=== PATIENT | male | born 1950 | race Caucasian/White ===

== ENCOUNTER 2019-01-01 14:54 | Inpatient (IN) ==
[2019-01-01] MEDS ORDERED: SODIUM CHLORIDE 0.9% 1000ML 2,000 ML IV ONE (15:16)
[2019-01-01] MEDS ORDERED: ACETAMINOPHEN 1,000 MG/100 ML VIAL IV STA (15:16)
[2019-01-01 16:02] LABS: Hematocrit (blood only) 32.4 % (42-52); Hemoglobin 10.8 g/dL (14.0-18.0); Mean Corpuscular Hgb Conc 33.3 g/dL (32-36); Mean Corpuscular Volume 85.5 fL (80-100); Mean Platelet Volume 9.4 fL (7.4-10.4); Platelet Count 210 K/uL (130-400); RDW Coefficient of Variation 13.6 % (11.5-14.5); RDW Standard Deviation 42.4 fL (36.4-46.3); Red Blood Count 3.79 M/uL (4.7-6.1); White Blood Count 8.02 K/uL (4.8-10.8)
[2019-01-01 16:12] LABS: INR 1.2 (0.9-1.1); Partial Thromboplastin Ratio 1.2; Partial Thromboplastin Time 33.4 Seconds (21.0-31.0); Prothrombin Time 12.3 Seconds (9.0-12.0)
--- NOTE | 2019-01-01 16:12 | XRay Report ---
SINGLE VIEW CHEST CLINICAL HISTORY: Sepsis. FINDINGS: An AP, portable, upright chest radiograph is compared to study dated 08/16/2018. The examina tion is degraded by portable technique, apical lordotic positioning, and patient rotation. The hear t is enlarged and there is mild atherosclerotic calcification of the thoracic aorta. The pulmonary va sculature is noncongested. There is mild bibasilar atelectasis. The lungs and pleural spaces are othe rwise clear. No pneumothorax is seen. The skeletal structures are osteopenic. The bony thorax is angelica sly intact. Arthritic change is seen in the shoulders and thoracic spine. Superior subluxation of the humeral heads suggests chronic rotator cuff injuries. IMPRESSION: Cardiomegaly with no acute cardiopulmonary abnormality. Electronically signed by: Jose Kam M.D. 01/01/2019 4:11 PM
[2019-01-01 16:15] LABS: Base Excess VBG 1.6 mEq/L; pH VBG 7.48 (7.36-7.41)
[2019-01-01 16:19] LABS: Albumin Level 2.2 gm/dl (3.4-5.0); Bilirubin Direct 0.2 mg/dl (0-0.2); Calcium 7.9 mg/dl (8.5-10.1); Creatinine Clr Calc Pharmacy 101.6 ml/min; Est GFR (African American) 103.5; Est GFR (Non-African American) 89.3; Magnesium 1.8 mg/dl (1.8-2.4); Potassium 3.7 mmol/L (3.5-5.1)
[2019-01-01 16:22] LABS: Albumin Globulin Ratio 0.6 (0.9-2); Bilirubin,Total 0.6 mg/dl (0.2-1); Globulin 3.8 gm/dl (2.5-4.0); Phosphorus 3.1 mg/dl (2.5-4.9)
[2019-01-01] MEDS ORDERED: IOVERSOL 100ml IV PRN (16:42)
--- NOTE | 2019-01-01 17:07 | CT Scan Report ---
ABDOMEN AND PELVIS CT WITH IV CONTRAST CT DOSE: 943.99 mGy.cm HISTORY: Acute generalized abdominal pain with bloody diarrhea bloody diarrhea, recent colitis on CT TECHNIQUE: Multiaxial CT images of the abdomen and pelvis were performed following the use of intrave nous contrast. A dose lowering technique was utilized adhering to the principles of ALARA. COMPARISON STUDY: Chest radiograph 01/01/2019 FINDINGS: The lung bases appear generally clear. There is no pneumatosis or pneumoperitoneum identified. Garza ry arterial calcifications are noted. The imaged inferior cardiac chambers are upper limits of normal in size. Interval increased attenuation about the dependent gallbladder fundus may reflect gallbladd er sludge or cholelithiasis. No CT evidence of acute cholecystitis or biliary ductal dilation. Mildly enlarged spleen, 15.6 cm in length. Indeterminate 13 mm hypodense lesion about the mid spleen. Mild marginal nodularity of the liver suggests cirrhosis. Liver is otherwise unremarkable. Patency of the hepatic and portal veins. Pancreas, and adrenal glands appear unremarkable. Mild cortical thinning ab out the bilateral kidneys. A millimeter hypodense lesion of the superior pole left kidney. 1.4 cm bertha culus of the inferior pole right kidney. No ureteral calculi or obstructive uropathy. Partial distent ion of the urinary bladder with mild wall thickening. Prostate is mildly enlarged. Moderate calcified plaque of the aorta without aneurysm. No bowel obstruction. Circumferential wall thickening of the colon is noted with pericolonic strandin g extending from the cecum through the rectum. Decompressed terminal ileum. Appendix appears noninfla med. Trace free fluid about the dependent pelvis. Stranding noted about the bilateral pericolic gutte rs. Mild generalized body wall edema. Diastases recti with small fat filled periumbilical hernia. Mul tilevel spondylitic spurring and facet arthrosis. Levoscoliosis of the lumbar spine. Suggestion of mu ltilevel central canal and foraminal narrowing. IMPRESSION: 1. Circumferential wall thickening of the colon with pericolonic stranding extending from the cecum t hrough the rectum is compatible with a nonspecific colitis. 2. No bowel obstruction, pneumatosis or pneumoperitoneum. 3. Trace amount of reactive pelvic ascites. 4. Mild marginal nodularity of the liver suggests cirrhosis. 5. Splenomegaly. 6. Additional findings as above. Electronically signed by: Fran Mathews M.D. 01/01/2019 5:05 PM
[2019-01-01 17:16] LABS: Basophils # (auto) 0.01 K/uL (0-0.2); Basophils % (auto) 0.1 %; Dohle Bodies 2+; Eosinophils # (auto) 0.04 K/uL (0-0.5); Eosinophils % (auto) 0.5 %; Immature Granulocytes # (auto) 0.04 K/uL (0.00-0.02); Immature Granulocytes % (auto) 0.5 %; Lymphocytes # (auto) 0.96 K/uL (1.2-3.4); Monocytes # (auto) 1.12 K/uL (0.11-0.59); Neutrophils # (auto) 5.85 K/uL (1.4-6.5); Neutrophils % (auto) 72.9 %; Toxic Granulation 1+
[2019-01-01] MEDS ORDERED: PIPERACILL/TAZOBAC CONSULT ACTIVE PRN (18:35)
--- NOTE | 2019-01-01 18:44 | History & Physical Report ---
Date of Service This is a 68 year old M who has been diarrhea for around 3 weeks. Patient is a poor historian and history also collaborated with family member/relative at [facility] - daughter Griselda [phone] and relative Britt [phone]. Patient has been in the past seen in [facility] emergency for which he was prescribed ciprofloxacin and flagyl. It appears based on the family's history patient took the combination perhaps up to a week and then was told by his primary care doctor to stop antibiotics and then take prednisone. Patient has been off prednisone for around a week. Patient reports diarrhea also associated with abdominal pain. And that it was the pain that made him come to the hospital. He is unclear whether of not there has been blood in the stool. He denies vomiting. He denies fevers. However in the ED he was recorded to have a febrile temperature of 38.7 C and patient give acetaminophen and IV fluids Patient with normal white blood cell count of 8,000 and normal lactic acid level. He had hemoglobin of 10.8 but unclear what patient's baseline Hgb is. Patient's abdominal CT imaging remarkable for Circumferential wall thickening of the colon with pericolonic stranding extending from the cecum through the rectum is compatible with a nonspecific colitis on review of systems there is some swelling of bilateral lower extremities which patient reported is relatively new. no shortness of breath. no chest pain. no headache. no dizziness. no loss of consciousness medical history: patient generally denies health problems but patient's family collaborates that he does not often see primary care doctor takes over the counter medications denies allergies family history: patient's mother had cancer January 01, 2019 Assessment & Plan (1) Colitis: -This is a 68 year old M who has been diarrhea for around 3 weeks. Patient is a poor historian and history also collaborated with family member/relative at bedside - daughter Griselda [phone] and relative Britt [phone]. Patient has been in the past seen in [facility] emergency for which he was prescribed ciprofloxacin and flagyl. It appears based on the family's history patient took the combination perhaps up to a week and then was told by his primary care doctor to stop antibiotics and then take prednisone. Patient has been off prednisone for around a week. Patient reports diarrhea also associated with abdominal pain. And that it was the pain that made him come to the hospital. He is unclear whether of not there has been blood in the stool. He denies vomiting. He denies fevers. However in the ED he was recorded to have a febrile temperature of 38.7 C and patient give acetaminophen and IV fluids Patient with normal white blood cell count of 8,000 and normal lactic acid level. He had hemoglobin of 10.8 but unclear what patient's baseline Hgb is. Patient's abdominal CT imaging remarkable for Circumferential wall thickening of the colon with pericolonic stranding extending from the cecum through the rectum is compatible with a nonspecific colitis -C.difficile negative -obtain stool culture and stool WBC -given fever and colitis, will assume infectious colitis and start Zosyn -IV fluids 50 cc/hr -will hold home dose aspirin and vitamins and fish oil and saw palmetto -clear liquid diet, NPO after midnight for GI consult Anemia -unclear whether acute on chronic -trend CBC, obtain type and screen Trace bilateral lower extremity edema -monitor Prolonged QTC on EKG -EKG is sinus and 1st degree block with mildly prolonger QTC -obtain repeat EKG when on medical morales. no acute cardiac symptoms and does not appear to need telemetry monitoring at this time DVT ppx: SCDs Full Code Status daughter Griselda [phone] and relative Britt [phone] History of Present Illness Primary Care Provider: NO PCP Allergies Allergy/AdvReac Type Severity Reaction Status Date / Time No Known Allergies Allergy Unverified 08/16/18 19:19 Home Medications Home Medications Medication Instructions Recorded Confirmed Type aspirin 81 mg PO UD 08/16/18 01/01/19 History glucosamine-chondroitin [Osteo 1 tab PO DAILY 08/16/18 01/01/19 History Bi-Flex] omega 1-ifz-cff-fish oil [Fish Oil] 1 cap PO DAILY 08/16/18 01/01/19 History ascorbic acid (vitamin C) [Vitamin 500 mg PO DAILY 01/01/19 01/01/19 History C] multivitamin 1 tab PO QAM 01/01/19 01/01/19 History saw palmetto 160 mg PO DAILY 01/01/19 01/01/19 History zinc 50 mg PO DAILY 01/01/19 01/01/19 History Past Med/Surg History Medical History No pertinent past medical history Social History Preferred Language: Turkmen Feels Safe at Home: Yes Smoking Status: Never smoker Review of Systems Review of Systems: All systems reviewed & are unremarkable except as noted in HPI & below Physical Exam Constitutional: WD/WN, vitals as above Eyes: PERRL, conjunctivae normal, anicteric sclerae EOM intact bilaterally ENMT: external ear and nose normal, oropharynx normal Neck: normal visual inspection Respiratory: normal respiratory effort, lungs clear to auscultation Cardiovascular: Rate/Rhythm: regular rate and regular rhythm Gastrointestinal (Abdomen): normal bowel sounds, soft, nontender, no hepatosplenomegaly Musculoskeletal: Head/Neck/Chest: normocephalic and head atraumatic Neurologic: PERRL, EOMI, accommodation nl, no face palsy, no dysarthria CN's II-XI intact bilaterally Psychiatric: A+Ox3, euthymic affect Results & Data Vital Signs (Past 12 Hours) Vital Signs Temp Pulse Pulse Resp BP BP Pulse Ox 01/01/19 18:00 37.3 C 99 H 20 106/48 L 99 01/01/19 16:52 78 18 120/54 L 98 01/01/19 16:22 96 01/01/19 14:59 38.7 C H 109 H 20 146/62 H 96
--- NOTE | 2019-01-01 18:44 | Emergency Department Note ---
Entered by Dayanna Mayorga acting as a scribe for Etienne Kirk MD History of Present Illness General Chief complaint: Diarrhea Stated complaint: DIARRHEA FOR 3 WEEKS, ABDOMINAL PAIN Time Seen by Provider: 01/01/19 15:08 Source: patient and friends History of Present Illness Onset (ago): week(s) 2 Location: abdomen Pain Consistency: + other (persistent ) Maximum Pain Intensity: 4 Quality: + other (diarrhea) Relieved By: not by medication (Cipro; Flagil) Associated symptoms: + fever/chills and + other (positive lower abdominal pain; positive leg swelling) The patient is a 68 year old male who presents to the Emergency Room with complaints of persistent diarrhea that began about 2 weeks prior to arrival. He reports fevers and lower abdominal pain during this time. The patient states that he was seen at [place] at this time and after a CAT scan he was told that it may be diverticulitis or a kidney infection. Per the patient's friend at bedside, the patient was given Cipro and Flagil but these were not relieving his symptoms. The patient's friend states that the patient called his PCP after these medications were not relieving his symptoms and was given a prescription for Prednisone. The patient denies a history of Crohn's disease or colitis. He reports some new swelling in his legs during this time. The patient denies any use of antibiotics before he began the Cipro and Flagil. Home Medications Home Medications Medication Instructions Recorded Confirmed Type aspirin 81 mg PO UD 08/16/18 01/01/19 History glucosamine-chondroitin [Osteo 1 tab PO DAILY 08/16/18 01/01/19 History Bi-Flex] omega 1-hwy-euu-fish oil [Fish Oil] 1 cap PO DAILY 08/16/18 01/01/19 History ascorbic acid (vitamin C) [Vitamin 500 mg PO DAILY 01/01/19 01/01/19 History C] multivitamin 1 tab PO QAM 01/01/19 01/01/19 History saw palmetto 160 mg PO DAILY 01/01/19 01/01/19 History zinc 50 mg PO DAILY 01/01/19 01/01/19 History Allergies Allergy/AdvReac Type Severity Reaction Status Date / Time No Known Allergies Allergy Unverified 08/16/18 19:19 Past Med/Surg History Medical History No pertinent past medical history Social History Preferred Language: Bermudian Communication Ability: Effective Special Diet Cook Required: No Beliefs That Will Affect Care: None Current Living Situation: Alone Current Living Situation Comment: [facility]- daughter checks on pt daily Other Information That Helps Us Care for You: No Feels Safe at Home: Yes Safety Concerns: Feels Safe At This Time Smoking Status: Never smoker Do You Dip or Chew Tobacco: No Second Hand Exposure: No Tobacco Cessation Education Requested by Patient: No Hx Alcohol Use: No Hx Substance Use: No Review of Systems See HPI for pertinent positives & negatives. and A total of 10 systems reviewed and were otherwise negative Physical Exam Vital Signs Vital Signs - 24 hr 01/01/19 14:59 01/01/19 16:22 01/01/19 16:52 Temperature 38.7 C H Temperature Source Oral Oral Sepsis Recent Fever Within 48 Hours No Sepsis New/Unexplained Change in Mental Status No Sepsis Action Taken by Nursing No Action Required Pulse Rate 109 H Pulse Rate [Apical] 78 Pulse Rhythm Regular Pulse Strength Normal Respiratory Rate 20 18 Respiratory Effort / Characteristics Non-Labored Spontaneous Non-Labored Spontaneous Respiratory Depth Normal Normal Respiratory Pattern Regular Blood Pressure 146/62 H Blood Pressure [Left Arm] 120/54 L Blood Pressure Mean 90 Blood Pressure Mean [Left Arm] 76 Blood Pressure Position Sitting Pulse Oximetry 96 96 98 Oxygen Delivery Method Room Air Room Air Room Air 01/01/19 18:00 Temperature 37.3 C Temperature Source Oral Sepsis Recent Fever Within 48 Hours Sepsis New/Unexplained Change in Mental Status Sepsis Action Taken by Nursing Pulse Rate Pulse Rate [Apical] 99 H Pulse Rhythm Pulse Strength Respiratory Rate 20 Respiratory Effort / Characteristics Respiratory Depth Respiratory Pattern Blood Pressure Blood Pressure [Left Arm] 106/48 L Blood Pressure Mean Blood Pressure Mean [Left Arm] 67 Blood Pressure Position Pulse Oximetry 99 Oxygen Delivery Method GENERAL: Awake, alert, ill-appearing, in no distress HENT: Normocephalic, atraumatic. Oropharynx with dry mucous membranes and otherwise unremarkable. EYES: Normal conjunctiva. Sclera non-icteric. NECK: Supple. No nuchal rigidity. FROM. No JVD. RESPIRATORY: CTAB. CARDIAC: Tachycardic rate, normal rhythm. Extremities warm and well perfused. Pulses equal. ABDOMEN: Soft, non-distended. Generalized discomfort without tenderness to palpation. No rebound or guarding. No masses. RECTAL: Deferred. MUSCULOSKELETAL: Chest examination reveals no tenderness. The back is symmetrical on inspection without obvious abnormality. There is no CVA tenderness to palpation. No joint edema. LOWER EXTREMITIES: Calves are equal size bilaterally and non-tender. No edema. No discoloration. NEURO: Normal sensorium. No sensory or motor deficits noted. SKIN: No rash or jaundice noted. Course 1519: Past medical records reviewed. The patient was evaluated in room C4. A complete history and physical exam was performed. 1746: I checked on and updated the patient on all results. He is in agreement with the treatment plan. 1758: [facility] for [facility]. Consultations Consultation #1: I discussed the case [facility] the patient for further evaluation under Dr. NeriSCJAVI Hospitalist service. Time: 17:58 Administered Medications Sodium Chloride (Nss 1000ml) 1,000 mls @ 50 mls/hr IV .Q20H SAHIL Stop: 01/31/19 18:44 Last Admin: 01/01/19 21:09 Dose: 50 mls/hr Documented by: [id number] Ioversol (Optiray 320 100ml) 93 ml IV ONCE PRN PRN Reason: Interaction Checking Stop: 01/05/19 16:41 Last Admin: 01/01/19 16:42 Dose: 93 ml Documented by: [id number] Discontinued Medications Acetaminophen (Ofirmev) 1,000 mg in 100 mls @ 400 mls/hr IV NOW STA Stop: 01/01/19 15:30 Last Infusion: 01/01/19 16:34 Dose: 0 mls/hr Documented by: [id number] Admin: 01/01/19 16:16 Dose: 400 mls/hr Documented by: [id number] Sodium Chloride (Nss 1000ml) 2,000 mls @ 999 mls/hr IV .Q2H1M ONE Stop: 01/01/19 17:16 Last Infusion: 01/01/19 18:15 Dose: 0 mls/hr Documented by: [id number] Admin: 01/01/19 16:16 Dose: 999 mls/hr Documented by: [id number] Piperacillin Sod/Tazobactam (Sod 3.375 gm/ Dextrose) 115 mls @ 230 mls/hr IV ONE ONE; Protocol Stop: 01/01/19 20:44 Last Infusion: 01/01/19 21:54 Dose: 0 mls/hr Documented by: [id number] Admin: 01/01/19 21:09 Dose: 230 mls/hr Documented by: [id number] Medical Decision Making Differential Diagnosis Differential diagnosis: Etiologies such as viral syndrome, otitis, pharyngitis, pneumonia, influenza, meningitis, urinary tract infection, sepsis, bacteremia, as well as others were entertained. Medical Records Attestation: I reviewed the patient's medical records. Home Medications Current Medication List: was personally reviewed by me Laboratory Data Attestation: I reviewed the patient's lab results. Result diagrams: 01/01/19 21:24 01/01/19 15:37 Lab Results 01/01/19 01/01/19 01/01/19 Range/Units 15:32 15:37 15:37 WBC 8.02 (4.8-10.8) K/uL RBC 3.79 L (4.7-6.1) M/uL Hgb 10.8 L (14.0-18.0) g/dL Hct 32.4 L (42-52) % MCV 85.5 (80-100) fL MCH 28.5 (25-34) pg MCHC 33.3 (32-36) g/dL RDW Std Deviation 42.4 (36.4-46.3) fL RDW Coeff of Bryan 13.6 (11.5-14.5) % Plt Count 210 (130-400) K/uL MPV 9.4 (7.4-10.4) fL Immature Gran % (Auto) 0.5 % Neut % (Auto) 72.9 % Lymph % (Auto) 12.0 % [place] % (Auto) 14.0 % Eos % (Auto) 0.5 % Baso % (Auto) 0.1 % Immature Gran # (Auto) 0.04 H (0.00-0.02) K/uL Neut # (Auto) 5.85 (1.4-6.5) K/uL Lymph # (Auto) 0.96 L (1.2-3.4) K/uL [place] # (Auto) 1.12 H (0.11-0.59) K/uL Eos # (Auto) 0.04 (0-0.5) K/uL Baso # (Auto) 0.01 (0-0.2) K/uL Toxic Granulation 1+ Dohle Bodies 2+ PT 12.3 H (9.0-12.0) Seconds INR 1.2 H (0.9-1.1) APTT 33.4 H (21.0-31.0) Seconds PTT Ratio 1.2 VBG pH (7.36-7.41) VBG pCO2 (38-50) mmHg VBG pO2 mmHg VBG HCO3 mmol/L VBG O2 Saturation % VBG Base Excess mEq/L Barometric Pressure mm/Hg Sodium (136-145) mmol/L Potassium (3.5-5.1) mmol/L Chloride (98-107) mmol/L Carbon Dioxide (21-32) mmol/L Anion Gap (3-11) BUN (7-18) mg/dl Creatinine (0.6-1.4) mg/dl Est Cr Clr Drug Dosing ml/min Est GFR ( Amer) Est GFR (Non-Af Amer) BUN/Creatinine Ratio (10-20) Glucose (70-99) mg/dl Lactate (0.4-2.0) mmol/L Calcium (8.5-10.1) mg/dl Phosphorus (2.5-4.9) mg/dl Magnesium (1.8-2.4) mg/dl Total Bilirubin (0.2-1) mg/dl Direct Bilirubin (0-0.2) mg/dl AST (15-37) U/L ALT (12-78) U/L Alkaline Phosphatase (45-117) U/L Total Protein (6.4-8.2) gm/dl Albumin (3.4-5.0) gm/dl Globulin (2.5-4.0) gm/dl Albumin/Globulin Ratio (0.9-2) Stl C. diff Tox B Gene Negative Cdiff Gene (Neg) Blood Type Antibody Screen 01/01/19 01/01/19 01/01/19 Range/Units 15:37 15:46 15:49 WBC (4.8-10.8) K/uL RBC (4.7-6.1) M/uL Hgb (14.0-18.0) g/dL Hct (42-52) % MCV (80-100) fL MCH (25-34) pg MCHC (32-36) g/dL RDW Std Deviation (36.4-46.3) fL RDW Coeff of Bryan (11.5-14.5) % Plt Count (130-400) K/uL MPV (7.4-10.4) fL Immature Gran % (Auto) % Neut % (Auto) % Lymph % (Auto) % [place] % (Auto) % Eos % (Auto) % Baso % (Auto) % Immature Gran # (Auto) (0.00-0.02) K/uL Neut # (Auto) (1.4-6.5) K/uL Lymph # (Auto) (1.2-3.4) K/uL [place] # (Auto) (0.11-0.59) K/uL Eos # (Auto) (0-0.5) K/uL Baso # (Auto) (0-0.2) K/uL Toxic Granulation Dohle Bodies PT (9.0-12.0) Seconds INR (0.9-1.1) APTT (21.0-31.0) Seconds PTT Ratio VBG pH (7.36-7.41) VBG pCO2 (38-50) mmHg VBG pO2 mmHg VBG HCO3 mmol/L VBG O2 Saturation % VBG Base Excess mEq/L Barometric Pressure mm/Hg Sodium 136 (136-145) mmol/L Potassium 3.7 (3.5-5.1) mmol/L Chloride 103 (98-107) mmol/L Carbon Dioxide 26 (21-32) mmol/L Anion Gap 7.0 (3-11) BUN 14 (7-18) mg/dl Creatinine 0.87 (0.6-1.4) mg/dl Est Cr Clr Drug Dosing 101.6 ml/min Est GFR ( Amer) 103.5 Est GFR (Non-Af Amer) 89.3 BUN/Creatinine Ratio 16.0 (10-20) Glucose 106 H (70-99) mg/dl Lactate 1.1 (0.4-2.0) mmol/L Calcium 7.9 L (8.5-10.1) mg/dl Phosphorus 3.1 (2.5-4.9) mg/dl Magnesium 1.8 (1.8-2.4) mg/dl Total Bilirubin 0.6 (0.2-1) mg/dl Direct Bilirubin 0.2 (0-0.2) mg/dl AST 12 L (15-37) U/L ALT 20 (12-78) U/L Alkaline Phosphatase 56 (45-117) U/L Total Protein 6.0 L (6.4-8.2) gm/dl Albumin 2.2 L (3.4-5.0) gm/dl Globulin 3.8 (2.5-4.0) gm/dl Albumin/Globulin Ratio 0.6 L (0.9-2) Stl C. diff Tox B Gene (Neg) Blood Type A Positive Antibody Screen NEGATIVE 01/01/19 Range/Units 16:02 WBC (4.8-10.8) K/uL RBC (4.7-6.1) M/uL Hgb (14.0-18.0) g/dL Hct (42-52) % MCV (80-100) fL MCH (25-34) pg MCHC (32-36) g/dL RDW Std Deviation (36.4-46.3) fL RDW Coeff of Bryan (11.5-14.5) % Plt Count (130-400) K/uL MPV (7.4-10.4) fL Immature Gran % (Auto) % Neut % (Auto) % Lymph % (Auto) % [place] % (Auto) % Eos % (Auto) % Baso % (Auto) % Immature Gran # (Auto) (0.00-0.02) K/uL Neut # (Auto) (1.4-6.5) K/uL Lymph # (Auto) (1.2-3.4) K/uL [place] # (Auto) (0.11-0.59) K/uL Eos # (Auto) (0-0.5) K/uL Baso # (Auto) (0-0.2) K/uL Toxic Granulation Dohle Bodies PT (9.0-12.0) Seconds INR (0.9-1.1) APTT (21.0-31.0) Seconds PTT Ratio VBG pH 7.48 H (7.36-7.41) VBG pCO2 34 L (38-50) mmHg VBG pO2 33 mmHg VBG HCO3 25 mmol/L VBG O2 Saturation 66.0 % VBG Base Excess 1.6 mEq/L Barometric Pressure 738.2 mm/Hg Sodium (136-145) mmol/L Potassium (3.5-5.1) mmol/L Chloride (98-107) mmol/L Carbon Dioxide (21-32) mmol/L Anion Gap (3-11) BUN (7-18) mg/dl Creatinine (0.6-1.4) mg/dl Est Cr Clr Drug Dosing ml/min Est GFR ( Amer) Est GFR (Non-Af Amer) BUN/Creatinine Ratio (10-20) Glucose (70-99) mg/dl Lactate (0.4-2.0) mmol/L Calcium (8.5-10.1) mg/dl Phosphorus (2.5-4.9) mg/dl Magnesium (1.8-2.4) mg/dl Total Bilirubin (0.2-1) mg/dl Direct Bilirubin (0-0.2) mg/dl AST (15-37) U/L ALT (12-78) U/L Alkaline Phosphatase (45-117) U/L Total Protein (6.4-8.2) gm/dl Albumin (3.4-5.0) gm/dl Globulin (2.5-4.0) gm/dl Albumin/Globulin Ratio (0.9-2) Stl C. diff Tox B Gene (Neg) Blood Type Antibody Screen Imaging Data Radiologist's Impression: Radiology results as stated below per my review and the radiologist's interpretation: SINGLE VIEW CHEST CLINICAL HISTORY: Sepsis. FINDINGS: An AP, portable, upright chest radiograph is compared to study dated 08/16/2018. The examination is degraded by portable technique, apical lordotic positioning, and patient rotation. The heart is enlarged and there is mild atherosclerotic calcification of the thoracic aorta. The pulmonary vasculature is noncongested. There is mild bibasilar atelectasis. The lungs and pleural spaces are otherwise clear. No pneumothorax is seen. The skeletal structures are osteopenic. The bony thorax is grossly intact. Arthritic change is seen in the shoulders and thoracic spine. Superior subluxation of the humeral heads suggests chronic rotator cuff injuries. IMPRESSION: Cardiomegaly with no acute cardiopulmonary abnormality. Electronically signed by: Jose Kam M.D. 01/01/2019 4:11 PM A[address]OMEN AND PELVIS CT WITH IV CONTRAST CT DOSE: 943.99 mGy.cm HISTORY: Acute generalized abdominal pain with bloody diarrhea bloody diarrhea, recent colitis on CT TECHNIQUE: Multiaxial CT images of the abdomen and pelvis were performed following the use of intravenous contrast. A dose lowering technique was utilized adhering to the principles of ALARA. COMPARISON STUDY: Chest radiograph 01/01/2019 FINDINGS: The lung bases appear generally clear. There is no pneumatosis or pneumoperitoneum identified. Coronary arterial calcifications are noted. The imaged inferior cardiac chambers are upper limits of normal in size. Interval increased attenuation about the dependent gallbladder fundus may reflect gallbladder sludge or cholelithiasis. No CT evidence of acute cholecystitis or biliary ductal dilation. Mildly enlarged spleen, 15.6 cm in length. Indeterminate 13 mm hypodense lesion about the mid spleen. Mild marginal nodularity of the liver suggests cirrhosis. Liver is otherwise unremarkable. Patency of the hepatic and portal veins. Pancreas, and adrenal glands appear unremarkable. Mild cortical thinning about the bilateral kidneys. A millimeter hypodense lesion of the superior pole left kidney. 1.4 cm calculus of the inferior pole right kidney. No ureteral calculi or obstructive uropathy. Partial distention of the urinary bladder with mild wall thickening. Prostate is mildly enlarged. Moderate calcified plaque of the aorta without aneurysm. No bowel obstruction. Circumferential wall thickening of the colon is noted with pericolonic stranding extending from the cecum through the rectum. Decompressed terminal ileum. Appendix appears noninflamed. Trace free fluid about the dependent pelvis. Stranding noted about the bilateral pericolic gutters. Mild generalized body wall edema. Diastases recti with small fat filled periumbilical hernia. Multilevel spondylitic spurring and facet arthrosis. Levoscoliosis of the lumbar spine. Suggestion of multilevel central canal and foraminal narrowing. IMPRESSION: 1. Circumferential wall thickening of the colon with pericolonic stranding extending from the cecum through the rectum is compatible with a nonspecific colitis. 2. No bowel obstruction, pneumatosis or pneumoperitoneum. 3. Trace amount of reactive pelvic ascites. 4. Mild marginal nodularity of the liver suggests cirrhosis. 5. Splenomegaly. 6. Additional findings as above. Electronically signed by: Fran Mathews M.D. 01/01/2019 5:05 PM ECG Data Attestation: I personally reviewed and interpreted this ECG as follows: Indication: abdominal pain Rate (beats per minute): 94 Rhythm: sinus with SA Findings: + other (normal axis; no acute ischemia) and + 1st degree AV block Blood Pressure Blood Pressure Findings: Normal blood pressure MDM Narrative the patient is a pleasant 68-year-old gentleman who presents emergency department with persistent diarrhea, fevers after being seen at [place] emergency department diagnosed with colitis treated with Cipro and Flagyl but transition to steroids by PCP per hpi. On arrival patient is febrile to 38.7, tachycardic in the 120s with stable blood pressures and mentating normally. The patient ill-appearing but no acute distress. The patient appears clinically dry, despite 2+ bilateral lower extremity edema. WBC within normal limits. Hemoglobin 10.7 without priors for comparison. Lactate within normal limits. Chemistry without acidosis. CT abdomen pelvis demonstrates extensive colitis. The patient did have a watery brown, bloody bowel movement in the emergency de partment which was guaiac positive. Cdiff negative. Thus, will order stool cultures to exclude E. coli [id number] and hold antibiotics at this time. Case was discussed with Zonia Bird PA-C, who will evaluate the patient for admission. Impression & Plan Hemorrhagic colitis, SIRS (systemic inflammatory response syndrome) Critical Care Time Critical Care Time: Yes Total Critical Care Time: 35 I have personally spent greater than 35 minutes of critical care time in the direct management of this patient. This includes bedside care, interpretation of diagnostic studies, and testing, discussion with consultants, patient, and family members, and other required patient management activities. This 35 minutes is in excess of all separately billable procedures. Discharge Plan Visit Data *Final* Discharge Date/Time: 01/01/19 19:56 Chief Complaint: Diarrhea Stated Complaint: DIARRHEA FOR 3 WEEKS, ABDOMINAL PAIN ED Provider: Etienne Kirk Discharge Problem: Hemorrhagic colitis, SIRS (systemic inflammatory response syndrome) Patient Disposition: Admitted As Inpatient Discharge Instructions Interventions: ED Discharge Assessment Last Done: 01/01/19 19:56 The scribe's documentation has been prepared under my direction and personally reviewed by me in its entirety. I confirm that the note above accurately reflects all work, treatment, procedures, and medical decision making performed by me.
[2019-01-01] MEDS ORDERED: SODIUM CHLORIDE 0.9% 1000ML 1,000 ML IV SCH (18:45)
[2019-01-01] MEDS ORDERED: PIPERACILLIN/TAZOBACTAM 3.375 GM in DEXTROSE 5% 100 ML IV SCH (18:45)
[2019-01-01] MEDS ORDERED: ACETAMINOPHEN 65 ML IV PRN (19:30)
[2019-01-01] MEDS ORDERED: PIPERACILLIN/TAZOBACTAM 3.375 GM in DEXTROSE 5% 100 ML IV ONE (20:15)
[2019-01-01 21:34] LABS: Hematocrit (blood only) 33.5 % (42-52); Mean Corpuscular Hgb Conc 32.8 g/dL (32-36); Mean Corpuscular Volume 85.9 fL (80-100); Mean Platelet Volume 9.3 fL (7.4-10.4); Platelet Count 217 K/uL (130-400); RDW Coefficient of Variation 13.8 % (11.5-14.5); White Blood Count 9.18 K/uL (4.8-10.8)
[2019-01-01 22:22] LABS: Basophils # (auto) 0.01 K/uL (0-0.2); Basophils % (auto) 0.1 %; Dohle Bodies 1+; Eosinophils # (auto) 0.08 K/uL (0-0.5); Eosinophils % (auto) 0.9 %; Immature Granulocytes # (auto) 0.05 K/uL (0.00-0.02); Immature Granulocytes % (auto) 0.5 %; Lymphocytes # (auto) 1.18 K/uL (1.2-3.4); Lymphocytes % (auto) 12.9 %; Monocytes # (auto) 1.33 K/uL (0.11-0.59); Monocytes % (auto) 14.5 %; Neutrophils # (auto) 6.53 K/uL (1.4-6.5); Neutrophils % (auto) 71.1 %; Toxic Granulation 3+
[2019-01-02] MEDS ORDERED: PIPERACILLIN/TAZOBACTAM 3.375 GM in DEXTROSE 5% 100 ML IV SCH (02:00)
[2019-01-02 08:42] LABS: Basophils # (auto) 0.01 K/uL (0-0.2); Basophils % (auto) 0.1 %; Eosinophils # (auto) 0.08 K/uL (0-0.5); Eosinophils % (auto) 1.2 %; Hematocrit (blood only) 30.3 % (42-52); Hemoglobin 10.1 g/dL (14.0-18.0); Immature Granulocytes # (auto) 0.04 K/uL (0.00-0.02); Immature Granulocytes % (auto) 0.6 %; Lymphocytes # (auto) 0.99 K/uL (1.2-3.4); Lymphocytes % (auto) 14.7 %; Mean Corpuscular Hgb Conc 33.3 g/dL (32-36); Mean Corpuscular Volume 87.3 fL (80-100); Mean Platelet Volume 9.6 fL (7.4-10.4); Monocytes # (auto) 1.02 K/uL (0.11-0.59); Monocytes % (auto) 15.2 %; Neutrophils # (auto) 4.58 K/uL (1.4-6.5); Neutrophils % (auto) 68.2 %; Platelet Count 189 K/uL (130-400); RDW Coefficient of Variation 13.9 % (11.5-14.5); RDW Standard Deviation 44.1 fL (36.4-46.3); Red Blood Count 3.47 M/uL (4.7-6.1); White Blood Count 6.72 K/uL (4.8-10.8)
[2019-01-02 09:10] LABS: BUN Creatinine Ratio 13.6 (10-20); Calcium 7.5 mg/dl (8.5-10.1); Creatinine Clr Calc Pharmacy 109.3 ml/min; Est GFR (African American) 106.1; Est GFR (Non-African American) 91.5; Potassium 3.6 mmol/L (3.5-5.1)
[2019-01-02 09:13] LABS: Albumin Globulin Ratio 0.6 (0.9-2); Bilirubin,Total 0.5 mg/dl (0.2-1); Globulin 3.4 gm/dl (2.5-4.0); Total Protein 5.4 gm/dl (6.4-8.2)
--- NOTE | 2019-01-02 11:14 | Consultation Report ---
DATE OF CONSULTATION: 01/02/2019 GASTROENTEROLOGY CONSULT ATTENDING PHYSICIAN: Dr. Moran. CONSULTING PHYSICIAN: Dr. Johnson. REASON FOR CONSULTATION: Colitis. HISTORY OF PRESENT ILLNESS: Mr. Tripp is a 68-year-old male who has had diarrhea over the past few months and was last seen at [facility] in the past month secondary to above noted symptoms. He was started on ciprofloxacin and Flagyl therapy for what the family states was a diagnosis of diverticulitis; however, he only tolerated approximately 4 days of antibiotic therapy and subsequently stopped this. His PCP did prescribe a short taper prednisone therapy which he states he felt better on initially, but his symptoms returned with removal of prednisone therapy. Upon arrival to the Department of Emergency Medicine, he was noted to have laboratory studies which showed an H and H of 10.8 and 32.4. His white blood cell count was 8.02. His liver panel was unremarkable. He was noted to be negative for C. diff gene. A CT scan of the abdomen and pelvis was performed which showed circumferential wall thickening of the colon with pericolonic stranding extending from the cecum through the rectum. He was subsequently started on Zosyn therapy and admitted. At the time that I saw the patient, his daughter was at his bedside. He continues to have diarrhea and has had blood in his stools per the family. He has never undergone a colonoscopy in the past nor an upper endoscopy. His daughter who is with him states that his symptoms have gone on for "months." He currently denies any abdominal pain, but previously stated, he had abdominal pain which was 4/10 in intensity throughout his abdominal cavity. He stated that the pain was chronic and aching. He denied any sharp, stabbing pain and denied any alleviation or exacerbating factors. He has no other complaints at the present time. PAST MEDICAL HISTORY: None. PAST SURGICAL HISTORY: None. ALLERGIES: None. MEDICATIONS AT PRESENT: Tylenol 650 mg IV q. 8 p.r.n. pain and fever, Zosyn 3.375 grams IV q. 8 hours. SOCIAL HISTORY: . No tobacco, alcohol or illicit drug use. FAMILY HISTORY: Negative for GI malignancy or inflammatory bowel diseases. REVIEW OF SYSTEMS: Negative x12 system review other than pertinent positives listed in the HPI. PHYSICAL EXAMINATION: VITAL SIGNS: Temp 36.8, pulse 96, respirations 16, blood pressure 112/65, pulse ox 98% on room air. GENERAL: He is awake, cooperative, no acute distress. HEAD: Normocephalic, atraumatic. EYES: Pupils equal, round. Extraocular muscles are intact. ENT: External evaluation of ears and nose are normal. Oropharynx is clear. NECK: Soft and supple. There is no JVD or lymphadenopathy. CHEST: Clear to auscultation bilaterally. CARDIOVASCULAR SYSTEM: Regular rate and rhythm. ABDOMEN: Soft, nontender, nondistended. Positive bowel sounds. There is no hepatosplenomegaly or stigmata of chronic liver disease. EXTREMITIES: No clubbing, cyanosis, or edema. SKIN: Soft and pink. LABORATORY STUDIES AND RADIOGRAPHIC STUDIES: Reviewed in the HPI. IMPRESSION: A 68-year-old male with bloody diarrhea and abdominal pain with pancolitis on CT imaging. PLAN: Differential diagnosis in this patient includes infectious colitis #1 versus inflammatory bowel disease, most likely ulcerative colitis versus other. In that regard, I would recommend that the patient be given Solu-Medrol 40 mg IV b.i.d. I would stop broad-spectrum antibiotics as there is no evidence of source of infection. His stool studies did return, which did show fecal leukocytes consistent with an inflammatory cause. The remainder of his stool cultures pending. C. diff testing was negative. I would also recommend that he have an advancement of his diet to as tolerated and he will need a colonoscopy during this admission for further evaluation of his symptoms, plan on performing a bowel prep tomorrow and proceeding with colonoscopy on Friday. Once again, thanks for allowing me to participate in the care of this patient. If you have any further questions, please do not hesitate in contacting me.
[2019-01-02] MEDS: methylPREDNISolone 40 MG in SYRINGE 0 ML IV SCH ×2 (11:59→21:28)
--- NOTE | 2019-01-02 17:17 | Hospitalist Progress Note ---
Date of Service January 02, 2019 Assessment & Plan (1) Colitis: -This is a 68 year old M who has been diarrhea for around 3 weeks. Patient is a poor historian and history also collaborated with family member/relative at bedside - daughter Griselda [phone] and relative Britt [phone]. Patient has been in the past seen in [facility] emergency for which he was prescribed ciprofloxacin and flagyl. It appears based on the family's history patient took the combination perhaps up to a week and then was told by his primary care doctor to stop antibiotics and then take prednisone. Patient has been off prednisone for around a week. Patient reports diarrhea also associated with abdominal pain. And that it was the pain that made him come to the hospital. He is unclear whether of not there has been blood in the stool. He denies vomiting. He denies fevers. However in the ED he was recorded to have a febrile temperature of 38.7 C and patient give acetaminophen and IV fluids Patient with normal white blood cell count of 8,000 and normal lactic acid level. He had hemoglobin of 10.8 but unclear what patient's baseline Hgb is. Patient's abdominal CT imaging remarkable for Circumferential wall thickening of the colon with pericolonic stranding extending from the cecum through the rectum is compatible with a nonspecific colitis -C.difficile negative -was started on Zosyn on admission on 01/01/19 given fever of 38.7 recorded in the ED for concern of infectious colitis - but as per gastroenterology service it is likely that patient may have autoimmune disorder such as ulcerative colitis and recommended that antibiotics be stopped on 01/02/19 -patient started on solumedrol 40 mg IV BID by gastroenterology on 01/02/19 -and plans is for patient to have bowel prep on 01/03/19 and then colonoscopy on 01/04/19 as per gastronenterology service -continue to hold dose aspirin and vitamins and fish oil and saw palmetto Anemia -unclear whether acute on chronic -fecal occult blood stool positive -Hgb stable between 10 to 11 Trace bilateral lower extremity edema -monitor Prolonged QTC on EKG -EKG is sinus and 1st degree block with mildly prolonger QTC -on telemetry monitoring DVT ppx: SCDs Full Code Status daughter Griselda [phone] and relative Britt [phone] Subjective Patient with less abdomen pain during hospital stay. has bowel movement which is FOBT positive. blood counts stable. no dizziness. no lightheadedness. no chest pain. no shortness of breath. breathing on room air Physical Exam Constitutional: WD/WN, vitals as above Eyes: PERRL, conjunctivae normal, anicteric sclerae EOM intact bilaterally ENMT: external ear and nose normal, oropharynx normal Neck: normal visual inspection Respiratory: normal respiratory effort, lungs clear to auscultation Cardiovascular: Rate/Rhythm: regular rate and regular rhythm Gastrointestinal (Abdomen): normal bowel sounds, soft, nontender, no hepatosplenomegaly Musculoskeletal: Head/Neck/Chest: normocephalic and head atraumatic Neurologic: PERRL, EOMI, accommodation nl, no face palsy, no dysarthria CN's II-XI intact bilaterally Psychiatric: A+Ox3, euthymic affect Results & Data Vital Signs (Past 12 Hours) Vital Signs Temp Pulse Pulse Resp BP Pulse Ox 01/02/19 15:35 37.1 C 81 16 144/67 H 96 01/02/19 15:00 60 01/02/19 11:52 36.9 C 89 16 125/57 L 97 01/02/19 07:57 36.8 C 96 H 16 112/65 98
[2019-01-03 07:44] LABS: Basophils # (auto) 0.01 K/uL (0-0.2); Basophils % (auto) 0.1 %; Hematocrit (blood only) 34.4 % (42-52); Hemoglobin 11.3 g/dL (14.0-18.0); Immature Granulocytes # (auto) 0.06 K/uL (0.00-0.02); Immature Granulocytes % (auto) 0.6 %; Lymphocytes # (auto) 1.27 K/uL (1.2-3.4); Lymphocytes % (auto) 12.8 %; Mean Corpuscular Hgb Conc 32.8 g/dL (32-36); Mean Platelet Volume 9.6 fL (7.4-10.4); Monocytes # (auto) 1.01 K/uL (0.11-0.59); Monocytes % (auto) 10.2 %; Neutrophils # (auto) 7.58 K/uL (1.4-6.5); Neutrophils % (auto) 76.3 %; Platelet Count 237 K/uL (130-400); RDW Coefficient of Variation 13.8 % (11.5-14.5); RDW Standard Deviation 43.8 fL (36.4-46.3); Red Blood Count 3.91 M/uL (4.7-6.1); White Blood Count 9.93 K/uL (4.8-10.8)
[2019-01-03 08:17] LABS: Calcium 8.1 mg/dl (8.5-10.1); Creatinine Clr Calc Pharmacy 104.2 ml/min; Est GFR (Non-African American) 89.7; Potassium 4.1 mmol/L (3.5-5.1)
[2019-01-03] MEDS: methylPREDNISolone 40 MG in SYRINGE 0 ML IV SCH ×2 (08:35→20:45)
--- NOTE | 2019-01-03 09:25 | Progress Note ---
DATE: 01/03/2019 GASTROENTEROLOGY PROGRESS NOTE RACE: . This is a cross coverage for [employer]. HISTORY OF PRESENT ILLNESS: Dk Tripp is a pleasant 68-year-old male who was tolerating p.o. intake this morning with a clear-liquid breakfast. He continues to have multiple episodes of diarrhea daily, though he states he feels better today than yesterday. He denies any hematemesis, melena or hematochezia. He does complain of 2-3/10 abdominal pain, generalized, nonradiating without alleviating or exacerbating factors at present. He denies any further complaints. REVIEW OF SYSTEMS: Negative x12 system review other than pertinent positives listed in the HPI. PHYSICAL EXAMINATION: VITAL SIGNS: Include a temperature of 36.7, pulse 70, respirations 20, blood pressure 129/53, pulse ox 97% on room air. GENERAL: He is awake, cooperative, chronic ill appearing, in no acute distress. CHEST: Clear to auscultation bilaterally. CARDIOVASCULAR SYSTEM: Regular rate and rhythm. ABDOMEN: Soft, tender throughout. Nondistended. Positive bowel sounds. There is no hepatosplenomegaly or stigmata of chronic liver disease. EXTREMITIES: No clubbing, cyanosis, or edema. LABORATORY DATA: Laboratory studies from this morning include an H and H of 11.3 and 34.4. His sodium is 139, potassium 4.1, chloride 105, bicarbonate 28, BUN 11, creatinine 0.86 and a blood glucose of 158. IMPRESSION: This is a 68-year-old male with bloody diarrhea and abdominal pain and pancolitis on CT imaging. PLAN: Continue the patient on clear-liquid diet. I will recommend that he receive a bowel prep tonight and be kept n.p.o. following a bowel prep to undergo a colonoscopy with Dr. Khanna tomorrow for further evaluation of his above noted symptoms. Once again, thanks for allowing me to participate in the care of this patient. If you have any further questions, please do not hesitate in contacting me.
[2019-01-03 11:08] LABS: Appearance Urine Clear (Clear); Bacteria Urine Automated Negative (Negative); Bilirubin Urine Negative (Negative); Blood Urine Negative (Negative); Color Urine Dark Yellow; Epithelial Cell Urine Auto >30 /lpf (0-5); Glucose Urine UA Negative (Negative); Ketones Urine Trace (Negative); Leukocyte Esterase Urine Negative (Negative); Nitrite Urine Negative (Negative); Protein Urine 1+ (Negative); RBC Urine Automated 0-4 /hpf (0-4); Specific Gravity Urine 1.023 (1.000-1.030); Urobilinogen Urine Negative (Negative)
[2019-01-03 11:20] LABS: Mucus Urine Present (None Prsent)
--- NOTE | 2019-01-03 14:01 | Hospitalist Progress Note ---
Date of Service January 03, 2019 Assessment & Plan (1) Colitis: -This is a 68 year old M who has been diarrhea for around 3 weeks. Patient is a poor historian and history also collaborated with family member/relative at bedside - daughter Griselda [phone] and relative Britt [phone]. Patient has been in the past seen in [facility] emergency for which he was prescribed ciprofloxacin and flagyl. It appears based on the family's history patient took the combination perhaps up to a week and then was told by his primary care doctor to stop antibiotics and then take prednisone. Patient has been off prednisone for around a week. Patient reports diarrhea also associated with abdominal pain. And that it was the pain that made him come to the hospital. He denies vomiting. He denies fevers. However in the ED he was recorded to have a febrile temperature of 38.7 C and patient give acetaminophen and IV fluids Patient with normal white blood cell count of 8,000 and normal lactic acid level. He had hemoglobin of 10.8 but unclear what patient's baseline Hgb is. Patient and family reports blood in the stool. Patient's abdominal CT imaging remarkable for Circumferential wall thickening of the colon with pericolonic stranding extending from the cecum through the rectum is compatible with a nonspecific colitis -C.difficile negative -was started on Zosyn on admission on 01/01/19 given fever of 38.7 recorded in the ED for concern of infectious colitis - but as per gastroenterology service it is likely that patient may have autoimmune disorder such as ulcerative colitis and recommended that antibiotics be stopped on 01/02/19 -patient started on solumedrol 40 mg IV BID by gastroenterology on 01/02/19, continue -plan is for patient to have bowel prep on 01/03/19 and then colonoscopy on 01/04/19 as per gastronenterology service -continue to hold dose aspirin and vitamins and fish oil and saw palmetto Anemia -unclear whether acute on chronic -fecal occult blood stool positive on 01/02/19 -Hgb stable between 10 to 11.8 Trace bilateral lower extremity edema -monitor, is improved Prolonged QTC on EKG -EKG is sinus and 1st degree block with mildly prolonger QTC on ED presentation -on telemetry monitoring -will repeat EKG DVT ppx: SCDs, ambulation Full Code Status daughter Griselda [phone] and relative Britt [phone] Subjective afebrile . Patient feels no abdomen pain today. he was able to make bowel movement. no dizziness no lightheadedness. no vomiting. no chest pain. no shortness of breath. no palpitations continues to be on IV steroids. patient aware of plans to take bowel prep today for colonoscopy tomorrow. Physical Exam Constitutional: WD/WN, vitals as above Eyes: PERRL, conjunctivae normal, anicteric sclerae EOM intact bilaterally ENMT: external ear and nose normal, oropharynx normal Neck: normal visual inspection Respiratory: normal respiratory effort, lungs clear to auscultation Cardiovascular: Rate/Rhythm: regular rate and regular rhythm Gastrointestinal (Abdomen): normal bowel sounds, soft, nontender, no hepatosplenomegaly Musculoskeletal: Head/Neck/Chest: normocephalic and head atraumatic Neurologic: PERRL, EOMI, accommodation nl, no face palsy, no dysarthria CN's II-XI intact bilaterally Psychiatric: A+Ox3, euthymic affect Results & Data Vital Signs (Past 12 Hours) Vital Signs Temp Pulse Pulse Resp BP Pulse Ox 01/03/19 11:15 36.5 C 76 18 113/60 98 01/03/19 08:00 70 01/03/19 07:38 36.7 C 70 20 129/53 L 97 01/03/19 03:30 36.7 C 80 20 141/64 H 97
[2019-01-03] MEDS ORDERED: LAVAGE SOLUTION 4000ML PO SCH ×2 (15:00→18:00)
[2019-01-03] MEDS: LAVAGE SOLUTION 4000ML PO SCH (19:39)
[2019-01-04] MEDS: LAVAGE SOLUTION 4000ML PO SCH (02:30)
[2019-01-04 07:29] LABS: Basophils # (auto) 0.01 K/uL (0-0.2); Basophils % (auto) 0.2 %; Hematocrit (blood only) 34.5 % (42-52); Hemoglobin 11.2 g/dL (14.0-18.0); Immature Granulocytes # (auto) 0.06 K/uL (0.00-0.02); Lymphocytes % (auto) 15.2 %; Mean Corpuscular Hgb Conc 32.5 g/dL (32-36); Mean Platelet Volume 9.3 fL (7.4-10.4); Monocytes # (auto) 0.67 K/uL (0.11-0.59); Monocytes % (auto) 11.3 %; Neutrophils # (auto) 4.28 K/uL (1.4-6.5); Neutrophils % (auto) 72.3 %; Platelet Count 204 K/uL (130-400); RDW Coefficient of Variation 13.6 % (11.5-14.5); RDW Standard Deviation 42.6 fL (36.4-46.3); Red Blood Count 4.01 M/uL (4.7-6.1); White Blood Count 5.92 K/uL (4.8-10.8)
[2019-01-04] MEDS: methylPREDNISolone 40 MG in SYRINGE 0 ML IV SCH ×2 (08:04→21:18)
--- NOTE | 2019-01-04 09:16 | Gastroenterology Progress Note ---
Date of Service January 04, 2019 Assessment & Plan (1) Hemorrhagic colitis: 68 year old male with bloody diarrhea and CT showing non-specific colitis. For colonoscopy today. Supervising Physician Co-Signing Physician Notes I have seen and examined the patient with Swathi Tejeda PA-C whose note reflects our findings and plan. On going diarrhea and CT showing non-specific colitis. Abd exam benign. Intermittent red blood in stool. Will proceed with colonoscopy today. Subjective 68 year old male with hx of abdominal pain/diarrhea - felt initially to have diverticulitis, but did not respond to antibiotics. Was placed on prednisone, which did seem to help. Continues with symptoms, however. Reports diarrhea, with BMs 6-8 times daily - liquid stool with intermittent BRB and lower abdominal pain. No hx of colonoscopy. Presented to ED 01/01/19. CT showed non-specific stap[place]- colitis. Seen for our service by Dr. Johnson and set up for a colonoscopy today. Patient denies any current abdominal pain, n/v. Took bowel prep yesterday and again early this morning. NPO for procedure. Review of Systems Constitutional: + fever; no chills, no fatigue and no weight loss low grade fever on admission per patient Eyes: no eye pain and no worsening vision Ear, Nose, Mouth, Throat: no ear pain, no hearing loss, no nasal congestion and no sore throat Respiratory: no cough, no chest congestion and no wheezing Cardiovascular: no chest pain and no dyspnea Gastrointestinal: as per Subjective / HPI Musculoskeletal: no joint pain Integumentary: no rash and no pruritus Neurologic: no tingling, no numbness and no dizziness Psychiatric: no suicidal ideation and no confusion Endocrine: no cold intolerance and no heat intolerance Hematologic / Lymphatic: no easy bleeding and no easy bruising Allergy / Immunological: no problem reported Physical Exam Constitutional: WD/WN, vitals as above healthy appearing; no acute distress Eyes: + anicteric sclerae ENMT: external ear and nose normal, oropharynx normal Neck: normal visual inspection Respiratory: normal respiratory effort, lungs clear to auscultation Cardiovascular: Rate/Rhythm: regular rate and regular rhythm Heart Sounds: no murmur Gastrointestinal (Abdomen): normal bowel sounds, soft, nontender, no hepatosplenomegaly Musculoskeletal: Head/Neck/Chest: normocephalic and head atraumatic Skin: no rashes, warm and dry Neurologic: moves all extremities; no focal motor deficits Psychiatric: Orientation: alert and oriented x 3 Results & Data Vital Signs (Past 12 Hours) Vital Signs Temp Pulse Pulse Resp BP BP Pulse Ox 01/04/19 07:40 36.6 C 102 H 20 111/62 99 01/04/19 05:40 36.6 C 73 18 139/48 L 98 01/04/19 05:16 69 01/03/19 22:41 36.7 C 80 18 128/49 L 98 Laboratory Results - last 24 hr 01/03/19 01/04/19 10:55 07:09 WBC 5.92 RBC 4.01 L Hgb 11.2 L Hct 34.5 L MCV 86.0 MCH 27.9 MCHC 32.5 RDW Std Deviation 42.6 RDW Coeff of Bryan 13.6 Plt Count 204 MPV 9.3 Immature Gran % (Auto) 1.0 Neut % (Auto) 72.3 Lymph % (Auto) 15.2 Bucks % (Auto) 11.3 Eos % (Auto) 0.0 Baso % (Auto) 0.2 Immature Gran # (Auto) 0.06 H Neut # (Auto) 4.28 Lymph # (Auto) 0.90 L Bucks # (Auto) 0.67 H Eos # (Auto) 0.00 Baso # (Auto) 0.01 Urine Color Dark Yellow Urine Appearance Clear Urine pH 5.0 Ur Specific Garfield 1.023 Urine Protein 1+ H Urine Glucose (UA) Negative Urine Ketones Trace H Urine Blood Negative Urine Nitrite Negative Urine Bilirubin Negative Urine Urobilinogen Negative Ur Leukocyte Esterase Negative Urine WBC (Auto) 1-5 Urine RBC (Auto) 0-4 U Hyaline Cast (Auto) 1-5 U Epithel Cells (Auto) >30 H Urine Bacteria (Auto) Negative Urine Mucus Present A CTAP: IMPRESSION: 1. Circumferential wall thickening of the colon with pericolonic stranding extending from the cecum through the rectum is compatible with a nonspecific colitis. 2. No bowel obstruction, pneumatosis or pneumoperitoneum. 3. Trace amount of reactive pelvic ascites. 4. Mild marginal nodularity of the liver suggests cirrhosis. 5. Splenomegaly. 6. Additional findings as above.
--- NOTE | 2019-01-04 09:38 | Anesthesiology Consultation ---
Date of Service January 04, 2019 Assessment & Plan Chart Review Chart Review: Acceptable Risk for Surgery and Patient NOT seen in Pre Admission Testing Consults Requested none History Surgery Operation Date: 01/04/19 08:30 Proposed Procedures p Colonoscopy Dr Khanna - Chery Khanna Height/Weight Height: 6 ft 1 in Weight: 99.4 kg Allergies Allergy/AdvReac Type Severity Reaction Status Date / Time No Known Allergies Allergy Unverified 08/16/18 19:19 Medications Home Medications Medication Instructions Recorded Confirmed Last Taken aspirin 81 mg PO UD 08/16/18 01/01/19 Unknown glucosamine-chondroitin [Osteo 1 tab PO DAILY 08/16/18 01/01/19 Unknown Bi-Flex] omega [id number] oil [Fish Oil] 1 cap PO DAILY 08/16/18 01/01/19 Unknown ascorbic acid (vitamin C) [Vitamin 500 mg PO DAILY 01/01/19 01/01/19 Unknown C] multivitamin 1 tab PO QAM 01/01/19 01/01/19 Unknown saw palmetto 160 mg PO DAILY 01/01/19 01/01/19 Unknown zinc 50 mg PO DAILY 01/01/19 01/01/19 Unknown Active Medications Generic Name Dose Route Start Last Admin Trade Name Freq PRN Reason Stop Dose Admin Acetaminophen 65 mls @ 200 mls/hr 01/01/19 19:30 01/02/19 05:06 Ofirmev IV 01/31/19 19:29 Infused Q8H PRN Infusion pain or fever Protocol Methylprednisolone 40 mg/ 0.64 mls @ 1.5 mls/min 01/02/19 10:00 01/04/19 08:04 Syringe IV 02/01/19 09:59 1.5 mls/min BID SAHIL Administration Ioversol 93 ml 01/01/19 16:42 01/01/19 16:42 Optiray 320 100ml IV 01/05/19 16:41 93 ml ONCE PRN Administration Interaction Checking NPO Date Last Intake of Fluids: 01/04/19 Time Last Intake of Fluids: 05:00 Last Intake of Fluids Comment: Finished bowel prep at 0345; strict NPO after Date Last Intake of Solids: 01/02/19 Time Last Intake of Solids: 18:00 Past Medical History Medical History No pertinent past medical history Social History Smoking Status: Never smoker Do You Dip or Chew Tobacco: No Hx Alcohol Use: No Hx Substance Use: No substance use type: does not use Physical Exam Vital Signs Last Vital Signs Temp 36.6 C 01/04/19 09:28 Pulse 104 H 01/04/19 09:28 Resp 18 01/04/19 09:28 BP 152/84 H 01/04/19 09:28 Pulse Ox 98 01/04/19 09:28 Testing Laboratory Results 01/04/19 07:09 01/03/19 07:28 PT 12.3 Seconds (9.0-12.0) H 01/01/19 15:37 INR 1.2 (0.9-1.1) H 01/01/19 15:37 APTT 33.4 Seconds (21.0-31.0) H 01/01/19 15:37 Urine Color Dark Yellow 01/03/19 10:55 Urine Appearance Clear (Clear) 01/03/19 10:55 Urine pH 5.0 (4.5-7.5) 01/03/19 10:55 Ur Specific Rogers 1.023 (1.000-1.030) 01/03/19 10:55 Urine Protein 1+ (Negative) H 01/03/19 10:55 Urine Glucose (UA) Negative (Negative) 01/03/19 10:55 Urine Ketones Trace (Negative) H 01/03/19 10:55 Urine Nitrite Negative (Negative) 01/03/19 10:55 Ur Leukocyte Esterase Negative (Negative) 01/03/19 10:55 Urine WBC (Auto) 1-5 /hpf (0-5) 01/03/19 10:55 Urine RBC (Auto) 0-4 /hpf (0-4) 01/03/19 10:55 U Hyaline Cast (Auto) 1-5 /lpf (0-5) 01/03/19 10:55 U Epithel Cells (Auto) >30 /lpf (0-5) H 01/03/19 10:55 Urine Bacteria (Auto) Negative (Negative) 01/03/19 10:55 Blood Type A Positive 01/01/19 15:49 Antibody Screen NEGATIVE 01/01/19 15:49 01/02/19 14:45 Escherichia coli Shiga Toxins Test - Preliminary Stool Stool Culture - Preliminary No Salmonella isolated to date, No Shigella isolated to date, No Campylobacter jejuni isolated to date. 01/01/19 21:20 Escherichia coli Shiga Toxins Test - Final Stool Stool Culture - Final No Salmonella isolated, No Shigella isolated, No Campylobacter jejuni isolated. 01/01/19 16:02 Aerobic Blood Culture - Preliminary Blood No growth in Aerobic bottle after 48 hours. Anaerobic Blood Culture - Preliminary No growth in Anaerobic bottle after 48 hours. 01/01/19 15:37 Aerobic Blood Culture - Preliminary Blood No growth in Aerobic bottle after 48 hours. Anaerobic Blood Culture - Preliminary No growth in Anaerobic bottle after 48 hours. 01/02/19 14:45 WBC Smear - Final Stool 01/01/19 21:20 WBC Smear - Final Stool
[2019-01-04] MEDS ORDERED: LIDOCAINE HCL 2% 2 ML VIAL/AMP(20MG/ML) INFIL ONE (09:42)
[2019-01-04] MEDS ORDERED: PROPOFOL IV EMULSION 10 MG/ML 20 ML VIAL IV ONE (09:42)
[2019-01-04] MEDS ORDERED: ePHEDrine sulfate 50 MG/ML AMP IV PRN (09:44)
[2019-01-04] MEDS ORDERED: ATROPINE SULFATE 0.1 MG/ML 10ML SYR IV PRN (09:44)
--- NOTE | 2019-01-04 10:25 | GI REPORT ---
Patient Name: Dk Tripp Procedure Date: 01/04/2019 9:56 AM Date of : 1950 Admit Type: Inpatient Age: 68 Gender: Male Attending MD: Chery Khanna DO Procedure: Colonoscopy Providers: Chery Khanna DO Referring MD: Khai Moarn M.d. Indications: Clinically significant diarrhea of unexplained origin, Hematochezia, Abnormal CT of the GI tract Medicines: Propofol per Anesthesia Complications: No immediate complications. Estimated blood loss: Minimal. Estimated Blood Loss: Estimated blood loss: none. Procedure: Pre-Anesthesia Assessment: - Prior to the procedure, a History and Physical was performed, and patient medications, allergies and sensitivities were reviewed. The patient's tolerance of previous anesthesia was reviewed. - The risks and benefits of the procedure and the sedation options and risks were discussed with the patient. All questions were answered and informed consent was obtained. - Patient identification and proposed procedure were verified prior to the procedure by the physician and the nurse. The procedure was verified in the pre-procedure area in the procedure room. - Mental Status Examination: alert and oriented. Airway Examination: normal oropharyngeal airway and neck mobility. Respiratory Examination: clear to auscultation. CV Examination: normal. Abdominal Examination: bowel sounds present, abdomen soft and non-tender, no masses or organomegaly noted. - ASA Grade Assessment: II - A patient with mild systemic disease. After I obtained informed consent, the scope was passed under direct vision. Throughout the procedure, the patient's blood pressure, pulse, and oxygen saturations were monitored continuously. The scope was introduced through the anus with the intention of advancing to the cecum. The scope was advanced to the descending colon before the procedure was aborted. Medications were given. The colonoscopy was performed without difficulty. The patient tolerated the procedure well. The quality of the bowel preparation was good. Findings: The perianal and digital rectal examinations were normal. Pertinent negatives include normal sphincter tone and no palpable rectal lesions. A diffuse area of severely congested, hemorrhagic and ulcerated mucosa was found in the entire colon. Biopsies were taken with a cold forceps for histology. Verification of patient identification for the specimen was done by the physician and nurse using the patient's name and date. Estimated blood loss was minimal. Impression: - Congested, hemorrhagic and ulcerated mucosa in the entire examined colon. Scope not advanced beyond the descending colon given the degree of inflammation. Biopsied. Recommendation: - Await pathology results. - Continue with IV steroids. - Advance diet. - Will need a slow (over 8 weeks) oral steroid taper at time of discharge. - Start Asacol. - Return patient to [facility]. Chery Khanna D.O. Chery Khanna, 01/04/2019 10:24:53 AM This report has been signed electronically. Note Initiated On: 01/04/2019 9:56 AM Number of Addenda: 0 I attest to the content of the Intraoperative Record and orders documented therein, exceptions below {[id number]}
[2019-01-04] MEDS ORDERED: MESALAMINE 250 MG CAPCR PO SCH (14:00)
--- NOTE | 2019-01-04 14:04 | Hospitalist Progress Note ---
Date of Service January 04, 2019 Assessment & Plan (1) Colitis: -This is a 68 year old M who has been diarrhea for around 3 weeks. Patient is a poor historian and history also collaborated with family member/relative at bedside - daughter Griselda [phone] and relative Britt [phone]. Patient has been in the past seen in [facility] emergency for which he was prescribed ciprofloxacin and flagyl. It appears based on the family's history patient took the combination perhaps up to a week and then was told by his primary care doctor to stop antibiotics and then take prednisone. Patient has been off prednisone for around a week. Patient reports diarrhea also associated with abdominal pain. And that it was the pain that made him come to the hospital. He denies vomiting. He denies fevers. However in the ED he was recorded to have a febrile temperature of 38.7 C and patient give acetaminophen and IV fluids Patient with normal white blood cell count of 8,000 and normal lactic acid level. He had hemoglobin of 10.8 but unclear what patient's baseline Hgb is. Patient and family reports blood in the stool. Patient's abdominal CT imaging remarkable for Circumferential wall thickening of the colon with pericolonic stranding extending from the cecum through the rectum is compatible with a nonspecific colitis -C.difficile negative -was started on Zosyn on admission on 01/01/19 given fever of 38.7 recorded in the ED for concern of infectious colitis - but as per gastroenterology service it is likely that patient may have autoimmune disorder such as ulcerative colitis and recommended that antibiotics be stopped on 01/02/19 -patient started on solumedrol 40 mg IV BID by gastroenterology on 01/02/19, continue -patient had colonoscopy on 01/04/19: Congested, hemorrhagic and ulcerated mucosa in the entire examined colon. Scope not advanced beyond the descending colon given the degree of inflammation. Biopsy were taken and sent to pathology -gastroneterology Continue with IV steroids for now and patient will need a slow (over 8 weeks) oral steroid taper, mesalamine started as per gastroenterology recommendations. hospital brand mesalamine is Pentasa and started as 1000 mg QID -continue to hold dose aspirin and vitamins and fish oil and saw palmetto Anemia -unclear whether acute on chronic -fecal occult blood stool positive on 01/02/19 -Hgb stable between 10 to 11.3 Trace bilateral lower extremity edema -monitor, is improved Prolonged QTC on EKG -EKG is sinus and 1st degree block with mildly prolonged QTC of 495 on ED presentation -repeat EKG on 01/03/19 with QTC improved to 477 -a Mobitz Type 1 was seen after colonoscopy but this is resolved and likely rhythm abnormalities from anesthesia during procedure, continues to be sinus rhythm DVT ppx: SCDs, ambulation Full Code Status daughter Griselda [phone] and relative Britt [phone] Subjective Patient returned from colonoscopy. discussed results with patient. patient denies acute abdomen pain. no vomiting no chest pain. no shortness of breath. no dizziness. no lightheadedness. Physical Exam Constitutional: WD/WN, vitals as above Eyes: PERRL, conjunctivae normal, anicteric sclerae EOM intact bilaterally ENMT: external ear and nose normal, oropharynx normal Neck: normal visual inspection Respiratory: normal respiratory effort, lungs clear to auscultation Cardiovascular: Rate/Rhythm: regular rate and regular rhythm Gastrointestinal (Abdomen): normal bowel sounds, soft, nontender, no hepatosplenomegaly Musculoskeletal: Head/Neck/Chest: normocephalic and head atraumatic Neurologic: PERRL, EOMI, accommodation nl, no face palsy, no dysarthria CN's II-XI intact bilaterally Psychiatric: A+Ox3, euthymic affect Results & Data Vital Signs (Past 12 Hours) Vital Signs Temp Pulse Pulse Resp BP BP Pulse Ox 01/04/19 10:46 100 H 18 143/74 H 94 01/04/19 10:31 100 H 18 142/79 H 96 01/04/19 10:16 98 H 16 121/72 96 01/04/19 09:28 36.6 C 104 H 18 152/84 H 98 01/04/19 09:17 92 H 01/04/19 07:40 36.6 C 102 H 20 111/62 99 01/04/19 05:40 36.6 C 73 18 139/48 L 98 01/04/19 05:16 69
--- NOTE | 2019-01-04 14:51 | Anesthesiology Progress Note ---
Date of Service January 04, 2019 Anesthesia Post Procedure Vital Signs Vital Signs: Temp Pulse Pulse Resp BP BP Pulse Ox 01/04/19 10:46 100 H 18 143/74 H 94 01/04/19 10:31 100 H 18 142/79 H 96 01/04/19 10:16 98 H 16 121/72 96 01/04/19 09:28 36.6 C 104 H 18 152/84 H 98 01/04/19 09:17 92 H 01/04/19 07:40 36.6 C 102 H 20 111/62 99 01/04/19 05:40 36.6 C 73 18 139/48 L 98 01/04/19 05:16 69 01/03/19 22:41 36.7 C 80 18 128/49 L 98 01/03/19 19:00 36.8 C 85 20 138/64 97 01/03/19 15:24 36.8 C 79 20 136/67 95 01/03/19 15:00 73 Pain Intensity Abdomen: Pain Intensity: 5 Transfer of Care Handoff Completed per policy Notes Mental Status: alert / awake / arousable Patient Amnestic to Procedure: Yes Nausea / Vomiting: adequately controlled Pain: adequately controlled Airway Patency, RR, SpO2: stable & adequate BP & HR: stable & adequate Hydration State: stable & adequate Anesthetic Complications: no major complications apparent and Pt Satisfied with anesthetic care
[2019-01-04] MEDS: MESALAMINE 250 MG CAPCR PO SCH ×2 (16:30→21:18)
[2019-01-05] MEDS: MESALAMINE 250 MG CAPCR PO SCH ×2 (08:46→13:21)
[2019-01-05] MEDS ORDERED: methylPREDNISolone 40 MG in SYRINGE 0 ML IV SCH (09:00)
[2019-01-05] MEDS ORDERED: predniSONE 20 MG TAB PO SCH (15:15)
--- NOTE | 2019-01-05 15:46 | Hospitalist Progress Note ---
Date of Service January 05, 2019 Assessment & Plan (1) Colitis: suspected ulcerative colitis -This is a 68 year old M who has been diarrhea for around 3 weeks. Patient is a poor historian and history also collaborated with family member/relative at bedside - daughter Griselda [phone] and relative Britt [phone]. Patient has been in the past seen in [facility] emergency for which he was prescribed ciprofloxacin and flagyl. It appears based on the family's history patient took the combination perhaps up to a week and then was told by his primary care doctor to stop antibiotics and then take prednisone. Patient has been off prednisone for around a week. Patient reports diarrhea also associated with abdominal pain. And that it was the pain that made him come to the hospital. He denies vomiting. He denies fevers. However in the ED he was recorded to have a febrile temperature of 38.7 C and patient give acetaminophen and IV fluids Patient with normal white blood cell count of 8,000 and normal lactic acid level. He had hemoglobin of 10.8 but unclear what patient's baseline Hgb is. Patient and family reports blood in the stool. Patient's abdominal CT imaging remarkable for Circumferential wall thickening of the colon with pericolonic stranding extending from the cecum through the rectum is compatible with a nonspecific colitis -C.difficile negative -was started on Zosyn on admission on 01/01/19 given fever of 38.7 recorded in the ED for concern of infectious colitis - but as per gastroenterology service it is likely that patient may have autoimmune disorder such as ulcerative colitis and recommended that antibiotics be stopped on 01/02/19 -patient started on solumedrol 40 mg IV BID by gastroenterology on 01/02/19 and continued to 01/05/19 with transition to prednisone -Patient had colonoscopy at [facility] on 01/04/19 as Congested, hemorrhagic and ulcerated mucosa in the entire examined colon. Scope not advanced beyond the descending colon given the degree of inflammation. Biopsied. Patient has been treated empirically for suspect ulcerative colitis -Patient has prescription electronically sent to pharmacy [facility] pharmacy [address], [place] [address] for: prednisone 40 mg once a day for 2 weeks then 30 mg daily for 2 weeks then 20 mg daily for 2 weeks then 10 mg daily for 2 weeks. -Patient was recommended by gastronenterology to take Asacol HD 1600 mg TID (which is a mesalamine) but because this was not available formulation in the hospital patient was on Pentasa mesalamine 1000 mg four times a day. Patient's preferred [facility] pharmacy was called and they do not carry Asacol HD and noted that patient may have out of pocket cost for any types of mesalamine medications a prescription for Asacol HD 1600 mg TID for 4 week supply faxed to the pharmacy by hospital correctional case manager as preferred medication with substitution allowed -Discharge to home Patient should follow up with a primary care doctor Patient has gastroenterology appointment: 01/19/2019 9:00 AM Provider YOHANA Hernandez Department Gastroenterology, [facility] to discuss further management and hospital biopsy results Anemia -unclear whether acute on chronic -fecal occult blood stool positive on 01/02/19 -Hgb stable between 10 to 11.3 Trace bilateral lower extremity edema -resolved improved Prolonged QTC interval on EKG -EKG is sinus and 1st degree block with mildly prolonged QTC of 495 on ED presentation -repeat EKG on 01/03/19 with QTC improved to 477 -a Mobitz Type 1 was seen after colonoscopy but this is resolved and likely rhythm abnormalities from anesthesia during procedure, continues to be sinus rhythm -sinus rhythm DVT ppx: SCDs, ambulation Full Code Status daughter Griselda [phone] and relative Britt [phone] Discharge diagnosis colitis (suspected ulcerative colitis), anemia, Prolonged QTC interval on EKG Subjective Patient eating well. no vomiting. blood counts stable. no acute abdomen pain. able to use the bathroom. no nausea. no vomiting. discussed discharge plans at length Physical Exam Constitutional: WD/WN, vitals as above Eyes: PERRL, conjunctivae normal, anicteric sclerae EOM intact bilaterally ENMT: external ear and nose normal, oropharynx normal Neck: normal visual inspection Respiratory: normal respiratory effort, lungs clear to auscultation Cardiovascular: Rate/Rhythm: regular rate and regular rhythm Gastrointestinal (Abdomen): normal bowel sounds, soft, nontender, no hepatosplenomegaly Musculoskeletal: Head/Neck/Chest: normocephalic and head atraumatic Neurologic: PERRL, EOMI, accommodation nl, no face palsy, no dysarthria CN's II-XI intact bilaterally Psychiatric: A+Ox3, euthymic affect Results & Data Vital Signs (Past 12 Hours) Vital Signs Temp Pulse Pulse Pulse Resp BP BP 01/05/19 15:09 37.1 C 81 20 129/66 01/05/19 11:39 36.8 C 73 16 118/51 L 01/05/19 08:07 77 01/05/19 07:37 36.5 C 76 18 111/69 01/05/19 04:00 37.1 C 63 20 123/52 L Pulse Ox 01/05/19 15:09 97 01/05/19 11:39 96 01/05/19 08:07 01/05/19 07:37 96 01/05/19 04:00 95
--- NOTE | 2019-01-05 16:01 | Discharge Summary ---
Date of Service January 05, 2019 Admission HPI Per Admitting Provider This is a 68 year old M who has been diarrhea for around 3 weeks. Patient is a poor historian and history also collaborated with family member/relative at bedside - daughter Griselda [phone] and relative Britt [phone]. Patient has been in the past seen in [facility] emergency for which he was prescribed ciprofloxacin and flagyl. It appears based on the family's history patient took the combination perhaps up to a week and then was told by his primary care doctor to stop antibiotics and then take prednisone. Patient has been off prednisone for around a week. Patient reports diarrhea also associated with abdominal pain. And that it was the pain that made him come to the hospital. He is unclear whether of not there has been blood in the stool. He denies vomiting. He denies fevers. However in the ED he was recorded to have a febrile temperature of 38.7 C and patient give acetaminophen and IV fluids Patient with normal white blood cell count of 8,000 and normal lactic acid level. He had hemoglobin of 10.8 but unclear what patient's baseline Hgb is. Patient's abdominal CT imaging remarkable for Circumferential wall thickening of the colon with pericolonic stranding extending from the cecum through the rectum is compatible with a nonspecific colitis on review of systems there is some swelling of bilateral lower extremities which patient reported is relatively new. no shortness of breath. no chest pain. no headache. no dizziness. no loss of consciousness medical history: patient generally denies health problems but patient's family collaborates that he does not often see primary care doctor takes over the counter medications denies allergies family history: patient's mother had cancer Admission Exam Per Admitting Provider Constitutional: WD/WN, vitals as above Eyes: PERRL, conjunctivae normal, anicteric sclerae EOM intact bilaterally ENMT: external ear and nose normal, oropharynx normal Neck: normal visual inspection Respiratory: normal respiratory effort, lungs clear to auscultation Cardiovascular: Rate/Rhythm: regular rate and regular rhythm Gastrointestinal (Abdomen): normal bowel sounds, soft, nontender, no hepatosplenomegaly Musculoskeletal: Head/Neck/Chest: normocephalic and head atraumatic Neurologic: PERRL, EOMI, accommodation nl, no face palsy, no dysarthria CN's II-XI intact bilaterally Psychiatric: A+Ox3, euthymic affect Principal Diagnosis colitis (suspected ulcerative colitis), anemia, Prolonged QTC interval on EKG Discharge Exam Constitutional WD/WN, vitals as above Eyes PERRL, conjunctivae normal, anicteric sclerae EOM intact bilaterally ENMT external ear and nose normal, oropharynx normal Neck normal visual inspection Respiratory normal respiratory effort, lungs clear to auscultation Cardiovascular Rate/Rhythm: regular rate and regular rhythm Gastrointestinal (Abdomen) normal bowel sounds, soft, nontender, no hepatosplenomegaly Musculoskeletal Head/Neck/Chest: normocephalic and head atraumatic Neurologic PERRL, EOMI, accommodation nl, no face palsy, no dysarthria CN's II-XI intact bilaterally Psychiatric A+Ox3, euthymic affect Discharge Data Allergies Allergy/AdvReac Type Severity Reaction Status Date / Time No Known Allergies Allergy Unverified 08/16/18 19:19 Consultations 01/01/19 17:58 ED Decision to Admit Stat 01/02/19 08:00 Consult Gastroenterology Routine Procedures Performed Operation Date: 01/04/19 08:30 Actual Procedures p Colonoscopy Biopsy Cytology - Chery Khanna Ordered Studies 01/01/19 15:47 CT abd pelvis IV con only Stat Hospital Course (1) Colitis: suspected ulcerative colitis -This is a 68 year old M who has been diarrhea for around 3 weeks. Patient is a poor historian and history also collaborated with family member/relative at bedside - daughter Griselda [phone] and relative Britt [phone]. Patient has been in the past seen in [facility] emergency for which he was prescribed ciprofloxacin and flagyl. It appears based on the family's history patient took the combination perhaps up to a week and then was told by his primary care doctor to stop antibiotics and then take prednisone. Patient has been off prednisone for around a week. Patient reports diarrhea also associated with abdominal pain. And that it was the pain that made him come to the hospital. He denies vomiting. He denies fevers. However in the ED he was recorded to have a febrile temperature of 38.7 C and patient give acetaminophen and IV fluids Patient with normal white blood cell count of 8,000 and normal lactic acid level. He had hemoglobin of 10.8 but unclear what patient's baseline Hgb is. Patient and family reports blood in the stool. Patient's abdominal CT imaging remarkable for Circumferential wall thickening of the colon with pericolonic stranding extending from the cecum through the rectum is compatible with a nonspecific colitis -C.difficile negative -was started on Zosyn on admission on 01/01/19 given fever of 38.7 recorded in the ED for concern of infectious colitis - but as per gastroenterology service it is likely that patient may have autoimmune disorder such as ulcerative colitis and recommended that antibiotics be stopped on 01/02/19 -patient started on solumedrol 40 mg IV BID by gastroenterology on 01/02/19 and continued to 01/05/19 with transition to prednisone -Patient had colonoscopy at [facility] on 01/04/19 as Con gested, hemorrhagic and ulcerated mucosa in the entire examined colon. Scope not advanced beyond the descending colon given the degree of inflammation. Biopsied. Patient has been treated empirically for suspect ulcerative colitis -Patient has prescription electronically sent to pharmacy [facility] pharmacy [address] [place] [address] for: prednisone 40 mg once a day for 2 weeks then 30 mg daily for 2 weeks then 20 mg daily for 2 weeks then 10 mg daily for 2 weeks. -Patient was recommended by gastronenterology to take Asacol HD 1600 mg TID (which is a mesalamine) but because this was not available formulation in the hospital patient was on Pentasa mesalamine 1000 mg four times a day. Patient's preferred [facility] pharmacy was called and they do not carry Asacol HD and noted that patient may have out of pocket cost for any types of mesalamine medications a prescription for Asacol HD 1600 mg TID for 4 week supply faxed to the pharmacy by hospital director case as preferred medication with substitution allowed -Discharge to home Patient should follow up with a primary care doctor Patient has gastroenterology appointment: 01/19/2019 9:00 AM Provider YOHANA Hernandez Department Gastroenterology, [facility] to discuss further management and hospital biopsy results Anemia -unclear whether acute on chronic -fecal occult blood stool positive on 01/02/19 -Hgb stable between 10 to 11.3 Trace bilateral lower extremity edema -resolved improved Prolonged QTC interval on EKG -EKG is sinus and 1st degree block with mildly prolonged QTC of 495 on ED presentation -repeat EKG on 01/03/19 with QTC improved to 477 -a Mobitz Type 1 was seen after colonoscopy but this is resolved and likely rhythm abnormalities from anesthesia during procedure, continues to be sinus rhythm -sinus rhythm DVT ppx: SCDs, ambulation Full Code Status daughter Griselda [phone] and relative Britt [phone] Discharge diagnosis colitis (suspected ulcerative colitis), anemia, Prolonged QTC interval on EKG Total Time Total Time Spent Total Time Spent (In Minutes): 40 minutes Total Time Includes: Examination of the Patient, Discharge Planning, Medication Reconciliation and Communication With Other Providers Discharge Plan Discharge Items Patient Disposition: Home - Self-Care Reason For Visit: COLITIS,DIARRHEA,ABDOMINAL PAIN Discharge Diagnosis: colitis (suspected ulcerative colitis), anemia, Prolonged QTC interval on EKG Condition: Good Discharge Goals: Decrease discomfort and Improve disease control Activity: Resume your previous activity Non-emergency contact: Primary Care Provider Call non-emergency contact if: you have any medication questions Follow-up/Referrals: PCP,NO [Primary Care Provider] - Diet: Regular Addtl Provider Instructions: Patient had colonoscopy at [facility] on 01/04/19 as Congested, hemorrhagic and ulcerated mucosa in the entire examined colon. Scope not advanced beyond the descending colon given the degree of inflammation. Biopsied. Patient has been treated empirically for suspect ulcerative colitis Patient has prescription electronically sent to pharmacy [facility] pharmacy [address] [place] [address] for: prednisone 40 mg once a day for 2 weeks then 30 mg daily for 2 weeks then 20 mg daily for 2 weeks then 10 mg daily for 2 weeks. Patient was recommended by gastronenterology to take Asacol HD 1600 mg TID (whic h is a mesalamine) but because this was not available formulation in the hospital patient was on Pentasa mesalamine 1000 mg four times a day. Patient's preferred [facility] pharmacy was called and they do not carry Asacol HD and noted that patient may have out of pocket cost for any types of mesalamine medications a prescription for Asacol HD 1600 mg TID for 4 week supply faxed to the pharmacy by hospital director case as preferred medication with substitution allowed Discharge to home Patient should follow up with a primary care doctor Patient has gastroenterology appointment: 01/19/2019 9:00 AM Provider YOHANA Hernandez Department Gastroenterology, [facility] to discuss further management and hospital biopsy results Prescriptions: New prednisone 20 mg Tablet 20 mg PO UD 56 Days Qty: 56 RF: 0 Continued glucosamine-chondroitin [Osteo Bi-Flex] 250-200 mg Tablet 1 tab PO DAILY RF: 0 omega 4-hjj-taa-fish oil [Fish Oil] 1,000 mg (120 mg-180 mg) Capsule 1 cap PO DAILY RF: 0 multivitamin Tablet 1 tab PO QAM RF: 0 ascorbic acid (vitamin C) [Vitamin C] 500 mg Tablet 500 mg PO DAILY RF: 0 zinc 50 mg Tablet 50 mg PO DAILY RF: 0 Discontinued aspirin 81 mg Tablet,Delayed Release (Dr/Ec) 81 mg PO UD RF: 0 saw palmetto 160 mg Capsule 160 mg PO DAILY RF: 0 Stand-Alone Forms: [facility] Discharge Orders: Discharge Order (Routine); Ordered 01/05/19 Ordered By: Khai Moran Admission Data Admit Date/Time: 01/01/19 19:29 Attending Provider: Khai Moran Admit Provider: Khai Moran Primary Care Provider: PCP,NO Other Providers: Khai Moran ; Jad Johnson Service: Telemetry Medical Other Interventions: Discharge Summary Assessment (RN) Last Done: 01/04/19 10:46
[2019-01-05] MEDS ORDERED: MESALAMINE 250 MG CAPCR PO SCH (17:00)
== END 2019-01-05 18:12 | disposition home or self-care (01) | DRG 387 ==
LOC: ED 14:54 → 2N 19:29

== ENCOUNTER 2019-03-14 12:49 | Inpatient (IN) ==
[2019-03-14] MEDS ORDERED: IBUPROFEN 600 MG TAB PO STA (14:06)
[2019-03-14] MEDS ORDERED: PIPERACILL/TAZOBAC CONSULT ACTIVE PRN (14:08)
[2019-03-14] MEDS ORDERED: DIPHTHERIA/TETANUS/PERTUSSIS 0.5 ML SYR/VIAL IM ONE (14:08)
[2019-03-14] MEDS ORDERED: PIPERACILLIN/TAZOBACTAM 4.5 GM/120 ML BAG IV ONE (14:08)
[2019-03-14 14:14] LABS: Basophils # (auto) 0.01 K/uL (0-0.2); Basophils % (auto) 0.1 %; Eosinophils # (auto) 0.06 K/uL (0-0.5); Eosinophils % (auto) 0.6 %; Hematocrit (blood only) 28.9 % (42-52); Immature Granulocytes # (auto) 0.03 K/uL (0.00-0.02); Immature Granulocytes % (auto) 0.3 %; Lymphocytes # (auto) 0.78 K/uL (1.2-3.4); Lymphocytes % (auto) 8.1 %; Mean Corpuscular Hemoglobin 26.9 pg (25-34); Mean Corpuscular Hgb Conc 31.1 g/dL (32-36); Mean Corpuscular Volume 86.3 fL (80-100); Mean Platelet Volume 9.3 fL (7.4-10.4); Monocytes # (auto) 0.96 K/uL (0.11-0.59); Neutrophils # (auto) 7.78 K/uL (1.4-6.5); Neutrophils % (auto) 80.9 %; Platelet Count 121 K/uL (130-400); RDW Coefficient of Variation 15.3 % (11.5-14.5); RDW Standard Deviation 48.8 fL (36.4-46.3); Red Blood Count 3.35 M/uL (4.7-6.1); White Blood Count 9.62 K/uL (4.8-10.8)
[2019-03-14 14:24] LABS: Alanine Aminotransferase 20 U/L (12-78); Albumin Level 2.8 gm/dl (3.4-5.0); Aspartate Aminotransferase 18 U/L (15-37); BUN Creatinine Ratio 29.9 (10-20); Blood Urea Nitrogen 26 mg/dl (7-18); Calcium 8.1 mg/dl (8.5-10.1); Carbon Dioxide 21 mmol/L (21-32); Chloride 105 mmol/L (98-107); Est GFR (African American) 103.3; Est GFR (Non-African American) 89.1; Glucose 205 mg/dl (70-99); Potassium 4.2 mmol/L (3.5-5.1); Sodium 136 mmol/L (136-145)
[2019-03-14 14:27] LABS: Albumin Globulin Ratio 0.8 (0.9-2); Alkaline Phosphatase 60 U/L (45-117); Bilirubin,Total 0.5 mg/dl (0.2-1); Globulin 3.6 gm/dl (2.5-4.0); Total Protein 6.4 gm/dl (6.4-8.2)
[2019-03-14] MEDS ORDERED: IBUPROFEN 200 MG TAB PO ONE (15:02)
--- NOTE | 2019-03-14 15:44 | XRay Report ---
XR chest 1V portable HISTORY: Fever. COMPARISON: Chest 01/01/2019. FINDINGS: The lungs are clear. Cardiac silhouette remains mildly enlarged. No pleural effusions. No p neumothorax. IMPRESSION: No significant change compared to the prior study. No acute process. Stable mild cardiomegaly. Electronically signed by: Jay Callaway M.D. 03/14/2019 3:43 PM
--- NOTE | 2019-03-14 15:47 | XRay Report ---
RIGHT FOOT 3 VIEWS HISTORY: puncture to heel eval for bony injury COMPARISON: None. FINDINGS: There is no fracture or dislocation. Vascular calcifications are noted. Mild degenerative c hanges within the right foot. Mild diffuse soft tissue swelling. No radiopaque foreign bodies. IMPRESSION: Mild diffuse soft tissue swelling/edema within the right foot. No underlying bony abnormality. Electronically signed by: Jay Callaway M.D. 03/14/2019 3:45 PM
[2019-03-14 16:30] LABS: Partial Thromboplastin Ratio 1.4; Prothrombin Time 19.7 Seconds (9.0-12.0)
[2019-03-14] MEDS ORDERED: VANCOMYCIN CONSULT ACTIVE PRN (16:55)
[2019-03-14] MEDS ORDERED: VANCOMYCIN HCL 2,000 MG in SODIUM CHLORIDE 0.9% 500 ML IV ONE (16:55)
--- NOTE | 2019-03-14 17:47 | History & Physical Report ---
Date of Service March 14, 2019 Assessment & Plan (1) Cellulitis of right lower leg: Penetrating nail injury of the right sole He received tetanus injection in the emergency room Spreading cellulitis of the right lower extremity Met the criteria of sores on admission Blood cultures have been taken Zosyn and intravenous vancomycin have been started No evidence of osteomyelitis We will admit to medical floor for continuation of care Hyperglycemia Noted to have very high blood sugar Received a course of steroids recently for flare up of ulcerative colitis We will check hemoglobin A1c Present on Admission?: Yes (2) SIRS (systemic inflammatory response syndrome): As above (3) Colitis: No acute flare of ulcerative colitis We will monitor hemoglobin Continue mesalamine (4) 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: Recently diagnosed deep venous thrombosis as an outpatient Bilateral femoral veins are involved May be the cause for bilateral leg swelling Continue Coumadin Present on Admission?: Yes (5) Bilateral leg edema: Complains to have bilateral leg swelling for the last few months Could be secondary to bilateral proximal DVTs Denies any shortness of breath at rest and on exertion Chest x-ray is not showing any CHF We will get an echocardiogram to evaluate LV function Has been taking any Lasix for the swelling DVT prophylaxis On Coumadin CODE STATUS Full History of Present Illness Chief Complaint: Right foot injury by a nail yesterday afternoon, swelling and redness since this morning Primary Care Provider: Brennan Calles DO Is 69-year-old obese male with significant past medical history of colitis and recently diagnosed DVT of bilateral femoral veins apparently has had a nail injury in his right foot yesterday afternoon while he was working outside around his garage. The nail went through the shoe and hit the sole. Started to have swelling and redness involving the right foot and he felt chills but no documented fever and/or temperature. He denies any nausea no vomiting or any dizziness. In the ER he was noted to have a temperature of 39.2 C without any elevation of the white count and his right foot noted to be swelling with redness and increased local temperature. X-ray of the foot did not show any foreign body and/or bone involvement. He was admitted for continued care and started with intravenous Zosyn and vancomycin given his sugar was high more than 200 and claims that he is not diabetic. Allergies Allergy/AdvReac Type Severity Reaction Status Date / Time No Known Allergies Allergy Unverified 03/14/19 14:38 Home Medications Home Medications Medication Instructions Recorded Confirmed Type omega 2-mmb-uvb-fish oil [Fish Oil] 1 cap PO DAILY 08/16/18 03/14/19 History ascorbic acid (vitamin C) [Vitamin 500 mg PO DAILY 01/01/19 03/14/19 History C] multivitamin 1 tab PO QAM 01/01/19 03/14/19 History mesalamine 1,600 mg PO TID 03/14/19 03/14/19 History prednisone 0 mg PO UD 03/14/19 03/14/19 History warfarin 2.5 mg PO Q2D 03/14/19 03/14/19 History warfarin 5 mg PO Q2D 03/14/19 03/14/19 History Past Med/Surg History Medical History SIRS (systemic inflammatory response syndrome) (Acute) Colitis Hemorrhagic colitis (Acute) No pertinent past medical history Social History Preferred Language: Eritrean Communication Ability: Effective Pre K Special Education Teacher Required: No Beliefs That Will Affect Care: None Current Living Situation: Alone Current Living Situation Comment: doroteo- daughter checks on pt daily Feels Safe at Home: Yes Smoking Status: Never smoker Second Hand Exposure: No ; Hx Alcohol Use: No Hx Substance Use: No Review of Systems Review of Systems: All systems reviewed & are unremarkable except as noted in HPI & below Physical Exam Physical Exam: No apparent distress at rest except some pain in the right foot Constitutional: well developed, well nourished, + ill appearing and + obese; no acute distress Eyes: PERRL, conjunctivae normal, anicteric sclerae ENMT: external ear and nose normal, oropharynx normal Neck: trachea midline, no thyromegaly Respiratory: normal respiratory effort; no respiratory distress Auscultation: lungs clear to auscultation bilaterally Cardiovascular: Rate/Rhythm: regular rate and regular rhythm Heart Sounds: no murmur Extremities: + edema (Bilateral leg edema 1-2+) Gastrointestinal (Abdomen): Inspection/Auscultation: abdomen normal to inspection; abdomen not distended Percussion/Palpation: abdomen nontender Musculoskeletal: No acute arthritis involving any joint Skin: Redness with increased temperature noted right foot, ankle and distal leg Neurologic: moves all extremities; no focal motor deficits Lymphatic: no cervical or axillary lymphadenopathy Results & Data Vital Signs (Past 12 Hours) Vital Signs Temp Pulse Resp BP Pulse Ox 03/14/19 16:30 78 17 03/14/19 16:10 84 20 124/63 03/14/19 15:30 87 20 03/14/19 15:00 83 21 03/14/19 14:54 89 23 03/14/19 13:07 39.2 C H 98 H 20 123/54 L 95 Laboratory Results Short CBC 03/14/19 Range/Units 13:36 WBC 9.62 (4.8-10.8) K/uL Hgb 9.0 L (14.0-18.0) g/dL Hct 28.9 L (42-52) % Plt Count 121 L (130-400) K/uL BMP 03/14/19 13:36 Sodium 136 Potassium 4.2 Chloride 105 Carbon Dioxide 21 BUN 26 H Creatinine 0.86 Glucose 205 H Calcium 8.1 L Liver Function 03/14/19 Range/Units 13:36 Total Bilirubin 0.5 (0.2-1) mg/dl AST 18 (15-37) U/L ALT 20 (12-78) U/L Alkaline Phosphatase 60 (45-117) U/L Albumin 2.8 L (3.4-5.0) gm/dl Medications Administered Current Inpatient Medications Vancomycin HCl 2,000 mg/ (Sodium Chloride) 540 mls @ 200 mls/hr IV NOW ONE Stop: 03/14/19 19:36 Last Admin: 03/14/19 17:36 Dose: 200 mls/hr Documented by: Miscellaneous Information (Consult) 1 ea N/A UD PRN PRN Reason: Consult Stop: 04/13/19 14:07 Miscellaneous Information (Consult) 1 ea N/A UD PRN PRN Reason: Consult Stop: 04/13/19 16:54 Code Status & VTE Plan Code Status Full code VTE Prophylaxis Plan VTE Prophylaxis will be ordered: Yes
[2019-03-14] MEDS ORDERED: predniSONE 10 MG TABLET PO SCH (19:05)
[2019-03-14] MEDS ORDERED: PATIENT'S HEIGHT AND/OR WEIGHT NEEDED SCH (19:30)
[2019-03-14] MEDS ORDERED: WARFARIN SOD 2.5 MG TAB PO SCH (19:30)
--- NOTE | 2019-03-14 19:48 | Pharmacy Report ---
Pharmacy Abx Initial Consult - Date of Service March 14, 2019 - Pharmacy Dosing Scope Date of Consult: 03/14/19 Consultation requested by: Dr. Birch Pharmacy is consulted to initiate Vancomycin and Zosyn IV dosing therapy, order appropriate labs and adjust drug dose/frequency. - Subjective The patient is a 69 year old M admitted on 03/14/19 17:47. - Objective Height: 6 ft Weight: 110.9 kg Vital Signs (Past 12hrs): Vital Signs Temp Pulse Pulse Resp BP BP Pulse Ox 03/14/19 18:57 36.7 C 76 18 129/67 99 03/14/19 18:00 71 18 03/14/19 17:30 76 23 03/14/19 17:00 81 22 03/14/19 16:30 78 17 03/14/19 16:10 84 20 124/63 03/14/19 15:30 87 20 03/14/19 15:00 83 21 03/14/19 14:54 89 23 03/14/19 13:07 39.2 C H 98 H 20 123/54 L 95 Lab Results (24hrs): Laboratory Tests (24 Hours) 03/14/19 03/14/19 03/14/19 13:36 13:36 13:36 WBC 9.62 Neut # (Auto) 7.78 H Creatinine 0.86 Est Cr Clr Drug Dosing Not Reportable C-Reactive Protein Cancelled 2.20 H Micro Results: 03/14/19 14:25 Aerobic Blood Culture - Pending Blood Anaerobic Blood Culture - Pending 03/14/19 13:36 Aerobic Blood Culture - Pending Blood Anaerobic Blood Culture - Pending - Risk Factors for Resistance * Hospitalization for 48 hours or more within the past 90 days * Antimicrobial use within the last 90 days (Cipro 500mg bid x 10days in December 2018) - Assessment & Plan Assessment 69 year old M admitted for cellulitis of Right lower extremity after having a penetrating nail injury to his foot yesterday. * Pt renal function at baseline * Blood cultures pending Plan Vancomycin and zosyn for treatment of cellulitis Vancomycin IV * Estimated PK Parameters: Vd ~0.65 L/kg, Gildardo 0.083 hr-1, t1/2 8.3 hr * Loading dose: 2000 mg (18 mg/kg) * Maintenance dose: 1750 mg IV (16 mg/kg) every 12 hours * Goal trough level for cellulitis : 15-20 mcg/mL aiming higher due to recent hospital stay in December 2018,antibiotic use and possible DM? (A1c on order for 03/15) * Trough/Random level ordered for 03/16/19 @1130 Piperacillin/tazobactam * 4.5 g bolus administered over 30 minutes, then 3.375 g IV extended infusion every 8 hours for CrCl greater than 20 mL/min Pharmacy will continue to follow and will adjust dose/frequency as necessary. Thank you.
[2019-03-14] MEDS: SODIUM CHLORIDE 0.9% 1000ML 1,000 ML IV SCH (20:08)
--- NOTE | 2019-03-14 20:31 | Emergency Department Note ---
Entered by Christlele Malhotra acting as a scribe for Ray Orta MD History of Present Illness General Chief complaint: Foot Injury/Pain Stated complaint: STEPPED ON NAIL-RIGHT FOOT Source: patient Limitations: no limitations History of Present Illness Onset (ago): day(s) 1 Location: lower extremity (right foot) Pain Consistency: + other (episode) Maximum Pain Intensity: 5 Quality: + other (foot injury, stepped on a sherice nail) Associated symptoms: + denies other symptoms (abdominal pain), + fever/chills and + other (right ankle pain, right foot pain, difficulty walking); no chest pain The patient is a 69 year old male who presents to the Emergency Room with complaints of an episode of a foot injury that occurred last night. He stepped on a sherice nail last night. He states that the nail punctured his right heel, and the nail went in only 1/2 an inch. The patient states that he was wearing Crocs at the time. The patient reports that he took the nail out himself. He complains of right ankle and foot pain. The patient complains of a fever, but he states that he did not notice it until he was in the ER. He complains of intermittent chills that began this morning. The patient complains of difficulty walking. He denies any chest pain and abdominal pain. The patient denies any vomiting. He states that his last tetanus shot was 10 years ago. The patient notes that he is on Warfarin, and he states that he has bilateral DVTs. Home Medications Home Medications Medication Instructions Recorded Confirmed Type omega 4-wys-apa-fish oil [Fish Oil] 1 cap PO DAILY 08/16/18 03/14/19 History ascorbic acid (vitamin C) [Vitamin 500 mg PO DAILY 01/01/19 03/14/19 History C] multivitamin 1 tab PO QAM 01/01/19 03/14/19 History mesalamine 1,600 mg PO TID 03/14/19 03/14/19 History prednisone 0 mg PO UD 03/14/19 03/14/19 History warfarin 2.5 mg PO Q2D 03/14/19 03/14/19 History warfarin 5 mg PO Q2D 03/14/19 03/14/19 History Allergies Allergy/AdvReac Type Severity Reaction Status Date / Time No Known Allergies Allergy Unverified 03/14/19 14:38 Past Med/Surg History Medical History SIRS (systemic inflammatory response syndrome) (Acute) Colitis Hemorrhagic colitis (Acute) No pertinent past medical history Social History Preferred Language: Greek Communication Ability: Effective Fabrication Technician Required: No Beliefs That Will Affect Care: None Current Living Situation: Alone Current Living Situation Comment: doroteo- daughter checks on pt daily Other Information That Helps Us Care for You: No Feels Safe at Home: Yes Safety Concerns: Feels Safe At This Time Smoking Status: Never smoker Second Hand Exposure: No ; Hx Alcohol Use: No Hx Substance Use: No Review of Systems See HPI for pertinent positives & negatives. and A total of 10 systems reviewed and were otherwise negative Physical Exam Vital Signs Vital Signs - 24 hr 03/14/19 13:07 03/14/19 14:54 03/14/19 15:00 Temperature 39.2 C H Temperature Source Oral Sepsis Recent Fever Within 48 Hours No Sepsis New/Unexplained Change in Mental Status No Sepsis Action Taken by Nursing No Action Required Pulse Rate 98 H 89 83 Respiratory Rate 20 23 21 Respiratory Effort / Characteristics Non-Labored Spontaneous Respiratory Depth Normal Blood Pressure 123/54 L Blood Pressure Mean 77 Pulse Oximetry 95 Oxygen Delivery Method Room Air 03/14/19 15:30 03/14/19 16:10 03/14/19 16:30 Temperature Temperature Source Sepsis Recent Fever Within 48 Hours Sepsis New/Unexplained Change in Mental Status Sepsis Action Taken by Nursing Pulse Rate 87 84 78 Respiratory Rate 20 20 17 Respiratory Effort / Characteristics Respiratory Depth Blood Pressure 124/63 Blood Pressure Mean 83 Pulse Oximetry Oxygen Delivery Method 03/14/19 17:00 03/14/19 17:30 Temperature Temperature Source Sepsis Recent Fever Within 48 Hours Sepsis New/Unexplained Change in Mental Status Sepsis Action Taken by Nursing Pulse Rate 81 76 Respiratory Rate 22 23 Respiratory Effort / Characteristics Respiratory Depth Blood Pressure Blood Pressure Mean Pulse Oximetry Oxygen Delivery Method Constitutional: Vital signs reviewed. Eyes: Pupils are equal round reactive to light. Conjunctiva are noninjected. ENT: Pharynx is clear without erythema or exudate. Mucous membranes are moist. Neck supple without meningeal signs. Respiratory: Clear to auscultation bilaterally. Breath sounds are equal bilaterally. Cardiovascular: Regular rate and rhythm. No rubs or gallops. GI: Soft, nondistended and nontender. Bowel sounds are present. Rectal: Dark blood, no clots. No bright red blood from the rectum. Maroon stool. Guaiac positive Musculoskeletal: Swelling to the right heel. There is a puncture wound there. There is significant dirt on the bottom of his foot. Swelling and erythema above the ankle. Full range of motion of the ankle without pain with range of motion. Normal distal cap refill. Integumentary: No cyanosis. As above. Neurological: The patient is awake and alert. No focal deficits. Psychiatric: Normal affect. Course 1355: The patient was evaluated in room A04. A complete history and physical exam was performed. 1652: I updated the patient on his test results. I told him that he had a drop in hemoglobin, and he denied any black or blood stools. He did not a history of ulcerative colitis for which he takes mesalamine. I did a rectal exam that showed maroon colored stools that were strongly guaiac positive. I recommended admission, and he was ready to stay after some convincing. 1658: I spoke with Dr. Birch, [facility]ist, about the patients case. He will further evaluate the patient. Consultations Consultation #1: I spoke with Dr. Birch, [facility]ist, about the patients case. He will further evaluate the patient. Time: 16:58 Administered Medications Sodium Chloride (Nss 1000ml) 1,000 mls @ 80 mls/hr IV .[id number] [facility] Stop: 03/15/19 20:14 Last Admin: 03/14/19 20:08 Dose: 80 mls/hr Documented by: [id number] Warfarin Sodium (Coumadin) 2.5 mg PO Q2D@1600 [facility] Stop: 04/13/19 19:29 Last Admin: 03/14/19 19:58 Dose: 2.5 mg Documented by: [id number] Discontinued Medications Diphtheria/Pertussis/Tetanus Vacc (Adacel) 0.5 ml IM .ONCE ONE Stop: 03/14/19 14:09 Last Admin: 03/14/19 14:38 Dose: 0.5 ml Documented by: [id number] Piperacillin Sod/Tazobactam Sod (Zosyn) 4.5 gm in 120 mls @ 240 mls/hr IV NOW ONE Stop: 03/14/19 14:37 Last Infusion: 03/14/19 15:28 Dose: 0 mls/hr Documented by: [id number] Admin: 03/14/19 14:40 Dose: 240 mls/hr Documented by: [id number] Vancomycin HCl 2,000 mg/ (Sodium Chloride) 540 mls @ 200 mls/hr IV NOW ONE Stop: 03/14/19 19:36 Last Admin: 03/14/19 17:36 Dose: 200 mls/hr Documented by: [id number] Ibuprofen (Motrin) 400 mg PO ONE STA Stop: 03/14/19 14:07 Last Admin: 03/14/19 15:06 Dose: Not Given Documented by: [id number] Ibuprofen (Advil) Confirm Administered Dose 400 mg PO .STK-MED ONE Stop: 03/14/19 15:03 Last Admin: 03/14/19 15:06 Dose: 400 mg Documented by: [id number] Medical Decision Making Differential Diagnosis The differential diagnosis includes: cellulitis, osteomyelitis, bacteremia, hematoma, and sepsis. Medical Records Attestation: I reviewed the patient's medical records. I did perform a limited focused review of portions of the patient's old chart on the electronic medical record. The patient was admitted in December of 2018 for colitis. Home Medications Current Medication List: was personally reviewed by me Laboratory Data Attestation: I reviewed the patient's lab results. Result diagrams: 03/14/19 13:36 03/14/19 13:36 Lab Results 03/14/19 03/14/19 03/14/19 Range/Units 13:36 13:36 13:36 WBC 9.62 (4.8-10.8) K/uL RBC 3.35 L (4.7-6.1) M/uL Hgb 9.0 L (14.0-18.0) g/dL Hct 28.9 L (42-52) % MCV 86.3 (80-100) fL MCH 26.9 (25-34) pg MCHC 31.1 L (32-36) g/dL RDW Std Deviation 48.8 H (36.4-46.3) fL RDW Coeff of Bryan 15.3 H (11.5-14.5) % Plt Count 121 L (130-400) K/uL MPV 9.3 (7.4-10.4) fL Immature Gran % (Auto) 0.3 % Neut % (Auto) 80.9 % Lymph % (Auto) 8.1 % Gilmer % (Auto) 10.0 % Eos % (Auto) 0.6 % Baso % (Auto) 0.1 % Immature Gran # (Auto) 0.03 H (0.00-0.02) K/uL Neut # (Auto) 7.78 H (1.4-6.5) K/uL Lymph # (Auto) 0.78 L (1.2-3.4) K/uL Gilmer # (Auto) 0.96 H (0.11-0.59) K/uL Eos # (Auto) 0.06 (0-0.5) K/uL Baso # (Auto) 0.01 (0-0.2) K/uL PT Cancelled INR Cancelled APTT Cancelled PTT Ratio Cancelled Sodium 136 (136-145) mmol/L Potassium 4.2 (3.5-5.1) mmol/L Chloride 105 (98-107) mmol/L Carbon Dioxide 21 (21-32) mmol/L Anion Gap 10.0 (3-11) BUN 26 H (7-18) mg/dl Creatinine 0.86 (0.6-1.4) mg/dl Est Cr Clr Drug Dosing Not Reportable Est GFR ( Amer) 103.3 Est GFR (Non-Af Amer) 89.1 BUN/Creatinine Ratio 29.9 H (10-20) Glucose 205 H (70-99) mg/dl POC Lactic Acid Kenneth (0.90-1.70) mmol/L Calcium 8.1 L (8.5-10.1) mg/dl Total Bilirubin 0.5 (0.2-1) mg/dl AST 18 (15-37) U/L ALT 20 (12-78) U/L Alkaline Phosphatase 60 (45-117) U/L C-Reactive Protein 2.20 H (0-0.29) mg/dl Total Protein 6.4 (6.4-8.2) gm/dl Albumin 2.8 L (3.4-5.0) gm/dl Globulin 3.6 (2.5-4.0) gm/dl Albumin/Globulin Ratio 0.8 L (0.9-2) Blood Type Antibody Screen 03/14/19 03/14/19 03/14/19 Range/Units 13:36 14:29 14:29 WBC (4.8-10.8) K/uL RBC (4.7-6.1) M/uL Hgb (14.0-18.0) g/dL Hct (42-52) % MCV (80-100) fL MCH (25-34) pg MCHC (32-36) g/dL RDW Std Deviation (36.4-46.3) fL RDW Coeff of Bryan (11.5-14.5) % Plt Count (130-400) K/uL MPV (7.4-10.4) fL Immature Gran % (Auto) % Neut % (Auto) % Lymph % (Auto) % Gilmer % (Auto) % Eos % (Auto) % Baso % (Auto) % Immature Gran # (Auto) (0.00-0.02) K/uL Neut # (Auto) (1.4-6.5) K/uL Lymph # (Auto) (1.2-3.4) K/uL Gilmer # (Auto) (0.11-0.59) K/uL Eos # (Auto) (0-0.5) K/uL Baso # (Auto) (0-0.2) K/uL PT 19.7 H INR 2.0 H APTT 37.0 H PTT Ratio 1.4 Sodium (136-145) mmol/L Potassium (3.5-5.1) mmol/L Chloride (98-107) mmol/L Carbon Dioxide (21-32) mmol/L Anion Gap (3-11) BUN (7-18) mg/dl Creatinine (0.6-1.4) mg/dl Est Cr Clr Drug Dosing Est GFR ( Amer) Est GFR (Non-Af Amer) BUN/Creatinine Ratio (10-20) Glucose (70-99) mg/dl POC Lactic Acid Kenneth 1.03 (0.90-1.70) mmol/L Calcium (8.5-10.1) mg/dl Total Bilirubin (0.2-1) mg/dl AST (15-37) U/L ALT (12-78) U/L Alkaline Phosphatase (45-117) U/L C-Reactive Protein Cancelled (0-0.29) mg/dl Total Protein (6.4-8.2) gm/dl Albumin (3.4-5.0) gm/dl Globulin (2.5-4.0) gm/dl Albumin/Globulin Ratio (0.9-2) Blood Type Antibody Screen 03/14/19 Range/Units 17:24 WBC (4.8-10.8) K/uL RBC (4.7-6.1) M/uL Hgb (14.0-18.0) g/dL Hct (42-52) % MCV (80-100) fL MCH (25-34) pg MCHC (32-36) g/dL RDW Std Deviation (36.4-46.3) fL RDW Coeff of Bryan (11.5-14.5) % Plt Count (130-400) K/uL MPV (7.4-10.4) fL Immature Gran % (Auto) % Neut % (Auto) % Lymph % (Auto) % Gilmer % (Auto) % Eos % (Auto) % Baso % (Auto) % Immature Gran # (Auto) (0.00-0.02) K/uL Neut # (Auto) (1.4-6.5) K/uL Lymph # (Auto) (1.2-3.4) K/uL Gilmer # (Auto) (0.11-0.59) K/uL Eos # (Auto) (0-0.5) K/uL Baso # (Auto) (0-0.2) K/uL PT INR APTT PTT Ratio Sodium (136-145) mmol/L Potassium (3.5-5.1) mmol/L Chloride (98-107) mmol/L Carbon Dioxide (21-32) mmol/L Anion Gap (3-11) BUN (7-18) mg/dl Creatinine (0.6-1.4) mg/dl Est Cr Clr Drug Dosing Est GFR ( Amer) Est GFR (Non-Af Amer) BUN/Creatinine Ratio (10-20) Glucose (70-99) mg/dl POC Lactic Acid Kenneth (0.90-1.70) mmol/L Calcium (8.5-10.1) mg/dl Total Bilirubin (0.2-1) mg/dl AST (15-37) U/L ALT (12-78) U/L Alkaline Phosphatase (45-117) U/L C-Reactive Protein (0-0.29) mg/dl Total Protein (6.4-8.2) gm/dl Albumin (3.4-5.0) gm/dl Globulin (2.5-4.0) gm/dl Albumin/Globulin Ratio (0.9-2) Blood Type A Positive Antibody Screen NEGATIVE Imaging Data Radiologist's Impression: Radiology results as stated below per my review and the radiologist's interpretation: XR chest 1V portable HISTORY: Fever. COMPARISON: Chest 01/01/2019. FINDINGS: The lungs are clear. Cardiac silhouette remains mildly enlarged. No pleural effusions. No pneumothorax. IMPRESSION: No significant change compared to the prior study. No acute process. Stable mild cardiomegaly. Electronically signed by: Jay Callaway M.D. 03/14/2019 3:43 PM RIGHT FOOT 3 VIEWS HISTORY: puncture to heel eval for bony injury COMPARISON: None. FINDINGS: There is no fracture or dislocation. Vascular calcifications are noted. Mild degenerative changes within the right foot. Mild diffuse soft tissue swelling. No radiopaque foreign bodies. IMPRESSION: Mild diffuse soft tissue swelling/edema within the right foot. No underlying bony abnormality. Electronically signed by: Jay Callaway M.D. 03/14/2019 3:45 PM Blood Pressure Blood Pressure Findings: Elevated blood pressure Blood Pressure Disposition: elevated BP felt to be situational MDM Narrative I did evaluate the patient as noted above. Patient is presenting with right foot pain and fever. He has an obvious infection to the right heel after stepping on a sherice nail. He did have a full tetanus vaccination series but states that he has not had a booster in 30 years. I did consult with the pharmacist who stated that he only needs a booster at this time. He was given Adacel IM. IV access was established. The patient was placed on a continuous nuclear monitoring technician. I did treat him with ibuprofen for his fever. I did order and personally reviewed the images of the patient's chest x-ray as described above. There is no pneumonia. I did order blood cultures. I did treat the patient with Zosyn and vancomycin IV. I did order and review the patient's blood work as noted in the electronic medical record. His white count is not elevated. CRP is elevated. Hemoglobin is 9. His INR is therapeutic. Platelets are slightly low. I did discuss the test results with the patient. He states he has a history of ulcerative colitis but denies having any rectal bleeding recently. I did perform a rectal examination which showed maroon-colored stool which was guaiac positive. I did recommend hospitalization for further care and evaluation including IV antibiotics and repeat H&H due to his GI bleed while on Coumadin. He initially did not wish to stay but I was able to convince him. I did discuss case with the hospitalist and case fitter. Impression & Plan GI bleed, Ulcerative colitis, Anticoagulated on Coumadin, Thrombocytopenia, Puncture wound of foot, right, Hyperglycemia, Right foot infection Discharge Plan Visit Data *Final* Discharge Date/Time: 03/14/19 18:31 Chief Complaint: Foot Injury/Pain Stated Complaint: STEPPED ON NAIL-RIGHT FOOT ED Provider: Ray Orta Discharge Problem: GI bleed, Ulcerative colitis, Anticoagulated on Coumadin, Thrombocytopenia, Puncture wound of foot, right, Hyperglycemia, Right foot infection Patient Disposition: Admitted As Inpatient Discharge Instructions Interventions: ED Discharge Assessment Last Done: 03/14/19 18:31 Discharge Problem: GI bleed Qualifiers: GI bleed type/associated pathology: unspecified gastrointestinal hemorrhage type Qualified Code(s): K92.2 - Gastrointestinal hemorrhage, unspecified Ulcerative colitis Qualifiers: Ulcerative colitis location: unspecified ulcerative colitis location Digestive disease complication type: with rectal bleeding Qualified Code(s): K51.911 - Ulcerative colitis, unspecified with rectal bleeding Puncture wound of foot, right Qualifiers: Encounter type: initial encounter Qualified Code(s): S91.331A - Puncture wound without foreign body, right foot, initial encounter The scribe's documentation has been prepared under my direction and personally reviewed by me in its entirety. I confirm that the note above accurately refle cts all work, treatment, procedures, and medical decision making performed by me.
[2019-03-14] MEDS: PIPERACILLIN/TAZOBACTAM 3.375 GM in DEXTROSE 5% 100 ML IV SCH (20:57)
[2019-03-14] MEDS: MESALAMINE 400 MG CAPDR PO SCH (20:58)
[2019-03-15] MEDS: VANCOMYCIN HCL 1,500 MG in SODIUM CHLORIDE 0.9% 500 ML IV SCH ×3 (00:13→23:52)
[2019-03-15] MEDS: PIPERACILLIN/TAZOBACTAM 3.375 GM in DEXTROSE 5% 100 ML IV SCH ×3 (03:53→19:59)
[2019-03-15 06:17] LABS: Basophils # (auto) 0.01 K/uL (0-0.2); Basophils % (auto) 0.2 %; Eosinophils # (auto) 0.15 K/uL (0-0.5); Eosinophils % (auto) 2.3 %; Hematocrit (blood only) 26.5 % (42-52); Hemoglobin 8.2 g/dL (14.0-18.0); Immature Granulocytes # (auto) 0.03 K/uL (0.00-0.02); Immature Granulocytes % (auto) 0.5 %; Lymphocytes # (auto) 1.41 K/uL (1.2-3.4); Lymphocytes % (auto) 21.7 %; Mean Corpuscular Hemoglobin 26.8 pg (25-34); Mean Corpuscular Hgb Conc 30.9 g/dL (32-36); Mean Corpuscular Volume 86.6 fL (80-100); Mean Platelet Volume 9.5 fL (7.4-10.4); Monocytes # (auto) 0.82 K/uL (0.11-0.59); Monocytes % (auto) 12.6 %; Neutrophils # (auto) 4.07 K/uL (1.4-6.5); Neutrophils % (auto) 62.7 %; Platelet Count 106 K/uL (130-400); RDW Coefficient of Variation 15.5 % (11.5-14.5); Red Blood Count 3.06 M/uL (4.7-6.1); White Blood Count 6.49 K/uL (4.8-10.8)
[2019-03-15 06:43] LABS: Calcium 7.8 mg/dl (8.5-10.1); Creatinine Clr Calc Pharmacy 126.3 ml/min; Est GFR (African American) 111.1; Est GFR (Non-African American) 95.9; Potassium 3.9 mmol/L (3.5-5.1)
[2019-03-15 06:49] LABS: Estimated Average Glucose 128 mg/dl; Hemoglobin A1C 6.1 % (4.5-5.6)
[2019-03-15] MEDS ORDERED: PERFLUTREN LIPID MICROSPHERE (DEFINITY) IV ONE (06:57)
[2019-03-15] MEDS: MESALAMINE 400 MG CAPDR PO SCH ×3 (07:49→20:50)
[2019-03-15] MEDS: OMEGA-3 (PURIFIED FISH OIL) 1 GM CAP PO SCH (07:49)
[2019-03-15] MEDS: MULTIVITAMIN TAB PO SCH (07:49)
[2019-03-15] MEDS: ASCORBIC ACID 500 MG TAB PO SCH (07:49)
[2019-03-15] MEDS: SODIUM CHLORIDE 0.9% 1000ML 1,000 ML IV SCH (08:44)
--- NOTE | 2019-03-15 12:56 | Hospitalist Progress Note ---
Date of Service March 15, 2019 Assessment & Plan (1) Cellulitis of right lower leg: Penetrating nail injury of the right sole He received tetanus injection in the emergency room Spreading cellulitis of the right lower extremity Met the criteria of sores on admission Blood cultures have been taken Zosyn and intravenous vancomycin have been started No evidence of osteomyelitis We will admit to medical floor for continuation of care Clinically much better today with decreasing pain, redness, tenderness and swelling No fever and/or sweating White count remains normal Await blood culture Hyperglycemia Noted to have very high blood sugar Received a course of steroids recently for flare up of ulcerative colitis We will check hemoglobin A1c-6.1 (2) SIRS (systemic inflammatory response syndrome): As above (3) Colitis: No acute flare of ulcerative colitis We will monitor hemoglobin Continue mesalamine (4) 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: Recently diagnosed deep venous thrombosis as an outpatient Bilateral femoral veins are involved May be the cause for bilateral leg swelling Continue Coumadin (5) Bilateral leg edema: Complains to have bilateral leg swelling for the last few months Could be secondary to bilateral proximal DVTs Denies any shortness of breath at rest and on exertion Chest x-ray is not showing any CHF We will get an echocardiogram to evaluate LV function Has been taking any Lasix for the swelling Echo shows grade 2 diastolic dysfunction We will put him on a small dose of Lasix for bilateral leg edema DVT prophylaxis On Coumadin CODE STATUS Full (6) GI bleed: Has had flare up of ulcerative colitis and finished a course of steroids Hemoglobin noted to be less than 9 Denies any more bleeding We did not restart any prednisone right now We will continue mesalamine Subjective 03/15 Patient is seen and examined in medical floor He has been feeling much better with less pain and swelling of the right foot Denies any fever and/or chills Bowel has been moving but no bloody diarrhea Review of Systems Review of Systems: All systems reviewed and are unremarkable except as noted below Constitutional: no fever and no sweats Musculoskeletal: + joint pain (Right ankle pain is improved) and + swelling (Swelling and redness of the right foot are better) Physical Exam Physical Exam: Lying in bed comfortably Constitutional: well developed, well nourished, + ill appearing and + obese; n o acute distress Eyes: PERRL, conjunctivae normal, anicteric sclerae ENMT: external ear and nose normal, oropharynx normal Neck: trachea midline, no thyromegaly Respiratory: normal respiratory effort; no respiratory distress Auscultation: lungs clear to auscultation bilaterally Cardiovascular: Rate/Rhythm: regular rate and regular rhythm Heart Sounds: no murmur Extremities: + edema (Bilateral leg edema 1-2+) Gastrointestinal (Abdomen): Inspection/Auscultation: abdomen normal to inspection; abdomen not distended Percussion/Palpation: abdomen nontender Neurologic: moves all extremities; no focal motor deficits Lymphatic: no cervical or axillary lymphadenopathy Results & Data Vital Signs (Past 12 Hours) Vital Signs Temp Pulse Resp BP Pulse Ox 03/15/19 07:26 37 C 79 16 134/51 L 93 Laboratory Results Short CBC 03/14/19 03/15/19 Range/Units 13:36 05:58 WBC 9.62 6.49 (4.8-10.8) K/uL Hgb 9.0 L 8.2 L (14.0-18.0) g/dL Hct 28.9 L 26.5 L (42-52) % Plt Count 121 L 106 L (130-400) K/uL BMP 03/14/19 03/15/19 13:36 05:58 Sodium 136 139 Potassium 4.2 3.9 Chloride 105 108 H Carbon Dioxide 21 24 BUN 26 H 20 H Creatinine 0.86 0.72 Glucose 205 H 104 H Calcium 8.1 L 7.8 L Liver Function 03/14/19 Range/Units 13:36 Total Bilirubin 0.5 (0.2-1) mg/dl AST 18 (15-37) U/L ALT 20 (12-78) U/L Alkaline Phosphatase 60 (45-117) U/L Albumin 2.8 L (3.4-5.0) gm/dl Medications Administered Current Inpatient Medications Ascorbic Acid (Vitamin C) 500 mg PO DAILY [facility]IL Stop: 04/14/19 08:59 Last Admin: 03/15/19 07:49 Dose: 500 mg Documented by: Fish Oil (Beaumont-3 (Purified Fish Oil)) 1 gm PO DAILY SAHIL Stop: 04/14/19 08:59 Last Admin: 03/15/19 07:49 Dose: 1 gm Documented by: Sodium Chloride (Nss 1000ml) 1,000 mls @ 80 mls/hr IV .[id number] SAHIL Stop: 03/15/19 20:14 Last Admin: 03/15/19 08:44 Dose: 80 mls/hr Documented by: Piperacillin Sod/Tazobactam (Sod 3.375 gm/ Dextrose) 115 mls @ 28.75 mls/hr IV Q8H [facility]; Protocol Stop: 03/24/19 19:59 Last Admin: 03/15/19 11:49 Dose: 28.8 mls/hr Documented by: Vancomycin HCl 1,500 mg/ (Sodium Chloride) 530 mls @ 200 mls/hr IV Q12H [facility] Stop: 03/25/19 00:00 Last Admin: 03/15/19 11:49 Dose: 200 mls/hr Documented by: Mesalamine (Delzicol) 800 mg PO TID [facility] Stop: 04/13/19 20:59 Last Admin: 03/15/19 07:49 Dose: 800 mg Documented by: Miscellaneous Information (Consult) 1 ea N/A UD PRN PRN Reason: Consult Stop: 04/13/19 14:07 Miscellaneous Information (Consult) 1 ea N/A UD PRN PRN Reason: Consult Stop: 04/13/19 16:54 Multivitamins (Multivitamin Tab) 1 tab PO QAM [facility] Stop: 04/14/19 08:59 Last Admin: 03/15/19 07:49 Dose: 1 tab Documented by: Warfarin Sodium (Coumadin) 2.5 mg PO Q2D@1600 [facility] Stop: 04/13/19 19:29 Last Admin: 03/14/19 19:58 Dose: 2.5 mg Documented by: Warfarin Sodium (Coumadin) 5 mg PO Q2D@1600 [facility] Stop: 04/14/19 15:59 (1) GI bleed GI bleed type/associated pathology: unspecified gastrointestinal hemorrhage type Qualified Code(s): K92.2 - Gastrointestinal hemorrhage, unspecified
[2019-03-15] MEDS ORDERED: WARFARIN SOD 5 MG TAB PO SCH (16:00)
[2019-03-15] MEDS ORDERED: VANCOMYCIN TROUGH ONE (23:30)
[2019-03-16] MEDS: PIPERACILLIN/TAZOBACTAM 3.375 GM in DEXTROSE 5% 100 ML IV SCH (04:21)
[2019-03-16 06:43] LABS: INR 1.9 (0.9-1.1); Prothrombin Time 18.8 Seconds (9.0-12.0)
[2019-03-16 07:04] LABS: Creatinine Clr Calc Pharmacy 116.6 ml/min; Est GFR (African American) 107.5; Est GFR (Non-African American) 92.8
[2019-03-16] MEDS: MULTIVITAMIN TAB PO SCH (08:04)
[2019-03-16] MEDS: MESALAMINE 400 MG CAPDR PO SCH ×2 (08:04→13:05)
[2019-03-16] MEDS: OMEGA-3 (PURIFIED FISH OIL) 1 GM CAP PO SCH (08:04)
[2019-03-16] MEDS: ASCORBIC ACID 500 MG TAB PO SCH (08:04)
--- NOTE | 2019-03-16 09:32 | Pharmacy Report ---
Pharmacy Abx Dose Short Note - Date of Service March 16, 2019 - Assessment & Plan Assessment * 69 year old M with cellulitis 2nd patient stepping on nail with penetration of foot * PMH * Diabetes * Recent hospitalization in December for colitis (received ciprofloxacin at that time) * Ulcerative colitis * Hx DVT, on warfarin * Antimicrobials - coverage for Pseudomonas and MRSA appropriate given puncture wound on foot. Tetanus prophylaxis also appropriate. * Zosyn day 3 * Vancomycin day 3 * TDaP x1 administered in ED (no tetanus immune globulin needed/administered as patient *completed* tetanus series prior, although this was many years ago) * Cultures - blood culture with NGTD x2 * Renal - SCr stable and at/near baseline. eCrCL >100 mL/min Vancomycin * Goal vancomycin trough 15-20 mcg/mL * Can sometimes target lower goal of 10-15 mcg/mL for cellulitis but higher goal selected for now 2nd need for MRSA coverage and usual MRSA vancomycin LOC of 2 mcg/mL at this institution * Trough of 10.8 mcg/mL is subtherapeutic. This was drawn at an appropriate t claudette as compared to previous and subsequent doses and was likely at/near steady state * Patient may accumulate some vancomycin 2nd BMI >30 kg/m2. Therefore although increase in vancomycin dose is indicated 2nd subtherapeutic trough, will not be too aggressive with increase * Repeat trough prior to 4th dose of new regimen Plan * Increase vancomycin 1750 mg IV q12h * Trough 03/17 @ 2130 Pharmacy will continue to follow and will adjust dose/frequency as necessary. Thank you.
[2019-03-16] MEDS ORDERED: VANCOMYCIN HCL 1,750 MG in SODIUM CHLORIDE 0.9% 500 ML IV SCH (10:00)
[2019-03-16 11:30] LABS: Basophils # (auto) 0.02 K/uL (0-0.2); Basophils % (auto) 0.4 %; Eosinophils # (auto) 0.19 K/uL (0-0.5); Eosinophils % (auto) 3.8 %; Hematocrit (blood only) 27.7 % (42-52); Hemoglobin 8.9 g/dL (14.0-18.0); Immature Granulocytes # (auto) 0.06 K/uL (0.00-0.02); Immature Granulocytes % (auto) 1.2 %; Lymphocytes % (auto) 28.2 %; Mean Corpuscular Hemoglobin 27.6 pg (25-34); Mean Corpuscular Hgb Conc 32.1 g/dL (32-36); Mean Platelet Volume 9.6 fL (7.4-10.4); Monocytes # (auto) 0.64 K/uL (0.11-0.59); Monocytes % (auto) 12.9 %; Neutrophils # (auto) 2.66 K/uL (1.4-6.5); Neutrophils % (auto) 53.5 %; Platelet Count 129 K/uL (130-400); RDW Coefficient of Variation 15.2 % (11.5-14.5); RDW Standard Deviation 47.8 fL (36.4-46.3); Red Blood Count 3.22 M/uL (4.7-6.1); White Blood Count 4.97 K/uL (4.8-10.8)
[2019-03-16] MEDS ORDERED: VANCOMYCIN TROUGH ONE (11:30)
[2019-03-16 12:04] LABS: RBC Morphology Unremarkable
[2019-03-16] MEDS ORDERED: POTASSIUM CHLORIDE 20 MEQ TABCR PO SCH (12:15)
[2019-03-16] MEDS ORDERED: FUROSEMIDE 40 MG TAB PO SCH (12:15)
[2019-03-16] MEDS ORDERED: AMOXICILLIN/CLAVULANATE 875 MG TAB PO ONE (12:30)
--- NOTE | 2019-03-16 12:41 | Hospitalist Progress Note ---
Date of Service March 16, 2019 Assessment & Plan (1) Cellulitis of right lower leg: Penetrating nail injury of the right sole He received tetanus injection in the emergency room Spreading cellulitis of the right lower extremity Met the criteria of sores on admission Blood cultures have been taken Zosyn and intravenous vancomycin have been started No evidence of osteomyelitis We will admit to medical floor for continuation of care Clinically much better today with decreasing pain, redness, tenderness and swelling No fever and/or sweating White count remains normal Await blood culture-have been negative Antibiotics have been changed to oral Augmentin to continue 10 more days Hyperglycemia Noted to have very high blood sugar Received a course of steroids recently for flare up of ulcerative colitis We will check hemoglobin A1c-6.1 (2) SIRS (systemic inflammatory response syndrome): As above (3) Colitis: No acute flare of ulcerative colitis We will monitor hemoglobin Continue mesalamine No more bloody diarrhea and hemoglobin remains stable at 8.9 as of 03/16 We will continue current medications for ulcerative colitis as an outpatient (4) 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: Recently diagnosed deep venous thrombosis as an outpatient Bilateral femoral veins are involved May be the cause for bilateral leg swelling Continue Coumadin (5) Bilateral leg edema: Complains to have bilateral leg swelling for the last few months Could be secondary to bilateral proximal DVTs Denies any shortness of breath at rest and on exertion Chest x-ray is not showing any CHF We will get an echocardiogram to evaluate LV function Has been taking any Lasix for the swelling Echo shows grade 2 diastolic dysfunction We will put him on a small dose of Lasix for bilateral leg edema DVT prophylaxis On Coumadin CODE STATUS Full (6) GI bleed: Has had flare up of ulcerative colitis and finished a course of steroids Hemoglobin noted to be less than 9 Denies any more bleeding We did not restart any prednisone right now We will continue mesalamine Hemoglobin remains stable Subjective 03/15 Patient is seen and examined in medical floor He has been feeling much better with less pain and swelling of the right foot Denies any fever and/or chills Bowel has been moving but no bloody diarrhea 03/16 Patient is seen and examined in medical floor He does not have any significant complaints His right foot has been better without any redness, swelling has come down and no significant pain with ambulation His cultures have been negative and there is no bloody diarrhea Will be sent home this afternoon Review of Systems Review of Systems: All systems reviewed and are unremarkable except as noted below Musculoskeletal: + joint pain (Right ankle pain is improved) and + swelling (Swelling and redness of the right foot are better) Physical Exam Physical Exam: No apparent distress at rest Constitutional: well developed, well nourished, + ill appearing and + obese; no acute distress Eyes: PERRL, conjunctivae normal, anicteric sclerae ENMT: external ear and nose normal, oropharynx normal Neck: trachea midline, no thyromegaly Respiratory: normal respiratory effort; no respiratory distress Auscultation: lungs clear to auscultation bilaterally Cardiovascular: Rate/Rhythm: regular rate and regular rhythm Heart Sounds: no murmur Extremities: + edema (Bilateral leg edema 1-2+) Gastrointestinal (Abdomen): Inspection/Auscultation: abdomen normal to inspection; abdomen not distended Percussion/Palpation: abdomen nontender Musculoskeletal: Right ankle remains swollen as before but the redness and tenderness have disappeared Neurologic: moves all extremities; no focal motor deficits Lymphatic: no cervical or axillary lymphadenopathy Results & Data Vital Signs (Past 12 Hours) Vital Signs Temp Pulse Resp BP Pulse Ox 03/16/19 06:58 36.7 C 65 20 144/62 H 98 Laboratory Results Short CBC 03/16/19 Range/Units 06:18 WBC 4.97 (4.8-10.8) K/uL Hgb 8.9 L (14.0-18.0) g/dL Hct 27.7 L (42-52) % Plt Count 129 L (130-400) K/uL BMP 03/16/19 06:18 Creatinine 0.78 Medications Administered Current Inpatient Medications Amoxicillin/Clavulanate Potassium (Augmentin 875mg) 1 tab PO BIDM [facility] Stop: 03/26/19 16:59 Ascorbic Acid (Vitamin C) 500 mg PO DAILY [facility] Stop: 04/14/19 08:59 Last Admin: 03/16/19 08:04 Dose: 500 mg Documented by: Fish Oil (Ault-3 (Purified Fish Oil)) 1 gm PO DAILY SAHIL Stop: 04/14/19 08:59 Last Admin: 03/16/19 08:04 Dose: 1 gm Documented by: Furosemide (Lasix) 40 mg PO QAM [facility] Stop: 04/15/19 12:14 Vancomycin HCl 1,750 mg/ (Sodium Chloride) 535 mls @ 200 mls/hr IV Q12H [facility] Stop: 03/25/19 00:00 Last Admin: 03/16/19 10:33 Dose: 150 mls/hr Documented by: Mesalamine (Delzicol) 800 mg PO TID [facility] Stop: 04/13/19 20:59 Last Admin: 03/16/19 08:04 Dose: 800 mg Documented by: Miscellaneous Information (Consult) 1 ea N/A UD PRN PRN Reason: Consult Stop: 04/13/19 14:07 Multivitamins ([facility]ivitamin Tab) [facility] [place] Stop: 04/14/19 08:59 Last Admin: 03/16/19 08:04 Dose: 1 tab Documented by: Potassium Chloride (Klor-Con M20) 20 meq PO QAM [facility] Stop: 04/15/19 12:14 Warfarin Sodium (Coumadin) 2.5 mg PO Q2D@1600 [facility] Stop: 04/13/19 19:29 Last Admin: 03/14/19 19:58 Dose: 2.5 mg Documented by: Warfarin Sodium (Coumadin) 5 mg PO Q2D@1600 [facility] Stop: 04/14/19 15:59 Last Admin: 03/15/19 16:00 Dose: 5 mg Documented by: (1) GI bleed GI bleed type/associated pathology: unspecified gastrointestinal hemorrhage type Qualified Code(s): K92.2 - Gastrointestinal hemorrhage, unspecified
[2019-03-16] MEDS ORDERED: AMOXICILLIN/CLAVULANATE 875 MG TAB PO SCH (17:00)
--- NOTE | 2019-03-16 18:08 | Discharge Summary ---
Date of Service March 16, 2019 Admission HPI Per Admitting Provider Is 69-year-old obese male with significant past medical history of colitis and recently diagnosed DVT of bilateral femoral veins apparently has had a nail injury in his right foot yesterday afternoon while he was working outside around his garage. The nail went through the shoe and hit the sole. Started to have swelling and redness involving the right foot and he felt chills but no documented fever and/or temperature. He denies any nausea no vomiting or any dizziness. In the ER he was noted to have a temperature of 39.2 C without any elevation of the white count and his right foot noted to be swelling with redness and increased local temperature. X-ray of the foot did not show any foreign body and/or bone involvement. He was admitted for continued care and started with intravenous Zosyn and vancomycin given his sugar was high more than 200 and claims that he is not diabetic. Admission Exam Per Admitting Provider Physical Exam: No apparent distress at rest except some pain in the right foot Constitutional: well developed, well nourished, + ill appearing and + obese; no acute distress Eyes: PERRL, conjunctivae normal, anicteric sclerae ENMT: external ear and nose normal, oropharynx normal Neck: trachea midline, no thyromegaly Respiratory: normal respiratory effort; no respiratory distress Auscultation: lungs clear to auscultation bilaterally Cardiovascular: Rate/Rhythm: regular rate and regular rhythm Heart Sounds: no murmur Extremities: + edema (Bilateral leg edema 1-2+) Gastrointestinal (Abdomen): Inspection/Auscultation: abdomen normal to inspection; abdomen not distended Percussion/Palpation: abdomen nontender Musculoskeletal: No acute arthritis involving any joint Skin: Redness with increased temperature noted right foot, ankle and distal leg Neurologic: moves all extremities; no focal motor deficits Lymphatic: no cervical or axillary lymphadenopathy Principal Diagnosis Cellulitis of the right leg and foot status post penetrating nail injury, ulcerative colitis, bilateral femoral vein DVTs on Coumadin Discharge Exam Constitutional well developed, well nourished, + ill appearing and + obese; no acute distress Eyes PERRL, conjunctivae normal, anicteric sclerae ENMT external ear and nose normal, oropharynx normal Neck trachea midline, no thyromegaly Respiratory normal respiratory effort; no respiratory distress Auscultation: lungs clear to auscultation bilaterally Cardiovascular Rate/Rhythm: regular rate and regular rhythm Heart Sounds: no murmur Extremities: + edema (Bilateral leg edema 1-2+) Gastrointestinal (Abdomen) Inspection/Auscultation: abdomen normal to inspection; abdomen not distended Percussion/Palpation: abdomen nontender Neurologic moves all extremities; no focal motor deficits Lymphatic no cervical or axillary lymphadenopathy Discharge Data Allergies Allergy/AdvReac Type Severity Reaction Status Date / Time No Known Allergies Allergy Unverified 03/14/19 14:38 Consultations 03/14/19 16:55 ED Decision to Admit Stat Hospital Course (1) Cellulitis of right lower leg: Penetrating nail injury of the right sole He received tetanus injection in the emergency room Spreading cellulitis of the right lower extremity Met the criteria of sores on admission Blood cultures have been taken Zosyn and intravenous vancomycin have been started No evidence of osteomyelitis We will admit to medical floor for continuation of care Clinically much better today with decreasing pain, redness, tenderness and swelling No fever and/or sweating White count remains normal Await blood culture-have been negative Antibiotics have been changed to oral Augmentin to continue 10 more days Hyperglycemia Noted to have very high blood sugar Received a course of steroids recently for flare up of ulcerative colitis We will check hemoglobin A1c-6.1 (2) SIRS (systemic inflammatory response syndrome): As above (3) Colitis: No acute flare of ulcerative colitis We will monitor hemoglobin Continue mesalamine No more bloody diarrhea and hemoglobin remains stable at 8.9 as of 03/16 We will continue current medications for ulcerative colitis as an outpatient (4) 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: Recently diagnosed deep venous thrombosis as an outpatient Bilateral femoral veins are involved May be the cause for bilateral leg swelling Continue Coumadin (5) Bilateral leg edema: Complains to have bilateral leg swelling for the last few months Could be secondary to bilateral proximal DVTs Denies any shortness of breath at rest and on exertion Chest x-ray is not showing any CHF We will get an echocardiogram to evaluate LV function Has been taking any Lasix for the swelling Echo shows grade 2 diastolic dysfunction We will put him on a small dose of Lasix for bilateral leg edema DVT prophylaxis On Coumadin CODE STATUS Full (6) GI bleed: Has had flare up of ulcerative colitis and finished a course of steroids Hemoglobin noted to be less than 9 Denies any more bleeding We did not restart any prednisone right now We will continue mesalamine Hemoglobin remains stable Total Time Total Time Spent Total Time Spent (In Minutes): 35 minutes Total Time Includes: Examination of the Patient, Discharge Planning, Medication Reconciliation and Communication With Other Providers Discharge Plan Discharge Items Patient Disposition: Home - Self-Care Reason For Visit: SPREADING CELLULITIS RT LOWER LEG NAIL INJURY Discharge Diagnosis: Cellulitis of the right leg and foot status post penetrating nail injury, ulcerative colitis, bilateral femoral vein DVTs on Coumadin Condition on Discharge: Good Activity: Resume your previous activity Non-emergency contact: Primary Care Provider Call non-emergency contact if: you have any medication questions and your symptoms worsen Follow-up/Referrals: Brennan Calles DO [Primary Care Provider] - 03/22/19 12:55 pm Diet: Carb Consistent or DM2 Addtl Attending Provider Instructions: Medications for the ulcerative colitis will be called in by your process treater and you will be notified Pending Studies at Discharge: No Stand-Alone Forms: My [facility] Medications and DC Order Prescriptions: New furosemide 40 mg Tablet 40 mg PO QAM 30 Days Qty: 30 RF: 0 potassium chloride [Klor-Con M20] 20 mEq Tablet,Er Particles/Crystals 20 meq PO QAM 30 Days Qty: 30 RF: 0 amoxicillin-pot clavulanate 875-125 mg Tablet 1 tab PO BIDM 10 Days Qty: 20 RF: 0 Continued omega [id number]-[id number]-fish oil [Fish Oil] 1,000 mg (120 mg-180 mg) Capsule 1 cap PO DAILY RF: 0 multivitamin Tablet 1 tab PO QAM RF: 0 ascorbic acid (vitamin C) [Vitamin C] 500 mg Tablet 500 mg PO DAILY RF: 0 prednisone 10 mg tablet PO UD RF: 0 warfarin 5 mg tablet 5 mg PO Q2D RF: 0 warfarin 5 mg tablet 2.5 mg PO Q2D RF: 0 mesalamine 800 mg tablet,delayed release (DR/EC) 1,600 mg PO TID 30 Days Qty: 180 RF: 0 Discharge Orders: Discharge Order (Routine); Ordered 03/16/19 Ordered By: Teresita Elder/Other Patient Handouts: Prediabetes, Diabetes Coremaker Floor Complications, Diabetes Resources, Diabetes Healthy Meals, Diabetes Carbs, Diabetes Exercise Benefits, Diabetes Exercise Get Started, Diabetes Activity Tips, Diabetes Manage A1C Test Admission Data Admit Date/Time: 03/14/19 17:47 Attending Provider: Teresita Birch Admit Provider: Teresita Birch Primary Care Provider: Brennan Calles Other Providers: Teresita Birch Other Interventions: Discharge Summary Assessment (RN) Last Done: 03/16/19 13:29 DC Date/Time DO NOT enter until pt leaves facility: 03/16/19 15:05
[2019-03-17] MEDS ORDERED: VANCOMYCIN TROUGH ONE (21:30)
--- NOTE | 2019-03-18 12:19 | Coding Query ---
CODING QUERY To promote full compliance with coding requirements relating to patient care, provider participation is requested in all cases of band top maker uncertainty. Please assist us with the question(s) below: Coding Question(s): 1. There is documentation through the record and on Discharge Summary of Bilateral Femoral Vein DVT's on Coumadin. Please specify below, in your clinical opinion. ( ) Acute Bilateral Femoral Vein DVT's ( + ) Chronic Bilateral Femoral Vein DVT's ( ) Other: Please Specify 2. There is documentation of GI Bleed and Documentation of Ulcerative Colitis and the Discharge Summary documents No Acute Flare of Ulcerative Colitis and also documents, under GI Bleed, has had flare up of Ulcerative Colitis and finished a course of steroids. Please specify below, regarding the etiology of the GI Bleed. ( + ) GI Bleed most likely due to Ulcerative Colitis ( ) GI Bleed most likely due to Other: Please Specify ( ) GI Bleed with Unknown likely etiology Physician's Response(s): Thank you Carmen Zhu Principal Diagnosis: "that condition established after study, to be chiefly responsible for occasioning the admission of the patient to the hospital for care." Co-Existing Principal Diagnosis: "when two or more diagnoses equally meet the criteria for principal diagnosis as determined by the circumstances of admission, diagnostic work up, and/or therapy provided, and the Alphabetic Index, Tabular List, or another coding guideline does not provide sequencing direction, any one of the diagnoses may be sequenced first." "When the physician has documented what appears to be a current diagnosis in the body of the record, but has not included the diagnosis in the final diagnostic statement, the physician should be asked whether the diagnosis should be added." (Source Coding [facility] 2 QTR90. p3-4) KIMBERLY
--- NOTE | 2019-03-22 06:52 | Coding Query ---
ANEMIA To promote full compliance with coding requirements relating to patient care, physician participation is requested in all cases of automatic i threading machine feeder uncertainty. Please assist us with the question(s) below: Coding Question(s): The record reflects the following clinical findings: Anemia secondary to GI blood loss is documented on H&P and Discharge Summary documents, "Anemia secondary to GI bleed due to ulcerative colitis". Please specify below regarding the type of Blood Loss Anemia. ( ) Acute blood loss anemia (+ ) Chronic blood loss anemia ( ) Other: (please specify) ( ) Unable to determine Thank you Carmen Zhu [facility]
== END 2019-03-16 15:05 | disposition home or self-care (01) | DRG 386 ==
LOC: ED 12:49 → 4W 17:47

== ENCOUNTER 2020-03-06 11:40 | Inpatient (IN) ==
[2020-03-06] MEDS ORDERED: cefTRIAXone SODIUM 1,000 MG/50 ML BAG IV STA (12:40)
--- NOTE | 2020-03-06 12:47 | Emergency Department Note ---
Impression & Plan Sepsis, Cellulitis of right lower leg, Leukocytosis ED Provider Note NAME: TAYLOR VANCE AGE: 70 SEX: M : 1950 ARRIVES VIA: Walk-In INFORMANT: Patient ED PROVIDER(S): Conrado Michelle DO CHIEF COMPLAINT: Right foot pain HPI: Patient is a 70-year-old male presents the ER for swelling and redness of his right foot. He notes that at some point on he noticed a toothpick in his right foot. He went to urgent care and had it removed. He was placed on doxycycline. He is uncertain of how long it was in there. He notes the redness and surrounding purple discoloration has been significantly worsening over the past 24 hours. He is not a diabetic. He denies all other complaints. No other exacerbating or remitting factors. He denies any headache, chest pain, shortness of breath, nausea vomiting or diarrhea. He has been on doxycycline since this past with worsening symptoms. ROS: See above HPI for pertinent positives & negatives. A total of 10 systems reviewed and were otherwise negative. PAST MEDICAL HISTORY:See Below PAST SURGICAL HISTORY:See Below FAMILY HISTORY:See Below SOCIAL HISTORY:See Below HOME MEDICATIONS:See Below ALLERGIES:See Below VITALS:See Below PHYSICAL EXAMINATION: GENERAL: Sitting up in bed, alert, well appearing, well nourished, no distress, non-toxic EYE EXAM: normal conjunctiva. OROPHARYNX: no exudate, no erythema, lips, buccal mucosa, and tongue normal and mucous membranes are moist NECK: supple, no nuchal rigidity, no adenopathy, non-tender LUNGS: Clear to auscultation. Normal chest wall mechanics HEART: no murmurs, S1 normal and S2 normal ABDOMEN: abdomen soft, non-tender, normo-active bowel sounds, no masses, no rebound or guarding. BACK: Back is symmetrical on inspection and there is no deformity, no midline tenderness, no CVA tenderness. SKIN: no rashes and no bruising UPPER EXTREMITIES: upper extremities are grossly normal. LOWER EXTREMITIES: Swelling and erythema at the base of the right foot with a puncture hole and purple discoloration measuring 3 inches x 3 inches. Skin is warm and tender with erythema tracking up to the dorsal surface bilaterally of the right foot. NEURO EXAM: Normal sensorium, cranial nerves II-XII grossly intact, normal speech, no gross weakness of arms, no gross weakness of legs. MEDICAL DECISION MAKING: Patient is a 70-year-old male who presents the ER for redness and swelling of his right lower extremity. He had a toothpick removed this past he was placed on doxycycline. He has had worsening symptoms since then. On presentation he was found to have a worsening infection. He was found to have a leukocytosis of 16,000. He was afebrile initially but then eventually spiked a fever. No significant anemia. BMP with LFTs was unremarkable. Bilirubin slightly elevated at 1.4. Patient was given IV vancomycin and cefepime for Pseudomonas coverage. He was updated bedside. Discussed with the hospitalist admitted for further work-up. Triage Nursing notes reviewed. Prior medical records reviewed Vital Signs: reviewed and remarkable for tachy Differential diagnosis: Differential diagnosis includes etiologies such as sepsis, UTI, pneumonia, metabolic, electrolyte abnormalities, cardiac sources, intracerebral event, toxicologic, neurological, as well as others were entertained. ER treatment provided: See below Diagnostics interpreted by me: ECG: Sinus rhythm rate of 77 First-degree AV block No PVCs Normal QTC Cardiac Monitoring: An order was placed for continuous cardiac monitoring. The monitor shows a rate of 79 with sinus rhythm. Laboratory studies: As stated above and show below. Imaging studies: X-rays of the foot show no obvious foreign body Consultation(s): Discussed with the hospitalist for further evaluation ED COURSE: Procedures: none Critical Care: None Past Med/Surg History Medical History (Updated 03/06/20 @ 18:35 by Conrado Michelle DO) Colostomy present Cryptogenic cirrhosis History of DVT (deep vein thrombosis) Primary malignant neoplasm of cecum Surgical History Status post colectomy Family History Other Diabetes Social History Smoking Status: Never smoker Second Hand Exposure: No; Hx Alcohol Use: No Hx Substance Use: No Preferred Language: Macedonian Communication Ability: Effective Clothing Supervisor Required: No Beliefs That Will Affect Care: None Current Living Situation: Alone Current Living Situation Comment: [place]- daughter checks on pt daily Other Information That Helps Us Care for You: No Feels Safe at Home: Yes Safety Concerns: Feels Safe At This Time Assistive Devices: Denture - Upper and Denture - Lower Allergies Allergies Allergy/AdvReac Type Severity Reaction Status Date / Time No Known Allergies Allergy Unverified 03/06/20 13:06 Home Meds Home Medications Medication Instructions Recorded Confirmed ascorbic acid (vitamin C) [Vitamin 1,000 mg PO DAILY 01/01/19 03/06/20 C] multivitamin 1 tab PO QAM 01/01/19 03/06/20 aspirin [Aspirin Low Dose] 81 mg PO DAILY 03/06/20 03/06/20 cholecalciferol (vitamin D3) 25 mcg PO DAILY 03/06/20 03/06/20 [Vitamin D3] doxycycline hyclate 100 mg PO BID 03/06/20 03/06/20 ferrous sulfate 325 mg PO DAILY 03/06/20 03/06/20 furosemide 40 mg PO DAILY 03/06/20 03/06/20 potassium chloride [Klor-Con M20] 20 meq PO DAILY 03/06/20 03/06/20 Results & Data (ED) Vital Signs Vital Signs - 24 hr 03/06/20 11:45 03/06/20 12:47 03/06/20 13:41 Temperature 37.2 C Temperature Source Oral Pulse Rate 90 69 Pulse Rate [Left] 75 Respiratory Rate 17 18 18 Respiratory Effort / Characteristics Non-Labored Spontaneous Non-Labored Spontaneous Respiratory Depth Normal Normal Respiratory Pattern Regular Blood Pressure 116/61 Blood Pressure [Left Arm] 132/51 L Blood Pressure Mean 79 Blood Pressure Mean [Left Arm] 78 Blood Pressure Position Sitting Blood Pressure Position [Left Arm] Lying Pulse Oximetry 97 98 97 Oxygen Delivery Method Room Air Room Air Room Air Sepsis Recent Fever Within 48 Hours No Sepsis New/Unexplained Change in Mental Status No Sepsis Action Taken by Nursing No Action Required Laboratory Data Result diagrams: 03/06/20 12:50 03/06/20 12:40 Lab Results 03/06/20 03/06/20 03/06/20 Range/Units 12:40 12:50 12:50 WBC 16.70 H (4.8-10.8) K/uL RBC 4.18 L (4.7-6.1) M/uL Hgb 12.4 L (14.0-18.0) g/dL Hct 36.8 L (42-52) % MCV 88.0 (80-100) fL MCH 29.7 (25-34) pg MCHC 33.7 (32-36) g/dL RDW Std Deviation 43.3 (36.4-46.3) fL RDW Coeff of Bryan 13.4 (11.5-14.5) % Plt Count 142 (130-400) K/uL MPV 10.4 (7.4-10.4) fL Immature Gran % (Auto) 0.4 % Neut % (Auto) 84.0 % Lymph % (Auto) 8.4 % [place] % (Auto) 6.9 % Eos % (Auto) 0.2 % Baso % (Auto) 0.1 % Neut # (Auto) 14.04 H (1.4-6.5) K/uL Lymph # (Auto) 1.41 (1.2-3.4) K/uL [place] # (Auto) 1.15 H (0.11-0.59) K/uL Eos # (Auto) 0.03 (0-0.5) K/uL Baso # (Auto) 0.01 (0-0.2) K/uL Immature Gran # (Auto) 0.06 H (0.00-0.02) K/uL ESR 53 H (0-14) mm/hr Sodium 137 (136-145) mmol/L Potassium 4.2 (3.5-5.1) mmol/L Chloride 105 (98-107) mmol/L Carbon Dioxide 25 (21-32) mmol/L Anion Gap 7.0 (3-11) BUN 33 H (7-18) mg/dl Creatinine 1.25 (0.6-1.4) mg/dl Est Cr Clr Drug Dosing 69.5 ml/min Est GFR ( Amer) 67.7 Est GFR (Non-Af Amer) 58.4 BUN/Creatinine Ratio 26.5 H (10-20) Glucose 140 H (70-99) mg/dl Calcium 8.8 (8.5-10.1) mg/dl Total Bilirubin 1.4 H (0.2-1) mg/dl AST 24 (15-37) U/L ALT 29 (12-78) U/L Alkaline Phosphatase 90 (45-117) U/L C-Reactive Protein (0-0.29) mg/dl Total Protein 7.6 (6.4-8.2) gm/dl Albumin 3.3 L (3.4-5.0) gm/dl Globulin 4.3 H (2.5-4.0) gm/dl Albumin/Globulin Ratio 0.8 L (0.9-2) 03/06/20 Range/Units 12:50 WBC (4.8-10.8) K/uL RBC (4.7-6.1) M/uL Hgb (14.0-18.0) g/dL Hct (42-52) % MCV (80-100) fL MCH (25-34) pg MCHC (32-36) g/dL RDW Std Deviation (36.4-46.3) fL RDW Coeff of Bryan (11.5-14.5) % Plt Count (130-400) K/uL MPV (7.4-10.4) fL Immature Gran % (Auto) % Neut % (Auto) % Lymph % (Auto) % [place] % (Auto) % Eos % (Auto) % Baso % (Auto) % Neut # (Auto) (1.4-6.5) K/uL Lymph # (Auto) (1.2-3.4) K/uL [place] # (Auto) (0.11-0.59) K/uL Eos # (Auto) (0-0.5) K/uL Baso # (Auto) (0-0.2) K/uL Immature Gran # (Auto) (0.00-0.02) K/uL ESR (0-14) mm/hr Sodium (136-145) mmol/L Potassium (3.5-5.1) mmol/L Chloride (98-107) mmol/L Carbon Dioxide (21-32) mmol/L Anion Gap (3-11) BUN (7-18) mg/dl Creatinine (0.6-1.4) mg/dl Est Cr Clr Drug Dosing ml/min Est GFR ( Amer) Est GFR (Non-Af Amer) BUN/Creatinine Ratio (10-20) Glucose (70-99) mg/dl Calcium (8.5-10.1) mg/dl Total Bilirubin (0.2-1) mg/dl AST (15-37) U/L ALT (12-78) U/L Alkaline Phosphatase (45-117) U/L C-Reactive Protein 20.50 H (0-0.29) mg/dl Total Protein (6.4-8.2) gm/dl Albumin (3.4-5.0) gm/dl Globulin (2.5-4.0) gm/dl Albumin/Globulin Ratio (0.9-2) Administered Medications Acetaminophen (Acetaminophen 325 Mg Tab) 650 mg PO Q4H PRN PRN Reason: pain/fever Stop: 04/05/20 16:11 Last Admin: 03/06/20 16:30 Dose: 650 mg Documented by: [id number] Discontinued Medications Cefepime HCl (Maxipime) 2,000 mg in 20 mls @ 5 mls/min IV NOW STA; Protocol Stop: 03/06/20 13:09 Last Admin: 03/06/20 13:20 Dose: 5 mls/min Documented by: [id number] Vancomycin HCl 2,500 mg/ (Sodium Chloride) 550 mls @ 200 mls/hr IV NOW STA Stop: 03/06/20 15:57 Last Infusion: 03/06/20 18:26 Dose: 0 mls/hr Documented by: [id number] Admin: 03/06/20 13:36 Dose: 200 mls/hr Documented by: [id number] Discharge Plan Visit Data Chief Complaint: Foot Injury/Pain Stated Complaint: SORE RIGHT FOOT/STEPPED ON SOMETHING ED Provider: Conrado Michelle Discharge Problem: Sepsis, Cellulitis of right lower leg, Leukocytosis Patient Disposition: Admitted As Inpatient Discharge Instructions Interventions: ED Discharge Assessment Last Done: 03/06/20 15:40 Discharge Problem: Sepsis Qualifiers: Sepsis type: sepsis due to unspecified organism Sepsis acute organ dysfunction status: unspecified Qualified Code(s): A41.9 - Sepsis, unspecified organism Leukocytosis Qualifiers: Leukocytosis type: unspecified Qualified Code(s): D72.829 - Elevated white blood cell count, unspecified
[2020-03-06 12:55] LABS: Basophils # (auto) 0.01 K/uL (0-0.2); Basophils % (auto) 0.1 %; Eosinophils # (auto) 0.03 K/uL (0-0.5); Eosinophils % (auto) 0.2 %; Hematocrit (blood only) 36.8 % (42-52); Hemoglobin 12.4 g/dL (14.0-18.0); Immature Granulocytes # (auto) 0.06 K/uL (0.00-0.02); Immature Granulocytes % (auto) 0.4 %; Lymphocytes # (auto) 1.41 K/uL (1.2-3.4); Lymphocytes % (auto) 8.4 %; Mean Corpuscular Hemoglobin 29.7 pg (25-34); Mean Corpuscular Hgb Conc 33.7 g/dL (32-36); Mean Platelet Volume 10.4 fL (7.4-10.4); Monocytes # (auto) 1.15 K/uL (0.11-0.59); Monocytes % (auto) 6.9 %; Neutrophils # (auto) 14.04 K/uL (1.4-6.5); Platelet Count 142 K/uL (130-400); RDW Coefficient of Variation 13.4 % (11.5-14.5); RDW Standard Deviation 43.3 fL (36.4-46.3); Red Blood Count 4.18 M/uL (4.7-6.1)
[2020-03-06] MEDS ORDERED: CEFEPIME 2,000 MG/20 ML VIAL IV STA (13:06)
[2020-03-06] MEDS ORDERED: VANCOMYCIN HCL 2,500 MG in SODIUM CHLORIDE 0.9% 500 ML IV STA (13:13)
[2020-03-06 13:14] LABS: Albumin Level 3.3 gm/dl (3.4-5.0); BUN Creatinine Ratio 26.5 (10-20); Calcium 8.8 mg/dl (8.5-10.1); Creatinine Clr Calc Pharmacy 69.5 ml/min; Est GFR (African American) 67.7; Est GFR (Non-African American) 58.4; Potassium 4.2 mmol/L (3.5-5.1)
[2020-03-06 13:17] LABS: Albumin Globulin Ratio 0.8 (0.9-2); Bilirubin,Total 1.4 mg/dl (0.2-1); Globulin 4.3 gm/dl (2.5-4.0); Total Protein 7.6 gm/dl (6.4-8.2)
--- NOTE | 2020-03-06 14:05 | XRay Report ---
XR foot RT min 3V routine CLINICAL HISTORY: Right foot pain. Possible foreign body. Patient stepped on toothpick. COMPARISON: 03/14/2019 DISCUSSION: No acute fractures are visualized. There are moderate vascular calcifications. There are degenerative changes. No radiopaque foreign bodies are visualized. There is mild plantar soft tissue edema IMPRESSION: 1. No acute fractures 2. Mild plantar soft tissue edema 3. No radiopaque foreign bodies are visualized. It is quite possible that a foreign body toothpick wo uld not be visualized on conventional x-ray evaluation ACT 112: Negative or not required by law. Electronically signed by: Dieudonne Vegas M.D. 03/06/2020 2:03 PM
--- NOTE | 2020-03-06 14:43 | History & Physical Report ---
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 -Toothpick removed in clinic on 03/02. Wound developing purple discoloration, worsening surrounding cellulitis after 4 days of doxycycline -Afebrile, leukocytosis of 16.7. Nontoxic in appearance, not meeting sepsis criteria. ESR and CRP pending -Placed on cefepime and Vanco empirically in ED. Blood cultures ordered -Routine Ortho consult for recommendations about further imaging or need for debridement - will see tomorrow AM -PT/OT evaluation, pain control, wound care nurse consulted (3) Ulcerative colitis: S/p colectomy. Not currently on any medication. Follows with GI in [place] (4) Primary malignant neoplasm of cecum: (5) Status post colectomy: Not on any chemo or radiation. Following for surveillance with [facility] oncology. Colostomy care per nursing (6) Bilateral leg edema: No peripheral edema noted on admission. Continue home dose Lasix (7) Cryptogenic cirrhosis: Follows with [facility] GI group. Low-sodium diet, limit daily Tylenol to less than 2 g DVT Ppx: SCDs Code status: FULL PCP: Stevan Dispo: Admitted to med/surg. Plan to return home once medically stable. Patient seen in collaboration with Dr. Templeton. Please see addendum. 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 Patient noticed redness and pain to bottom of right foot 4 days ago and was seen in primary care clinic. Provider they removed a partial toothpick from foot and prescribed 7-day course of doxycycline with follow-up. Pain has progressively worsened and patient noted that purple discoloration appeared as well as min rounding redness over the past day. Pain is currently 6 out of 10 and patient has begun to have difficulty ambulating coming with a cane. Patient denies any known diabetes. Not on blood thinners. No fever, chills or purulent drainage. No lightheadedness, visual changes, chest pain, shortness of breath, nausea, vomiting, abdominal pain, dysuria, diarrhea constipation. Allergies Allergy/AdvReac Type Severity Reaction Status Date / Time No Known Allergies Allergy Unverified 03/06/20 13:06 Home Medications Home Medications Medication Instructions Recorded Confirmed Type ascorbic acid (vitamin C) [Vitamin 1,000 mg PO DAILY 01/01/19 03/06/20 History C] multivitamin 1 tab PO QAM 01/01/19 03/06/20 History aspirin [Aspirin Low Dose] 81 mg PO DAILY 03/06/20 03/06/20 History cholecalciferol (vitamin D3) 25 mcg PO DAILY 03/06/20 03/06/20 History [Vitamin D3] doxycycline hyclate 100 mg PO BID 03/06/20 03/06/20 History ferrous sulfate 325 mg PO DAILY 03/06/20 03/06/20 History furosemide 40 mg PO DAILY 03/06/20 03/06/20 History potassium chloride [Klor-Con M20] 20 meq PO DAILY 03/06/20 03/06/20 History Past Med/Surg History Medical History (Updated 03/06/20 @ 16:03 by Zina Wright PA-C) Colostomy present Cryptogenic cirrhosis History of DVT (deep vein thrombosis) Primary malignant neoplasm of cecum Surgical History Status post colectomy Family History Other Diabetes Social History Smoking Status: Never smoker Second Hand Exposure: No; Hx Alcohol Use: No Hx Substance Use: No Preferred Language: Frisian Communication Ability: Effective Circuit Court Judge Required: No Beliefs That Will Affect Care: None Current Living Situation: Alone Current Living Situation Comment: dor[place]o- daughter checks on pt daily Other Information That Helps Us Care for You: No Feels Safe at Home: Yes Safety Concerns: Feels Safe At This Time Assistive Devices: Denture - Upper and Denture - Lower Review of Systems Review of Systems: At least ten systems reviewed and negative except as noted in the HPI. Physical Exam Physical Exam: General Appearance: WD/WN, vitals as above, NAD, sitting up in bed, pleasant, obese Head: normocephalic, atraumatic Eyes: normal inspection, PERRL, conjunctivae normal, anicteric sclerae ENT: external ear and nose normal, oropharynx normal Neck: normal visual inspection, trachea midline, no thyromegaly Respiratory: normal respiratory effort, lungs clear to auscultation, no wheeze, rales, rhonchi. No accessory muscle use Cardiovascular: regular rate, rhythm, no murmur, normal peripheral pulses, no BLE edema. Vessels: no JVD Chest: normal inspection of chest Abdomen/GI: normal bowel sounds, soft, nontender, no hepatosplenomegaly + colostomy bag noted with minimal output Extremities/Musculoskeletal: no cyanosis or clubbing, extremities motor strength 5/5 Neurologic: PERRL, EOMI, accommodation nl, no face palsy, no dysarthria, CN's II-XI intact bilaterally and moves all extremities Psychiatric: A+Ox3, euthymic affect Skin: no rashes, normal color, warm/dry. + R plantar aspect of foot with 3x3 cm wound with purple discoloration, fluctuant, tender with nearby puncture hole. No drainage. Surrounding erythema at the base of right foot to distal ankle that is warm to touch Results & Data Results & Data ([facility]) Vital Signs (Past 12 Hours) Vital Signs Temp Pulse Pulse Resp BP BP Pulse Ox 03/06/20 13:41 75 18 132/51 L 97 03/06/20 12:47 69 18 98 03/06/20 11:45 37.2 C 90 17 116/61 97 Laboratory Results Short CBC 03/06/20 Range/Units 12:50 WBC 16.70 H (4.8-10.8) K/uL Hgb 12.4 L (14.0-18.0) g/dL Hct 36.8 L (42-52) % Plt Count 142 (130-400) K/uL BMP 03/06/20 12:40 Sodium 137 Potassium 4.2 Chloride 105 Carbon Dioxide 25 BUN 33 H Creatinine 1.25 Glucose 140 H Calcium 8.8 Liver Function 03/06/20 Range/Units 12:40 Total Bilirubin 1.4 H (0.2-1) mg/dl AST 24 (15-37) U/L ALT 29 (12-78) U/L Alkaline Phosphatase 90 (45-117) U/L Albumin 3.3 L (3.4-5.0) gm/dl Diagnostic Findings Right foot XR: IMPRESSION: 1. No acute fractures 2. Mild plantar soft tissue edema 3. No radiopaque foreign bodies are visualized. It is quite possible that a foreign body toothpick would not be visualized on conventional x-ray evaluation Code Status & VTE Plan VTE Prophylaxis Plan VTE Prophylaxis will be ordered: Yes Supervising Physician Co-Signing Physician Notes Patient was seen and examined by me, care coordinated with Zina Wright PA-C. Please see her note above for further details. Mr. Tripp is a 70 y/o M with history of ulcerative colitis, history of femoral vein thrombosis on anticoagulation, cirrhosis and portal hypertension, malignant neoplasm of cecum status post removal, prediabetes who presents with right foot pain and swelling. Patient reportedly stepped on a toothpick and went to see his primary care doctor on March 02, at that time toothpick was removed and patient was started on doxycycline. He was doing well and did not have much erythema or pain however in the past 24 hours erythema has worsened and his wound became dark purple. Patient does not have documented history of diabetes, however when patient was his last time in 2018, when nail punctured his right foot, hemoglobin A1c was obtained and was 6.1%, consistent with prediabetes. Today in emergency room patient was started on cefepime and vancomycin, his white blood cell count in the ED is 16.7 thousand, no fever. X-ray of the foot was obtained, and showed mild plantar soft tissue edema. No radiopaque foreign bodies visualized. It is quite possible that a foreign body toothpick would not be visualized on conventional x-ray evaluation. He is currently lying in bed, in no acute distress. He is alert and oriented answering questions appropriately. Lung sounds are clear to auscultation laterally without any wheezing rhonchi or crackles. Heart sounds regular. Abdomen is soft, obese, nontender, nondistended, ostomy bag noted. Patient moves all 4 extremities spontaneously and without difficulty. There is significant erythema over plantar surface of right foot and dark purple discoloration in the middle of his erythema. Small puncture wound is noted, no drainage noted however there is fluctuance. Foot is tender to palpation and warm. Otherwise there is no lower extremity edema noted. Skin is otherwise warm dry and well-perfused. No sensory loss noted. We will obtain blood cultures, ESR, CRP, and also obtain hemoglobin A1c. Will discuss with orthopedics further steps and imaging as patient may need MRI. Patient was started on cefepime and vancomycin in ED, will continue these antibiotics for now. Olvin Templeton MD (1) Ulcerative colitis Digestive disease complication type: with rectal bleeding Ulcerative colitis location: unspecified ulcerative colitis location Qualified Code(s): K51.911 - Ulcerative colitis, unspecified with rectal bleeding
[2020-03-06] MEDS ORDERED: POLYETHYLENE (MIRALAX) 17 GM PACK PO PRN (16:12)
[2020-03-06] MEDS ORDERED: ONDANSETRON INJ 2 MG/ML 2 ML VIAL IV PRN (16:12)
[2020-03-06] MEDS: ACETAMINOPHEN 325 MG TAB PO PRN ×2 (16:30→21:15)
[2020-03-06] MEDS ORDERED: oxyCODONE HCL IR 5 MG TAB (IMMEDIATE RELEASE) PO PRN (16:32)
[2020-03-06] MEDS ORDERED: CEFEPIME CONSULT ACTIVE PRN (16:34)
[2020-03-06] MEDS ORDERED: VANCOMYCIN CONSULT ACTIVE PRN (16:36)
[2020-03-06] MEDS: traMADol HCL 50 MG TABLET PO PRN (18:46)
[2020-03-06] MEDS ORDERED: MICONAZOLE NITRATE POWDER 43 GM EXT PRN (21:18)
--- NOTE | 2020-03-06 21:19 | Pharmacy Report ---
Pharmacy Abx Initial Consult - Date of Service March 06, 2020 - Pharmacy Dosing Scope Date of Consult: 03/06/20 Consultation requested by: Dr. Zina Wright Pharmacy is consulted to initiate Vancomcyin & Cefepime IV/PO dosing therapy, order appropriate labs and adjust drug dose/frequency. - Subjective The patient is a 70 year old M admitted on 03/06/20 14:43. - Objective Height: 5 ft 10 in Weight: 110.4 kg Vital Signs (Past 12hrs): Vital Signs Temp Pulse Pulse Pulse Resp BP BP 03/06/20 19:36 37.8 C H 03/06/20 18:48 38.4 C H 03/06/20 18:05 38.7 C H 64 16 147/53 H 03/06/20 16:00 38.6 C H 92 H 20 166/69 H 03/06/20 15:40 74 18 134/76 03/06/20 15:13 79 20 138/76 03/06/20 13:41 75 18 132/51 L 03/06/20 12:47 69 18 03/06/20 11:45 37.2 C 90 17 116/61 Pulse Ox 03/06/20 19:36 03/06/20 18:48 03/06/20 18:05 96 03/06/20 16:00 96 03/06/20 15:40 97 03/06/20 15:13 95 03/06/20 13:41 97 03/06/20 12:47 98 03/06/20 11:45 97 Lab Results (24hrs): Laboratory Tests (24 Hours) 03/06/20 03/06/20 03/06/20 12:50 12:50 12:50 WBC 16.70 H Neut # (Auto) 14.04 H ESR 53 H Creatinine Est Cr Clr Drug Dosing C-Reactive Protein 20.50 H 03/06/20 12:40 WBC Neut # (Auto) ESR Creatinine 1.25 Est Cr Clr Drug Dosing 69.5 C-Reactive Protein Micro Results: 03/06/20 15:44 Aerobic Blood Culture - Pending Blood Anaerobic Blood Culture - Pending 03/06/20 15:36 Aerobic Blood Culture - Pending Blood Anaerobic Blood Culture - Pending - Risk Factors for Resistance * Antimicrobial use within the last 90 days Doxycycline - Assessment & Plan Assessment 70 year old M presents with worsening right food wound. Pt noticed redness and pain on bottom of right foot four days ago. He was seen at his primary care clinic and provider removed a partial toothpick from his foot and prescribed Doxycycline for 7 days. Pain has gotten progressively worse and patient noted purple discoloration appeared as well as surrounding redness. Pain currently 6 out of 10. Plan Vancomycin & Cefepime for treatment of puncture wound on foot and cellulitis Vancomycin IV * Estimated PK Parameters: Vd 0.61 L/kg, Gildardo 0.062 hr-1, t1/2 11.2 hr * Loading dose: 2500 mg (22.6 mg/kg) * Maintenance dose: 1500 mg IV (13.6 mg/kg) every 14 hours * Goal trough level for cellulitis : ~ 15 mcg/mL Cefepime IV * 2gm IV q12h ordered and appropriate for renal function. Pharmacy will continue to follow and will adjust dose/frequency as necessary. Thank you.
[2020-03-06] MEDS ORDERED: IBUPROFEN 600 MG TAB PO PRN (22:03)
[2020-03-06] MEDS ORDERED: IBUPROFEN 600 MG TAB PO STA (22:03)
[2020-03-06] MEDS ORDERED: HEPARIN SOD 5,000 UNIT/0.5 ML VIAL SQ STA (22:04)
[2020-03-06] MEDS ORDERED: MAGNESIUM SULFATE / D5W 1 GM/100 ML BAG IV ONE (22:15)
[2020-03-06] MEDS ORDERED: SODIUM CHLORIDE 0.9% 1000ML 1,000 ML IV SCH (22:15)
[2020-03-06] MEDS: metroNIDAZOLE 500 MG/100 ML BAG IV SCH (22:23)
[2020-03-06] MEDS: CEFEPIME 2,000 MG in SYRINGE 7.5 ML IV SCH (23:21)
[2020-03-06 23:32] LABS: Magnesium 2.1 mg/dl (1.8-2.4); Thyroid Stimulating Hormone 1.31 uIu/ml (0.300-4.500)
[2020-03-06] MEDS ORDERED: METOPROLOL TARTRATE 25 MG TAB PO SCH (23:40)
[2020-03-07] MEDS ORDERED: VANCOMYCIN HCL 1,500 MG in SODIUM CHLORIDE 0.9% 500 ML IV SCH (04:00)
--- NOTE | 2020-03-07 04:19 | Communication Note ---
Date of Service: March 07, 2020 Overnight developments: Patient transferred to [facility] telemetry by admitting provider for new onset A. fib noted upon arrival at the floor. CR 40-60s overnight. Patient sleeping during bradycardic episodes as per RN. AP New onset A. fib With intermittent slow ventricular response TTE, Cardiology consult RE new onset A. fib Will relay to AM provider.
[2020-03-07] MEDS: metroNIDAZOLE 500 MG/100 ML BAG IV SCH ×3 (06:19→21:35)
[2020-03-07 07:36] LABS: Hematocrit (blood only) 35.5 % (42-52); Mean Corpuscular Hgb Conc 33.8 g/dL (32-36); Mean Corpuscular Volume 88.8 fL (80-100); Mean Platelet Volume 10.9 fL (7.4-10.4); Platelet Count 161 K/uL (130-400); RDW Coefficient of Variation 13.5 % (11.5-14.5); RDW Standard Deviation 43.9 fL (36.4-46.3); White Blood Count 15.51 K/uL (4.8-10.8)
[2020-03-07 07:45] LABS: INR 1.2 (0.9-1.1); Partial Thromboplastin Ratio 1.4; Partial Thromboplastin Time 39.5 Seconds (21.0-31.0); Prothrombin Time 12.5 Seconds (9.0-12.0)
[2020-03-07] MEDS: traMADol HCL 50 MG TABLET PO PRN (08:03)
[2020-03-07] MEDS: ASPIRIN 81 MG ECTAB PO SCH (08:05)
[2020-03-07] MEDS: FERROUS SULFATE 325 MG TAB PO SCH (08:05)
[2020-03-07] MEDS: MULTIVITAMIN TAB PO SCH (08:05)
[2020-03-07] MEDS: ASCORBIC ACID 500 MG TAB PO SCH (08:05)
[2020-03-07] MEDS: CHOLECALCIFEROL 1,000 UNITS 25 MCG TAB PO SCH (08:06)
[2020-03-07] MEDS: POTASSIUM CHLORIDE 20 MEQ TABCR PO SCH (08:06)
[2020-03-07 08:11] LABS: BUN Creatinine Ratio 30.1 (10-20); Calcium 8.6 mg/dl (8.5-10.1); Creatinine Clr Calc Pharmacy 58.4 ml/min; Est GFR (African American) 54.3; Est GFR (Non-African American) 46.8; Potassium 4.1 mmol/L (3.5-5.1)
[2020-03-07 09:05] LABS: Estimated Average Glucose 111 mg/dl; Hemoglobin A1C 5.5 % (4.5-5.6)
[2020-03-07] MEDS ORDERED: MoRPHine SULFATE 2 MG/ML CARP IV ONE (10:47)
--- NOTE | 2020-03-07 10:56 | Pharmacy Report ---
Pharmacy Abx Dose Short Note - Date of Service March 07, 2020 - Assessment & Plan Assessment * 70 year old M receiving cefepime, metronidazole, and vancomycin for treatment of RLE cellulitis 2nd puncture wound of foot - toothpick removed in clinic on 03/02. Wound developed purple discoloration and worsening surrounding cellulitis despite 4 days of doxycycline as outpatient * SCr elevated from baseline and continues to trend up today. Vancomycin * Concerned for reduced clearance with renal dysfunction - will place ongoing vancomycin on hold and check a random level this evening. Patient may require a dose reduction tonight, depending on the level * This level will be prior to steady state Plan * Hold vancomycin * Trough today @1730 Pharmacy will continue to follow and will adjust dose/frequency as necessary. Thank you.
[2020-03-07] MEDS: CEFEPIME 2,000 MG in SYRINGE 7.5 ML IV SCH (11:06)
--- NOTE | 2020-03-07 12:59 | Cardiology Consultation ---
Date of Consultation March 07, 2020 Assessment & Plan (1) Atrial fibrillation: (2) Puncture wound of foot with foreign body: (3) Sepsis: (4) Primary malignant neoplasm of cecum: Incidental finding of rate controlled atrial fibrillation upon presentation. Patient completely asymptomatic from a cardiac standpoint and denies any previous history of atrial fibrillation. His foot may require incision and drainage so I will hold off on initiation of anticoagulation at this time. The pathophysiology and treatment options for asymptomatic rate controlled atrial fibrillation were discussed with the patient at great lengths. He was counseled that he will require anticoagulation for cardioembolic event prevention. I would recommend initiating heparin low-dose drip without bolus to be initiated after his foot has been addressed. He is already rate controlled on his own and no other medications will be started. History of Present Illness Reason for Consultation: Newly discovered atrial fibrillation. Requesting Physician: Dr. Corley Attending Physician: Rashawn Bruce MD History of Present Illness Mr. Tripp is a very pleasant 70-year-old gentleman who presented to [facility] emergency department on 03/06/2020 with complaints of tammy re right foot pain. He stepped on a toothpick several days ago and was seen by his PCP where it was removed and he was started on antibiotics. Unfortunately, his foot pain worsen and he presented to the ER for further evaluation. During admission he was incidentally found to be in atrial fibrillation rate controlled which is a new diagnosis for him. He denies any cardiac complaints of chest pa in, shortness of breath, palpitations, lightheadedness, dizziness or syncope. He states his only concern at this point is his foot pain. Allergies Allergy/AdvReac Type Severity Reaction Status Date / Time No Known Allergies Allergy Unverified 03/06/20 13:06 Home Medications Home Medications Medication Instructions Recorded Confirmed Type ascorbic acid (vitamin C) [Vitamin 1,000 mg PO DAILY 01/01/19 03/06/20 History C] multivitamin 1 tab PO QAM 01/01/19 03/06/20 History aspirin [Aspirin Low Dose] 81 mg PO DAILY 03/06/20 03/06/20 History cholecalciferol (vitamin D3) 25 mcg PO DAILY 03/06/20 03/06/20 History [Vitamin D3] doxycycline hyclate 100 mg PO BID 03/06/20 03/06/20 History ferrous sulfate 325 mg PO DAILY 03/06/20 03/06/20 History furosemide 40 mg PO DAILY 03/06/20 03/06/20 History potassium chloride [Klor-Con M20] 20 meq PO DAILY 03/06/20 03/06/20 History Patient History Medical History Colostomy present Cryptogenic cirrhosis History of DVT (deep vein thrombosis) Primary malignant neoplasm of cecum Surgical History Status post colectomy Family History Other Diabetes Social History Smoking Status: Never smoker Second Hand Exposure: No; Hx Alcohol Use: No Hx Substance Use: No Preferred Language: Maltese Communication Ability: Effective Consumer Loan Underwriter Required: No Beliefs That Will Affect Care: None Current Living Situation: Alone Current Living Situation Comment: doroteo- daughter checks on pt daily Other Information That Helps Us Care for You: No Feels Safe at Home: Yes Safety Concerns: Feels Safe At This Time Assistive Devices: Denture - Upper, Glasses and Walker Review of Systems Review of Systems: All systems reviewed & are unremarkable except as noted in HPI & below Physical Exam Physical Exam: General: Awake, alert and oriented x 3. No acute distress. HEENT: Normocephalic, atraumatic. Pupils equal, round and reactive to light and accommodation. Extraocular muscles are intact. Anicteric sclera. Moist mucous membranes. Neck: No JVD. No bruit. Cardiovascular: irregularly irregular, unable to appreciate murmur, rub or gallop. Pulmonary: Clear to auscultation bilaterally. No rales, rhonchi, or wheezing. Abdomen: Bowel sounds x 4, soft. No rebound, guarding or tenderness. No organomegaly. Extremities: No clubbing, cyanosis or edema. +2 pedal pulses bilaterally. Skin: Warm and dry. Results & Data ([facility]) Vital Signs (Past 12 Hours) Vital Signs Temp Pulse Pulse Pulse Resp BP BP 03/07/20 11:06 37 C 58 L 16 117/49 L 03/07/20 08:00 58 L 03/07/20 07:20 36.8 C 54 L 16 124/52 L 03/07/20 04:11 36.8 C 58 L 18 110/57 L 03/07/20 02:26 36.8 C Pulse Ox 03/07/20 11:06 97 03/07/20 08:00 03/07/20 07:20 97 03/07/20 04:11 98 03/07/20 02:26 (1) Sepsis Sepsis acute organ dysfunction status: unspecified Sepsis type: sepsis due to unspecified organism Qualified Code(s): A41.9 - Sepsis, unspecified organism
[2020-03-07] MEDS ORDERED: oxyCODONE HCL IR 5 MG TAB (IMMEDIATE RELEASE) PO STA (13:55)
[2020-03-07] MEDS ORDERED: MoRPHine SULFATE 2 MG/ML CARP IV STA (14:14)
--- NOTE | 2020-03-07 16:54 | Orthopedic Consultation ---
Date of Consultation March 07, 2020 Assessment & Plan (1) Cellulitis of right lower leg: Continue current IV antibiotics. Would cancel his n.p.o. for today and let him eat. Plan for possible n.p.o. after midnight tonight. I will discuss the case with Dr. Salazar to see if he feels any further imaging is necessary. Current plain film is showing mild plantar surface swelling and no radiopaque or foreign bodies noted. Continue elevation of the right lower extremity. We will continue to follow his progress daily. Supervising Physician Co-Signing Physician Notes Patient seen and examined, agree with above assessment and plan. Large planter foot blood blister, mild erythema. Continue IV abx, NWB RLE, CT to evaluate for deep fluid collection or retained foreign body. History of Present Illness Reason for Consultation: Cellulitis right foot Attending Physician: Rashawn Bruce MD History of Present Illness Patient is a 70-year-old white male who was admitted for cellulitis of his right foot. He apparently had a small piece of toothpick that he had stepped on approximate 4 to 5 days ago. He was seen by his primary care physician who at that time removed part of this small piece of toothpick and started him on doxyc ycline for 7 days. Patient states that he began noticing increasing pain and redness around the area of the right foot this continued to worsen and he noticed an area of purplish color on the plantar surface of the foot as well. As the pain worsened he felt he should be seen in the emergency room. He denies any fevers, chills, lightheadedness, nausea or vomiting prior to admission. He was seen by the medicine service and admitted by the hospitalist staff and we have been asked to see him for his cellulitis. I initially saw him earlier this morning when he was about to undergo an echocardiogram. At that time he stated that the foot felt a little better than when he had first come in. Later this afternoon, the patient states his foot feels about the same. Allergies Allergy/AdvReac Type Severity Reaction Status Date / Time No Known Allergies Allergy Unverified 03/06/20 13:06 Home Medications Home Medications Medication Instructions Recorded Confirmed Type ascorbic acid (vitamin C) [Vitamin 1,000 mg PO DAILY 01/01/19 03/06/20 History C] multivitamin 1 tab PO QAM 01/01/19 03/06/20 History aspirin [Aspirin Low Dose] 81 mg PO DAILY 03/06/20 03/06/20 History cholecalciferol (vitamin D3) 25 mcg PO DAILY 03/06/20 03/06/20 History [Vitamin D3] doxycycline hyclate 100 mg PO BID 03/06/20 03/06/20 History ferrous sulfate 325 mg PO DAILY 03/06/20 03/06/20 History furosemide 40 mg PO DAILY 03/06/20 03/06/20 History potassium chloride [Klor-Con M20] 20 meq PO DAILY 03/06/20 03/06/20 History Patient History Medical History Colostomy present Cryptogenic cirrhosis History of DVT (deep vein thrombosis) Primary malignant neoplasm of cecum Surgical History Status post colectomy Family History Other Diabetes Social History Smoking Status: Never smoker Second Hand Exposure: No; Hx Alcohol Use: No Hx Substance Use: No Preferred Language: [place] Communication Ability: Effective Tack Puller Required: No Beliefs That Will Affect Care: None Current Living Situation: Alone Current Living Situation Comment: doroteo- daughter checks on pt daily Other Information That Helps Us Care for You: No Feels Safe at Home: Yes Safety Concerns: Feels Safe At This Time Assistive Devices: Walker Review of Systems Review of Systems: All systems reviewed & are unremarkable except as noted in HPI & below Constitutional: as per Subjective / HPI Physical Exam Physical Exam: Patient is a 70-year-old white male who is alert and oriented x3, no acute distress, pleasant and cooperative. Focusing the exam on the right lower extremity, his sock is removed revealing an area of cellulitis that has been outlined at the time of his admission. This extends from the central portion of the plantar surface and travels medially to the lateral aspect of the foot the erythema does seem to have receded a little bit from the initial markings. He has a large approximately 3 x 5 cm fluid collection that appears to be hematoma on the plantar surface. It is not tensely swollen. He has pain on palpation around this area and of the foot States he has only a little mild pain on palpation of the heel. Some slight tenderness on palpation of the lower leg mainly medially but no overt erythema. He has good range of motion of his right foot and ankle. Mild pain with dorsiflexion and flexion of the foot in the area of the cellulitis. Sensation is intact. Pulses appear equal bilaterally. Capillary refill is less than 2 seconds. Results & Data ([facility]) Vital Signs (Past 12 Hours) Vital Signs Temp Pulse Pulse Resp BP BP Pulse Ox 03/07/20 15:00 37.4 C 69 16 139/56 L 96 03/07/20 11:06 37 C 58 L 16 117/49 L 97 03/07/20 08:00 58 L 03/07/20 07:20 36.8 C 54 L 16 124/52 L 97
[2020-03-07] MEDS: HYDROmorphone INJ 1 MG/ML SYRINGE IV PRN (17:13)
--- NOTE | 2020-03-07 19:27 | Hospitalist Progress Note ---
Date of Service March 07, 2020 Assessment & Plan (1) Puncture wound of foot with foreign body: (2) Cellulitis of right lower leg: Present on admission with worsening right LE tenderness Foot Xray showed mild plantar soft tissue edema WBC on admission 16K, C-reactive 20.5 and ESR 53 Received IV cefepime and vanco in the ER WBC dropped to 15K today Continue Vanco, cefepime and flagyl IV Blood cx pending Ortho on board recommended to get a CT of right foot Will make NPO for tomorrow for possible I&D Continue pain controlled Continue monitor CBC (3) Atrial fibrillation: New onset of afib on admission EKG showed Afib with rate control Cardiology on board Echo showed normal LV systolic function without regional wall motion abnormality. With ejection fraction 55 to 60%. Continue metoprolol 12.5 BID Cardiology plan to start on anticoagulant after orthopedic intervention Continue monitor closely (4) Ulcerative colitis: S/p colectomy. Not currently on any medication. Follows with GI in [place] (5) Primary malignant neoplasm of cecum: (6) Status post colectomy: Not on any chemo or radiation. Following for surveillance with [facility] oncology. Colostomy care per nursing (7) Bilateral leg edema: No peripheral edema noted on admission. Continue home dose Lasix (8) Cryptogenic cirrhosis: Follows with [facility] GI group. Low-sodium diet, limit daily Tylenol to less than 2 g DVT Ppx: SCDs Anticipate orthopedic procedure Code status: FULL Dispo: Continue monitor closely Admission and Anticipated Discharge Date Admission Date: March 06, 2020 Subjective Pt was seen and examined Lying in bed with no distress Pt said that he is having alot of pain in his right foot He said that the morphine does not help much with the pain Denies any chest pain, palpitation, dizziness and SOB Physical Exam Physical Exam: General- No acute distress Head- atraumatic Eyes- PERRL, EOMI, ENT- oropharynx clear Neck- supple, no JVD Lungs- clear to auscultation Heart- regular rhythm; no murmur Abdomen- normal bowel sounds, soft, nontender Extremities- Right plantar area with large fluid collection/hematoma, very ten tami with erythema in the surrounding area Neuro- alert, oriented x 3; PERRL, EOMI; no facial palsy; no dysarthria Skin- warm & dry Results & Data Results & Data ([facility]) Vital Signs (Past 12 Hours) Vital Signs Temp Pulse Pulse Resp BP Pulse Ox 03/07/20 19:00 36.6 C 81 18 135/74 96 03/07/20 15:00 37.4 C 69 16 139/56 L 96 03/07/20 11:06 37 C 58 L 16 117/49 L 97 03/07/20 08:00 58 L (1) Ulcerative colitis Digestive disease complication type: with rectal bleeding Ulcerative colitis location: unspecified ulcerative colitis location Qualified Code(s): K51.911 - Ulcerative colitis, unspecified with rectal bleeding
[2020-03-07] MEDS: VANCOMYCIN HCL 1,500 MG in SODIUM CHLORIDE 0.9% 500 ML IV SCH (21:34)
[2020-03-07] MEDS: ACETAMINOPHEN 325 MG TAB PO PRN (22:27)
--- NOTE | 2020-03-07 22:31 | Electrocardiogram Report ---
Test Reason : Blood Pressure : / mmHG Vent. Rate : 062 BPM Atrial Rate : 110 BPM P-R Int : 000 ms QRS Dur : 090 ms QT Int : 428 ms P-R-T Axes : 000 023 051 degrees QTc Int : 434 ms Poor data quality, interpretation may be adversely affected Atrial fibrillation Abnormal ECG When compared with ECG of 03-JAN-2019 15:28, Atrial fibrillation has replaced Sinus rhythm Confirmed by Mino Serrano ([id number]) on 03/07/2020 10:31:03 PM Referred By: REFERRED SELF Confirmed By:Mino Serrano
[2020-03-08] MEDS: CEFEPIME 2,000 MG in SYRINGE 7.5 ML IV SCH ×3 (00:24→23:28)
[2020-03-08] MEDS: HYDROmorphone INJ 1 MG/ML SYRINGE IV PRN ×3 (05:40→15:23)
[2020-03-08] MEDS: metroNIDAZOLE 500 MG/100 ML BAG IV SCH ×3 (05:41→20:53)
--- NOTE | 2020-03-08 05:59 | Electrocardiogram Report ---
Test Reason : Blood Pressure : / mmHG Vent. Rate : 057 BPM Atrial Rate : 000 BPM P-R Int : 000 ms QRS Dur : 096 ms QT Int : 454 ms P-R-T Axes : 000 013 044 degrees QTc Int : 441 ms Atrial fibrillation with slow ventricular response Abnormal ECG When compared with ECG of 06-MAR-2020 22:04, No significant change was found Confirmed by Mino Serrano ([id number]) on 03/08/2020 5:59:35 AM Referred By: REFERRED SELF Confirmed By:Mino Serrano
[2020-03-08] MEDS: ASPIRIN 81 MG ECTAB PO SCH (07:21)
[2020-03-08] MEDS: POTASSIUM CHLORIDE 20 MEQ TABCR PO SCH (07:22)
[2020-03-08] MEDS: ASCORBIC ACID 500 MG TAB PO SCH (07:22)
[2020-03-08] MEDS: CHOLECALCIFEROL 1,000 UNITS 25 MCG TAB PO SCH (07:22)
[2020-03-08] MEDS: FERROUS SULFATE 325 MG TAB PO SCH (07:22)
[2020-03-08] MEDS: MULTIVITAMIN TAB PO SCH (07:22)
[2020-03-08 08:06] LABS: Hematocrit (blood only) 33.9 % (42-52); Hemoglobin 11.4 g/dL (14.0-18.0); Mean Corpuscular Hemoglobin 29.7 pg (25-34); Mean Corpuscular Hgb Conc 33.6 g/dL (32-36); Mean Corpuscular Volume 88.3 fL (80-100); Mean Platelet Volume 11.1 fL (7.4-10.4); Platelet Count 165 K/uL (130-400); RDW Coefficient of Variation 13.6 % (11.5-14.5); RDW Standard Deviation 44.4 fL (36.4-46.3); Red Blood Count 3.84 M/uL (4.7-6.1); White Blood Count 17.59 K/uL (4.8-10.8)
[2020-03-08 08:36] LABS: BUN Creatinine Ratio 34.1 (10-20); Calcium 8.7 mg/dl (8.5-10.1); Creatinine Clr Calc Pharmacy 60.3 ml/min; Est GFR (African American) 54.3; Est GFR (Non-African American) 46.8; Magnesium 2.5 mg/dl (1.8-2.4); Potassium 4.3 mmol/L (3.5-5.1)
--- NOTE | 2020-03-08 09:29 | CT Scan Report ---
CT foot RT wo con CT DOSE: 178.68 mGy.cm CLINICAL HISTORY: Right foot pain. Possible abscess. TECHNIQUE: Helical images were acquired in the transverse plane. Sagittal coronal reformatted images were acquired. A dose lowering technique was utilized adhering to the principles of ALARA. COMPARISON STUDY: X-ray study dated 03/06/2020 FINDINGS: Helical images were acquired in the transverse plane. Sagittal and coronal reformatted images were ac quired. There are extensive vascular calcifications present. No fractures are visualized. There are mild osteoarthritic changes. There are no destructive lesions to indicate osteomyelitis. There is diffuse soft tissue edema. A discrete abscess is not visualized given the limitations of a n oncontrast study. No foreign bodies are delineated. IMPRESSION: 1. Diffuse soft tissue edema 2. There are no bony destructive changes to indicate osteomyelitis 3. No foreign bodies identified 4. No discrete abscess identified given the limitations of a noncontrast study 5. Possible medial and inferior skin blistering. Clinical correlation advocated. ACT 112: Negative or not required by law. Electronically signed by: Dieudonne Vegas M.D. 03/08/2020 9:28 AM
--- NOTE | 2020-03-08 14:40 | Orthopedic Progress Note ---
Date of Service March 08, 2020 Assessment & Plan (1) Cellulitis of right lower leg: Continue current IV antibiotics. Overall improvement. CT scan not showing any abscess. No evidence of osteomyelitis. With the increased size of his blister on the plantar surface, I discussed the case with Bailey Werner with wound care. She will discuss the case with Dr. Winters to see if it is a possibility to deroof the blister at the bedside and cleanse the area. Dr Winters will see the patient to decide if that can be done. (Per Bailey Werner) Admission and Anticipated Discharge Date Admission Date: March 06, 2020 Subjective Patient sleeping upon arrival. Easily awoken. No complaints today. He states that overall, he his foot is feeling better today. He feels that the erythema has gone down. Denies shortness of breath, chest pain, lightheadedness, fevers or chills. Physical Exam Physical Exam: The erythema looks overall better and is lessening. He has less pain on palpation. His blood blister on the plantar surface appears to have enlarged a little bit. Range of motion of the right ankle remains within normal limits and sensation is intact. Results & Data ([facility]) Vital Signs (Past 12 Hours) Vital Signs Temp Pulse Pulse Resp BP BP Pulse Ox 03/08/20 11:50 37.1 C 65 16 139/62 97 03/08/20 08:00 58 L 03/08/20 07:16 37 C 51 L 16 136/55 L 92 03/08/20 03:05 37.0 C 60 20 143/57 H 95
--- NOTE | 2020-03-08 15:50 | Wound Consultation ---
Date of Consultation March 08, 2020 Assessment & Plan (1) Cellulitis of right lower leg: This is a 70-year-old male with cellulitis of his right lower extremity status post puncture wound and large blood blister. CT was inconclusive for abscess as it was without contrast. Wound needed debridement. After obtaining permission and using scissors and forceps blood blister was I&D. Large amount of rust colored drainage was removed. This represents a non-excisional debridement of less than 20 cm. After unroofing of the wound it is noted there is some necrotic tissue underneath. The wound bed feels boggy. Patient would likely benefit from going to the OR for further I&D. Continue IV antibiotics. Thank for limited to dissipate in the care of this patient. Please call with any questions. (2) Puncture wound of foot with foreign body: History of Present Illness Reason for Consultation: Puncture wound right foot with hematoma Attending Physician: Roro Maxwell MD History of Present Illness 70-year-old male with a past medical history of cecal adenocarcinoma status post colectomy with colostomy in place, history of ulcerative colitis, cirrhosis, history of DVT and newly diagnosed atrial fibrillation who is admitted with cellulitis of his right foot status post puncture wound. Approximately week ago pain patient noticed pain in the bottom of his right foot and was seen in the clinic. They removed half a toothpick from his foot. Patient presents emergency department on March 06 with fever and chills. Was found to be in sepsis and was admitted. The blood blister on the plantar aspect of his right foot continues to enlarge despite being on IV antibiotics. I am being consulted for this wound. Allergies Allergy/AdvReac Type Severity Reaction Status Date / Time No Known Allergies Allergy Unverified 03/06/20 13:06 Home Medications Home Medications Medication Instructions Recorded Confirmed Type ascorbic acid (vitamin C) [Vitamin 1,000 mg PO DAILY 01/01/19 03/06/20 History C] multivitamin 1 tab PO QAM 01/01/19 03/06/20 History aspirin [Aspirin Low Dose] 81 mg PO DAILY 03/06/20 03/06/20 History cholecalciferol (vitamin D3) 25 mcg PO DAILY 03/06/20 03/06/20 History [Vitamin D3] doxycycline hyclate 100 mg PO BID 03/06/20 03/06/20 History ferrous sulfate 325 mg PO DAILY 03/06/20 03/06/20 History furosemide 40 mg PO DAILY 03/06/20 03/06/20 History potassium chloride [Klor-Con M20] 20 meq PO DAILY 03/06/20 03/06/20 History Patient History Medical History Colostomy present Cryptogenic cirrhosis History of DVT (deep vein thrombosis) Primary malignant neoplasm of cecum Surgical History Status post colectomy Family History Other Diabetes Social History Smoking Status: Never smoker Second Hand Exposure: No; Hx Alcohol Use: No Hx Substance Use: No Preferred Language: Occitan Communication Ability: Effective Client Technical Specialist Required: No Beliefs That Will Affect Care: None Current Living Situation: Alone Current Living Situation Comment: doroteo- daughter checks on pt daily Other Information That Helps Us Care for You: No Feels Safe at Home: Yes Safety Concerns: Feels Safe At This Time Assistive Devices: Walker Review of Systems Review of Systems: All systems reviewed & are unremarkable except as noted in HPI & below Physical Exam Physical Exam: Temp Pulse Resp BP Pulse Ox 37.8 C H 60 18 148/57 H 93 03/08/20 15:41 03/08/20 15:41 03/08/20 15:41 03/08/20 15:41 03/08/20 15:41 Constitutional: WD/WN, vitals as above Eyes: PERRL, conjunctivae normal, anicteric sclerae ENMT: external ear and nose normal, oropharynx normal Skin: Right plantar foot wound measuring 8 x 7 cm. This is a large blood blister. Periwound is erythematous. Neurologic: awake; not confused Psychiatric: A+Ox3, euthymic affect Results & Data ([facility]) Vital Signs (Past 12 Hours) Vital Signs Temp Pulse Pulse Resp BP Pulse Ox 03/08/20 11:50 37.1 C 65 16 139/62 97 03/08/20 08:00 58 L 03/08/20 07:16 37 C 51 L 16 136/55 L 92 Laboratory Results 03/08/20 03/08/20 03/07/20 Range/Units 07:36 07:36 17:25 WBC 17.59 H (4.8-10.8) K/uL RBC 3.84 L (4.7-6.1) M/uL Hgb 11.4 L (14.0-18.0) g/dL Hct 33.9 L (42-52) % MCV 88.3 (80-100) fL MCH 29.7 (25-34) pg MCHC 33.6 (32-36) g/dL RDW Std Deviation 44.4 (36.4-46.3) fL RDW Coeff of Bryan 13.6 (11.5-14.5) % Plt Count 165 (130-400) K/uL MPV 11.1 H (7.4-10.4) fL Sodium 137 (136-145) mmol/L Potassium 4.3 (3.5-5.1) mmol/L Chloride 108 H (98-107) mmol/L Carbon Dioxide 20 L (21-32) mmol/L Anion Gap 9.0 (3-11) BUN 51 H (7-18) mg/dl Creatinine 1.50 H (0.6-1.4) mg/dl Est Cr Clr Drug Dosing 60.3 ml/min Est GFR ( Amer) 54.3 Est GFR (Non-Af Amer) 46.8 BUN/Creatinine Ratio 34.1 H (10-20) Glucose 108 H (70-99) mg/dl Calcium 8.7 (8.5-10.1) mg/dl Magnesium 2.5 H (1.8-2.4) mg/dl Vancomycin Trough 16.8 (See Comment) mcg/ml Diagnostic Findings CT foot: IMPRESSION: 1. Diffuse soft tissue edema 2. There are no bony destructive changes to indicate osteomyelitis 3. No foreign bodies identified 4. No discrete abscess identified given the limitations of a noncontrast study 5. Possible medial and inferior skin blistering. Clinical correlation advocated. PG Care Time/CCT Total # of Minutes Spent Total Time Spent with Patient: Total time spent is greater than 50% in coordination of care (as documented) at patient's floor/unit and/or counseling patient: Coding Level of Care Code 64329 Inpt Consult Level 3 Diagnoses Cellulitis of right lower leg L03.115 Puncture wound of foot with foreign body S91.197A
--- NOTE | 2020-03-08 16:19 | Cardiology Progress Note ---
Date of Service March 08, 2020 Assessment & Plan (1) Atrial fibrillation: (2) Puncture wound of foot with foreign body: (3) Sepsis: (4) Primary malignant neoplasm of cecum: Incidental finding of rate controlled atrial fibrillation upon presentation. Patient completely asymptomatic from a cardiac standpoint and denies any previous history of atrial fibrillation. His foot may require incision and drainage so I will hold off on initiation of anticoagulation at this time. The pathophysiology and treatment options for asymptomatic rate controlled atrial fibrillation were discussed with the patient at great lengths. He was counseled that he will require anticoagulation for cardioembolic event prevention. He is currently being evaluated to proceed to the OR for debridement. We will hold off on anticoagulation until bleeding risk is acceptable by surgery. Admission and Anticipated Discharge Date Admission Date: March 06, 2020 Subjective Patient seen and examined, chart reviewed. States he continues to feel well except for continued foot pain. Continues to deny any cardiac complaints of chest pain, shortness of breath, palpitations, lightheadedness, dizziness or syncope. Wound care evaluation has been ordered and they are currently evaluating his foot. Telemetry reviewed: Atrial fibrillation rate controlled without any other significant arrhythmias. Review of Systems Review of Systems: All systems reviewed & are unremarkable except as noted in HPI & below Physical Exam Physical Exam: General: Awake, alert and oriented x 3. No acute distress. HEENT: Normocephalic, atraumatic. Pupils equal, round and reactive to light and accommodation. Extraocular muscles are intact. Anicteric sclera. Moist mucous membranes. Neck: No JVD. No bruit. Cardiovascular: irregularly irregular, unable to appreciate murmur, rub or gallop. Pulmonary: Clear to auscultation bilaterally. No rales, rhonchi, or wheezing. Abdomen: Bowel sounds x 4, soft. No rebound, guarding or tenderness. No organomegaly. Extremities: No clubbing, cyanosis or edema. +2 pedal pulses bilaterally. Skin: Warm and dry. Results & Data ([facility]) Vital Signs (Past 12 Hours) Vital Signs Temp Pulse Pulse Resp BP Pulse Ox 03/08/20 15:41 37.8 C H 60 18 148/57 H 93 03/08/20 11:50 37.1 C 65 16 139/62 97 03/08/20 08:00 58 L 03/08/20 07:16 37 C 51 L 16 136/55 L 92 (1) Sepsis Sepsis acute organ dysfunction status: unspecified Sepsis type: sepsis due to unspecified organism Qualified Code(s): A41.9 - Sepsis, unspecified organism
[2020-03-08] MEDS: VANCOMYCIN HCL 1,500 MG in SODIUM CHLORIDE 0.9% 500 ML IV SCH (16:38)
--- NOTE | 2020-03-08 16:45 | Communication Note ---
Date of Service: March 08, [address] Winters this afternoon. The blister on the bottom of his foot was de-roofed and cleansed. Photos were taken by wound care team. Patient does not have any overt purulence but does have what appears to be some early necrosis of some of the tissue in certain areas. I discussed the case with Dr. Salazar who has reviewed the photos. Plans for now will be to continue daily dressing changes and see if there is any further demarcation or improvement. Patient may require an irrigation and debridement in the operating room depen ding on how the wound responds. I have discussed the case with Dr. Maxwell. Appreciate Dr. Wintesr's input.
--- NOTE | 2020-03-08 19:36 | Hospitalist Progress Note ---
Date of Service March 08, 2020 Assessment & Plan (1) Puncture wound of foot with foreign body: (2) Cellulitis of right lower leg: Present on admission with worsening right LE tenderness Foot Xray showed mild plantar soft tissue edema WBC on admission 16K, C-reactive 20.5 and ESR 53 appreciate input from wound care -Dr Winters s/p bedside debridement today pt reports of improvement of rt foot pain cont broad spectrum Abx Ortho following Chronic diastolic CHF stable vol status Echo completed March 152018 showed an LVEF of 60 to 65%, grade 2 diastolic dysfunction, mild aortic valve sclerosis without significant stenosis. cont daily Lasix (3) Atrial fibrillation: New onset of afib on admission EKG showed Afib with rate control Cardiology on board Echo showed normal LV systolic function without regional wall motion a bnormality. With ejection fraction 55 to 60%. Continue metoprolol 12.5 BID Cardiology plan to start on anticoagulant after orthopedic intervention Continue monitor closely (4) Ulcerative colitis: S/p colectomy. Not currently on any medication. Follows with GI in [place] (5) Primary malignant neoplasm of cecum: (6) Status post colectomy: Not on any chemo or radiation. Following for surveillance with [facility] oncology. Colostomy care per nursing (7) Bilateral leg edema: No peripheral edema noted on admission. Continue home dose Lasix (8) Cryptogenic cirrhosis: Follows with [facility] GI group. Low-sodium diet, limit daily Tylenol to less than 2 g Code status: FULL Dispo: dc home when medically stable Admission and Anticipated Discharge Date Admission Date: March 06, 2020 Subjective pt reports right leg pain has improved after bedside debridement no fever or chills Review of Systems Review of Systems: All systems reviewed & are unremarkable except as noted in HPI & below Physical Exam Constitutional: WD/WN, vitals as above Eyes: PERRL, conjunctivae normal, anicteric sclerae ENMT: external ear and nose normal, oropharynx normal Neck: trachea midline, no thyromegaly Respiratory: normal respiratory effort, lungs clear to auscultation Cardiovascular: Rate/Rhythm: + irregularly irregular Gastrointestinal (Abdomen): Percussion/Palpation: abdomen soft; abdomen nontender Musculoskeletal: s/p right foot infected wound debridement , bandage present Neurologic: PERRL, EOMI, accommodation nl, no face palsy, no dysarthria Psychiatric: A+Ox3, euthymic affect Results & Data Results & Data ([place]) Vital Signs (Past 12 Hours) Vital Signs Temp Pulse Pulse Resp BP Pulse Ox 03/08/20 19:25 38.0 C H 66 17 150/58 H 95 03/08/20 15:41 37.8 C H 60 18 148/57 H 93 03/08/20 11:50 37.1 C 65 16 139/62 97 03/08/20 08:00 58 L (1) Ulcerative colitis Digestive disease complication type: with rectal bleeding Ulcerative colitis location: unspecified ulcerative colitis location Qualified Code(s): K51.911 - Ulcerative colitis, unspecified with rectal bleeding
[2020-03-08] MEDS: traMADol HCL 50 MG TABLET PO PRN (23:27)
[2020-03-09] MEDS: metroNIDAZOLE 500 MG/100 ML BAG IV SCH ×2 (05:10→13:28)
[2020-03-09] MEDS: traMADol HCL 50 MG TABLET PO PRN ×2 (06:05→13:32)
[2020-03-09] MEDS: ASPIRIN 81 MG ECTAB PO SCH (08:22)
[2020-03-09] MEDS: POTASSIUM CHLORIDE 20 MEQ TABCR PO SCH (08:22)
[2020-03-09] MEDS: ASCORBIC ACID 500 MG TAB PO SCH (08:22)
[2020-03-09] MEDS: CHOLECALCIFEROL 1,000 UNITS 25 MCG TAB PO SCH (08:22)
[2020-03-09] MEDS: FERROUS SULFATE 325 MG TAB PO SCH (08:22)
[2020-03-09] MEDS: MULTIVITAMIN TAB PO SCH (08:23)
[2020-03-09] MEDS: ACETAMINOPHEN 325 MG TAB PO PRN ×2 (09:02→19:45)
[2020-03-09] MEDS ORDERED: VANCOMYCIN TROUGH ONE (09:30)
--- NOTE | 2020-03-09 09:38 | Cardiology Progress Note ---
Date of Service March 09, 2020 Assessment & Plan (1) Atrial fibrillation: (2) Puncture wound of foot with foreign body: (3) Sepsis: (4) Primary malignant neoplasm of cecum: The patient is in a controlled atrial fibrillation. He is not anticoagulated in anticipation of upcoming procedures. Potentially he could go to the OR tomorrow for additional debridement of his right foot. Admission and Anticipated Discharge Date Admission Date: March 06, 2020 Subjective The patient had his wound on his right foot drained yesterday. He does have some discomfort today. Review of Systems Review of Systems: All systems reviewed & are unremarkable except as noted in HPI & below Nothing additional to add Physical Exam Physical Exam: General: no acute distress and stated age Head: normocephalic, no masses, lesions, tenderness or abnormalities Eyes: conjunctiva are pink and non-injected, sclera clear Neck: supple, no adenopathy, no bruits, normal jugular venous pulse, no hepatojugular reflux Chest: normal shape and normal respiratory effort Lungs: clear to auscultation and percussion Cardiac Exam: - regular rate & rhythm, no murmurs gallops or rubs - normal S1, normal S2 Pulses: 2(+) throughout Abdomen: abdomen soft, non-tender, no abnormal masses and no hepatosplenomegaly Musculoskeletal: no gait disturbance, no joint inflammation, no deforming arthritis Extremities: Right foot is bandaged Neuro: grossly normal exam Results & Data ([facility]) Vital Signs (Past 12 Hours) Vital Signs Temp Pulse Pulse Resp BP Pulse Ox 03/09/20 09:00 37.8 C H 03/09/20 07:54 37.6 C H 67 20 145/62 H 95 03/09/20 07:09 61 03/09/20 03:40 37.8 C H 70 20 139/64 96 03/08/20 23:00 37.8 C H 64 20 151/62 H 96 03/08/20 22:20 54 L Medications Administered Current Inpatient Medications Acetaminophen (Acetaminophen 325 Mg Tab) 650 mg PO Q4H PRN PRN Reason: pain/fever Stop: 04/05/20 16:11 Last Admin: 03/09/20 09:02 Dose: 650 mg Documented by: Ascorbic Acid (Ascorbic Acid 500 Mg Tab) 1,000 mg PO DAILY [facility] Stop: 04/06/20 08:59 Last Admin: 03/09/20 08:22 Dose: 1,000 mg Documented by: Aspirin (Aspirin 81 Mg Ectab) 81 mg PO DAILY [facility] Stop: 04/06/20 08:59 Last Admin: 03/09/20 08:22 Dose: 81 mg Documented by: Ferrous Sulfate (Ferrous Sulfate 325 Mg Tab) 325 mg PO DAILY [facility] Stop: 04/06/20 08:59 Last Admin: 03/09/20 08:22 Dose: 325 mg Documented by: Furosemide (Furosemide 40 Mg Tab) 40 mg PO DAILY [facility] Stop: 04/06/20 08:59 Hydromorphone HCl (Hydromorphone Inj 1 Mg/Ml Syringe) 1 mg IV Q4H PRN PRN Reason: Pain Stop: 03/21/20 16:12 Last Admin: 03/08/20 15:23 Dose: 1 mg Documented by: Cefepime HCl 2,000 mg/ Syringe 20 mls @ 5 mls/min IV Q12H [facility]; Protocol Stop: 03/14/20 00:00 Last Admin: 03/08/20 23:28 Dose: 5 mls/min Documented by: Metronidazole (Flagyl) 500 mg in 100 mls @ 100 mls/hr IV Q8H [facility] Stop: 03/13/20 22:14 Last Infusion: 03/09/20 06:13 Dose: Infused Documented by: Vancomycin HCl 1,500 mg/ (Sodium Chloride) 530 mls @ 200 mls/hr IV Q18H [facility] Stop: 03/14/20 21:59 Last Infusion: 03/08/20 21:00 Dose: Infused Documented by: Miconazole Nitrate (Miconazole Nitrate Powder 43 Gm) 1 appln EXT PRN PRN PRN Reason: Affected Skin Folds Stop: 04/05/20 21:17 Last Admin: 03/06/20 22:29 Dose: 1 appln Documented by: Miscellaneous Information (Cefepime Consult Active) 1 ea N/A UD PRN PRN Reason: Consult Stop: 04/05/20 16:33 Miscellaneous Information (Vancomycin Consult Active) 1 ea N/A UD PRN PRN Reason: Consult Stop: 04/05/20 16:35 Multivitamins (Multivitamin Tab) 1 tab PO QAM [facility] Stop: 04/06/20 08:59 Last Admin: 03/09/20 08:23 Dose: 1 tab Documented by: Ondansetron HCl (Ondansetron Inj 2 Mg/Ml 2 Ml Vial) 4 mg IV Q6H PRN PRN Reason: Nausea Stop: 04/05/20 16:11 Polyethylene Glycol (Polyethylene (Miralax) 17 Gm Pack) 17 gm PO DAILY PRN PRN Reason: Constipation Stop: 04/05/20 16:11 Potassium Chloride (Potassium Chloride 20 Meq Tabcr) 20 meq PO DAILY [facility] Stop: 04/06/20 08:59 Last Admin: 03/09/20 08:22 Dose: 20 meq Documented by: Tramadol HCl (Tramadol Hcl 50 Mg Tablet) 25 mg PO Q4H PRN PRN Reason: Pain Stop: 04/05/20 17:42 Last Admin: 03/09/20 06:05 Dose: 25 mg Documented by: Vitamin D (Cholecalciferol 1,000 Units 25 Mcg Tab) 1,000 units PO DAILY [facility] Stop: 04/06/20 08:59 Last Admin: 03/09/20 08:22 Dose: 1,000 units Documented by: (1) Sepsis Sepsis acute organ dysfunction status: unspecified Sepsis type: sepsis due to unspecified organism Qualified Code(s): A41.9 - Sepsis, unspecified organism
[2020-03-09 10:21] LABS: Creatinine Clr Calc Pharmacy 60.6 ml/min; Est GFR (Non-African American) 49.2
[2020-03-09] MEDS: VANCOMYCIN HCL 1,500 MG in SODIUM CHLORIDE 0.9% 500 ML IV SCH (10:41)
--- NOTE | 2020-03-09 10:42 | Pharmacy Report ---
Pharmacy Abx Dose Short Note - Date of Service March 09, 2020 - Assessment & Plan Assessment 70 year old M receiving vancomycin/cefepime/flagyl for RLL cellulitis Day # 4 of antimicrobial therapy. Plan Vancomycin * Trough level came back therapeutic at ~18 mcg/ml (goal ~15 mcg/ml for cellulitis) * Plan to continue vancomycin dosing for now. Blood cultures are no growth. Foot CT negative for osteo/no abscess * Patient still febrile overnight, despite negative cultures and broad spectrum antibiotics. Unclear if plan is to go to OR for I&D - will follow Pharmacy will continue to follow and will adjust dose/frequency as necessary. Thank you.
--- NOTE | 2020-03-09 11:42 | Orthopedic Progress Note ---
Date of Service March 09, 2020 Assessment & Plan (1) Cellulitis of right lower leg: Continue current IV antibiotics. With the increased size of his blister on the plantar surface, I discussed the case with Bailey Werner with wound care. She will discuss the case with Dr. Winters to see if it is a possibility to deroof the blister at the bedside and cleanse the area. Dr Winters will see the patient to decide if that can be done. (Per Bailey Werner) Reaccumulation of fluid of the plantar foot wound. I believe this will need to be taken to the operating room for a formal I&D. I have contacted Dr. Warren and this patient will be added onto your schedule tomorrow for irrigation and debridement of right foot plantar surface wound. Admission and Anticipated Discharge Date Admission Date: March 06, 2020 Supervising Physician Co-Signing Physician Notes Patient seen and examined. Clinical photos reviewed. Right foot infection after puncture with toothpick. Plan for I&D in OR with Dr. Warren tomorrow. NPO after midnight. Subjective Seen with Dr. Winters and the wound care team today. Patient has no overall complaints this morning. Awake and alert and oriented. Pain is controlled. Physical Exam Physical Exam: Dressing removed by wound team. This reveals a further area on the plantar surface wound that has not reaccumulated more fluid from deeper within the foot. No overt purulence. Erythema is no longer resolving and is about the same as it was yesterday. Results & Data ([facility]) Vital Signs (Past 12 Hours) Vital Signs Temp Pulse Pulse Resp BP Pulse Ox 03/09/20 09:00 37.8 C H 03/09/20 07:54 37.6 C H 67 20 145/62 H 95 03/09/20 07:09 61 03/09/20 03:40 37.8 C H 70 20 139/64 96
[2020-03-09] MEDS: CEFEPIME 2,000 MG in SYRINGE 7.5 ML IV SCH (12:07)
--- NOTE | 2020-03-09 12:14 | Wound Progress Note ---
Date of Service March 09, 2020 Assessment & Plan (1) Cellulitis of right lower leg: Plantar foot wound has demonstrating reaccumulation of fluid. Wound is boggy. Patient will likely benefit from going to the OR for further I&D. He was added to Dr. Warren scheduled for tomorrow. We will dress the wound with ultra sorb pad and ABD. We will continue to follow. (2) Puncture wound of foot with foreign body: Admission and Anticipated Discharge Date Admission Date: March 06, 2020 Subjective Patient seen at bedside with ADAN and Gerardo Crouch orthopedic surgery [place]. Patient planing of some throbbing in his foot. No other complaints. Review of Systems Review of Systems: All systems reviewed & are unremarkable except as noted in HPI & below Physical Exam Physical Exam: Temp Pulse Resp BP Pulse Ox 37.7 C H 59 L 20 129/63 96 03/09/20 11:42 03/09/20 11:42 03/09/20 11:42 03/09/20 11:42 03/09/20 11:42 Skin: Wound measuring as recorded in nursing documentation. Wound bed is boggy. Fluid is accumulating deep. Neurologic: awake; not confused Psychiatric: A+Ox3, euthymic affect Results & Data ([facility]) Vital Signs (Past 12 Hours) Vital Signs Temp Pulse Pulse Resp BP Pulse Ox 03/09/20 11:42 37.7 C H 59 L 20 129/63 96 03/09/20 09:00 37.8 C H 03/09/20 07:54 37.6 C H 67 20 145/62 H 95 03/09/20 07:09 61 03/09/20 03:40 37.8 C H 70 20 139/64 96 PG Care Time/CCT Total # of Minutes Spent Total Time Spent with Patient: Total time spent is greater than 50% in coordination of care (as documented) at patient's floor/unit and/or counseling patient: Coding Level of Care Code 79657 Subseq Hosp Care Lvl 2 Diagnoses Cellulitis of right lower leg L03.115 Puncture wound of foot with foreign body S91.349A
--- NOTE | 2020-03-09 18:08 | Hospitalist Progress Note ---
Date of Service March 09, 2020 Assessment & Plan (1) Puncture wound of foot with foreign body: (2) Cellulitis of right lower leg: Present on admission with worsening right LE tenderness Met Sirs criteria on admission, source of infection infected right foot wound WBC on admission 16K, C-reactive 20.5 and ESR 53 appreciate input from wound care -Dr Winters s/p bedside debridement DVT evaluation by wound care: Shows reaccumulation of fluid at the wound bed Patient will need incision and drainage of the wound at OR Schedule for I and D procedure tomorrow by orthopedics Repeat CBC ordered in a.m., We will adjust antibiotic continue with IV cefepime, DC vancomycin and Flagyl Chronic diastolic CHF stable vol status Echo completed March 152018 showed an LVEF of 60 to 65%, grade 2 diastolic dysfunction, mild aortic valve sclerosis without significant stenosis. Continue with Lasix (3) Atrial fibrillation: New onset of afib on admission EKG showed Afib with rate control Cardiology on board Echo showed normal LV systolic function without regional wall motion abnormality. With ejection fraction 55 to 60%. Continue metoprolol 12.5 BID Cardiology plan to start on anticoagulant after orthopedic intervention Continue monitor closely (4) Ulcerative colitis: S/p colectomy. Not currently on any medication. Follows with GI in [place] (5) Primary malignant neoplasm of cecum: (6) Status post colectomy: Not on any chemo or radiation. Following for surveillance with [facility] oncology. Colostomy care per nursing (7) Bilateral leg edema: No peripheral edema noted on admission. Continue home dose Lasix (8) Cryptogenic cirrhosis: Follows with [facility] GI group. Low-sodium diet, limit daily Tylenol to less than 2 g Code status: FULL Dispo: dc home when medically stable Admission and Anticipated Discharge Date Admission Date: March 06, 2020 Subjective Patient seen at bedside with ADAN and Gerardo Crouch orthopedic surgery [facility]. Patient planing of some throbbing in his foot. No other complaints. Physical Exam Constitutional: WD/WN, vitals as above Eyes: PERRL, conjunctivae normal, anicteric sclerae ENMT: external ear and nose normal, oropharynx normal Neck: trachea midline, no thyromegaly Respiratory: normal respiratory effort, lungs clear to auscultation Cardiovascular: Rate/Rhythm: + irregularly irregular Gastrointestinal (Abdomen): Percussion/Palpation: abdomen soft; abdomen nontender Neurologic: PERRL, EOMI, accommodation nl, no face palsy, no dysarthria Psychiatric: A+Ox3, euthymic affect Results & Data Results & Data ([facility]) Vital Signs (Past 12 Hours) Vital Signs Temp Pulse Pulse Resp BP Pulse Ox 03/09/20 15:17 37.2 C 58 L 20 131/50 L 95 03/09/20 11:42 37.7 C H 59 L 20 129/63 96 03/09/20 09:00 37.8 C H 03/09/20 07:54 37.6 C H 67 20 145/62 H 95 03/09/20 07:09 61 (1) Ulcerative colitis Digestive disease complication type: with rectal bleeding Ulcerative colitis location: unspecified ulcerative colitis location Qualified Code(s): K51.911 - Ulcerative colitis, unspecified with rectal bleeding
--- NOTE | 2020-03-09 18:09 | Communication Note ---
Date of Service: March 09, 2020: Action of documentation: -[id number]- -h-o-m-e- -d-o-s-e- -o-f- -L-a-[id number]-i-x- Acute renal failure on CKD stage III: Creatinine elevated from baseline Continue to hold Marianna Maxwell MD
[2020-03-10] MEDS: CEFEPIME 2,000 MG in SYRINGE 7.5 ML IV SCH ×2 (01:07→13:02)
[2020-03-10] MEDS: HYDROmorphone INJ 1 MG/ML SYRINGE IV PRN (03:06)
[2020-03-10 07:26] LABS: Hematocrit (blood only) 33.1 % (42-52); Hemoglobin 11.1 g/dL (14.0-18.0); Mean Corpuscular Hemoglobin 29.7 pg (25-34); Mean Corpuscular Hgb Conc 33.5 g/dL (32-36); Mean Corpuscular Volume 88.5 fL (80-100); Mean Platelet Volume 10.7 fL (7.4-10.4); Platelet Count 175 K/uL (130-400); RDW Coefficient of Variation 13.7 % (11.5-14.5); RDW Standard Deviation 44.8 fL (36.4-46.3); Red Blood Count 3.74 M/uL (4.7-6.1); White Blood Count 19.46 K/uL (4.8-10.8)
[2020-03-10 07:52] LABS: BUN Creatinine Ratio 33.4 (10-20); Calcium 8.2 mg/dl (8.5-10.1); Creatinine Clr Calc Pharmacy 54.9 ml/min; Est GFR (African American) 50.6; Est GFR (Non-African American) 43.6; Potassium 4.3 mmol/L (3.5-5.1)
[2020-03-10] MEDS: ACETAMINOPHEN 325 MG TAB PO PRN ×2 (08:54→16:44)
[2020-03-10] MEDS: ASCORBIC ACID 500 MG TAB PO SCH (08:54)
[2020-03-10] MEDS: MULTIVITAMIN TAB PO SCH (08:54)
[2020-03-10] MEDS: FERROUS SULFATE 325 MG TAB PO SCH (08:54)
[2020-03-10] MEDS: POTASSIUM CHLORIDE 20 MEQ TABCR PO SCH (08:55)
[2020-03-10] MEDS: CHOLECALCIFEROL 1,000 UNITS 25 MCG TAB PO SCH (08:55)
--- NOTE | 2020-03-10 10:26 | Cardiology Progress Note ---
Date of Service March 10, 2020 Assessment & Plan (1) Atrial fibrillation: (2) Puncture wound of foot with foreign body: (3) Sepsis: (4) Primary malignant neoplasm of cecum: The patient informs me that he will be going to the Operating room for further debridement today. Otherwise he is clinically stable. After all surgeries are completed he will need to start anticoagulation. Admission and Anticipated Discharge Date Admission Date: March 06, 2020 Subjective The patient has no new complaints today. He denies shortness of breath. He remains in rate controlled atrial fibrillation. He is waiting to go to the OR. Review of Systems Review of Systems: All systems reviewed & are unremarkable except as noted in HPI & below Nothing additional to add. Physical Exam Physical Exam: General: no acute distress and stated age Head: normocephalic, no masses, lesions, tenderness or abnormalities Eyes: conjunctiva are pink and non-injected, sclera clear Neck: supple, no adenopathy, no bruits, normal jugular venous pulse, no hepatojugular reflux Chest: normal shape and normal respiratory effort Lungs: clear to auscultation and percussion Cardiac Exam: - irregular rate & rhythm, no murmurs gallops or rubs - normal S1, normal S2 Pulses: 2(+) throughout Abdomen: abdomen soft, non-tender, no abnormal masses and no hepatosplenomegaly Musculoskeletal: no gait disturbance, no joint inflammation, no deforming arthritis Extremities: The right foot is bandaged. Neuro: grossly normal exam Results & Data ([facility]) Vital Signs (Past 12 Hours) Vital Signs Temp Pulse Resp BP Pulse Ox 03/10/20 08:02 39.4 C H 67 20 154/65 H 93 03/10/20 04:00 37.4 C 62 18 137/66 96 Laboratory Results Laboratory Results - last 24 hr 03/09/20 03/09/20 03/10/20 12:10 12:10 07:05 WBC 19.46 H RBC 3.74 L Hgb 11.1 L Hct 33.1 L MCV 88.5 MCH 29.7 MCHC 33.5 RDW Std Deviation 44.8 RDW Coeff of Bryan 13.7 Plt Count 175 MPV 10.7 H Sodium Potassium Chloride Carbon Dioxide Anion Gap BUN Creatinine Est Cr Clr Drug Dosing Est GFR ( Amer) Est GFR (Non-Af Amer) BUN/Creatinine Ratio Glucose Calcium COVID-19 Eval [facility] SARS-CoV-2, RNA, NAAT NEGATIVE 03/10/20 07:05 WBC RBC Hgb Hct MCV MCH MCHC RDW Std Deviation RDW Coeff of Bryan Plt Count MPV Sodium 138 Potassium 4.3 Chloride 113 H Carbon Dioxide 18 L Anion Gap 7.0 BUN 53 H Creatinine 1.59 H Est Cr Clr Drug Dosing 54.9 Est GFR ( Amer) 50.6 Est GFR (Non-Af Amer) 43.6 BUN/Creatinine Ratio 33.4 H Glucose 129 H Calcium 8.2 L COVID-19 Eval Order SARS-CoV-2, RNA, NAAT Medications Administered Current Inpatient Medications Acetaminophen (Acetaminophen 325 Mg Tab) 650 mg PO Q4H PRN PRN Reason: pain/fever Stop: 04/05/20 16:11 Last Admin: 03/10/20 08:54 Dose: 650 mg Documented by: Ascorbic Acid (Ascorbic Acid 500 Mg Tab) 1,000 mg PO DAILY [facility] Stop: 04/06/20 08:59 Last Admin: 03/10/20 08:54 Dose: 1,000 mg Documented by: Aspirin (Aspirin 81 Mg Ectab) 81 mg PO DAILY [facility] Stop: 04/06/20 08:59 Last Admin: 03/09/20 08:22 Dose: 81 mg Documented by: Ferrous Sulfate (Ferrous Sulfate 325 Mg Tab) 325 mg PO DAILY [facility] Stop: 04/06/20 08:59 Last Admin: 03/10/20 08:54 Dose: 325 mg Documented by: Furosemide (Furosemide 40 Mg Tab) 40 mg PO DAILY [facility] Stop: 04/06/20 08:59 Hydromorphone HCl (Hydromorphone Inj 1 Mg/Ml Syringe) 1 mg IV Q4H PRN PRN Reason: Pain Stop: 03/21/20 16:12 Last Admin: 03/10/20 03:06 Dose: 1 mg Documented by: Cefepime HCl 2,000 mg/ Syringe 20 mls @ 5 mls/min IV Q12H [facility]; Protocol Stop: 03/14/20 00:00 Last Admin: 03/10/20 01:07 Dose: 5 mls/min Documented by: Miconazole Nitrate (Miconazole Nitrate Powder 43 Gm) 1 appln EXT PRN PRN PRN Reason: Affected Skin Folds Stop: 04/05/20 21:17 Last Admin: 03/06/20 22:29 Dose: 1 appln Documented by: Miscellaneous Information (Cefepime Consult Active) 1 ea N/A UD PRN PRN Reason: Consult Stop: 04/05/20 16:33 Multivitamins (Multivitamin Tab) 1 tab PO QAM [facility] Stop: 04/06/20 08:59 Last Admin: 03/10/20 08:54 Dose: 1 tab Documented by: Ondansetron HCl (Ondansetron Inj 2 Mg/Ml 2 Ml Vial) 4 mg IV Q6H PRN PRN Reason: Nausea Stop: 04/05/20 16:11 Polyethylene Glycol (Polyethylene (Miralax) 17 Gm Pack) 17 gm PO DAILY PRN PRN Reason: Constipation Stop: 04/05/20 16:11 Potassium Chloride (Potassium Chloride 20 Meq Tabcr) 20 meq PO DAILY [facility] Stop: 04/06/20 08:59 Last Admin: 03/10/20 08:55 Dose: 20 meq Documented by: Tramadol HCl (Tramadol Hcl 50 Mg Tablet) 25 mg PO Q4H PRN PRN Reason: Pain Stop: 04/05/20 17:42 Last Admin: 03/09/20 13:32 Dose: 25 mg Documented by: Vitamin D (Cholecalciferol 1,000 Units 25 Mcg Tab) 1,000 units PO DAILY [facility] Stop: 04/06/20 08:59 Last Admin: 03/10/20 08:55 Dose: 1,000 units Documented by: (1) Sepsis Sepsis acute organ dysfunction status: unspecified Sepsis type: sepsis due to unspecified organism Qualified Code(s): A41.9 - Sepsis, unspecified organism
--- NOTE | 2020-03-10 11:52 | History & Physical Bridge Note ---
Date of Service March 10, 2020 History & Physical Bridge Note I have examined the patient, reviewed the History & Physical and in the interval since the performance of the History & Physical I have noted the following changes of clinical significance: no changes noted
--- NOTE | 2020-03-10 12:06 | Anesthesiology Consultation ---
Date of Service March 10, 2020 Assessment & Plan (1) Encounter for pre-operative examination: Chart Review Chart Review: Acceptable Risk for Surgery History Surgery Operation Date: 03/10/20 07:00 Proposed Procedures p Right Incision and Drainage Plantar Foot Wound - Miles Warren DO Height/Weight Height: 5 ft 10 in Weight: 111.9 kg Allergies Allergy/AdvReac Type Severity Reaction Status Date / Time No Known Allergies Allergy Unverified 03/06/20 13:06 Medications Home Medications Medication Instructions Recorded Confirmed Last Taken ascorbic acid (vitamin C) [Vitamin 1,000 mg PO DAILY 01/01/19 03/06/20 03/05/20 C] multivitamin 1 tab PO QAM 01/01/19 03/06/20 03/05/20 aspirin [Aspirin Low Dose] 81 mg PO DAILY 03/06/20 03/06/20 03/05/20 cholecalciferol (vitamin D3) 25 mcg PO DAILY 03/06/20 03/06/20 03/05/20 [Vitamin D3] doxycycline hyclate 100 mg PO BID 03/06/20 03/06/20 03/05/20 ferrous sulfate 325 mg PO DAILY 03/06/20 03/06/20 03/05/20 furosemide 40 mg PO DAILY 03/06/20 03/06/20 03/05/20 potassium chloride [Klor-Con M20] 20 meq PO DAILY 03/06/20 03/06/20 03/05/20 Active Medications Generic Name Dose Route Start Last Admin Trade Name Freq PRN Reason Stop Dose Admin Acetaminophen 650 mg 03/06/20 16:12 03/10/20 08:54 Acetaminophen 325 Mg Tab PO 04/05/20 16:11 650 mg Q4H PRN Administration pain/fever Ascorbic Acid 1,000 mg 03/07/20 09:00 03/10/20 08:54 Ascorbic Acid 500 Mg Tab PO 04/06/20 08:59 1,000 mg DAILY SAHIL Administration Aspirin 81 mg 03/07/20 09:00 03/09/20 08:22 Aspirin 81 Mg Ectab PO 04/06/20 08:59 81 mg DAILY SAHIL Administration Ferrous Sulfate 325 mg 03/07/20 09:00 03/10/20 08:54 Ferrous Sulfate 325 Mg Tab PO 04/06/20 08:59 325 mg DAILY SAHIL Administration Hydromorphone HCl 1 mg 03/07/20 16:13 03/10/20 03:06 Hydromorphone Inj 1 Mg/Ml Syringe IV 03/21/20 16:12 1 mg Q4H PRN Administration Pain Cefepime HCl 2,000 mg/ Syringe 20 mls @ 5 mls/min 03/07/20 00:00 03/10/20 0 1:07 IV 03/14/20 00:00 5 mls/min Q12H SAHIL Administration Protocol Miconazole Nitrate 1 appln 03/06/20 21:18 03/06/20 22:29 Miconazole Nitrate Powder 43 Gm EXT 04/05/20 21:17 1 appln PRN PRN Administration Affected Skin Folds Multivitamins 1 tab 03/07/20 09:00 03/10/20 08:54 Multivitamin Tab PO 04/06/20 08:59 1 tab QAM SAHIL Administration Potassium Chloride 20 meq 03/07/20 09:00 03/10/20 08:55 Potassium Chloride 20 Meq Tabcr PO 04/06/20 08:59 20 meq DAILY SAHIL Administration Tramadol HCl 25 mg 03/06/20 17:43 03/09/20 13:32 Tramadol Hcl 50 Mg Tablet PO 04/05/20 17:42 25 mg Q4H PRN Administration Pain Vitamin D 1,000 units 03/07/20 09:00 03/10/20 08:55 Cholecalciferol 1,000 Units 25 Mcg Tab PO 04/06/20 08:59 1,000 units DAILY SAHIL Administration NPO Date Last Intake of Fluids: 03/09/20 Time Last Intake of Fluids: 20:00 Last Intake of Fluids Comment: sips with meds Date Last Intake of Solids: 03/09/20 Time Last Intake of Solids: 18:00 Past Medical History Medical History (Updated 03/10/20 @ 12:08 by Lee Piedra MD) Atrial fibrillation Bilateral leg edema Colostomy present Cryptogenic cirrhosis Diastolic CHF History of DVT (deep vein thrombosis) Primary malignant neoplasm of cecum Ulcerative colitis Past Family History Family History Other Diabetes Past Surgical History Surgical History Status post colectomy Social History Smoking Status: Never smoker Hx Alcohol Use: No Hx Substance Use: No substance use type: does not use Physical Exam Vital Signs Last Vital Signs Temp 38.9 C H 03/10/20 11:25 Pulse 66 03/10/20 11:25 Resp 20 03/10/20 11:25 BP 133/73 03/10/20 11:25 Pulse Ox 98 03/10/20 11:25 Testing Laboratory Results 03/10/20 07:05 03/10/20 07:05 PT 12.5 Seconds (9.0-12.0) H 03/07/20 07:08 INR 1.2 (0.9-1.1) H 03/07/20 07:08 APTT 39.5 Seconds (21.0-31.0) H 03/07/20 07:08 Hemoglobin A1c 5.5 % (4.5-5.6) 03/07/20 07:08 03/06/20 15:36 Aerobic Blood Culture - Preliminary Blood No growth in Aerobic bottle after 48 hours. Anaerobic Blood Culture - Final 03/06/20 15:44 Aerobic Blood Culture - Preliminary Blood No growth in Aerobic bottle after 48 hours. Anaerobic Blood Culture - Final Electrocardiogram Date: 03/07/20 Findings: + AFIB @ (57) Echocardiogram Date: 03/07/20 EF: 55-60% LV Function: normal Other Findings: + diastolic dysfunction (grade 1) Valvular Disease: + no significant valvular disease
[2020-03-10] MEDS ORDERED: LIDOCAINE HCL 2% 2 ML VIAL/AMP(20MG/ML) INFIL ONE (12:34)
[2020-03-10] MEDS ORDERED: PROPOFOL IV EMULSION 10 MG/ML 20 ML VIAL IV ONE (12:34)
[2020-03-10] MEDS ORDERED: fentaNYL citrate 100 MCG/2 ML VIAL ONE (12:35)
[2020-03-10] MEDS ORDERED: MIDAZOLAM HCL 1 MG/ML 2ML VIAL ONE (12:35)
[2020-03-10] MEDS ORDERED: BACITRACIN INJ 50,000 UNIT VIAL ONE (12:55)
[2020-03-10] MEDS ORDERED: ONDANSETRON INJ 2 MG/ML 2 ML VIAL ONE (12:56)
[2020-03-10] MEDS ORDERED: BUPIVACAINE 0.5 % 5 MG/1 ML MPF 30ML VIAL ONE (13:18)
[2020-03-10] MEDS ORDERED: VANCOMYCIN HCL 1000MG/20ML VIAL ONE (13:42)
[2020-03-10] MEDS ORDERED: ONDANSETRON INJ 2 MG/ML 2 ML VIAL IV PRN ×2 (13:46→14:29)
[2020-03-10] MEDS ORDERED: HYDROmorphone INJ 1 MG/ML SYRINGE IV PRN (13:46)
[2020-03-10] MEDS ORDERED: ATROPINE SULFATE 0.1 MG/ML 10ML SYR IV PRN (13:46)
[2020-03-10] MEDS ORDERED: GENTAMICIN SULFATE 40 MG/ML 2 ML VIAL ONE (13:49)
--- NOTE | 2020-03-10 14:13 | Post Operative Brief Note ---
Immediate Post Op Note v1 Date of Surgery March 10, 2020 Pre & Post Diagnosis Operation Date: 03/10/20 07:00 Pre-Op Diagnosis: Right foot large deep plantar abscess, foreign body reaction right plantar foot, septic fatty necrosis right plantar foot Post-Op Diagnosis: Right foot large deep plantar abscess, foreign body reaction right plantar foot, septic fatty necrosis right plantar foot I identified the patient and participated in the time-out.: Yes Procedure Operation Date: 03/10/20 07:00 Actual Procedures p Right Incision and Drainage large deep plantar Foot Abscess; Extensive debridement right plantar foot including-Skin, fascia, subcutaneous fat; Application of 5 cc antibiotic Stimulan Beads(Right) - Miles Warren DO Surgeon Miles Warren DO [place] Tomas Arellano PA-C Estimated Blood Loss 15 Findings Consistent with Post-Op Diagnosis Specimens Aerobic anaerobic Gram stain deep abscess right plantar foot Anesthesia Type General Regional Complications none Disposition Accompanied Patient To Recovery: No Disposition: Recovery Room
[2020-03-10] MEDS ORDERED: bisacodyL 10 MG SUPP PR PRN (14:29)
[2020-03-10] MEDS ORDERED: oxyCODONE HCL IR 5 MG TAB (IMMEDIATE RELEASE) PO PRN (14:29)
[2020-03-10] MEDS ORDERED: TAMSULOSIN HCL 0.4 MG CAP PO PRN (14:29)
[2020-03-10] MEDS ORDERED: diphenhydrAMINE Capsule 25 MG CAP PO PRN (14:29)
[2020-03-10] MEDS ORDERED: METOCLOPRAMIDE HCL INJ 5 MG/ML 2 ML VIAL IV PRN (14:29)
[2020-03-10] MEDS ORDERED: MAGNESIUM HYDROXIDE SUSP 30 ML UDC PO PRN (14:29)
[2020-03-10] MEDS ORDERED: NALOXONE HCL 0.4 MG/1 ML VIAL/CARP IV PRN (14:29)
--- NOTE | 2020-03-10 14:56 | Anesthesiology Progress Note ---
Date of Service March 10, 2020 Anesthesia Post Procedure Vital Signs Vital Signs: Temp Pulse Pulse Pulse Resp BP BP 03/10/20 14:45 62 20 151/57 H 03/10/20 14:35 61 18 134/63 03/10/20 14:29 36.7 C 65 20 152/77 H 03/10/20 11:25 38.9 C H 66 20 133/73 03/10/20 08:02 39.4 C H 67 20 154/65 H 03/10/20 04:00 37.4 C 62 18 137/66 03/09/20 22:20 63 03/09/20 22:00 38.4 C H 50 L 18 120/58 L 03/09/20 19:26 38.2 C H 64 16 167/55 H 03/09/20 15:17 37.2 C 58 L 20 131/50 L Pulse Ox 03/10/20 14:45 94 03/10/20 14:35 95 03/10/20 14:29 96 03/10/20 11:25 98 03/10/20 08:02 93 03/10/20 04:00 96 03/09/20 22:20 03/09/20 22:00 95 03/09/20 19:26 94 03/09/20 15:17 95 Pain Intensity Right Foot: Pain Intensity: 10 Transfer of Care Handoff Completed per policy Notes Mental Status: alert / awake / arousable Patient Amnestic to Procedure: Yes Nausea / Vomiting: adequately controlled Pain: adequately controlled Airway Patency, RR, SpO2: stable & adequate BP & HR: stable & adequate Hydration State: stable & adequate Anesthetic Complications: no major complications apparent
[2020-03-10] MEDS: SODIUM CHLORIDE 0.9% 1000ML 1,000 ML IV SCH (16:44)
--- NOTE | 2020-03-10 18:14 | Hospitalist Progress Note ---
Date of Service March 10, 2020 Assessment & Plan (1) Puncture wound of foot with foreign body: (2) Cellulitis of right lower leg: Present on admission with worsening right LE tenderness Met Sirs criteria on admission, source of infection infected right foot wound WBC on admission 16K, C-reactive 20.5 and ESR 53 appreciate input from wound care -Dr Winters s/p bedside debridement reaccumulation of fluid at the wound bed noted-on next day Appreciate input from orthopedics s/p Incision and Drainage large deep plantar Foot Abscess; Extensive debridement right plantar foot including-Skin, fascia, subcutaneous fat . Local wound care, empiric antibiotic with IV cefepime Follow culture reports, Zonia GRANADOS consulted Chronic diastolic CHF stable vol status Echo completed March 152018 showed an LVEF of 60 to 65%, grade 2 diastolic dysfunction, mild aortic valve sclerosis without significant stenosis. Continue with Lasix (3) Atrial fibrillation: New onset of afib on admission EKG showed Afib with rate control Cardiology on board Echo showed normal LV systolic function without regional wall motion abnormality. With ejection fraction 55 to 60%. Continue metoprolol 12.5 BID Will discuss with orthopedics tomorrow regarding starting patient on chronic anticoagulation for A. fib Continue telemetry (4) Ulcerative colitis: S/p colectomy. Not currently on any medication. Follows with GI in [place] (5) Primary malignant neoplasm of cecum: (6) Status post colectomy: Not on any chemo or radiation. Following for surveillance with [facility] oncology. Colostomy care per nursing (7) Bilateral leg edema: No peripheral edema noted on admission. Continue home dose Lasix (8) Cryptogenic cirrhosis: Follows with [facility] GI group. Low-sodium diet, limit daily Tylenol to less than 2 g Code status: FULL Dispo: Continue to monitor in telemetry Admission and Anticipated Discharge Date Admission Date: March 06, 2020 Subjective Status post right foot extensive I and D orthopedics in the OR today Patient reports of minimal pain, afebrile, no chest pain or shortness of breath Physical Exam Physical Exam: General: no acute distress and stated age Head: normocephalic, no masses, lesions, tenderness or abnormalities Eyes: conjunctiva are pink and non-injected, sclera clear Neck: supple, no adenopathy, no bruits, normal jugular venous pulse, no hepatojugular reflux Chest: normal shape and normal respiratory effort Lungs: clear to auscultation and percussion Cardiac Exam: - irregular rate & rhythm, no murmurs gallops or rubs - normal S1, normal S2 Pulses: 2(+) throughout Abdomen: abdomen soft, non-tender, no abnormal masses and no hepatosplenomegaly Musculoskeletal: no gait disturbance, no joint inflammation, no deforming arthritis Extremities: The right foot is bandaged. Neuro: grossly normal exam Results & Data Results & Data ([facility]) Vital Signs (Past 12 Hours) Vital Signs Temp Pulse Pulse Resp BP BP Pulse Ox 03/10/20 16:36 18 130/65 96 03/10/20 15:53 37.8 C H 56 L 18 132/69 95 03/10/20 14:55 36.9 C 61 20 153/61 H 94 03/10/20 14:45 62 20 151/57 H 94 03/10/20 14:35 61 18 134/63 95 03/10/20 14:29 36.7 C 65 20 152/77 H 96 03/10/20 11:25 38.9 C H 66 20 133/73 98 03/10/20 08:02 39.4 C H 67 20 154/65 H 93 (1) Ulcerative colitis Digestive disease complication type: with rectal bleeding Ulcerative colitis location: unspecified ulcerative colitis location Qualified Code(s): K51.911 - Ulcerative colitis, unspecified with rectal bleeding
[2020-03-10] MEDS: DOCUSATE SODIUM 100 MG CAP PO SCH (20:23)
[2020-03-10] MEDS: SENNA 8.6 MG TAB PO SCH (20:24)
[2020-03-11] MEDS: ACETAMINOPHEN 325 MG TAB PO PRN (00:10)
[2020-03-11] MEDS: CEFEPIME 2,000 MG in SYRINGE 7.5 ML IV SCH ×3 (00:10→23:24)
--- NOTE | 2020-03-11 00:26 | Operative Report (OR) ---
DATE OF OPERATION: 03/10/2020 PREOPERATIVE DIAGNOSES: 1. Right foot deep plantar abscess. 2. Septic fat necrosis, right foot. 3. Foreign body reaction right foot. POSTOPERATIVE DIAGNOSES: 1. Right foot deep plantar abscess. 2. Septic fat necrosis, right foot. 3. Foreign body reaction right foot. PROCEDURES: 1. Right foot incision and drainage, deep plantar abscess. 2. Irrigation and debridement, right foot including skin, subcutaneous fat and fascia. 3. Application antibiotic Stimulan beads 5 mL. SURGEON: Miles Warren DO. MICRO COMPUTER DATA PROCESSOR: oTmas Arellano PA-C who was present for patient positioning, sterile prep and drape, management of retractors and instruments. He was present through the critical portions of the case including wound closure, application of sterile dressing and transport of the patient to recovery. ANESTHESIA: General, regional. SPECIMENS: Aerobic, anaerobic, Gram stain plantar right foot abscess. DRAINS: None. COMPLICATIONS: None. BLOOD LOSS: 15 mL. PERTINENT HISTORY: This is a 70-year-old gentleman who apparently stepped on a toothpick that broke off in his foot. He developed a foreign body reaction and infection. He was seen by Dr. Winters who unroofed the area and attempted conservative management; however, the patient developed an abscess and orthopedic consultation was made. The patient was then scheduled for surgery as indicated. All potential risks, benefits, complications, alternatives, rehab, potential for incomplete relief of symptoms, need for further surgery, DVT, PE, , persistent pain, swelling, scarring, weakness, neurovascular injury, wound complications, need for further surgery or amputation was discussed with the patient. The patient decided to proceed with the procedure as indicated. DESCRIPTION OF PROCEDURE: The patient was taken to the operative suite, placed supine on the operating table. After review of consent and identification of proper operative site, the patient was anesthetized, LMA was placed. Right lower extremity was then sterilely prepped and draped in usual fashion, elevated and an Esmarch tourniquet was applied over sterile tourniquet around the patient's ankle. Next, after local regional block was performed around the medial ankle with 10 mL of 0.5% Marcaine plain, a 15 blade scalpel incision was made along the medial border of the right foot to help preserve the plantar weightbearing surface of the foot. Next, using a Metzenbaum scissors, the septations within the plantar foot were then carefully opened with a combination of sharp and blunt dissection and placement of an [facility] retractor. Abundant abscess fluid was encountered and this was cultured, aerobic, anaerobic, Gram stain, sent off as specimen. A caseative fatty septic necrosis was encountered. This was debrided with a rongeur and a curette. The devitalized tissue was resected. The vital tissue was left in place. The skin was debrided with a 15 blade scalpel as well as the deep fascia. Fibrinous exudate was encountered. This was peeled from the fascia. There did not appear to be an acute fascial reaction, however, there is local tissue reaction secondary to the abscess. Next, the devitalized tissue was then sharply excised with 15 blade scalpel and a rongeur and then copious irrigation was performed with pulsatile lavage, 3 liters and bacitracin until clear. Once this was completed, 5 mL of Stimulan beads were created with vancomycin and gentamicin. The beads then placed into the deep soft tissues of the right foot and then loosely closed with interrupted 3-0 nylon sutures. A sterile compressive dressing was applied. The tourniquet was released. Иван wrap was applied. The patient was awakened and taken to recovery in stable condition. I attest to the content of the Intraoperative Record and any orders documented therein. Any exceptions are noted below. KIMBERLY
[2020-03-11] MEDS: SODIUM CHLORIDE 0.9% 1000ML 1,000 ML IV SCH (02:19)
[2020-03-11 07:28] LABS: Basophils # (auto) 0.02 K/uL (0-0.2); Basophils % (auto) 0.1 %; Eosinophils # (auto) 0.21 K/uL (0-0.5); Eosinophils % (auto) 1.3 %; Hematocrit (blood only) 30.4 % (42-52); Hemoglobin 10.2 g/dL (14.0-18.0); Immature Granulocytes # (auto) 0.13 K/uL (0.00-0.02); Immature Granulocytes % (auto) 0.8 %; Lymphocytes # (auto) 0.86 K/uL (1.2-3.4); Lymphocytes % (auto) 5.3 %; Mean Corpuscular Hemoglobin 29.9 pg (25-34); Mean Corpuscular Hgb Conc 33.6 g/dL (32-36); Mean Corpuscular Volume 89.1 fL (80-100); Mean Platelet Volume 10.7 fL (7.4-10.4); Neutrophils # (auto) 13.77 K/uL (1.4-6.5); Neutrophils % (auto) 84.5 %; Platelet Count 178 K/uL (130-400); RDW Coefficient of Variation 14.1 % (11.5-14.5); RDW Standard Deviation 46.4 fL (36.4-46.3); Red Blood Count 3.41 M/uL (4.7-6.1); White Blood Count 16.29 K/uL (4.8-10.8)
[2020-03-11 08:06] LABS: BUN Creatinine Ratio 33.6 (10-20); Calcium 8.3 mg/dl (8.5-10.1); Est GFR (Non-African American) 39.7; Potassium 4.5 mmol/L (3.5-5.1)
[2020-03-11] MEDS: DOCUSATE SODIUM 100 MG CAP PO SCH ×3 (08:18→20:13)
[2020-03-11] MEDS: traMADol HCL 50 MG TABLET PO PRN (08:21)
[2020-03-11] MEDS: FUROSEMIDE 40 MG TAB PO SCH (08:22)
[2020-03-11] MEDS: MULTIVITAMIN TAB PO SCH (08:23)
[2020-03-11] MEDS: ASPIRIN 81 MG ECTAB PO SCH (08:23)
[2020-03-11] MEDS: CHOLECALCIFEROL 1,000 UNITS 25 MCG TAB PO SCH (08:23)
[2020-03-11] MEDS: POTASSIUM CHLORIDE 20 MEQ TABCR PO SCH (08:24)
[2020-03-11] MEDS: ASCORBIC ACID 500 MG TAB PO SCH (08:25)
[2020-03-11] MEDS: FERROUS SULFATE 325 MG TAB PO SCH (08:25)
[2020-03-11] MEDS ORDERED: MULTIVITAMIN TAB PO SCH (09:00)
[2020-03-11] MEDS ORDERED: SODIUM CHLORIDE 0.9% 1000ML 1,000 ML IV SCH ×2 (09:00→19:30)
--- NOTE | 2020-03-11 09:10 | Communication Note ---
Date of Service: March 11, 2020 Acute renal failure on CKD stage III: Worsening of creatinine noted 1.7, baseline 1.2 Hold Lasix, Ordered gentle hydration Repeat labs in a.m. Avoid NSAIDs and contrast studies A. fib rate controlled. On Lopressor Started on IV heparin for anticoagulation Coumadin will be started in the next 1-2 days if there is no indication for repeat procedure or I&D of right foot wound History of chronic diastolic CHF: Stable volume status, developed acute renal failure postoperatively Hold Lasix /potassium supplement for now Monitor daily weight and volume status Leukocytosis: Due to infected right foot wound, continues to improve, follow daily labs Continue with IV cefepime Zonia GRANADOS consulted Roro Maxwell MD
--- NOTE | 2020-03-11 10:33 | Orthopedic Progress Note ---
Date of Service March 11, 2020 Assessment & Plan (1) Cellulitis of right lower leg: POD #1 s/p 1. Right foot incision and drainage, deep plantar abscess. 2. Irrigation and debridement, right foot including skin, subcutaneous fat and fascia. 3. Application antibiotic Stimulan beads 5 mL Continue IV antibiotics. Gram Stain--Group B Beta Strep. Await sensitivities. NWB RLE at all times. Plan for dressing change tomorrow. D/C planning--unceratin. Will probably require 6 wks IV antibiotics. Admission and Anticipated Discharge Date Admission Date: March 06, 2020 Subjective Doing well. Had some increase in pain in the right foot because of sitting in the chair for a while. Improved with elevation in bed. Physical Exam Constitutional: WD/WN, vitals as above Musculoskeletal: Right foot: Post op dressing C/D/I. NV intact. Toes mobile. Sensation intact distally. Neurologic: normal touch/pain/proprioception Psychiatric: A+Ox3, euthymic affect Speech: normal rate/rhythm/volume of speech Results & Data ([facility]) Vital Signs (Past 12 Hours) Vital Signs Temp Pulse Pulse Resp BP Pulse Ox 03/11/20 07:24 37.1 C 61 16 119/56 L 96 03/11/20 02:58 37.9 C H 62 20 141/61 H 92 03/10/20 23:43 48 L 03/10/20 23:27 38.2 C H 110 H 16 131/51 L 95
[2020-03-11] MEDS: HEPARIN SODIUM/DEXTROSE 25,000 UNITS/500 ML BAG IV SCH (11:11)
[2020-03-11] MEDS: Heparin IV Standard *NO* Bolus IV SCH ×2 (11:12→11:22)
--- NOTE | 2020-03-11 12:15 | Cardiology Progress Note ---
Date of Service March 11, 2020 Assessment & Plan (1) Atrial fibrillation: (2) Puncture wound of foot with foreign body: (3) Sepsis: The patient is currently in a rate controlled atrial fibrillation on no medications. Heparin has been started. I would continue his current treatment for now. Admission and Anticipated Discharge Date Admission Date: March 06, 2020 Subjective The patient had an uneventful night. No new complaints. Review of Systems Review of Systems: All systems reviewed & are unremarkable except as noted in HPI & below Nothing additional to add. Physical Exam Physical Exam: General: no acute distress and stated age Head: normocephalic, no masses, lesions, tenderness or abnormalities Eyes: conjunctiva are pink and non-injected, sclera clear Neck: supple, no adenopathy, no bruits, normal jugular venous pulse, no hepatojugular reflux Chest: normal shape and normal respiratory effort Lungs: clear to auscultation and percussion Cardiac Exam: - irregular rate & rhythm, no murmurs gallops or rubs - normal S1, normal S2 Pulses: 2(+) throughout Abdomen: abdomen soft, non-tender, no abnormal masses and no hepatosplenomegaly Musculoskeletal: no gait disturbance, no joint inflammation, no deforming arthritis Extremities: no edema and no cyanosis Neuro: grossly normal exam Results & Data ([facility]) Vital Signs (Past 12 Hours) Vital Signs Temp Pulse Pulse Resp BP Pulse Ox 03/11/20 11:30 37.5 C 58 L 16 123/59 L 96 03/11/20 07:24 37.1 C 61 16 119/56 L 96 03/11/20 02:58 37.9 C H 62 20 141/61 H 92 Laboratory Results Laboratory Results - last 24 hr 03/11/20 03/11/20 07:12 07:12 WBC 16.29 H RBC 3.41 L Hgb 10.2 L Hct 30.4 L MCV 89.1 MCH 29.9 MCHC 33.6 RDW Std Deviation 46.4 H RDW Coeff of Bryan 14.1 Plt Count 178 MPV 10.7 H Immature Gran % (Auto) 0.8 Neut % (Auto) 84.5 Lymph % (Auto) 5.3 Kleberg % (Auto) 8.0 Eos % (Auto) 1.3 Baso % (Auto) 0.1 Neut # (Auto) 13.77 H Lymph # (Auto) 0.86 L Kleberg # (Auto) 1.30 H Eos # (Auto) 0.21 Baso # (Auto) 0.02 Immature Gran # (Auto) 0.13 H Sodium 138 Potassium 4.5 Chloride 113 H Carbon Dioxide 16 L Anion Gap 9.0 BUN 58 H Creatinine 1.72 H Est Cr Clr Drug Dosing 51.0 Est GFR ( Amer) 46.0 Est GFR (Non-Af Amer) 39.7 BUN/Creatinine Ratio 33.6 H Glucose 104 H Calcium 8.3 L Medications Administered Current Inpatient Medications Acetaminophen (Acetaminophen 325 Mg Tab) 650 mg PO Q4H PRN PRN Reason: pain/fever Stop: 04/05/20 16:11 Last Admin: 03/11/20 00:10 Dose: 650 mg Documented by: Ascorbic Acid (Ascorbic Acid 500 Mg Tab) 1,000 mg PO DAILY [facility] Stop: 04/06/20 08:59 Last Admin: 03/11/20 08:25 Dose: 1,000 mg Documented by: Aspirin (Aspirin 81 Mg Ectab) 81 mg PO DAILY [facility] Stop: 04/06/20 08:59 Last Admin: 03/11/20 08:23 Dose: 81 mg Documented by: Bisacodyl (Bisacodyl 10 Mg Supp) 10 mg [place] DAILY PRN PRN Reason: Constipation Stop: 04/09/20 14:28 Diphenhydramine HCl (Diphenhydramine Hcl 25 Mg Cap) 25 mg PO Q8H PRN PRN Reason: Itching Stop: 04/09/20 14:28 Docusate Sodium (Docusate Sodium 100 Mg Cap) 100 mg PO BID [facility] Stop: 04/09/20 20:59 Last Admin: 03/11/20 08:18 Dose: Not Given Documented by: Ferrous Sulfate (Ferrous Sulfate 325 Mg Tab) 325 mg PO DAILY SAHIL Stop: 04/06/20 08:59 Last Admin: 03/11/20 08:25 Dose: 325 mg Documented by: Furosemide (Furosemide 40 Mg Tab) 40 mg PO DAILY [facility] Stop: 04/06/20 08:59 Last Admin: 03/11/20 08:22 Dose: 40 mg Documented by: Hydromorphone HCl (Hydromorphone Inj 1 Mg/Ml Syringe) 1 mg IV Q4H PRN PRN Reason: Pain Stop: 03/21/20 16:12 Last Admin: 03/10/20 03:06 Dose: 1 mg Documented by: Cefepime HCl 2,000 mg/ Syringe 20 mls @ 5 mls/min IV Q12H [facility]; Protocol Stop: 03/14/20 00:00 Last Admin: 03/11/20 11:14 Dose: 5 mls/min Documented by: Heparin Sodium/Dextrose (Heparin Sodium/Dextrose) 25,000 units in 500 mls @ 32 mls/hr IV .[id number] [facility]; Protocol Stop: 04/10/20 10:59 Last Admin: 03/11/20 11:11 Dose: 1,600 units/hr, 32 mls/hr Documented by: Magnesium Hydroxide (Magnesium Hydroxide Susp 30 Ml Udc) 30 ml PO Q6H PRN PRN Reason: Constipation Stop: 04/09/20 14:28 Metoclopramide HCl (Metoclopramide Hcl Inj 5 Mg/Ml 2 Ml Vial) 10 mg IV Q6H PRN PRN Reason: Nausea And Vomiting Stop: 04/09/20 14:28 Last Admin: 03/10/20 16:44 Dose: 10 mg Documented by: Miconazole Nitrate (Miconazole Nitrate Powder 43 Gm) 1 appln EXT PRN PRN PRN Reason: Affected Skin Folds Stop: 04/05/20 21:17 Last Admin: 03/06/20 22:29 Dose: 1 appln Documented by: Miscellaneous Information (Cefepime Consult Active) 1 ea N/A UD PRN PRN Reason: Consult Stop: 04/05/20 16:33 Multivitamins (Multivitamin Tab) 1 tab PO QAM [facility] Stop: 04/06/20 08:59 Last Admin: 03/11/20 08:23 Dose: 1 tab Documented by: Naloxone HCl (Naloxone Hcl 0.4 Mg/1 Ml Vial/Carp) 0.1 mg IV Q5M PRN PRN Reason: Oversedation/Resp Depression Stop: 04/09/20 14:28 Ondansetron HCl (Ondansetron Inj 2 Mg/Ml 2 Ml Vial) 4 mg IV Q6H PRN PRN Reason: Nausea And Vomiting Stop: 04/09/20 14:28 Oxycodone HCl (Oxycodone Hcl Ir 5 Mg Tab (Immediate Release)) 5 - 10 mg PO Q4H PRN PRN Reason: Pain or Pre PT Stop: 03/24/20 14:28 Polyethylene Glycol (Polyethylene (Miralax) 17 Gm Pack) 17 gm PO DAILY PRN PRN Reason: Constipation Stop: 04/05/20 16:11 Potassium Chloride (Potassium Chloride 20 Meq Tabcr) 20 meq PO DAILY [facility]HLI Stop: 04/06/20 08:59 Last Admin: 03/11/20 08:24 Dose: 20 meq Documented by: Sennosides (Senna 8.6 Mg Tab) 17.2 mg PO HS SAHIL Stop: 04/09/20 20:59 Last Admin: 03/10/20 20:24 Dose: Not Given Documented by: Tamsulosin HCl (Tamsulosin Hcl 0.4 Mg Cap) 0.4 mg PO QAM PRN PRN Reason: unable to void Stop: 04/09/20 14:28 Tramadol HCl (Tramadol Hcl 50 Mg Tablet) 25 mg PO Q4H PRN PRN Reason: Pain Stop: 04/05/20 17:42 Last Admin: 03/11/20 08:21 Dose: 25 mg Documented by: Vitamin D (Cholecalciferol 1,000 Units 25 Mcg Tab) 1,000 units PO DAILY SAHIL Stop: 04/06/20 08:59 Last Admin: 03/11/20 08:23 Dose: 1,000 units Documented by: (1) Sepsis Sepsis acute organ dysfunction status: unspecified Sepsis type: sepsis due to unspecified organism Qualified Code(s): A41.9 - Sepsis, unspecified organism
[2020-03-11 18:06] LABS: Partial Thromboplastin Ratio 1.9
[2020-03-11 18:11] LABS: Partial Thromboplastin Time 52.5 Seconds (21.0-31.0)
--- NOTE | 2020-03-11 19:26 | Hospitalist Progress Note ---
Date of Service March 11, 2020 Assessment & Plan (1) Puncture wound of foot with foreign body: (2) Cellulitis of right lower leg: Present on admission with worsening right LE tenderness infected right foot wound WBC on admission 16K, C-reactive 20.5 and ESR 53 appreciate input from wound care -Dr Winters s/p bedside debridement reaccumulation of fluid at the wound bed noted-on next day Appreciate input from orthopedics s/p Incision and Drainage large deep plantar Foot Abscess; Extensive debridement right plantar foot including-Skin, fascia, subcutaneous fat . Local wound care, empiric antibiotic with IV cefepime Follow culture reports, Zonia GRANADOS consulted Chronic diastolic CHF stable vol status Echo completed March 152018 showed an LVEF of 60 to 65%, grade 2 diastolic dysfunction, mild aortic valve sclerosis without significant stenosis. Continue with Lasix (3) Atrial fibrillation: New onset of afib on admission EKG showed Afib with rate control Cardiology on board Echo showed normal LV systolic function without regional wall motion abnormality. With ejection fraction 55 to 60%. Continue metoprolol 12.5 BID started on IV heparin (4) Ulcerative colitis: S/p colectomy. Not currently on any medication. Follows with GI in [place] (5) Primary malignant neoplasm of cecum: (6) Status post colectomy: Not on any chemo or radiation. Following for surveillance with [facility] oncology. Colostomy care per nursing (7) Bilateral leg edema: No peripheral edema noted on admission. Continue home dose Lasix (8) Cryptogenic cirrhosis: Follows with [facility] GI group. Low-sodium diet, limit daily Tylenol to less than 2 g Code status: FULL Dispo: Continue to monitor in telemetry Admission and Anticipated Discharge Date Admission Date: March 06, 2020 Subjective The patient had an uneventful night. No new complaints. Physical Exam Physical Exam: General: no acute distress and stated age Head: normocephalic, no masses, lesions, tenderness or abnormalities Eyes: conjunctiva are pink and non-injected, sclera clear Neck: supple, no adenopathy, no bruits, normal jugular venous pulse, no hepatojugular reflux Chest: normal shape and normal respiratory effort Lungs: clear to auscultation and percussion Cardiac Exam: - irregular rate & rhythm, no murmurs gallops or rubs - normal S1, normal S2 Pulses: 2(+) throughout Abdomen: abdomen soft, non-tender, no abnormal masses and no hepatosplenomegaly Musculoskeletal: no gait disturbance, no joint inflammation, no deforming arthritis Extremities: The right foot is bandaged. Neuro: grossly normal exam Constitutional: WD/WN, vitals as above Eyes: PERRL, conjunctivae normal, anicteric sclerae ENMT: external ear and nose normal, oropharynx normal Neck: trachea midline, no thyromegaly Respiratory: normal respiratory effort, lungs clear to auscultation Cardiovascular: Rate/Rhythm: + irregularly irregular Gastrointestinal (Abdomen): Percussion/Palpation: abdomen soft; abdomen nontender Neurologic: PERRL, EOMI, accommodation nl, no face palsy, no dysarthria Psychiatric: A+Ox3, euthymic affect Results & Data Results & Data ([facility]) Vital Signs (Past 12 Hours) Vital Signs Temp Pulse Resp BP Pulse Ox 03/11/20 15:30 37.4 C 55 L 16 128/54 L 97 03/11/20 11:30 37.5 C 58 L 16 123/59 L 96 (1) Ulcerative colitis Digestive disease complication type: with rectal bleeding Ulcerative colitis location: unspecified ulcerative colitis location Qualified Code(s): K51.911 - Ulcerative colitis, unspecified with rectal bleeding
[2020-03-11] MEDS: SENNA 8.6 MG TAB PO SCH ×2 (20:12→20:13)
[2020-03-11] MEDS: HYDROmorphone INJ 1 MG/ML SYRINGE IV PRN (22:44)
[2020-03-12] MEDS: HEPARIN SODIUM/DEXTROSE 25,000 UNITS/500 ML BAG IV SCH ×2 (02:46→17:48)
[2020-03-12 06:27] LABS: Basophils # (auto) 0.01 K/uL (0-0.2); Basophils % (auto) 0.1 %; Eosinophils # (auto) 0.26 K/uL (0-0.5); Hematocrit (blood only) 30.7 % (42-52); Immature Granulocytes # (auto) 0.12 K/uL (0.00-0.02); Immature Granulocytes % (auto) 0.9 %; Lymphocytes # (auto) 0.87 K/uL (1.2-3.4); Lymphocytes % (auto) 6.5 %; Mean Corpuscular Hemoglobin 29.8 pg (25-34); Mean Corpuscular Hgb Conc 32.6 g/dL (32-36); Mean Corpuscular Volume 91.4 fL (80-100); Mean Platelet Volume 11.5 fL (7.4-10.4); Monocytes # (auto) 1.03 K/uL (0.11-0.59); Monocytes % (auto) 7.7 %; Neutrophils # (auto) 11.01 K/uL (1.4-6.5); Neutrophils % (auto) 82.8 %; Platelet Count 184 K/uL (130-400); RDW Coefficient of Variation 14.3 % (11.5-14.5); Red Blood Count 3.36 M/uL (4.7-6.1)
[2020-03-12 06:46] LABS: Partial Thromboplastin Ratio 1.8
[2020-03-12 06:50] LABS: Partial Thromboplastin Time 50.9 Seconds (21.0-31.0)
[2020-03-12 06:57] LABS: BUN Creatinine Ratio 34.2 (10-20); Calcium 8.4 mg/dl (8.5-10.1); Creatinine Clr Calc Pharmacy 53.2 ml/min; Est GFR (Non-African American) 41.4; Potassium 4.7 mmol/L (3.5-5.1)
[2020-03-12] MEDS: Heparin IV Standard *NO* Bolus IV SCH ×2 (06:58→06:59)
[2020-03-12] MEDS: MULTIVITAMIN TAB PO SCH (08:03)
[2020-03-12] MEDS: ASPIRIN 81 MG ECTAB PO SCH (08:03)
[2020-03-12] MEDS: FERROUS SULFATE 325 MG TAB PO SCH (08:03)
[2020-03-12] MEDS: DOCUSATE SODIUM 100 MG CAP PO SCH ×2 (08:03→20:28)
[2020-03-12] MEDS: ASCORBIC ACID 500 MG TAB PO SCH (08:04)
[2020-03-12] MEDS: CHOLECALCIFEROL 1,000 UNITS 25 MCG TAB PO SCH (08:04)
[2020-03-12] MEDS: traMADol HCL 50 MG TABLET PO PRN (10:53)
--- NOTE | 2020-03-12 11:15 | Orthopedic Progress Note ---
Date of Service March 12, 2020 Assessment & Plan (1) Cellulitis of right lower leg: POD #2 s/p 1. Right foot incision and drainage, deep plantar abscess. 2. Irrigation and debridement, right foot including skin, subcutaneous fat and fascia. 3. Application antibiotic Stimulan beads 5 mL Continue IV antibiotics. Gram Stain--Group B Beta Strep and Staphylococcus. Await sensitivities. NWB RLE at all times. Dressing change today. Mild serous drainage from the medial incision and possibly some mild drainage from the antibiotic beads. D/C planning--uncertain. Will probably require 6 wks IV antibiotics. Admission and Anticipated Discharge Date Admission Date: March 06, 2020 Subjective Doing well. States he has minimal to no pain within the right foot. States he has all the sensation within the foot. No other complaints. Physical Exam Constitutional: WD/WN, vitals as above Musculoskeletal: Right foot: Medial incision well approximated. Mild serosanguineous drainage from the posterior aspect of the incision. No purulence noted. There may be some mild drainage from the antibiotic beads. Much improved erythema surrounding the foot. The plantar ulceration has a mild black appearance to it however the tissue is soft with minimal tenderness. This area is approximately 7.5 to 8 cm in length from distal to proximal. No evidence of any sloughing or ischemia. There are no areas of eschar noted. Neurologic: normal touch/pain/proprioception Psychiatric: A+Ox3, euthymic affect Speech: normal rate/rhythm/volume of speech Results & Data ([facility]) Vital Signs (Past 12 Hours) Vital Signs Temp Pulse Pulse Resp BP Pulse Ox 03/12/20 07:03 54 L 03/12/20 06:33 37.4 C 54 L 18 113/55 L 95 03/12/20 03:15 37.5 C 52 L 18 130/57 L 97 Laboratory Results Spec: [id number] Collected: 03/10/20-1356 Received: 03/10/201427 Subm Dr: Miles Warren,D.O. Copy To: Cesar Templeton MD Source: Foot,Right OV Order: Ordered: Aer/Alexandrea Cult/Sm Comments: Comment Culture #1: Right Deep Plantar Foot Procedure Result Verified Site Gram Stain Final 03/11/201557 Gram Stain Result Few WBCs Seen Rare Gram Positive Cocci Aero/Alexandrea Cult Preliminary 03/12/2000 Organism 1 Group B Beta Strep Quantity Moderate Sens Sensitivities to Follow Organism 2 Staphylococcus species Quantity Few Sens Sensitivities to Follow
[2020-03-12] MEDS: HYDROmorphone INJ 1 MG/ML SYRINGE IV PRN (11:44)
[2020-03-12] MEDS: CEFEPIME 2,000 MG in SYRINGE 7.5 ML IV SCH (11:44)
--- NOTE | 2020-03-12 12:31 | Cardiology Progress Note ---
Date of Service March 12, 2020 Assessment & Plan (1) Atrial fibrillation: (2) Puncture wound of foot with foreign body: (3) Sepsis: The patient is currently clinically stable and his atrial fibrillation, the rate is controlled. I will start Coumadin today in anticipation that the patient will be discharged on anticoagulation. Admission and Anticipated Discharge Date Admission Date: March 06, 2020 Subjective Uneventful night. The patient is comfortable and eating lunch in a chair. Review of Systems Review of Systems: All systems reviewed & are unremarkable except as noted in HPI & below Nothing additional to add. Physical Exam Physical Exam: General: no acute distress and stated age Head: normocephalic, no masses, lesions, tenderness or abnormalities Eyes: conjunctiva are pink and non-injected, sclera clear Neck: supple, no adenopathy, no bruits, normal jugular venous pulse, no hepatojugular reflux Chest: normal shape and normal respiratory effort Lungs: clear to auscultation and percussion Cardiac Exam: - irregular rate & rhythm, no murmurs gallops or rubs - normal S1, normal S2 Pulses: 2(+) throughout Abdomen: abdomen soft, non-tender, no abnormal masses and no hepatosplenomegaly Musculoskeletal: no gait disturbance, no joint inflammation, no deforming arthritis Extremities: no edema and no cyanosis Neuro: grossly normal exam Results & Data ([facility]) Vital Signs (Past 12 Hours) Vital Signs Temp Pulse Pulse Resp BP Pulse Ox 03/12/20 11:23 37.5 C 59 L 16 132/68 93 03/12/20 07:03 54 L 03/12/20 06:33 37.4 C 54 L 18 113/55 L 95 03/12/20 03:15 37.5 C 52 L 18 130/57 L 97 Laboratory Results Laboratory Results - last 24 hr 03/11/20 03/12/20 03/12/20 17:35 05:49 05:49 WBC 13.30 H RBC 3.36 L Hgb 10.0 L Hct 30.7 L MCV 91.4 MCH 29.8 MCHC 32.6 RDW Std Deviation 48.0 H RDW Coeff of Bryan 14.3 Plt Count 184 MPV 11.5 H Immature Gran % (Auto) 0.9 Neut % (Auto) 82.8 Lymph % (Auto) 6.5 [place] % (Auto) 7.7 Eos % (Auto) 2.0 Baso % (Auto) 0.1 Neut # (Auto) 11.01 H Lymph # (Auto) 0.87 L [place] # (Auto) 1.03 H Eos # (Auto) 0.26 Baso # (Auto) 0.01 Immature Gran # (Auto) 0.12 H APTT 52.5 H* 50.9 H* PTT Ratio 1.9 1.8 Sodium Potassium Chloride Carbon Dioxide Anion Gap BUN Creatinine Est Cr Clr Drug Dosing Est GFR ( Amer) Est GFR (Non-Af Amer) BUN/Creatinine Ratio Glucose Calcium Nasal Screen MRSA (PCR) 03/12/20 03/12/20 05:49 12:00 WBC RBC Hgb Hct MCV MCH MCHC RDW Std Deviation RDW Coeff of Bryan Plt Count MPV Immature Gran % (Auto) Neut % (Auto) Lymph % (Auto) [place] % (Auto) Eos % (Auto) Baso % (Auto) Neut # (Auto) Lymph # (Auto) [place] # (Auto) Eos # (Auto) Baso # (Auto) Immature Gran # (Auto) APTT PTT Ratio Sodium 138 Potassium 4.7 Chloride 114 H Carbon Dioxide 18 L Anion Gap 6.0 BUN 57 H Creatinine 1.66 H Est Cr Clr Drug Dosing 53.2 Est GFR ( Amer) 48.0 Est GFR (Non-Af Amer) 41.4 BUN/Creatinine Ratio 34.2 H Glucose 130 H Calcium 8.4 L Nasal Screen MRSA (PCR) Pending Medications Administered Current Inpatient Medications Acetaminophen (Acetaminophen 325 Mg Tab) 650 mg PO Q4H PRN PRN Reason: pain/fever Stop: 04/05/20 16:11 Last Admin: 03/11/20 00:10 Dose: 650 mg Documented by: Ascorbic Acid (Ascorbic Acid 500 Mg Tab) 1,000 mg PO DAILY [facility] Stop: 04/06/20 08:59 Last Admin: 03/12/20 08:04 Dose: 1,000 mg Documented by: Aspirin (Aspirin 81 Mg Ectab) 81 mg PO DAILY [facility] Stop: 04/06/20 08:59 Last Admin: 03/12/20 08:03 Dose: 81 mg Documented by: Bisacodyl (Bisacodyl 10 Mg Supp) 10 mg GA DAILY PRN PRN Reason: Constipation Stop: 04/09/20 14:28 Diphenhydramine HCl (Diphenhydramine Hcl 25 Mg Cap) 25 mg PO Q8H PRN PRN Reason: Itching Stop: 04/09/20 14:28 Docusate Sodium (Docusate Sodium 100 Mg Cap) 100 mg PO BID [facility] Stop: 04/09/20 20:59 Last Admin: 03/12/20 08:03 Dose: 100 mg Documented by: Ferrous Sulfate (Ferrous Sulfate 325 Mg Tab) 325 mg PO DAILY [facility] Stop: 04/06/20 08:59 Last Admin: 03/12/20 08:03 Dose: 325 mg Documented by: Furosemide (Furosemide 40 Mg Tab) 40 mg PO DAILY [facility] Stop: 04/06/20 08:59 Last Admin: 03/11/20 08:22 Dose: 40 mg Documented by: Hydromorphone HCl (Hydromorphone Inj 1 Mg/Ml Syringe) 1 mg IV Q4H PRN PRN Reason: Pain Stop: 03/21/20 16:12 Last Admin: 03/12/20 11:44 Dose: 1 mg Documented by: Cefepime HCl 2,000 mg/ Syringe 20 mls @ 5 mls/min IV Q12H [facility]; Protocol Stop: 03/14/20 00:00 Last Admin: 03/12/20 11:44 Dose: 5 mls/min Documented by: Heparin Sodium/Dextrose (Heparin Sodium/Dextrose) 25,000 units in 500 mls @ 32 mls/hr IV .[id number] [facility]; Protocol Stop: 04/10/20 10:59 Last Admin: 03/12/20 02:46 Dose: 1,600 units/hr, 32 mls/hr Documented by: Magnesium Hydroxide (Magnesium Hydroxide Susp 30 Ml Udc) 30 ml PO Q6H PRN PRN Reason: Constipation Stop: 04/09/20 14:28 Metoclopramide HCl (Metoclopramide Hcl Inj 5 Mg/Ml 2 Ml Vial) 10 mg IV Q6H PRN PRN Reason: Nausea And Vomiting Stop: 04/09/20 14:28 Last Admin: 03/10/20 16:44 Dose: 10 mg Documented by: Miconazole Nitrate (Miconazole Nitrate Powder 43 Gm) 1 appln EXT PRN PRN PRN Reason: Affected Skin Folds Stop: 04/05/20 21:17 Last Admin: 03/06/20 22:29 Dose: 1 appln Documented by: Miscellaneous Information (Cefepime Consult Active) 1 ea N/A UD PRN PRN Reason: Consult Stop: 04/05/20 16:33 Multivitamins (Multivitamin Tab) 1 tab PO QAM [facility] Stop: 04/06/20 08:59 Last Admin: 03/12/20 08:03 Dose: 1 tab Documented by: Naloxone HCl (Naloxone Hcl 0.4 Mg/1 Ml Vial/Carp) 0.1 mg IV Q5M PRN PRN Reason: Oversedation/Resp Depression Stop: 04/09/20 14:28 Ondansetron HCl (Ondansetron Inj 2 Mg/Ml 2 Ml Vial) 4 mg IV Q6H PRN PRN Reason: Nausea And Vomiting Stop: 04/09/20 14:28 Oxycodone HCl (Oxycodone Hcl Ir 5 Mg Tab (Immediate Release)) 5 - 10 mg PO Q4H PRN PRN Reason: Pain or Pre PT Stop: 03/24/20 14:28 Polyethylene Glycol (Polyethylene (Miralax) 17 Gm Pack) 17 gm PO DAILY PRN PRN Reason: Constipation Stop: 04/05/20 16:11 Potassium Chloride (Potassium Chloride 20 Meq Tabcr) 20 meq PO DAILY [facility] Stop: 04/06/20 08:59 Last Admin: 03/11/20 08:24 Dose: 20 meq Documented by: Sennosides (Senna 8.6 Mg Tab) 17.2 mg PO HS [facility] Stop: 04/09/20 20:59 Last Admin: 03/11/20 20:13 Dose: Not Given Documented by: Tamsulosin HCl (Tamsulosin Hcl 0.4 Mg Cap) 0.4 mg PO QAM PRN PRN Reason: unable to void Stop: 04/09/20 14:28 Tramadol HCl (Tramadol Hcl 50 Mg Tablet) 25 mg PO Q4H PRN PRN Reason: Pain Stop: 04/05/20 17:42 Last Admin: 03/12/20 10:53 Dose: 25 mg Documented by: Vitamin D (Cholecalciferol 1,000 Units 25 Mcg Tab) 1,000 units PO DAILY [facility] Stop: 04/06/20 08:59 Last Admin: 03/12/20 08:04 Dose: 1,000 units Documented by: (1) Sepsis Sepsis acute organ dysfunction status: unspecified Sepsis type: sepsis due to unspecified organism Qualified Code(s): A41.9 - Sepsis, unspecified organism
--- NOTE | 2020-03-12 14:30 | Communication Note ---
Date of Service: March 12, 2020 rt foot wound culture : staph aureus /group B strep MRSA screen negative D/c Cefepime changed to IV rocephin daily pt may need detention Iv abx Roro Maxwell MD
[2020-03-12] MEDS: WARFARIN SOD 5 MG TAB PO SCH (16:19)
--- NOTE | 2020-03-12 17:56 | Hospitalist Progress Note ---
Date of Service March 12, 2020 Assessment & Plan (1) Puncture wound of foot with foreign body: (2) Cellulitis of right lower leg: Present on admission with worsening right LE tenderness infected right foot wound WBC on admission 16K, C-reactive 20.5 and ESR 53 appreciate input from wound care -Dr Winters s/p bedside debridement reaccumulation of fluid at the wound bed noted-on next day Appreciate input from orthopedics s/p Incision and Drainage large deep plantar Foot Abscess; Extensive debridement right plantar foot including-Skin, fascia, subcutaneous fat wound culture : staph aureus , group B strep -Abx changed to IV Rocephin Follow culture reports, Zonia GRANADOS consulted Chronic diastolic CHF stable vol status Echo completed March 152018 showed an LVEF of 60 to 65%, grade 2 diastolic dysfunction, mild aortic valve sclerosis without significant stenosis. (3) Atrial fibrillation: New onset of afib on admission EKG showed Afib with rate control Cardiology on board Echo showed normal LV systolic function without regional wall motion abnormality. With ejection fraction 55 to 60%. Continue metoprolol 12.5 BID started on IV heparin will start on coumadin if no other procedure needed during this hospital stay (4) Ulcerative colitis: S/p colectomy. Not currently on any medication. no GI symptoms Follows with GI in [place] (5) Primary malignant neoplasm of cecum: (6) Status post colectomy: Not on any chemo or radiation. Following for surveillance with [facility] oncology. Colostomy care per nursing (7) Bilateral leg edema: No peripheral edema noted on admission. (8) Cryptogenic cirrhosis: Follows with [facility] GI group. Low-sodium diet, limit daily Tylenol to less than 2 g Code status: FULL Dispo: Continue to monitor in telemetry Admission and Anticipated Discharge Date Admission Date: March 06, 2020 Subjective no new complain doing well right foot pain well controlled Physical Exam Physical Exam: General: no acute distress and stated age Head: normocephalic, no masses, lesions, tenderness or abnormalities Eyes: conjunctiva are pink and non-injected, sclera clear Neck: supple, no adenopathy, no bruits, normal jugular venous pulse, no hepatojugular reflux Chest: normal shape and normal respiratory effort Lungs: clear to auscultation and percussion Cardiac Exam: - irregular rate & rhythm, no murmurs gallops or rubs - normal S1, normal S2 Pulses: 2(+) throughout Abdomen: abdomen soft, non-tender, no abnormal masses and no hepatosplenomegaly Musculoskeletal: no gait disturbance, no joint inflammation, no deforming arthritis Extremities: The right foot is bandaged. Neuro: grossly normal exam Constitutional: WD/WN, vitals as above Eyes: PERRL, conjunctivae normal, anicteric sclerae ENMT: external ear and nose normal, oropharynx normal Neck: trachea midline, no thyromegaly Respiratory: normal respiratory effort, lungs clear to auscultation Cardiovascular: Rate/Rhythm: + irregularly irregular Gastrointestinal (Abdomen): Percussion/Palpation: abdomen soft; abdomen nontender Neurologic: PERRL, EOMI, accommodation nl, no face palsy, no dysarthria Psychiatric: A+Ox3, euthymic affect Results & Data Results & Data ([facility]) Vital Signs (Past 12 Hours) Vital Signs Temp Pulse Pulse Resp BP Pulse Ox 03/12/20 16:24 56 L 03/12/20 15:36 36.9 C 67 16 130/55 L 96 03/12/20 11:23 37.5 C 59 L 16 132/68 93 03/12/20 07:03 54 L 03/12/20 06:33 37.4 C 54 L 18 113/55 L 95 (1) Ulcerative colitis Digestive disease complication type: with rectal bleeding Ulcerative colitis location: unspecified ulcerative colitis location Qualified Code(s): K51.911 - Ulcerative colitis, unspecified with rectal bleeding
[2020-03-12] MEDS: SENNA 8.6 MG TAB PO SCH (20:28)
[2020-03-12] MEDS: ACETAMINOPHEN 325 MG TAB PO PRN (22:34)
[2020-03-13] MEDS: traMADol HCL 50 MG TABLET PO PRN ×3 (06:13→23:11)
[2020-03-13 07:56] LABS: Hematocrit (blood only) 31.2 % (42-52); Hemoglobin 10.2 g/dL (14.0-18.0); Mean Corpuscular Hemoglobin 29.7 pg (25-34); Mean Corpuscular Hgb Conc 32.7 g/dL (32-36); Mean Corpuscular Volume 90.7 fL (80-100); Mean Platelet Volume 11.8 fL (7.4-10.4); Platelet Count 174 K/uL (130-400); RDW Coefficient of Variation 14.1 % (11.5-14.5); RDW Standard Deviation 46.9 fL (36.4-46.3); Red Blood Count 3.44 M/uL (4.7-6.1); White Blood Count 11.17 K/uL (4.8-10.8)
[2020-03-13 08:19] LABS: INR 1.6 (0.9-1.1); Prothrombin Time 16.1 Seconds (9.0-12.0)
[2020-03-13 08:20] LABS: Partial Thromboplastin Time 55.7 Seconds (21.0-31.0)
[2020-03-13 08:26] LABS: BUN Creatinine Ratio 32.6 (10-20); Calcium 8.3 mg/dl (8.5-10.1); Creatinine Clr Calc Pharmacy 61.4 ml/min; Est GFR (African American) 56.5; Est GFR (Non-African American) 48.8; Potassium 4.7 mmol/L (3.5-5.1)
[2020-03-13] MEDS: cefTRIAXone SODIUM 2,000 MG in DEXTROSE 5% 50 ML IV SCH (09:12)
[2020-03-13] MEDS: ASCORBIC ACID 500 MG TAB PO SCH (09:13)
[2020-03-13] MEDS: MULTIVITAMIN TAB PO SCH (09:14)
[2020-03-13] MEDS: ASPIRIN 81 MG ECTAB PO SCH (09:14)
[2020-03-13] MEDS: DOCUSATE SODIUM 100 MG CAP PO SCH ×2 (09:14→20:54)
[2020-03-13] MEDS: FERROUS SULFATE 325 MG TAB PO SCH (09:14)
[2020-03-13] MEDS: CHOLECALCIFEROL 1,000 UNITS 25 MCG TAB PO SCH (09:15)
[2020-03-13] MEDS: HYDROmorphone INJ 1 MG/ML SYRINGE IV PRN (09:20)
[2020-03-13] MEDS: HEPARIN SODIUM/DEXTROSE 25,000 UNITS/500 ML BAG IV SCH (09:26)
--- NOTE | 2020-03-13 09:30 | Orthopedic Progress Note ---
Date of Service March 13, 2020 Assessment & Plan (1) Cellulitis of right lower leg: POD #3 s/p 1. Right foot incision and drainage, deep plantar abscess. 2. Irrigation and debridement, right foot including skin, subcutaneous fat and fascia. 3. Application antibiotic Stimulan beads 5 mL Continue IV antibiotics. Gram Stain--Group B Beta Strep and Staphylococcus. Await sensitivities. NWB RLE at all times. -Dressing change today D/C planning--uncertain. Will probably require 6 wks IV antibiotics. Admission and Anticipated Discharge Date Admission Date: March 06, 2020 Subjective Post Operative Progress Note Patient seen sitting up in bed, comfortable, denies complaints, pain well controlled, no acute issues. Denies F/C/N/V/SOB/CP. Review of Systems Review of Systems: All systems reviewed & are unremarkable except as noted in HPI & below Constitutional: as per Subjective / HPI Physical Exam Physical Exam: RLE NVSI +EHL/FHL/TA/GS SILT grossly, +2 DP pulse, compartments soft NT, dressing cdi. Constitutional: WD/WN, vitals as above Results & Data ([facility]) Vital Signs (Past 12 Hours) Vital Signs Temp Pulse Pulse Resp BP Pulse Ox 03/13/20 07:12 36.8 C 59 L 18 167/57 H 91 03/13/20 07:00 54 L 03/13/20 03:50 37 C 54 L 18 142/55 H 96 03/12/20 22:20 53 L 03/12/20 22:14 38 C H 53 L 18 137/59 L 98
--- NOTE | 2020-03-13 11:34 | Cardiology Progress Note ---
Date of Service March 13, 2020 Assessment & Plan (1) Atrial fibrillation: (2) Puncture wound of foot with foreign body: (3) Sepsis: The patient is clinically stable. At this point the plan is to continue with warfarin as anticoagulation and rate control. Admission and Anticipated Discharge Date Admission Date: March 06, 2020 Subjective The patient has some leg and foot pain but is otherwise doing well. Review of Systems Review of Systems: All systems reviewed & are unremarkable except as noted in Subjective Physical Exam Physical Exam: General: no acute distress and stated age Head: normocephalic, no masses, lesions, tenderness or abnormalities Eyes: conjunctiva are pink and non-injected, sclera clear Neck: supple, no adenopathy, no bruits, normal jugular venous pulse, no hepatojugular reflux Chest: normal shape and normal respiratory effort Lungs: clear to auscultation and percussion Cardiac Exam: - regular rate & rhythm, no murmurs gallops or rubs - normal S1, normal S2 Pulses: 2(+) throughout Abdomen: abdomen soft, non-tender, no abnormal masses and no hepatosplenomegaly Musculoskeletal: no gait disturbance, no joint inflammation, no deforming arthritis Extremities: Bandaged right foot Neuro: grossly normal exam Results & Data ([facility]) Vital Signs (Past 12 Hours) Vital Signs Temp Pulse Pulse Resp BP Pulse Ox 03/13/20 11:15 37.1 C 54 L 18 143/58 H 93 03/13/20 07:12 36.8 C 59 L 18 167/57 H 91 03/13/20 07:00 54 L 03/13/20 03:50 37 C 54 L 18 142/55 H 96 Laboratory Results Laboratory Results - last 24 hr 03/12/20 03/13/20 03/13/20 12:00 07:16 07:16 WBC 11.17 H RBC 3.44 L Hgb 10.2 L Hct 31.2 L MCV 90.7 MCH 29.7 MCHC 32.7 RDW Std Deviation 46.9 H RDW Coeff of Bryan 14.1 Plt Count 174 MPV 11.8 H PT 16.1 H INR 1.6 H APTT 55.7 H* PTT Ratio 2.0 Sodium Potassium Chloride Carbon Dioxide Anion Gap BUN Creatinine Est Cr Clr Drug Dosing Est GFR ( Amer) Est GFR (Non-Af Amer) BUN/Creatinine Ratio Glucose Calcium Nasal Screen MRSA (PCR) Negative 10/05/20 07:16 WBC RBC Hgb Hct MCV MCH MCHC RDW Std Deviation RDW Coeff of Bryan Plt Count MPV PT INR APTT PTT Ratio Sodium 137 Potassium 4.7 Chloride 113 H Carbon Dioxide 19 L Anion Gap 6.0 BUN 47 H Creatinine 1.45 H Est Cr Clr Drug Dosing 61.4 Est GFR ( Amer) 56.5 Est GFR (Non-Af Amer) 48.8 BUN/Creatinine Ratio 32.6 H Glucose 124 H Calcium 8.3 L Nasal Screen MRSA (PCR) Medications Administered Current Inpatient Medications Acetaminophen (Acetaminophen 325 Mg Tab) 650 mg PO Q4H PRN PRN Reason: pain/fever Stop: 04/05/20 16:11 Last Admin: 03/12/20 22:34 Dose: 650 mg Documented by: Ascorbic Acid (Ascorbic Acid 500 Mg Tab) 1,000 mg PO DAILY SAHIL Stop: 04/06/20 08:59 Last Admin: 03/13/20 09:13 Dose: 1,000 mg Documented by: Aspirin (Aspirin 81 Mg Ectab) 81 mg PO DAILY SAHIL Stop: 04/06/20 08:59 Last Admin: 03/13/20 09:14 Dose: 81 mg Documented by: Bisacodyl (Bisacodyl 10 Mg Supp) 10 mg MN DAILY PRN PRN Reason: Constipation Stop: 04/09/20 14:28 Diphenhydramine HCl (Diphenhydramine Hcl 25 Mg Cap) 25 mg PO Q8H PRN PRN Reason: Itching Stop: 04/09/20 14:28 Docusate Sodium (Docusate Sodium 100 Mg Cap) 100 mg PO BID SAHIL Stop: 04/09/20 20:59 Last Admin: 03/13/20 09:14 Dose: Not Given Documented by: Ferrous Sulfate (Ferrous Sulfate 325 Mg Tab) 325 mg PO DAILY SAHIL Stop: 04/06/20 08:59 Last Admin: 03/13/20 09:14 Dose: 325 mg Documented by: Furosemide (Furosemide 40 Mg Tab) 40 mg PO DAILY SAHIL Stop: 04/06/20 08:59 Last Admin: 03/11/20 08:22 Dose: 40 mg Documented by: Hydromorphone HCl (Hydromorphone Inj 1 Mg/Ml Syringe) 1 mg IV Q4H PRN PRN Reason: Pain Stop: 03/21/20 16:12 Last Admin: 03/13/20 09:20 Dose: 1 mg Documented by: Heparin Sodium/Dextrose (Heparin Sodium/Dextrose) 25,000 units in 500 mls @ 32 mls/hr IV .[id number] [facility]; Protocol Stop: 04/10/20 10:59 Last Admin: 03/13/20 09:26 Dose: 1,600 units/hr, 32 mls/hr Documented by: Ceftriaxone Sodium 2,000 mg/ (Dextrose) 70 mls @ 100 mls/hr IV Q24H [facility]; Protocol Stop: 03/20/20 08:59 Last Infusion: 03/13/20 10:34 Dose: Infused Documented by: Magnesium Hydroxide (Magnesium Hydroxide Susp 30 Ml Udc) 30 ml PO Q6H PRN PRN Reason: Constipation Stop: 04/09/20 14:28 Metoclopramide HCl (Metoclopramide Hcl Inj 5 Mg/Ml 2 Ml Vial) 10 mg IV Q6H PRN PRN Reason: Nausea And Vomiting Stop: 04/09/20 14:28 Last Admin: 03/10/20 16:44 Dose: 10 mg Documented by: Miconazole Nitrate (Miconazole Nitrate Powder 43 Gm) 1 appln EXT PRN PRN PRN Reason: Affected Skin Folds Stop: 04/05/20 21:17 Last Admin: 03/06/20 22:29 Dose: 1 appln Documented by: Multivitamins (Multivitamin Tab) 1 tab PO QAM [facility] Stop: 04/06/20 08:59 Last Admin: 03/13/20 09:14 Dose: 1 tab Documented by: Naloxone HCl (Naloxone Hcl 0.4 Mg/1 Ml Vial/Carp) 0.1 mg IV Q5M PRN PRN Reason: Oversedation/Resp Depression Stop: 04/09/20 14:28 Ondansetron HCl (Ondansetron Inj 2 Mg/Ml 2 Ml Vial) 4 mg IV Q6H PRN PRN Reason: Nausea And Vomiting Stop: 04/09/20 14:28 Oxycodone HCl (Oxycodone Hcl Ir 5 Mg Tab (Immediate Release)) 5 - 10 mg PO Q4H PRN PRN Reason: Pain or Pre PT Stop: 03/24/20 14:28 Polyethylene Glycol (Polyethylene (Miralax) 17 Gm Pack) 17 gm PO DAILY PRN PRN Reason: Constipation Stop: 04/05/20 16:11 Potassium Chloride (Potassium Chloride 20 Meq Tabcr) 20 meq PO DAILY SAHIL Stop: 04/06/20 08:59 Last Admin: 03/11/20 08:24 Dose: 20 meq Documented by: Sennosides (Senna 8.6 Mg Tab) 17.2 mg PO HS SAHIL Stop: 04/09/20 20:59 Last Admin: 03/12/20 20:28 Dose: Not Given Documented by: Tamsulosin HCl (Tamsulosin Hcl 0.4 Mg Cap) 0.4 mg PO QAM PRN PRN Reason: unable to void Stop: 04/09/20 14:28 Tramadol HCl (Tramadol Hcl 50 Mg Tablet) 25 mg PO Q4H PRN PRN Reason: Pain Stop: 04/05/20 17:42 Last Admin: 03/13/20 06:13 Dose: 25 mg Documented by: Vitamin D (Cholecalciferol 1,000 Units 25 Mcg Tab) 1,000 units PO DAILY SAHIL Stop: 04/06/20 08:59 Last Admin: 03/13/20 09:15 Dose: 1,000 units Documented by: Warfarin Sodium (Warfarin Sod 5 Mg Tab) 5 mg PO DAILY@1600 SAHIL Stop: 04/11/20 15:59 Last Admin: 03/12/20 16:19 Dose: 5 mg Documented by: (1) Sepsis Sepsis acute organ dysfunction status: unspecified Sepsis type: sepsis due to unspecified organism Qualified Code(s): A41.9 - Sepsis, unspecified organism
[2020-03-13] MEDS: WARFARIN SOD 5 MG TAB PO SCH (16:01)
--- NOTE | 2020-03-13 17:28 | Hospitalist Progress Note ---
Date of Service March 13, 2020 Assessment & Plan (1) Puncture wound of foot with foreign body: (2) Cellulitis of right lower leg: Present on admission with worsening right LE tenderness infected right foot wound WBC on admission 16K, C-reactive 20.5 and ESR 53 appreciate input from wound care -Dr Winters s/p bedside debridement reaccumulation of fluid at the wound bed noted-on next day Appreciate input from orthopedics s/p Incision and Drainage large deep plantar Foot Abscess; Extensive debridement right plantar foot including-Skin, fascia, subcutaneous fat wound culture : staph aureus , group B strep - Sensitivity available, continue with IV Rocephin Discussed with orthopedics-regarding role of IV antibiotic versus p.o. antibiotic on discharge With no evidence of osteomyelitis, patient can be treated with 1 to 2 weeks of p.o. Keflex Chronic diastolic CHF stable vol status Echo completed March 152018 showed an LVEF of 60 to 65%, grade 2 diastolic dysfunction, mild aortic valve sclerosis without significant stenosis. (3) Atrial fibrillation: New onset of afib on admission EKG showed Afib with rate control Cardiology on board Echo showed normal LV systolic function without regional wall motion abnormality. With ejection fraction 55 to 60%. Continue metoprolol 12.5 BID On IV heparin bridge and Coumadin INR 1.6, continue to monitor, DC IV heparin when INR is 2 (4) Ulcerative colitis: S/p colectomy. Not currently on any medication. no GI symptoms Follows with GI in [place] (5) Primary malignant neoplasm of cecum: (6) Status post colectomy: Not on any chemo or radiation. Following for surveillance with [facility] oncology. Colostomy care per nursing (7) Bilateral leg edema: No peripheral edema noted on admission. (8) Cryptogenic cirrhosis: Follows with [facility] GI group. Low-sodium diet, limit daily Tylenol to less than 2 g Code status: FULL Dispo: PT OT evaluation, Patient will need short term rehab, referrals be [facility] to [facility] Admission and Anticipated Discharge Date Admission Date: March 06, 2020 Subjective The patient has some leg and foot pain but is otherwise doing well. Physical Exam Physical Exam: General: no acute distress and stated age Head: normocephalic, no masses, lesions, tenderness or abnormalities Eyes: conjunctiva are pink and non-injected, sclera clear Neck: supple, no adenopathy, no bruits, normal jugular venous pulse, no hepatojugular reflux Chest: normal shape and normal respiratory effort Lungs: clear to auscultation and percussion Cardiac Exam: - irregular rate & rhythm, no murmurs gallops or rubs - normal S1, normal S2 Pulses: 2(+) throughout Abdomen: abdomen soft, non-tender, no abnormal masses and no hepatosplenomegaly Musculoskeletal: no gait disturbance, no joint inflammation, no deforming arthritis Extremities: The right foot is bandaged. Neuro: grossly normal exam Constitutional: WD/WN, vitals as above Eyes: PERRL, conjunctivae normal, anicteric sclerae ENMT: external ear and nose normal, oropharynx normal Neck: trachea midline, no thyromegaly Respiratory: normal respiratory effort, lungs clear to auscultation Cardiovascular: Rate/Rhythm: + irregularly irregular Gastrointestinal (Abdomen): Percussion/Palpation: abdomen soft; abdomen nontender Neurologic: PERRL, EOMI, accommodation nl, no face palsy, no dysarthria Psychiatric: A+Ox3, euthymic affect Results & Data Results & Data ([place]) Vital Signs (Past 12 Hours) Vital Signs Temp Pulse Pulse Resp BP Pulse Ox 03/13/20 15:54 37.3 C 61 20 132/46 L 99 03/13/20 11:15 37.1 C 54 L 18 143/58 H 93 03/13/20 07:12 36.8 C 59 L 18 167/57 H 91 03/13/20 07:00 54 L (1) Ulcerative colitis Digestive disease complication type: with rectal bleeding Ulcerative colitis location: unspecified ulcerative colitis location Qualified Code(s): K51.911 - Ulcerative colitis, unspecified with rectal bleeding
[2020-03-13] MEDS: SENNA 8.6 MG TAB PO SCH (20:55)
[2020-03-14] MEDS: HEPARIN SODIUM/DEXTROSE 25,000 UNITS/500 ML BAG IV SCH (00:01)
[2020-03-14 04:50] LABS: Hematocrit (blood only) 29.4 % (42-52); Hemoglobin 9.8 g/dL (14.0-18.0); Mean Corpuscular Hemoglobin 30.2 pg (25-34); Mean Corpuscular Hgb Conc 33.3 g/dL (32-36); Mean Corpuscular Volume 90.5 fL (80-100); Platelet Count 183 K/uL (130-400); RDW Standard Deviation 46.6 fL (36.4-46.3); Red Blood Count 3.25 M/uL (4.7-6.1)
[2020-03-14 05:11] LABS: INR 2.7 (0.9-1.1); Partial Thromboplastin Ratio 2.2; Prothrombin Time 27.3 Seconds (9.0-12.0)
[2020-03-14 05:13] LABS: Partial Thromboplastin Time 61.5 Seconds (21.0-31.0)
[2020-03-14 05:20] LABS: BUN Creatinine Ratio 27.9 (10-20); Calcium 7.8 mg/dl (8.5-10.1); Creatinine Clr Calc Pharmacy 61.4 ml/min; Est GFR (African American) 56.5; Est GFR (Non-African American) 48.8; Potassium 4.9 mmol/L (3.5-5.1)
[2020-03-14] MEDS: cefTRIAXone SODIUM 2,000 MG in DEXTROSE 5% 50 ML IV SCH (08:51)
[2020-03-14] MEDS: MULTIVITAMIN TAB PO SCH (08:52)
[2020-03-14] MEDS: DOCUSATE SODIUM 100 MG CAP PO SCH ×2 (08:52→19:45)
[2020-03-14] MEDS: FERROUS SULFATE 325 MG TAB PO SCH (08:52)
[2020-03-14] MEDS: ASCORBIC ACID 500 MG TAB PO SCH (08:53)
[2020-03-14] MEDS: CHOLECALCIFEROL 1,000 UNITS 25 MCG TAB PO SCH (08:54)
[2020-03-14] MEDS: ASPIRIN 81 MG ECTAB PO SCH (08:54)
[2020-03-14] MEDS: traMADol HCL 50 MG TABLET PO PRN (10:34)
--- NOTE | 2020-03-14 14:50 | Orthopedic Progress Note ---
Date of Service March 14, 2020 Assessment & Plan (1) Cellulitis of right lower leg: POD #4 s/p 1. Right foot incision and drainage, deep plantar abscess. 2. Irrigation and debridement, right foot including skin, subcutaneous fat and fascia. 3. Application antibiotic Stimulan beads 5 mL Continue IV antibiotics. Gram Stain--Group B Beta Strep and Staphylococcus. Await sensitivities. NWB RLE at all times. -Dressing change today - Discussed with Dr Warren. Will recheck wound tomorrow to assess further need for 2nd washout. Zonia ID input on chart. D/C planning--uncertain. Will probably require 6 wks IV antibiotics. Admission and Anticipated Discharge Date Admission Date: March 06, 2020 Subjective Pt awake, alert. Using his IS currently. No new complaints. Some pain off and on in the right foot but currently controlled. Physical Exam Physical Exam: Dressing removed. Moderate drainage on the dressing but no obvious odor. Area of debridment on the plantar surface demacating with central area of yellow slough. Some drainage noted from the medial aspect of the wound with yellow slough on the edges of the wound. Erythema noted around the edges of the main wound. Some erythema noted traveling to the dorsomedial area of the foot. Wound redressed. Results & Data ([facility]) Vital Signs (Past 12 Hours) Vital Signs Temp Pulse Pulse Resp BP Pulse Ox 03/14/20 11:30 37.1 C 58 L 18 141/62 H 96 03/14/20 07:24 36.8 C 52 L 20 141/65 H 98 03/14/20 07:00 50 L 03/14/20 04:00 37.6 C H 55 L 18 137/58 L 96
[2020-03-14] MEDS: ACETAMINOPHEN 325 MG TAB PO PRN (15:09)
[2020-03-14] MEDS: WARFARIN SOD 5 MG TAB PO SCH (16:40)
--- NOTE | 2020-03-14 18:14 | Hospitalist Progress Note ---
Date of Service March 14, 2020 Assessment & Plan (1) Puncture wound of foot with foreign body: (2) Cellulitis of right lower leg: Present on admission with worsening right LE tenderness infected right foot wound WBC on admission 16K, C-reactive 20.5 and ESR 53 appreciate input from wound care -Dr Winters s/p bedside debridement- reaccumulation of fluid at the wound bed noted-on next day Appreciate input from orthopedics s/p Incision and Drainage large deep plantar Foot Abscess; Extensive debridement right plantar foot including-Skin, fascia, subcutaneous fat wound culture : staph aureus MSSA , group B strep - Sensitivity available, continue with IV Rocephin/[facility] ID consulted , appreciate input will need 6 weeks of ABx Ortho following closely pt may need another I&D will hold Coumadin for the procedure Chronic diastolic CHF stable vol status Echo completed March 152018 showed an LVEF of 60 to 65%, grade 2 diastolic dysfunction, mild aortic valve sclerosis without significant stenosis. Lasix on hold for acute renal failure (3) Atrial fibrillation: New onset of afib on admission EKG showed Afib with rate control Cardiology on board Echo showed normal LV systolic function without regional wall motion abnormality. With ejection fraction 55 to 60%. Continue metoprolol 12.5 BID INR theraputic 2.7 today , Iv heparin D/c ed hold coumadin for ortho procedure (4) Ulcerative colitis: S/p colectomy. Not currently on any medication. no GI symptoms Follows with GI in [place] (5) Primary malignant neoplasm of cecum: (6) Status post colectomy: Not on any chemo or radiation. Following for surveillance with [facility] oncology. Colostomy care per nursing (7) Bilateral leg edema: No peripheral edema noted on admission. (8) Cryptogenic cirrhosis: Follows with [facility] GI group. Low-sodium diet, limit daily Tylenol to less than 2 g Code status: FULL Dispo: PT OT evaluation, Patient will need short term rehab, referrals be made to [facility] Admission and Anticipated Discharge Date Admission Date: March 06, 2020 Subjective offers no complain rt foot pain is tolerable temp spike noted yesterday afebrile since am Physical Exam Physical Exam: General: no acute distress and stated age Head: normocephalic, no masses, lesions, tenderness or abnormalities Eyes: conjunctiva are pink and non-injected, sclera clear Neck: supple, no adenopathy, no bruits, normal jugular venous pulse, no hepatojugular reflux Chest: normal shape and normal respiratory effort Lungs: clear to auscultation and percussion Cardiac Exam: - irregular rate & rhythm, no murmurs gallops or rubs - normal S1, normal S2 Pulses: 2(+) throughout Abdomen: abdomen soft, non-tender, no abnormal masses and no hepatosplenomegaly Musculoskeletal: no gait disturbance, no joint inflammation, no deforming arthritis Extremities: The right foot is bandaged. Neuro: grossly normal exam Constitutional: WD/WN, vitals as above Eyes: PERRL, conjunctivae normal, anicteric sclerae ENMT: external ear and nose normal, oropharynx normal Neck: trachea midline, no thyromegaly Respiratory: normal respiratory effort, lungs clear to auscultation Cardiovascular: Rate/Rhythm: + irregularly irregular Gastrointestinal (Abdomen): Percussion/Palpation: abdomen soft; abdomen nontender Neurologic: PERRL, EOMI, accommodation nl, no face palsy, no dysarthria Psychiatric: A+Ox3, euthymic affect Results & Data Results & Data ([facility]) Vital Signs (Past 12 Hours) Vital Signs Temp Pulse Pulse Resp BP Pulse Ox 03/14/20 16:23 37.9 C H 03/14/20 15:05 38.3 C H 59 L 18 152/61 H 96 03/14/20 14:20 59 L 03/14/20 11:30 37.1 C 58 L 18 141/62 H 96 03/14/20 07:24 36.8 C 52 L 20 141/65 H 98 03/14/20 07:00 50 L (1) Ulcerative colitis Digestive disease complication type: with rectal bleeding Ulcerative colitis location: unspecified ulcerative colitis location Qualified Code(s): K51.911 - Ulcerative colitis, unspecified with rectal bleeding
[2020-03-14] MEDS: SENNA 8.6 MG TAB PO SCH (19:45)
[2020-03-15 06:36] LABS: Basophils # (auto) 0.01 K/uL (0-0.2); Basophils % (auto) 0.1 %; Eosinophils # (auto) 0.17 K/uL (0-0.5); Eosinophils % (auto) 1.4 %; Hematocrit (blood only) 29.9 % (42-52); Hemoglobin 9.9 g/dL (14.0-18.0); Immature Granulocytes # (auto) 0.11 K/uL (0.00-0.02); Immature Granulocytes % (auto) 0.9 %; Lymphocytes # (auto) 0.87 K/uL (1.2-3.4); Lymphocytes % (auto) 7.4 %; Mean Corpuscular Hemoglobin 29.7 pg (25-34); Mean Corpuscular Hgb Conc 33.1 g/dL (32-36); Mean Corpuscular Volume 89.8 fL (80-100); Mean Platelet Volume 11.3 fL (7.4-10.4); Monocytes # (auto) 0.84 K/uL (0.11-0.59); Monocytes % (auto) 7.1 %; Neutrophils # (auto) 9.83 K/uL (1.4-6.5); Neutrophils % (auto) 83.1 %; Platelet Count 200 K/uL (130-400); RDW Standard Deviation 45.8 fL (36.4-46.3); Red Blood Count 3.33 M/uL (4.7-6.1); White Blood Count 11.83 K/uL (4.8-10.8)
[2020-03-15 06:56] LABS: Partial Thromboplastin Ratio 1.9; Prothrombin Time 70.7 Seconds (9.0-12.0)
[2020-03-15 08:08] LABS: INR 7.5 (0.9-1.1)
[2020-03-15] MEDS: ASCORBIC ACID 500 MG TAB PO SCH (08:26)
[2020-03-15] MEDS: CHOLECALCIFEROL 1,000 UNITS 25 MCG TAB PO SCH (08:26)
[2020-03-15] MEDS: MULTIVITAMIN TAB PO SCH (08:26)
[2020-03-15] MEDS: FERROUS SULFATE 325 MG TAB PO SCH (08:26)
[2020-03-15] MEDS: DOCUSATE SODIUM 100 MG CAP PO SCH ×3 (08:27→21:18)
[2020-03-15] MEDS: ASPIRIN 81 MG ECTAB PO SCH ×2 (08:27→08:36)
[2020-03-15] MEDS: cefTRIAXone SODIUM 2,000 MG in DEXTROSE 5% 50 ML IV SCH (08:33)
[2020-03-15] MEDS: HYDROmorphone INJ 1 MG/ML SYRINGE IV PRN ×2 (11:15→23:57)
--- NOTE | 2020-03-15 11:51 | Orthopedic Progress Note ---
Date of Service March 15, 2020 Assessment & Plan (1) Cellulitis of right lower leg: POD #5 s/p 1. Right foot incision and drainage, deep plantar abscess, Irrigation and debridement, right foot including skin, subcutaneous fat and fascia, Application antibiotic Stimulan beads 5 mL Continue IV antibiotics. Gram Stain--Group B Beta Strep and Staphylococcus. Await sensitivities. NWB RLE at all times. will discuss case with Dr Warren later today Zonia GRANADOS input on chart. D/C planning--uncertain. Will probably require 6 wks IV antibiotics. Admission and Anticipated Discharge Date Admission Date: March 06, 2020 Subjective patient denies CP, SOB, denies fever or chills. denies N/V Physical Exam Physical Exam: Vital Signs Temp 37.6 C H 03/15/20 11:48 Pulse 56 L 03/15/20 11:48 Resp 20 03/15/20 11:48 BP 148/56 H 03/15/20 11:48 Pulse Ox 96 03/15/20 11:48 Intake & Output 03/14/20 03/15/20 03/15/20 18:59 06:59 18:59 Intake Total 1067.267 / 1457.26 7 390 / 1457.267 70 / 70 Output Total 1994 / 1994 Balance 367.267 / -537.733 -905 / -537.733 70 / 70 Weight 115.9 kg Intake: IV 522.267 / 522.267 70 / 70 HEPARIN SODIUM /DEXTROSE 25,000 452.267 / 452.267 units In 500 m l @ 1,600 UNITS/ HR 32 mls/hr I V .[id number] SAHIL Rx #:[id number] Rocephin 2,000 mg In D5w 50 ml 70 / 70 70 / 70 @ 100 mls/hr I V Q24H SAHIL Rx#: [id number] Oral 545 / 935 390 / 935 Output: Urine 400 / 1595 1195 / 1595 Gastric Drainage 300 / 400 100 / 400 Ileostomy/[place] stomy 300 / 400 100 / 400 Other: # Unmeasured Voi ds 1 Weight Measureme nt Method Built in [facility] Constitutional: WD/WN, vitals as above no acute distress Musculoskeletal: Right foot: Dressing removed. there is drainage noted again on the pad around the foot. Area of debridement on the plantar surface demacating with central area of yellow slough. Some drainage noted from the medial aspect of the wound with yellow slough on the edges of the wound. Erythema noted around the edges of the main wound, however currently no streaking up the lower extremity at this time. there is again erythema noted traveling to the dorsomedial area of the foot. wound care to redress wound. Results & Data ([facility]) Vital Signs (Past 12 Hours) Vital Signs Temp Pulse Resp BP Pulse Ox 03/15/20 11:48 37.6 C H 56 L 20 148/56 H 96 03/15/20 07:48 36.8 C 59 L 20 143/54 H 96 03/15/20 03:52 37.4 C 59 L 18 142/63 H 97 Laboratory Results Laboratory Results WBC 11.83 K/uL (4.8-10.8) H 03/15/20 06:10 RBC 3.33 M/uL (4.7-6.1) L 03/15/20 06:10 Hgb 9.9 g/dL (14.0-18.0) L 03/15/20 06:10 Hct 29.9 % (42-52) L 03/15/20 06:10 MCV 89.8 fL (80-100) 03/15/20 06:10 MCH 29.7 pg (25-34) 03/15/20 06:10 MCHC 33.1 g/dL (32-36) 03/15/20 06:10 RDW Std Deviation 45.8 fL (36.4-46.3) 03/15/20 06:10 RDW Coeff of Bryan 14.0 % (11.5-14.5) 03/15/20 06:10 Plt Count 200 K/uL (130-400) 03/15/20 06:10 MPV 11.3 fL (7.4-10.4) H 03/15/20 06:10 Immature Gran % (Auto) 0.9 % 03/15/20 06:10 Neut % (Auto) 83.1 % 03/15/20 06:10 Lymph % (Auto) 7.4 % 03/15/20 06:10 [place] % (Auto) 7.1 % 03/15/20 06:10 Eos % (Auto) 1.4 % 03/15/20 06:10 Baso % (Auto) 0.1 % 03/15/20 06:10 Neut # (Auto) 9.83 K/uL (1.4-6.5) H 03/15/20 06:10 Lymph # (Auto) 0.87 K/uL (1.2-3.4) L 03/15/20 06:10 [place] # (Auto) 0.84 K/uL (0.11-0.59) H 03/15/20 06:10 Eos # (Auto) 0.17 K/uL (0-0.5) 03/15/20 06:10 Baso # (Auto) 0.01 K/uL (0-0.2) 03/15/20 06:10 Immature Gran # (Auto) 0.11 K/uL (0.00-0.02) H 03/15/20 06:10 ESR 53 mm/hr (0-14) H 03/06/20 12:50 PT 70.7 Seconds (9.0-12.0) H 03/15/20 06:10 INR 7.5 (0.9-1.1) H* 03/15/20 06:10 APTT 52.0 Seconds (21.0-31.0) H* 03/15/20 06:10 PTT Ratio 1.9 03/15/20 06:10 Sodium 137 mmol/L (136-145) 03/14/20 04:38 Potassium 4.9 mmol/L (3.5-5.1) 03/14/20 04:38 Chloride 113 mmol/L (98-107) H 03/14/20 04:38 Carbon Dioxide 21 mmol/L (21-32) 03/14/20 04:38 Anion Gap 3.0 (3-11) 03/14/20 04:38 BUN 40 mg/dl (7-18) H 03/14/20 04:38 Creatinine 1.45 mg/dl (0.6-1.4) H 03/14/20 04:38 Est Cr Clr Drug Dosing 61.4 ml/min 03/14/20 04:38 Est GFR ( Amer) 56.5 03/14/20 04:38 Est GFR (Non-Af Amer) 48.8 03/14/20 04:38 BUN/Creatinine Ratio 27.9 (10-20) H 03/14/20 04:38 Glucose 124 mg/dl (70-99) H 03/14/20 04:38 Estimat Average Glucose 111 mg/dl 03/07/20 07:08 Hemoglobin A1c 5.5 % (4.5-5.6) 03/07/20 07:08 Lactate 1.4 mmol/L (0.4-2.0) 03/06/20 18:14 Calcium 7.8 mg/dl (8.5-10.1) L 03/14/20 04:38 Magnesium 2.5 mg/dl (1.8-2.4) H 03/08/20 07:36 Total Bilirubin 1.4 mg/dl (0.2-1) H 03/06/20 12:40 AST 24 U/L (15-37) 03/06/20 12:40 ALT 29 U/L (12-78) 03/06/20 12:40 Alkaline Phosphatase 90 U/L (45-117) 03/06/20 12:40 C-Reactive Protein 20.50 mg/dl (0-0.29) H 03/06/20 12:50 Total Protein 7.6 gm/dl (6.4-8.2) 03/06/20 12:40 Albumin 3.3 gm/dl (3.4-5.0) L 03/06/20 12:40 Globulin 4.3 gm/dl (2.5-4.0) H 03/06/20 12:40 Albumin/Globulin Ratio 0.8 (0.9-2) L 03/06/20 12:40 TSH 1.310 uIu/ml (0.300-4.500) 03/06/20 12:40 Nasal Screen MRSA (PCR) Negative (Negative) 03/12/20 12:00 Vancomycin Trough 18.4 mcg/ml (See Comment) 03/09/20 09:25 COVID-19 Eval Order Covid19 [facility] 03/09/20 12:10 SARS-CoV-2, RNA, NAAT NEGATIVE (NEGATIVE) 03/09/20 12:10
--- NOTE | 2020-03-15 15:26 | Wound Progress Note ---
Date of Service March 15, 2020 Assessment & Plan (1) Puncture wound of foot with foreign body: No debridement was done as this is being managed by orthopedics. Recommend continue just with Adaptic over sutures, Aquacel Ag and would recommend the addition of ultra sorb pads to help control drainage. Continue IV antibiotics per Zonia ID. Patient may benefit from further incision and drainage. We will continue to follow. Please call with any questions. Admission and Anticipated Discharge Date Admission Date: March 06, 2020 Subjective Patient seen at bedside with ADAN. He is postop day #5, status post right foot incision and admission and drainage of a deep plantar abscess by Dr. Warren. Patient maverick on IV antibiotics. Dressing was soaked through. Patient states he is noting more pain. Review of Systems Review of Systems: All systems reviewed & are unremarkable except as noted in HPI & below Physical Exam Physical Exam: Temp Pulse Resp BP Pulse Ox 37.6 C H 56 L 20 148/56 H 96 03/15/20 11:48 03/15/20 11:48 03/15/20 11:48 03/15/20 11:48 03/15/20 11:48 Constitutional: WD/WN, vitals as above Skin: Wound measuring as recorded in nursing documentation. Sutures are in place. Wound is becoming more demarcated. There appears to be more erythema around the dorsum of the foot but the toes. Wound base feels boggy. Fluid is starting to reaccumulate. Neurologic: awake; not confused Psychiatric: A+Ox3, euthymic affect Results & Data ([facility]) Vital Signs (Past 12 Hours) Vital Signs Temp Pulse Resp BP Pulse Ox 03/15/20 11:48 37.6 C H 56 L 20 148/56 H 96 03/15/20 07:48 36.8 C 59 L 20 143/54 H 96 03/15/20 03:52 37.4 C 59 L 18 142/63 H 97 Laboratory Results 03/15/20 03/15/20 Range/Units 06:10 06:10 WBC 11.83 H (4.8-10.8) K/uL RBC 3.33 L (4.7-6.1) M/uL Hgb 9.9 L (14.0-18.0) g/dL Hct 29.9 L (42-52) % MCV 89.8 (80-100) fL MCH 29.7 (25-34) pg MCHC 33.1 (32-36) g/dL RDW Std Deviation 45.8 (36.4-46.3) fL RDW Coeff of Bryan 14.0 (11.5-14.5) % Plt Count 200 (130-400) K/uL MPV 11.3 H (7.4-10.4) fL Immature Gran % (Auto) 0.9 % Neut % (Auto) 83.1 % Lymph % (Auto) 7.4 % [place] % (Auto) 7.1 % Eos % (Auto) 1.4 % Baso % (Auto) 0.1 % Neut # (Auto) 9.83 H (1.4-6.5) K/uL Lymph # (Auto) 0.87 L (1.2-3.4) K/uL [place] # (Auto) 0.84 H (0.11-0.59) K/uL Eos # (Auto) 0.17 (0-0.5) K/uL Baso # (Auto) 0.01 (0-0.2) K/uL Immature Gran # (Auto) 0.11 H (0.00-0.02) K/uL PT 70.7 H (9.0-12.0) Seconds INR 7.5 H* (0.9-1.1) APTT 52.0 H* (21.0-31.0) Seconds PTT Ratio 1.9 PG Care Time/CCT Total # of Minutes Spent Total Time Spent with Patient: Total time spent is greater than 50% in coordination of care (as documented) at patient's floor/unit and/or counseling patient: Coding Level of Care Code 19438 Subseq Hosp Care Lvl 2 Diagnoses Puncture wound of foot with foreign body S91.349A
--- NOTE | 2020-03-15 19:32 | Hospitalist Progress Note ---
Date of Service March 15, 2020 Assessment & Plan (1) Puncture wound of foot with foreign body: (2) Cellulitis of right lower leg: Present on admission with worsening right LE tenderness infected right foot wound WBC on admission 16K, C-reactive 20.5 and ESR 53 S/P on bedside debridement but reaccumulation of fluid at the wound bed noted-on next day Ortho on board s/p Incision and Drainage large deep plantar Foot Abscess; Extensive debridement right plantar foot including-Skin, fascia, subcutaneous fat Wound culture on staph aureus MSSA and group B strep ID on board recommended to continue with IV Rocephin for 6 weeks Case discussed with PO ortho might need additional debridement in the next couple day Chronic diastolic CHF stable vol status Echo completed March 152018 showed an LVEF of 60 to 65%, grade 2 diastolic dysfunction, mild aortic valve sclerosis without significant stenosis. Lasix on hold for acute renal failure (3) Atrial fibrillation: New onset of afib on admission EKG showed Afib with rate control Cardiology on board Echo showed normal LV systolic function without regional wall motion abnormality. With ejection fraction 55 to 60%. Continue metoprolol 12.5 BID INR theraputic 7.5 today , Iv heparin D/c ed Will hold coumadin today Continue monitor PT/INR (4) Ulcerative colitis: S/p colectomy. Not currently on any medication. no GI symptoms Follows with GI in [place] (5) Primary malignant neoplasm of cecum: (6) Status post colectomy: Not on any chemo or radiation. Following for surveillance with [facility] oncology. Colostomy care per nursing (7) Bilateral leg edema: No peripheral edema noted on admission. (8) Cryptogenic cirrhosis: Follows with [facility] GI group. Low-sodium diet, limit daily Tylenol to less than 2 g Code status: FULL Dispo: PT OT evaluation, Patient will need short term rehab Admission and Anticipated Discharge Date Admission Date: March 06, 2020 Subjective Pt was seen and examined Lying in bed with no distress Pt said that he continues to have pain in his right foot Denies any chest pain, palpitation, dizziness and SOB Physical Exam Physical Exam: General- No acute distress Head- atraumatic Eyes- PERRL, EOMI, ENT- oropharynx clear Neck- supple, no JVD Lungs- clear to auscultation Heart- regular rhythm; no murmur Abdomen- normal bowel sounds, soft, nontender Extremities- Right LE wrapped with dressing Neuro- alert, oriented x 3; PERRL, EOMI; no facial palsy; no dysarthria Skin- warm & dry Results & Data Results & Data ([facility]) Vital Signs (Past 12 Hours) Vital Signs Temp Pulse Resp BP Pulse Ox 03/15/20 16:00 36.5 C 65 20 146/62 H 94 03/15/20 11:48 37.6 C H 56 L 20 148/56 H 96 03/15/20 07:48 36.8 C 59 L 20 143/54 H 96 (1) Ulcerative colitis Digestive disease complication type: with rectal bleeding Ulcerative colitis location: unspecified ulcerative colitis location Qualified Code(s): K51.911 - Ulcerative colitis, unspecified with rectal bleeding
[2020-03-15] MEDS: ACETAMINOPHEN 325 MG TAB PO PRN (21:17)
[2020-03-15] MEDS: traMADol HCL 50 MG TABLET PO PRN (21:17)
[2020-03-15] MEDS: SENNA 8.6 MG TAB PO SCH (21:18)
[2020-03-16 06:36] LABS: Basophils # (auto) 0.02 K/uL (0-0.2); Basophils % (auto) 0.2 %; Eosinophils # (auto) 0.25 K/uL (0-0.5); Eosinophils % (auto) 2.3 %; Hematocrit (blood only) 30.1 % (42-52); Hemoglobin 9.8 g/dL (14.0-18.0); Immature Granulocytes % (auto) 0.9 %; Lymphocytes # (auto) 0.85 K/uL (1.2-3.4); Lymphocytes % (auto) 7.7 %; Mean Corpuscular Hemoglobin 29.5 pg (25-34); Mean Corpuscular Hgb Conc 32.6 g/dL (32-36); Mean Corpuscular Volume 90.7 fL (80-100); Mean Platelet Volume 10.8 fL (7.4-10.4); Monocytes # (auto) 0.93 K/uL (0.11-0.59); Monocytes % (auto) 8.5 %; Neutrophils # (auto) 8.84 K/uL (1.4-6.5); Neutrophils % (auto) 80.4 %; Platelet Count 211 K/uL (130-400); RDW Coefficient of Variation 13.9 % (11.5-14.5); RDW Standard Deviation 46.4 fL (36.4-46.3); Red Blood Count 3.32 M/uL (4.7-6.1); White Blood Count 10.99 K/uL (4.8-10.8)
[2020-03-16 06:50] LABS: Prothrombin Time 64.2 Seconds (9.0-12.0)
[2020-03-16 07:02] LABS: INR 6.8 (0.9-1.1)
[2020-03-16 07:17] LABS: BUN Creatinine Ratio 20.8 (10-20); Calcium 8.3 mg/dl (8.5-10.1); Creatinine Clr Calc Pharmacy 70.7 ml/min; Est GFR (African American) 68.3; Est GFR (Non-African American) 58.9; Potassium 4.9 mmol/L (3.5-5.1)
[2020-03-16] MEDS: cefTRIAXone SODIUM 2,000 MG in DEXTROSE 5% 50 ML IV SCH (08:26)
[2020-03-16] MEDS: ASPIRIN 81 MG ECTAB PO SCH (08:27)
[2020-03-16] MEDS: FERROUS SULFATE 325 MG TAB PO SCH (08:27)
[2020-03-16] MEDS: MULTIVITAMIN TAB PO SCH (08:27)
[2020-03-16] MEDS: DOCUSATE SODIUM 100 MG CAP PO SCH ×2 (08:27→20:15)
[2020-03-16] MEDS: ASCORBIC ACID 500 MG TAB PO SCH (08:28)
[2020-03-16] MEDS: CHOLECALCIFEROL 1,000 UNITS 25 MCG TAB PO SCH (08:28)
[2020-03-16] MEDS: ACETAMINOPHEN 325 MG TAB PO PRN (09:26)
[2020-03-16] MEDS: traMADol HCL 50 MG TABLET PO PRN ×2 (11:26→20:15)
--- NOTE | 2020-03-16 13:26 | Orthopedic Progress Note ---
Date of Service March 16, 2020 Assessment & Plan (1) Cellulitis of right lower leg: POD #6 s/p 1. Right foot incision and drainage, deep plantar abscess, Irrigation and debridement, right foot including skin, subcutaneous fat and fascia, Application antibiotic Stimulan beads 5 mL Will set the patient up for second washout tomorrow with Dr. Warren. Currently his INR is quite high and discussed with Dr. Bruce. He will start the patient on some vitamin K and repeat labs in the morning. INR will need to be around 1.5 or less for surgery. Continue IV antibiotics. Gram Stain--Group B Beta Strep and Staphylococcus. Await sensitivities. NWB RLE at all times. isinger ID input on chart. D/C planning--uncertain. Will probably require 6 wks IV antibiotics. Admission and Anticipated Discharge Date Admission Date: March 06, 2020 Subjective Patient sleeping upon arrival. Easily awoken. Patient states that he is having more pain in the right foot today than yesterday. No other complaints. Physical Exam Physical Exam: Dressing removed from the right foot. Moderate drainage noted on the ABDs and Aquacel Ag. A little less demarcation noted in the central portion of the plantar surface wound with an increase in yellow slough. The medial incision has a yellow to dusky little look to the inferior edge. The superior edge looks a little bit better and noted erythema across the superior edge of that wound. Mild dusky erythema that is creeping up over the foot to the little bit of the dorsum of the foot by the first metatarsal. Patient is much more tender on palpation than previously when applying the new dressing. Results & Data ([facility]) Vital Signs (Past 12 Hours) Vital Signs Temp Pulse Resp BP Pulse Ox 03/16/20 11:02 37.4 C 74 20 177/60 H 98 03/16/20 07:13 37.7 C H 69 20 152/69 H 95 03/16/20 04:21 37.7 C H 62 18 121/64 95
--- NOTE | 2020-03-16 18:58 | Hospitalist Progress Note ---
Date of Service March 16, 2020 Assessment & Plan (1) Puncture wound of foot with foreign body: (2) Cellulitis of right lower leg: Sepsis Present on admission with worsening right LE tenderness infected right foot wound WBC on admission 16K, C-reactive 20.5 and ESR 53 Had bedside debridement but reaccumulation of fluid at the wound bed noted-on next day Ortho on board s/p day #6 Incision and Drainage large deep plantar Foot Abscess; Extensive debridement right plantar foot including-Skin, fascia, subcutaneous fat Wound culture on staph aureus MSSA and group B strep ID on board recommended to continue with IV Rocephin for 6 weeks Plan for second washout tomorrow with Dr. Warren as per ortho Ortho would like INR to be under 1.5 to proceed for the procedure Will give Vitamin K Will make NPO after midnight Chronic diastolic CHF stable vol status Echo completed March 152018 showed an LVEF of 60 to 65%, grade 2 diastolic dysfunction, mild aortic valve sclerosis without significant stenosis. Lasix on hold for acute renal failure (3) Atrial fibrillation: New onset of afib on admission EKG showed Afib with rate control Cardiology on board Echo showed normal LV systolic function without regional wall motion abnormality. With ejection fraction 55 to 60%. Continue metoprolol 12.5 BID INR theraputic 6.8 today , Iv heparin D/c ed Continue to hold coumadin Will give Vitamin K since pt plan to go for surgery and ortho would like the INR to be less than 1.5 Continue monitor PT/INR (4) Ulcerative colitis: S/p colectomy. Not currently on any medication. no GI symptoms Follows with GI in [place] (5) Primary malignant neoplasm of cecum: (6) Status post colectomy: Not on any chemo or radiation. Following for surveillance with [facility] oncology. Colostomy care per nursing (7) Bilateral leg edema: No peripheral edema noted on admission. (8) Cryptogenic cirrhosis: Follows with [facility] GI group. Low-sodium diet, limit daily Tylenol to less than 2 g Code status: FULL Dispo: PT OT evaluation, Patient will need short term rehab Admission and Anticipated Discharge Date Admission Date: March 06, 2020 Subjective Pt was seen and examined Lying in bed with no distress Pt said that pain is worst in the right foot Denies any chest pain, palpitation, dizziness and SOB Physical Exam Physical Exam: General- No acute distress Head- atraumatic Eyes- PERRL, EOMI, ENT- oropharynx clear Neck- supple, no JVD Lungs- clear to auscultation Heart- regular rhythm; no murmur Abdomen- normal bowel sounds, soft, nontender Extremities- Right LE wrapped with dressing Neuro- alert, oriented x 3; PERRL, EOMI; no facial palsy; no dysarthria Skin- warm & dry Results & Data Results & Data ([facility]) Vital Signs (Past 12 Hours) Vital Signs Temp Pulse Pulse Resp BP Pulse Ox 03/16/20 16:38 63 03/16/20 14:50 37.2 C 68 19 173/72 H 96 03/16/20 11:02 37.4 C 74 20 177/60 H 98 03/16/20 07:13 37.7 C H 69 20 152/69 H 95 (1) Ulcerative colitis Digestive disease complication type: with rectal bleeding Ulcerative colitis location: unspecified ulcerative colitis location Qualified Code(s): K51.911 - Ulcerative colitis, unspecified with rectal bleeding
[2020-03-16] MEDS ORDERED: PHYTONADIONE 5 MG TAB PO STA (19:09)
[2020-03-16] MEDS ORDERED: hydrALAZINE HCL 20 MG/ML VIAL IV PRN (19:11)
[2020-03-16] MEDS: SENNA 8.6 MG TAB PO SCH (20:15)
[2020-03-17] MEDS: ACETAMINOPHEN 325 MG TAB PO PRN (00:27)
[2020-03-17] MEDS: traMADol HCL 50 MG TABLET PO PRN ×2 (00:28→20:20)
[2020-03-17 06:43] LABS: Prothrombin Time 30.3 Seconds (9.0-12.0)
[2020-03-17 07:03] LABS: BUN Creatinine Ratio 18.1 (10-20); Calcium 8.2 mg/dl (8.5-10.1); Creatinine Clr Calc Pharmacy 83.5 ml/min; Est GFR (African American) 84.5; Est GFR (Non-African American) 72.9; Potassium 4.5 mmol/L (3.5-5.1)
[2020-03-17] MEDS ORDERED: PHYTONADIONE 2.5 MG in SODIUM CHLORIDE 0.9% 50 ML IV ONE (08:30)
[2020-03-17] MEDS: cefTRIAXone SODIUM 2,000 MG in DEXTROSE 5% 50 ML IV SCH (09:30)
[2020-03-17] MEDS: HYDROmorphone INJ 1 MG/ML SYRINGE IV PRN ×3 (11:00→22:45)
[2020-03-17] MEDS: FERROUS SULFATE 325 MG TAB PO SCH (11:02)
[2020-03-17] MEDS: ASPIRIN 81 MG ECTAB PO SCH (11:02)
[2020-03-17] MEDS: MULTIVITAMIN TAB PO SCH (11:02)
[2020-03-17] MEDS: DOCUSATE SODIUM 100 MG CAP PO SCH ×2 (11:02→20:12)
[2020-03-17] MEDS: ASCORBIC ACID 500 MG TAB PO SCH (11:02)
[2020-03-17] MEDS: CHOLECALCIFEROL 1,000 UNITS 25 MCG TAB PO SCH (11:02)
[2020-03-17] MEDS ORDERED: fentaNYL citrate 100 MCG/2 ML VIAL ONE ×2 (11:09→13:24)
[2020-03-17] MEDS ORDERED: LIDOCAINE HCL 2% 2 ML VIAL/AMP(20MG/ML) INFIL ONE (11:09)
[2020-03-17] MEDS ORDERED: ONDANSETRON INJ 2 MG/ML 2 ML VIAL ONE ×2 (11:09→13:14)
[2020-03-17] MEDS ORDERED: PROPOFOL IV EMULSION 10 MG/ML 20 ML VIAL IV ONE (11:09)
[2020-03-17] MEDS ORDERED: MIDAZOLAM HCL 1 MG/ML 2ML VIAL ONE (11:10)
[2020-03-17 11:37] LABS: INR 2.2 (0.9-1.1)
--- NOTE | 2020-03-17 12:13 | History & Physical Bridge Note ---
Date of Service March 17, 2020 History & Physical Bridge Note I have examined the patient, reviewed the History & Physical and in the interval since the performance of the History & Physical I have noted the following changes of clinical significance: no changes noted
[2020-03-17] MEDS ORDERED: ceFAZolin 1000MG 1,000 MG/7.5 ML SYR IV ONE (12:17)
[2020-03-17] MEDS ORDERED: Nursing to Pharmacy Communication SCH (12:30)
[2020-03-17] MEDS ORDERED: BACITRACIN INJ 50,000 UNIT VIAL ONE (12:34)
[2020-03-17] MEDS ORDERED: BUPIVACAINE 0.5 % 5 MG/1 ML MPF 30ML VIAL ONE (12:35)
--- NOTE | 2020-03-17 12:51 | Anesthesiology Consultation ---
Date of Service March 17, 2020 Assessment & Plan Chart Review Chart Review: Acceptable Risk for Surgery and Patient NOT seen in Pre Admission Testing Consults Requested none ASA ASA4 Proposed Anesthesia Anesthesia Type: General Risk / Benefits Reviewed With: PT / POA / Parent / Guardian, Accepts Plan and Informed Consent Obtained History Surgery Operation Date: 03/10/20 07:00 Proposed Procedures p Right Incision and Drainage Plantar Foot Wound - Miles Warren DO Operation Date: 03/17/20 10:30 Proposed Procedures p Repeat Incision and Drainage Wash Out Right Foot Abscess - Miles Warren DO Height/Weight Height: 5 ft 10 in Weight: 110.7 kg Allergies Allergy/AdvReac Type Severity Reaction Status Date / Time No Known Allergies Allergy Unverified 03/06/20 13:06 Medications Home Medications Medication Instructions Recorded Confirmed Last Taken ascorbic acid (vitamin C) [Vitamin 1,000 mg PO DAILY 01/01/19 03/06/20 03/05/20 C] multivitamin 1 tab PO QAM 01/01/19 03/06/20 03/05/20 aspirin [Aspirin Low Dose] 81 mg PO DAILY 03/06/20 03/06/20 03/05/20 cholecalciferol (vitamin D3) 25 mcg PO DAILY 03/06/20 03/06/20 03/05/20 [Vitamin D3] doxycycline hyclate 100 mg PO BID 03/06/20 03/06/20 03/05/20 ferrous sulfate 325 mg PO DAILY 03/06/20 03/06/20 03/05/20 furosemide 40 mg PO DAILY 03/06/20 03/06/20 03/05/20 potassium chloride [Klor-Con M20] 20 meq PO DAILY 03/06/20 03/06/20 03/05/20 aspirin 81 mg PO DAILY 30 Days #30 tab 03/13/20 Unknown tramadol 25 mg PO Q6H PRN #10 tab 03/13/20 Unknown Active Medications Generic Name Dose Route Start Last Admin Trade Name Freq PRN Reason Stop Dose Admin Acetaminophen 650 mg 03/06/20 16:12 03/17/20 00:27 Acetaminophen 325 Mg Tab PO 04/05/20 16:11 650 mg Q4H PRN Administration pain/fever Ascorbic Acid 1,000 mg 03/07/20 09:00 03/17/20 11:02 Ascorbic Acid 500 Mg Tab PO 04/06/20 08:59 Not Given DAILY SAHIL Aspirin 81 mg 03/07/20 09:00 03/17/20 11:02 Aspirin 81 Mg Ectab PO 04/06/20 08:59 Not Given DAILY SAHIL Docusate Sodium 100 mg 03/10/20 21:00 03/17/20 11:02 Docusate Sodium 100 Mg Cap PO 04/09/20 20:59 Not Given BID SAHIL Ferrous Sulfate 325 mg 03/07/20 09:00 03/17/20 11:02 Ferrous Sulfate 325 Mg Tab PO 04/06/20 08:59 Not Given DAILY SAHIL Furosemide 40 mg 03/07/20 09:00 03/11/20 08:22 Furosemide 40 Mg Tab PO 04/06/20 08:59 40 mg DAILY SAHIL Administration Hydromorphone HCl 1 mg 03/07/20 16:13 03/17/20 11:00 Hydromorphone Inj 1 Mg/Ml Syringe IV 03/21/20 16:12 1 mg Q4H PRN Administration Pain Ceftriaxone Sodium 2,000 mg/ 70 mls @ 100 mls/hr 03/13/20 09:00 03/17/20 10:12 Dextrose IV 03/20/20 08:59 Infused Q24H SAHIL Infusion Protocol Metoclopramide HCl 10 mg 03/10/20 14:29 03/10/20 16:44 Metoclopramide Hcl Inj 5 Mg/Ml 2 Ml Vial IV 04/09/20 14:28 10 mg Q6H PRN Administration Nausea And Vomiting Miconazole Nitrate 1 appln 03/06/20 21:18 03/06/20 22:29 Miconazole Nitrate Powder 43 Gm EXT 04/05/20 21:17 1 appln PRN PRN Administration Affected Skin Folds Multivitamins 1 tab 03/07/20 09:00 03/17/20 11:02 Multivitamin Tab PO 04/06/20 08:59 Not Given QAM SAHIL Potassium Chloride 20 meq 03/07/20 09:00 03/11/20 08:24 Potassium Chloride 20 Meq Tabcr PO 04/06/20 08:59 20 meq DAILY SAHIL Administration Sennosides 17.2 mg 03/10/20 21:00 03/16/20 20:15 Senna 8.6 Mg Tab PO 04/09/20 20:59 17.2 mg HS SAHIL Administration Tramadol HCl 25 mg 03/06/20 17:43 03/17/20 00:28 Tramadol Hcl 50 Mg Tablet PO 04/05/20 17:42 25 mg Q4H PRN Administration Pain Vitamin D 1,000 units 03/07/20 09:00 03/17/20 11:02 Cholecalciferol 1,000 Units 25 Mcg Tab PO 04/06/20 08:59 Not Given DAILY SAHIL Warfarin Sodium 5 mg 03/12/20 16:00 03/14/20 16:40 Warfarin Sod 5 Mg Tab PO 04/11/20 15:59 5 mg DAILY@1600 SAHIL Administration NPO Date Last Intake of Fluids: 03/16/20 Time Last Intake of Fluids: 23:55 Last Intake of Fluids Comment: sips with meds Date Last Intake of Solids: 03/16/20 Time Last Intake of Solids: 23:55 Past Medical History Medical History Atrial fibrillation Bilateral leg edema Colostomy present Cryptogenic cirrhosis Diastolic CHF History of DVT (deep vein thrombosis) Primary malignant neoplasm of cecum Ulcerative colitis Exercise / Class Metabolic Activity III < 4 Walking/Shop/Light housework Past Family History Family History Other Diabetes Past Surgical History Surgical History Status post colectomy Past Anesthesia History No Hx of Anesthesia Complications and No Family Hx of Anesthesia Complications History of PONV No Hx of PONV and No Hx of Motion Sickness Social History Smoking Status: Never smoker Hx Alcohol Use: No Hx Substance Use: No substance use type: does not use Physical Exam Vital Signs Last Vital Signs Temp 37.2 C 03/17/20 11:45 Pulse 68 03/17/20 11:45 Resp 20 03/17/20 11:45 BP 147/52 H 03/17/20 11:45 Pulse Ox 98 03/17/20 11:45 Constitutional + obese ENMT Mouth: + dentition abnormality and + edentulous Thyromental Distance: > or= 3.5 Finger Breadths Mallampati Class: II Neck normal visual inspection, trachea midline and + facial hair; neck extension not limited Respiratory normal respiratory effort Auscultation: lungs clear to auscultation bilaterally Cardiovascular Rate/Rhythm: + abnormal rate (afib- irregular) and + abnormal rhythm Heart Sounds: no murmur (afib-irregular) Vessels: no carotid bruit Musculoskeletal Spine: normal cervical ROM Extremities: extremities normal to inspection Neurologic moves all extremities Motor/Sensory: no sensory deficit Psychiatric Orientation: alert and oriented x 3 Testing Laboratory Results 03/16/20 05:52 03/17/20 06:00 PT 22.0 Seconds (9.0-12.0) H 03/17/20 11:17 INR 2.2 (0.9-1.1) H 03/17/20 11:17 APTT 52.0 Seconds (21.0-31.0) H* 03/15/20 06:10 Hemoglobin A1c 5.5 % (4.5-5.6) 03/07/20 07:08 03/10/20 13:56 Gram Stain - Final Foot,Right Aerobic and Anaerobic Culture - Final Group B Beta Strep Staphylococcus aureus 03/06/20 15:44 Aerobic Blood Culture - Final Blood No growth in Aerobic bottle after 5 days. Anaerobic Blood Culture - Final 03/06/20 15:36 Aerobic Blood Culture - Final Blood No growth in Aerobic bottle after 5 days. Anaerobic Blood Culture - Final Electrocardiogram Date: 03/06/20 Findings: + AFIB @ (at 57) Echocardiogram Date: 03/07/20 EF: 55% LV Function: normal RWMA: + none Other Findings: + atrial enlargement, + LVH (mild) and + diastolic dysfunction (grade 1) Valvular Disease: + no significant valvular disease
--- NOTE | 2020-03-17 14:02 | Post Operative Brief Note ---
Immediate Post Op Note v1 Date of Surgery March 17, 2020 Pre & Post Diagnosis Operation Date: 03/10/20 07:00 Pre-Op Diagnosis: Right foot extremity abscess Post-Op Diagnosis: Right foot abscess; septic fatty necrosis Operation Date: 03/17/20 10:30 Pre-Op Diagnosis: Right Foot Deep Plantar Abscess, Septic Fat Necrosis of Right Foot, Foreign Body Reaction Right Foot, retained Stimulan beads with antibiotics Post-Op Diagnosis: Right Foot Deep Plantar Abscess, Septic Fat Necrosis of Right Foot, Foreign Body Reaction Right Foot, retained Stimulan beads with antibiotics I identified the patient and participated in the time-out.: Yes Procedure Operation Date: 03/10/20 07:00 Actual Procedures p Right Incision and Drainage Plantar Foot Abscess; Extensive debridement-Skin fascia, Subcutaneous Fat; Application of Stimulan Beads(Right) - Miles Warren DO Operation Date: 03/17/20 10:30 Actual Procedures p Repeat Incision and Drainage Right Foot Deep Plantar Abscess, irrigation debridement right plantar foot including skin/subcutaneous tissue/fascia, maintained antibiotic laden Stimulan beads (Right) - Miles Warren DO Surgeon Miles Warren DO Therapeutic Activities Services Worker Tomas Arellano PA-C Estimated Blood Loss 15 Findings Consistent with Post-Op Diagnosis Specimens Aerobic anaerobic Gram stain deep abscess right plantar foot Drains Other (1/2 inch iodoform gauze x2) Anesthesia Type General Regional Complications none Disposition Accompanied Patient To Recovery: Yes Disposition: Recovery Room
--- NOTE | 2020-03-17 14:35 | Anesthesiology Progress Note ---
Date of Service March 17, 2020 Anesthesia Post Procedure Vital Signs Vital Signs: Temp Pulse Pulse Pulse Resp BP Pulse Ox 03/17/20 14:25 36.6 C 66 18 145/46 H 95 03/17/20 14:15 66 18 152/64 H 97 03/17/20 14:05 36.7 C 67 18 128/49 L 97 03/17/20 11:45 37.2 C 68 20 147/52 H 98 03/17/20 11:14 37.6 C H 65 19 155/71 H 95 03/17/20 07:26 54 L 03/17/20 07:25 37.0 C 60 20 165/68 H 96 03/17/20 03:00 37.3 C 63 16 128/51 L 97 03/16/20 23:00 38 C H 71 18 146/64 H 96 03/16/20 19:43 37.3 C 73 18 166/71 H 97 03/16/20 16:38 63 03/16/20 14:50 37.2 C 68 19 173/72 H 96 Pain Intensity Right Foot: Pain Intensity: 7 Transfer of Care Handoff Completed per policy Notes Mental Status: alert / awake / arousable Patient Amnestic to Procedure: Yes Nausea / Vomiting: adequately controlled Pain: adequately controlled Airway Patency, RR, SpO2: stable & adequate BP & HR: stable & adequate Hydration State: stable & adequate Anesthetic Complications: no major complications apparent
--- NOTE | 2020-03-17 14:45 | Operative Report (OR) ---
DATE OF OPERATION: 03/17/2020 PREOPERATIVE DIAGNOSES: 1. Right foot deep abscess, plantar. 2. Septic fat necrosis, right foot. 3. Foreign body reaction. 4. Retained Stimulan antibiotic beads. POSTOPERATIVE DIAGNOSES: 1. Right foot deep abscess, plantar. 2. Septic fat necrosis, right foot. 3. Foreign body reaction. 4. Retained Stimulan antibiotic beads. PROCEDURE: 1. Right foot repeat incision and drainage, deep plantar abscess. 2. Irrigation and debridement, right plantar foot including skin, subcutaneous fat and fascia. 3. Maintain antibiotic Stimulan beads. SURGEON: Miles Warren DO. ACID CRANE OPERATOR: Tomas Arellano PA-C. who was present for patient positioning, sterile prep and drape, management of retractors and instruments. He was present through the critical portions of the case including wound closure, application of sterile dressing and transport of the patient to recovery. ANESTHESIA: General, regional. SPECIMENS: Aerobic, anaerobic, Gram stain, right foot. DRAINS: 1/2 inch iodoform gauze drains x2. COMPLICATIONS: None. BLOOD LOSS: 10 mL PERTINENT HISTORY: This is a 70-year-old gentleman who had initially stepped on a foreign body toothpick right foot. It became severely infected, seen by the wound management team and had initial debridement and had the toothpick removed and noted to have severe deep infection. He was then sent for orthopedic consultation. I had taken the patient to the OR last week and washed out his right foot and applied Stimulan antibiotic beads. He showed marked improvement; however, he continued to have significant drainage from the medial aspect of the incision. He was then scheduled for repeat incision and drainage of the abscess and irrigation and debridement today as indicated. All potential risks, benefits, complications, alternatives, rehab, potential for incomplete relief of symptoms, need for further surgery, DVT, PE, , loss of function and possible amputation was discussed with the patient. The patient decided to proceed with procedure as indicated. DESCRIPTION OF PROCEDURE: The patient was taken to the operative suite, placed supine on the operating table. After review of consent and identification of proper operative site, the patient was anesthetized, LMA was placed. Tourniquet was placed high on the right thigh over cast padding; however, the pneumatic tourniquet was not used during the case. Right lower extremity was then sterilely prepped and draped in usual fashion, elevated on a bump. After surgical timeout was performed, sutures placed from previous surgery were removed with a hemostat and iris scissors. The antibiotic beads were noted to be intact. The zone of injury, unchanged compared to previous with the approximate size of 7 mm x 5 cm with a depth of injury approximately 1 cm. The zone of injury had stabilized compared to previous surgery. There was some surrounding epithelial skin slough, however, there appeared to be healthy tissue beneath. No new external wound necrosis. The plantar flap was then opened and noted to be a thin serous discharged with a grayish hue consistent with dissolution of some of the antibiotic Stimulan beads This is characteristic of this material. Small abscess collection was noted proximal plantar and some distal plantar. A 15 blade scalpel and forceps were then used to debride the areas of questionable necrotic tissue proximal and distal on the plantar aspect with the use of [place] for gentle retraction of the plantar skin flap at risk. Debridement was performed of the skin superficially. The epidermal skin flap was then excised with 15 blade scalpel. The subcutaneous necrotic fat was then sharply excised as well as the questionable fascial tissue. The plantar fascia remained intact. Next, pulsatile lavage, 3 liters with bacitracin was then used to lavage the deep compartments of the foot and the Stimulan beads were then collected. Next, two new top gloves were applied and the Stimulan beads were then repacked into the foot. Two 1/2 inch iodoform drains were placed, 1 proximal and 1 distal. The flap was then loosely closed over the drains with interrupted 3-0 nylon sutures. Next, a sterile compressive dressing was applied and wrapped in Иван wrap. The ankle tourniquet was released. The patient was awakened and taken to recovery in stable condition. I attest to the content of the Intraoperative Record and any orders documented therein. Any exceptions are noted below. MTDD
[2020-03-17] MEDS: SENNA 8.6 MG TAB PO SCH (20:12)
--- NOTE | 2020-03-17 20:18 | Hospitalist Progress Note ---
Date of Service March 17, 2020 Assessment & Plan (1) Puncture wound of foot with foreign body: (2) Cellulitis of right lower leg: Sepsis Present on admission with worsening right LE tenderness infected right foot wound WBC on admission 16K, C-reactive 20.5 and ESR 53 Had bedside debridement but reaccumulation of fluid at the wound bed noted-on next day Ortho on board s/p day #6 Incision and Drainage large deep plantar Foot Abscess; Extensive debridement right plantar foot including-Skin, fascia, subcutaneous fat Wound culture on staph aureus MSSA and group B strep ID on board recommended to continue with IV Rocephin for 6 weeks Plan for second washout tomorrow with Dr. Warren as per ortho Ortho would like INR to be under 1.5 to proceed for the procedure Received Vit K last night and this morning INR 2.2 before taking to OR S/P day #0 repeat Incision and Drainage Right Foot Deep Plantar Abscess, irrigation debridement right plantar foot including skin/subcutaneous tissue/fascia, maintained antibiotic laden Stimulan beads (Right) performed by Dr. Warren Continue IV Rocephin for 6 weeks Continue follow up Chronic diastolic CHF stable vol status Echo completed March 152018 showed an LVEF of 60 to 65%, grade 2 diastolic dysfunction, mild aortic valve sclerosis without significant stenosis. Lasix on hold for acute renal failure (3) Atrial fibrillation: New onset of afib on admission EKG showed Afib with rate control Cardiology on board Echo showed normal LV systolic function without regional wall motion abnormality. With ejection fraction 55 to 60%. Continue metoprolol 12.5 BID INR theraputic 6.8 today , Iv heparin D/c ed Continue to hold coumadin Received Vit K, INR 2.2 today Continue monitor PT/INR (4) Ulcerative colitis: S/p colectomy. Not currently on any medication. no GI symptoms Follows with GI in [place] (5) Primary malignant neoplasm of cecum: (6) Status post colectomy: Not on any chemo or radiation. Following for surveillance with [facility] oncology. Colostomy care per nursing (7) Bilateral leg edema: No peripheral edema noted on admission. (8) Cryptogenic cirrhosis: Follows with [facility] GI group. Low-sodium diet, limit daily Tylenol to less than 2 g Code status: FULL Dispo: PT OT evaluation, Patient will need short term rehab Admission and Anticipated Discharge Date Admission Date: March 06, 2020 Subjective Pt was seen and examined Lying in bed with no distress Pt said that she continues to have pain in his foot Denies any chest pain, palpitation, dizziness and SOB Physical Exam Physical Exam: General- No acute distress Head- atraumatic Eyes- PERRL, EOMI, ENT- oropharynx clear Neck- supple, no JVD Lungs- clear to auscultation Heart- regular rhythm; no murmur Abdomen- normal bowel sounds, soft, nontender Extremities- Right LE wrapped with dressing Neuro- alert, oriented x 3; PERRL, EOMI; no facial palsy; no dysarthria Skin- warm & dry Results & Data Results & Data ([facility]) Vital Signs (Past 12 Hours) Vital Signs Temp Pulse Pulse Pulse Resp BP Pulse Ox 03/17/20 19:40 37.5 C 75 19 171/63 H 93 03/17/20 16:40 74 03/17/20 15:42 38 C H 72 20 150/65 H 90 03/17/20 15:22 37.6 C H 65 19 157/58 H 91 03/17/20 14:45 37.8 C H 68 20 156/63 H 94 03/17/20 14:35 67 18 152/78 H 95 03/17/20 14:25 36.6 C 66 18 145/46 H 95 03/17/20 14:15 66 18 152/64 H 97 03/17/20 14:05 36.7 C 67 18 128/49 L 97 03/17/20 11:45 37.2 C 68 20 147/52 H 98 03/17/20 11:14 37.6 C H 65 19 155/71 H 95 (1) Ulcerative colitis Digestive disease complication type: with rectal bleeding Ulcerative colitis location: unspecified ulcerative colitis location Qualified Code(s): K51.911 - Ulcerative colitis, unspecified with rectal bleeding
[2020-03-18] MEDS: traMADol HCL 50 MG TABLET PO PRN ×3 (04:35→20:40)
--- NOTE | 2020-03-18 07:51 | Orthopedic Progress Note ---
Date of Service March 18, 2020 Assessment & Plan (1) Puncture wound of foot with foreign body: POD #1 s/p Repeat Right foot incision and drainage, deep plantar abscess, Irrigation and debridement, right plantar foot including skin, subcutaneous fat and fascia, Maintain antibiotic Stimulan beads will remove dressing tomorrow am and begin removing packing has US performed this am, awaiting results maintain ice/elevation for swelling currently pain well controlled Admission and Anticipated Discharge Date Admission Date: March 06, 2020 Subjective POD #1 s/p Repeat Right foot incision and drainage, deep plantar abscess, Irrigation and debridement, right plantar foot including skin, subcutaneous fat and fascia, Maintain antibiotic Stimulan beads. Review of Systems Constitutional: as per Subjective / HPI; no fever and no chills Cardiovascular: no chest pain Gastrointestinal: no nausea and no vomiting Physical Exam Physical Exam: Vital Signs Temp 37.4 C 03/18/20 03:39 Pulse 70 03/18/20 03:39 Resp 19 03/18/20 03:39 BP 142/71 H 03/18/20 03:39 Pulse Ox 93 03/18/20 03:39 Intake & Output 03/17/20 03/18/20 03/18/20 18:59 06:59 18:59 Intake Total 620.25 / 2130.25 1510 / 2130.25 Output Total 515 / 1515 1000 / 1515 Balance 105.25 / 615.25 510 / 615.25 Weight 110.7 kg Intake: IV 120.25 / 120.25 Aqua-Mephyton 2.5 mg In Nss 50 50.25 / 50.25 ml @ 100.5 mls /hr IV ONE ONE Rx #:[id number] Rocephin 2,000 mg In D5w 50 ml 70 / 70 @ 100 mls/hr I V Q24H [facility] Rx#: [id number] IV Perioperative 500 / 500 Oral 1510 / 1510 Output: Urine 500 / 1350 850 / 1350 Estimated Blood Loss 15 / 15 Gastric Drainage 150 / 150 Ileostomy/Viola stomy 150 / 150 Musculoskeletal: right foot: dressing clean and dry, no drainage noted. able to wiggle his toes. Results & Data ([facility]) Vital Signs (Past 12 Hours) Vital Signs Temp Pulse Pulse Resp BP Pulse Ox 03/18/20 03:39 37.4 C 70 19 142/71 H 93 03/18/20 00:40 67 03/17/20 23:24 37.4 C 69 18 149/62 H 90 Laboratory Results Laboratory Results WBC 10.99 K/uL (4.8-10.8) H 03/16/20 05:52 RBC 3.32 M/uL (4.7-6.1) L 03/16/20 05:52 Hgb 9.8 g/dL (14.0-18.0) L 03/16/20 05:52 Hct 30.1 % (42-52) L 03/16/20 05:52 MCV 90.7 fL (80-100) 03/16/20 05:52 MCH 29.5 pg (25-34) 03/16/20 05:52 MCHC 32.6 g/dL (32-36) 03/16/20 05:52 RDW Std Deviation 46.4 fL (36.4-46.3) H 03/16/20 05:52 RDW Coeff of Bryan 13.9 % (11.5-14.5) 03/16/20 05:52 Plt Count 211 K/uL (130-400) 03/16/20 05:52 MPV 10.8 fL (7.4-10.4) H 03/16/20 05:52 Immature Gran % (Auto) 0.9 % 03/16/20 05:52 Neut % (Auto) 80.4 % 03/16/20 05:52 Lymph % (Auto) 7.7 % 03/16/20 05:52 [place] % (Auto) 8.5 % 03/16/20 05:52 Eos % (Auto) 2.3 % 03/16/20 05:52 Baso % (Auto) 0.2 % 03/16/20 05:52 Neut # (Auto) 8.84 K/uL (1.4-6.5) H 03/16/20 05:52 Lymph # (Auto) 0.85 K/uL (1.2-3.4) L 03/16/20 05:52 [place] # (Auto) 0.93 K/uL (0.11-0.59) H 03/16/20 05:52 Eos # (Auto) 0.25 K/uL (0-0.5) 03/16/20 05:52 Baso # (Auto) 0.02 K/uL (0-0.2) 03/16/20 05:52 Immature Gran # (Auto) 0.10 K/uL (0.00-0.02) H 03/16/20 05:52 ESR 53 mm/hr (0-14) H 03/06/20 12:50 PT 22.0 Seconds (9.0-12.0) H 03/17/20 11:17 INR 2.2 (0.9-1.1) H 03/17/20 11:17 APTT 52.0 Seconds (21.0-31.0) H* 03/15/20 06:10 PTT Ratio 1.9 03/15/20 06:10 Sodium 137 mmol/L (136-145) 03/17/20 06:00 Potassium 4.5 mmol/L (3.5-5.1) 03/17/20 06:00 Chloride 111 mmol/L (98-107) H 03/17/20 06:00 Carbon Dioxide 21 mmol/L (21-32) 03/17/20 06:00 Anion Gap 5.0 (3-11) 03/17/20 06:00 BUN 19 mg/dl (7-18) H 03/17/20 06:00 Creatinine 1.04 mg/dl (0.6-1.4) 03/17/20 06:00 Est Cr Clr Drug Dosing 83.5 ml/min 03/17/20 06:00 Est GFR ( Amer) 84.5 03/17/20 06:00 Est GFR (Non-Af Amer) 72.9 03/17/20 06:00 BUN/Creatinine Ratio 18.1 (-20) 03/17/20 06:00 Glucose 102 mg/dl (70-99) H 03/17/20 06:00 POC Glucose 109 mg/dl (70-99) H 03/18/20 07:46 Estimat Average Glucose 111 mg/dl 03/07/20 07:08 Hemoglobin A1c 5.5 % (4.5-5.6) 03/07/20 07:08 Lactate 1.4 mmol/L (0.4-2.0) 03/06/20 18:14 Calcium 8.2 mg/dl (8.5-10.1) L 03/17/20 06:00 Magnesium 2.5 mg/dl (1.8-2.4) H 03/08/20 07:36 Total Bilirubin 1.4 mg/dl (0.2-1) H 03/06/20 12:40 AST 24 U/L (15-37) 03/06/20 12:40 ALT 29 U/L (12-78) 03/06/20 12:40 Alkaline Phosphatase 90 U/L (45-117) 03/06/20 12:40 C-Reactive Protein 20.50 mg/dl (0-0.29) H 03/06/20 12:50 Total Protein 7.6 gm/dl (6.4-8.2) 03/06/20 12:40 Albumin 3.3 gm/dl (3.4-5.0) L 03/06/20 12:40 Globulin 4.3 gm/dl (2.5-4.0) H 03/06/20 12:40 Albumin/Globulin Ratio 0.8 (0.9-2) L 03/06/20 12:40 TSH 1.310 uIu/ml (0.300-4.500) 03/06/20 12:40 Nasal Screen MRSA (PCR) Negative (Negative) 03/12/20 12:00 Vancomycin Trough 18.4 mcg/ml (See Comment) 03/09/20 09:25 COVID-19 Eval Order Covid19 [facility] 03/09/20 12:10 SARS-CoV-2, RNA, NAAT NEGATIVE (NEGATIVE) 03/09/20 12:10
--- NOTE | 2020-03-18 07:51 | Ultrasound Report ---
BILATERAL LOWER EXTREMITY ARTERIAL DOPPLER ULTRASOUND CLINICAL HISTORY: r/o PVD, left foot wound COMPARISON STUDY: No previous studies for comparison. TECHNIQUE: Ankle to brachial indices were attempted. Grayscale, color and duplex Doppler sonography o f the arterial systems of both lower extremities was performed. FINDINGS: Right ankle to brachial index could not be obtained due to overlying bandages. Left dorsali s pedis was noncompressible. The left ankle-brachial index measured 0.87 when using the posterior tib ial artery. There was biphasic flow within the right common femoral, superficial femoral and poplitea l arteries with no elevated velocities within these vessels. Moderate plaque within the lower extremi ties was noted. There was biphasic flow within the right posterior tibial artery and monophasic flow within the right peroneal and anterior tibial arteries. Elevated velocity of 231 cm/s within the righ t anterior tibial artery suggests a stenosis. Right dorsalis pedis cannot be assessed due to overlyin g bandage. There was biphasic flow within the left common femoral, superficial femoral and popliteal arteries. There is no evidence for a stenosis within these vessels. There is also biphasic flow withi n the left posterior tibial, anterior tibial, peroneal and dorsalis pedis vessels. Note was made of a 9.6 x 1.7 x 4.9 cm complex left popliteal fluid collection. IMPRESSION: 1. Moderate atherosclerotic plaque within the bilateral lower extremities. 2. Unable to obtain right ankle to brachial index due to bandages. Left ankle to brachial index of 0. 87. 3. Biphasic flow throughout the left lower extremity. Monophasic flow within the right peroneal and a nterior tibial arteries. Otherwise, biphasic flow within the right lower extremity. 4. Findings suggestive of a stenosis within the right anterior tibial artery. 5. 9.6 x 1.7 x 4.9 cm proximal left popliteal fluid collection. This favors a popliteal cyst. ACT 112: Negative or not required by law. Electronically signed by: Juan Herzog M.D. 03/18/2020 7:50 AM
--- NOTE | 2020-03-18 08:02 | Ultrasound Report ---
BILATERAL LOWER EXTREMITY VENOUS DOPPLER CLINICAL HISTORY: lower extremity edema COMPARISON STUDY: No previous studies for comparison. TECHNIQUE: Sonography of the deep venous system of the bilateral lower extremities was performed. Co mpression and augmentation were evaluated. FINDINGS: Note is made of nonocclusive deep venous thrombus within the right popliteal vein. No addit ional sites of deep venous thrombus within the right lower extremity are noted. There is also nonoccl usive deep venous thrombus within the left popliteal vein. IMPRESSION: Nonocclusive deep venous thrombus within the bilateral popliteal veins. ACT 112: Negative or not required by law. Electronically signed by: Juan Herzog M.D. 03/18/2020 8:00 AM
[2020-03-18] MEDS: ASCORBIC ACID 500 MG TAB PO SCH (08:26)
[2020-03-18] MEDS: DOCUSATE SODIUM 100 MG CAP PO SCH ×2 (08:26→20:40)
[2020-03-18] MEDS: ASPIRIN 81 MG ECTAB PO SCH (08:26)
[2020-03-18] MEDS: MULTIVITAMIN TAB PO SCH (08:26)
[2020-03-18] MEDS: cefTRIAXone SODIUM 2,000 MG in DEXTROSE 5% 50 ML IV SCH (08:26)
[2020-03-18] MEDS: CHOLECALCIFEROL 1,000 UNITS 25 MCG TAB PO SCH (08:26)
[2020-03-18] MEDS: FERROUS SULFATE 325 MG TAB PO SCH (08:26)
[2020-03-18 10:49] LABS: Hematocrit (blood only) 30.9 % (42-52); Mean Corpuscular Hemoglobin 29.2 pg (25-34); Mean Corpuscular Hgb Conc 32.4 g/dL (32-36); Mean Corpuscular Volume 90.1 fL (80-100); Mean Platelet Volume 10.2 fL (7.4-10.4); Platelet Count 250 K/uL (130-400); RDW Coefficient of Variation 13.5 % (11.5-14.5); RDW Standard Deviation 44.6 fL (36.4-46.3); Red Blood Count 3.43 M/uL (4.7-6.1); White Blood Count 9.93 K/uL (4.8-10.8)
[2020-03-18 11:04] LABS: INR 1.4 (0.9-1.1); Prothrombin Time 14.6 Seconds (9.0-12.0)
--- NOTE | 2020-03-18 11:08 | Cardiology Progress Note ---
Date of Service March 18, 2020 Assessment & Plan (1) Atrial fibrillation: (2) Diastolic CHF: Coumadin held, INR reversed for surgical intervention of fluid abscess. INR 1.4 today, hemoglobin stable. Resume Coumadin, check INR tomorrow. Update EKG for rhythm reassessment. Continue furosemide 40 mg daily, volume status stable. Continue aspirin. Admission and Anticipated Discharge Date Admission Date: March 06, 2020 Subjective Patient seen in cardiology follow-up. No complaints. Tolerating present surgery on 03/17 from cardiac standpoint right foot incision and drainage for a deep plantar abscess. Review of Systems Review of Systems: All systems reviewed & are unremarkable except as noted in HPI & below Physical Exam Physical Exam: Temp Pulse Resp BP Pulse Ox 37.4 C 62 18 155/73 H 94 03/18/20 07:52 03/18/20 07:52 03/18/20 07:52 03/18/20 07:52 03/18/20 07:52 Constitutional: WD/WN, vitals as above Respiratory: normal respiratory effort, lungs clear to auscultation Cardiovascular: Rate/Rhythm: regular rate Musculoskeletal: Right foot wrapped postoperatively Results & Data ([facility]) Vital Signs (Past 12 Hours) Vital Signs Temp Pulse Pulse Resp BP Pulse Ox 03/18/20 07:52 37.4 C 62 18 155/73 H 94 03/18/20 03:39 37.4 C 70 19 142/71 H 93 03/18/20 00:40 67 03/17/20 23:24 37.4 C 69 18 149/62 H 90 Laboratory Results Coagulation INR today 03/18/2020 1.4, 03/17/2020 2.2 03/17/20 03/18/20 Range/Units 11:17 10:41 PT 22.0 H 14.6 H (9.0-12.0) Seconds CBC 03/18/20 Range/Units 10:41 WBC 9.93 (4.8-10.8) K/uL RBC 3.43 L (4.7-6.1) M/uL Hgb 10.0 L (14.0-18.0) g/dL Hct 30.9 L (42-52) % Plt Count 250 (130-400) K/uL Intake and Output 03/17/20 03/18/20 03/18/20 22:59 06:59 14:59 Intake Total 360 / 2130.25 1150 / 2130.25 70 / 70 Output Total 300 / 1515 700 / 1515 Balance 60 / 615.25 450 / 615.25 70 / 70 Intake: IV 70 / 70 Rocephin 2,000 mg In D5w 50 ml 70 / 70 @ 100 mls/hr IV Q24H [facility] Rx#: [id number] Oral 360 / 1510 1150 / 1510 Output: Urine 300 / 1350 550 / 1350 Gastric Drainage 150 / 150 Ileostomy/Colostomy 150 / 150
[2020-03-18 11:18] LABS: BUN Creatinine Ratio 17.8 (10-20); Calcium 8.7 mg/dl (8.5-10.1); Est GFR (African American) 71.8; Potassium 4.5 mmol/L (3.5-5.1)
[2020-03-18] MEDS: HYDROmorphone INJ 1 MG/ML SYRINGE IV PRN (14:00)
--- NOTE | 2020-03-18 14:43 | Hospitalist Progress Note ---
Date of Service March 18, 2020 Assessment & Plan (1) Puncture wound of foot with foreign body: (2) Cellulitis of right lower leg: Sepsis Present on admission with worsening right LE tenderness infected right foot wound WBC on admission 16K, C-reactive 20.5 and ESR 53 Had bedside debridement but reaccumulation of fluid at the wound bed noted-on next day Ortho on board s/p first Incision and Drainage large deep plantar Foot Abscess; Extensive debridement right plantar foot including-Skin, fascia, subcutaneous fat Wound culture on staph aureus MSSA and group B strep ID on board recommended to continue with IV Rocephin for 6 weeks Plan for second washout tomorrow with Dr. Warren as per ortho Ortho would like INR to be under 1.5 to proceed for the procedure Received Vit K last night and this morning INR 2.2 before taking to OR S/P day #1 repeat Incision and Drainage Right Foot Deep Plantar Abscess, irrigation debridement right plantar foot including skin/subcutaneous tissue/fascia, maintained antibiotic laden Stimulan beads (Right) performed by Dr. Warren Continue IV Rocephin for 6 weeks dressing changing as per ortho Chronic diastolic CHF stable vol status Echo completed March 152018 showed an LVEF of 60 to 65%, grade 2 diastolic dysfunction, mild aortic valve sclerosis without significant stenosis. Lasix resumed Will monitor BMP (3) Atrial fibrillation: New onset of afib on admission EKG showed Afib with rate control Cardiology on board Echo showed normal LV systolic function without regional wall motion abnormality. With ejection fraction 55 to 60%. Continue metoprolol 12.5 BID INR theraputic 6.8 today , Iv heparin D/c ed Continue to hold coumadin Received Vit K, INR 2.2 prior to surgery INR 1.4 today Will resume coumadin Continue monitor PT/INR (4) Ulcerative colitis: S/p colectomy. Not currently on any medication. no GI symptoms Follows with GI in [place] (5) Primary malignant neoplasm of cecum: (6) Status post colectomy: Not on any chemo or radiation. Following for surveillance with [facility] oncology. Colostomy care per nursing (7) Bilateral leg edema: No peripheral edema noted on admission. (8) Cryptogenic cirrhosis: Follows with [facility] GI group. Low-sodium diet, limit daily Tylenol to less than 2 g Code status: FULL Dispo: PT OT evaluation, Patient will need short term rehab Admission and Anticipated Discharge Date Admission Date: March 06, 2020 Subjective Pt was seen and examined Lying in bed with no distress Pt said that he feels ok He said that pain is tolerable Denies any chest pain, palpitation, dizziness and SOB Physical Exam Physical Exam: General- No acute distress Head- atraumatic Eyes- PERRL, EOMI, ENT- oropharynx clear Neck- supple, no JVD Lungs- clear to auscultation Heart- regular rhythm; no murmur Abdomen- normal bowel sounds, soft, nontender Extremities- Right LE wrapped with dressing Neuro- alert, oriented x 3; PERRL, EOMI; no facial palsy; no dysarthria Skin- warm & dry Results & Data Results & Data ([facility]) Vital Signs (Past 12 Hours) Vital Signs Temp Pulse Pulse Resp BP Pulse Ox 03/18/20 11:28 37.6 C H 66 18 146/58 H 94 03/18/20 07:52 37.4 C 62 18 155/73 H 94 03/18/20 03:39 37.4 C 70 19 142/71 H 93 (1) Ulcerative colitis Digestive disease complication type: with rectal bleeding Ulcerative colitis location: unspecified ulcerative colitis location Qualified Code(s): K51.911 - Ulcerative colitis, unspecified with rectal bleeding
[2020-03-18] MEDS: WARFARIN SOD 5 MG TAB PO SCH (15:56)
[2020-03-18] MEDS: ACETAMINOPHEN 325 MG TAB PO PRN (20:38)
[2020-03-18] MEDS: SENNA 8.6 MG TAB PO SCH (20:39)
--- NOTE | 2020-03-19 06:56 | Orthopedic Progress Note ---
Date of Service March 19, 2020 Assessment & Plan (1) Puncture wound of foot with foreign body: POD #2 s/p Repeat Right foot incision and drainage, deep plantar abscess, Irrigation and debridement, right plantar foot including skin, subcutaneous fat and fascia, Maintain antibiotic Stimulan beads dressing removed today and removed approximately 6 inches of packing from both sites. foot redressed. US yesterday- Nonocclusive deep venous thrombus within the bilateral popliteal veins; managed by medical team, currently on Coumadin maintain ice/elevation for swelling currently pain well controlled Admission and Anticipated Discharge Date Admission Date: March 06, 2020 Subjective POD#2 s/p repeat I&D of right foot denies CP/SOB denies fever or chills Review of Systems Constitutional: as per Subjective / HPI; no fever and no chills Physical Exam Physical Exam: Vital Signs Temp 37.4 C 03/19/20 04:00 Pulse 61 03/19/20 04:00 Resp 20 03/19/20 04:00 BP 153/61 H 03/19/20 04:00 Pulse Ox 94 03/19/20 04:00 Intake & Output 03/18/20 03/18/20 03/19/20 06:59 18:59 06:59 Intake Total 1510 / 2130.25 705 / 1105 400 / 1105 Output Total 1000 / 1515 975 / 1950 975 / 1950 Balance 510 / 615.25 -270 / -845 -575 / -845 Weight 109.9 kg Intake: IV 70 / 70 Rocephin 2,000 mg In D5w 50 ml 70 / 70 @ 100 mls/hr I V Q24H [facility] Rx#: [id number] Oral 1510 / 1510 635 / 1035 400 / 1035 Output: Urine 850 / 1350 625 / 1600 975 / 1600 Gastric Drainage 150 / 150 350 / 350 Ileostomy/Francitas stomy 150 / 150 350 / 350 Other: Weight Measureme nt Method Built in [facility] Constitutional: WD/WN, vitals as above no acute distress Musculoskeletal: Right foot: Dressing removed. I removed approximately 6 inches of packing from both medial packing areas. Area of debridement on the plantar surface demacating with central area of yellow slough. skin edges along medial foot well approximated with nylon sutures. Some drainage noted from the medial aspect of the wound. Erythema noted around the edges of the main wound, however currently no streaking up the lower extremity at this time. there is again erythema noted traveling to the dorsomedial area of the foot. Results & Data ([facility]) Vital Signs (Past 12 Hours) Vital Signs Temp Pulse Pulse Pulse Resp BP Pulse Ox 03/19/20 04:00 37.4 C 61 20 153/61 H 94 03/19/20 00:51 58 L 03/18/20 23:00 37.7 C H 66 20 152/52 H 95 03/18/20 19:18 38.0 C H 63 20 143/80 H 95 Laboratory Results Laboratory Results WBC 9.93 K/uL (4.8-10.8) 03/18/20 10:41 RBC 3.43 M/uL (4.7-6.1) L 03/18/20 10:41 Hgb 10.0 g/dL (14.0-18.0) L 03/18/20 10:41 Hct 30.9 % (42-52) L 03/18/20 10:41 MCV 90.1 fL (80-100) 03/18/20 10:41 MCH 29.2 pg (25-34) 03/18/20 10:41 MCHC 32.4 g/dL (32-36) 03/18/20 10:41 RDW Std Deviation 44.6 fL (36.4-46.3) 03/18/20 10:41 RDW Coeff of Bryan 13.5 % (11.5-14.5) 03/18/20 10:41 Plt Count 250 K/uL (130-400) 03/18/20 10:41 MPV 10.2 fL (7.4-10.4) 03/18/20 10:41 Immature Gran % (Auto) 0.9 % 03/16/20 05:52 Neut % (Auto) 80.4 % 03/16/20 05:52 Lymph % (Auto) 7.7 % 03/16/20 05:52 [place] % (Auto) 8.5 % 03/16/20 05:52 Eos % (Auto) 2.3 % 03/16/20 05:52 Baso % (Auto) 0.2 % 03/16/20 05:52 Neut # (Auto) 8.84 K/uL (1.4-6.5) H 03/16/20 05:52 Lymph # (Auto) 0.85 K/uL (1.2-3.4) L 03/16/20 05:52 [place] # (Auto) 0.93 K/uL (0.11-0.59) H 03/16/20 05:52 Eos # (Auto) 0.25 K/uL (0-0.5) 03/16/20 05:52 Baso # (Auto) 0.02 K/uL (0-0.2) 03/16/20 05:52 Immature Gran # (Auto) 0.10 K/uL (0.00-0.02) H 03/16/20 05:52 ESR 53 mm/hr (0-14) H 03/06/20 12:50 PT 14.6 Seconds (9.0-12.0) H 03/18/20 10:41 INR 1.4 (0.9-1.1) H 03/18/20 10:41 APTT 52.0 Seconds (21.0-31.0) H* 03/15/20 06:10 PTT Ratio 1.9 03/15/20 06:10 Sodium 137 mmol/L (136-145) 03/18/20 10:41 Potassium 4.5 mmol/L (3.5-5.1) 03/18/20 10:41 Chloride 109 mmol/L (98-107) H 03/18/20 10:41 Carbon Dioxide 26 mmol/L (21-32) 03/18/20 10:41 Anion Gap 3.0 (3-11) 03/18/20 10:41 BUN 21 mg/dl (7-18) H 03/18/20 10:41 Creatinine 1.19 mg/dl (0.6-1.4) 03/18/20 10:41 Est Cr Clr Drug Dosing 73.0 ml/min 03/18/20 10:41 Est GFR ( Amer) 71.8 03/18/20 10:41 Est GFR (Non-Af Amer) 62.0 03/18/20 10:41 BUN/Creatinine Ratio 17.8 (10-20) 03/18/20 10:41 Glucose 124 mg/dl (70-99) H 03/18/20 10:41 POC Glucose 109 mg/dl (70-99) H 03/18/20 07:46 Estimat Average Glucose 111 mg/dl 03/07/20 07:08 Hemoglobin A1c 5.5 % (4.5-5.6) 03/07/20 07:08 Lactate 1.4 mmol/L (0.4-2.0) 03/06/20 18:14 Calcium 8.7 mg/dl (8.5-10.1) 03/18/20 10:41 Magnesium 2.5 mg/dl (1.8-2.4) H 03/08/20 07:36 Total Bilirubin 1.4 mg/dl (0.2-1) H 03/06/20 12:40 AST 24 U/L (15-37) 03/06/20 12:40 ALT 29 U/L (12-78) 03/06/20 12:40 Alkaline Phosphatase 90 U/L (45-117) 03/06/20 12:40 C-Reactive Protein 20.50 mg/dl (0-0.29) H 03/06/20 12:50 Total Protein 7.6 gm/dl (6.4-8.2) 03/06/20 12:40 Albumin 3.3 gm/dl (3.4-5.0) L 03/06/20 12:40 Globulin 4.3 gm/dl (2.5-4.0) H 03/06/20 12:40 Albumin/Globulin Ratio 0.8 (0.9-2) L 03/06/20 12:40 TSH 1.310 uIu/ml (0.300-4.500) 03/06/20 12:40 Nasal Screen MRSA (PCR) Negative (Negative) 03/12/20 12:00 Vancomycin Trough 18.4 mcg/ml (See Comment) 03/09/20 09:25 COVID-19 Eval Order Covid19 IDNow [facility] 03/09/20 12:10 SARS-CoV-2, RNA, NAAT NEGATIVE (NEGATIVE) 03/09/20 12:10
[2020-03-19] MEDS: DOCUSATE SODIUM 100 MG CAP PO SCH ×2 (08:00→20:23)
[2020-03-19] MEDS: cefTRIAXone SODIUM 2,000 MG in DEXTROSE 5% 50 ML IV SCH (08:01)
[2020-03-19] MEDS: MULTIVITAMIN TAB PO SCH (08:01)
[2020-03-19] MEDS: CHOLECALCIFEROL 1,000 UNITS 25 MCG TAB PO SCH (08:01)
[2020-03-19] MEDS: FERROUS SULFATE 325 MG TAB PO SCH (08:01)
[2020-03-19] MEDS: ASCORBIC ACID 500 MG TAB PO SCH (08:01)
[2020-03-19] MEDS: ASPIRIN 81 MG ECTAB PO SCH (08:01)
[2020-03-19 08:22] LABS: INR 1.4 (0.9-1.1)
[2020-03-19 08:28] LABS: BUN Creatinine Ratio 20.6 (10-20); Calcium 8.8 mg/dl (8.5-10.1); Creatinine Clr Calc Pharmacy 80.1 ml/min; Est GFR (African American) 80.7; Est GFR (Non-African American) 69.7; Potassium 4.3 mmol/L (3.5-5.1)
[2020-03-19] MEDS: FUROSEMIDE 40 MG TAB PO SCH (11:25)
--- NOTE | 2020-03-19 12:14 | Electrocardiogram Report ---
Test Reason : Blood Pressure : / mmHG Vent. Rate : 067 BPM Atrial Rate : 067 BPM P-R Int : 376 ms QRS Dur : 074 ms QT Int : 418 ms P-R-T Axes : 045 005 034 degrees QTc Int : 441 ms Poor data quality, interpretation may be adversely affected Sinus rhythm with 1st degree A-V block Nonspecific ST abnormality Abnormal ECG When compared with ECG of 07-MAR-2020 10:50, Sinus rhythm has replaced Atrial fibrillation Confirmed by Kenn Ontiveros ([id number]) on 03/19/2020 12:14:48 PM Referred By: REFERRED SELF Confirmed By:Kenn Ontiveros
[2020-03-19] MEDS ORDERED: Heparin IV Standard *NO* Bolus IV SCH (14:00)
[2020-03-19 14:27] LABS: Basophils # (auto) 0.02 K/uL (0-0.2); Basophils % (auto) 0.2 %; Eosinophils # (auto) 0.18 K/uL (0-0.5); Eosinophils % (auto) 1.7 %; Hematocrit (blood only) 32.5 % (42-52); Hemoglobin 10.6 g/dL (14.0-18.0); Immature Granulocytes # (auto) 0.07 K/uL (0.00-0.02); Immature Granulocytes % (auto) 0.7 %; Lymphocytes # (auto) 0.97 K/uL (1.2-3.4); Lymphocytes % (auto) 9.4 %; Mean Corpuscular Hemoglobin 29.4 pg (25-34); Mean Corpuscular Volume 90.3 fL (80-100); Mean Platelet Volume 10.4 fL (7.4-10.4); Monocytes # (auto) 0.89 K/uL (0.11-0.59); Monocytes % (auto) 8.6 %; Neutrophils # (auto) 8.16 K/uL (1.4-6.5); Neutrophils % (auto) 79.4 %; Platelet Count 286 K/uL (130-400); RDW Coefficient of Variation 13.1 % (11.5-14.5); RDW Standard Deviation 43.7 fL (36.4-46.3); White Blood Count 10.29 K/uL (4.8-10.8)
[2020-03-19 14:30] LABS: Mean Corpuscular Hgb Conc 32.6 g/dL (32-36)
[2020-03-19] MEDS: traMADol HCL 50 MG TABLET PO PRN (14:36)
[2020-03-19 14:52] LABS: INR 1.5 (0.9-1.1); Partial Thromboplastin Ratio 1.1; Partial Thromboplastin Time 30.6 Seconds (21.0-31.0); Prothrombin Time 15.6 Seconds (9.0-12.0)
[2020-03-19] MEDS: HEPARIN SODIUM/DEXTROSE 25,000 UNITS/500 ML BAG IV SCH (14:56)
--- NOTE | 2020-03-19 15:28 | Communication Note ---
Date of Service: March 19, 2020 EKG performed 03/18/2020 revealed sinus rhythm with long first-degree AV block, 376 ms. Compared to the prior EKG, sinus rhythm with first-degree AV block and replaced atrial fibrillation. Patient remains in sinus rhythm with long first-degree AV block telemetry today with heart rate for the most part in the 60s, no prolonged bradycardia. Nonocclusive DVT within the right lower extremity popliteal veins noted on duplex yesterday. Agree with heparin bridge to Coumadin. Continue observation off of AV julián blockers.
[2020-03-19] MEDS: WARFARIN SOD 5 MG TAB PO SCH (15:46)
[2020-03-19] MEDS: ACETAMINOPHEN 325 MG TAB PO PRN (15:47)
--- NOTE | 2020-03-19 19:49 | Hospitalist Progress Note ---
Date of Service March 19, 2020 Assessment & Plan (1) Puncture wound of foot with foreign body: (2) Cellulitis of right lower leg: Sepsis Present on admission with worsening right LE tenderness infected right foot wound WBC on admission 16K, C-reactive 20.5 and ESR 53 Had bedside debridement but reaccumulation of fluid at the wound bed noted-on next day Ortho on board s/p first Incision and Drainage large deep plantar Foot Abscess; Extensive debridement right plantar foot including-Skin, fascia, subcutaneous fat Wound culture on staph aureus MSSA and group B strep ID on board recommended to continue with IV Rocephin for 6 weeks Plan for second washout tomorrow with Dr. Warren as per ortho Ortho would like INR to be under 1.5 to proceed for the procedure Received Vit K last night and this morning INR 2.2 before taking to OR S/P day #2 repeat Incision and Drainage Right Foot Deep Plantar Abscess, irrigation debridement right plantar foot including skin/subcutaneous tissue/fascia, maintained antibiotic laden Stimulan beads (Right) performed by Dr. Warren Continue IV Rocephin for 6 weeks dressing changing as per ortho Chronic diastolic CHF stable vol status Echo completed March 152018 showed an LVEF of 60 to 65%, grade 2 diastolic dysfunction, mild aortic valve sclerosis without significant stenosis. Continue Lasix PO Continue monitor BMP (3) Atrial fibrillation: New onset of afib on admission EKG showed Afib with rate control Cardiology on board Echo showed normal LV systolic function without regional wall motion abnormality. With ejection fraction 55 to 60%. Continue metoprolol 12.5 BID INR theraputic 6.8 today , Iv heparin D/c ed Continue to hold coumadin Received Vit K, INR 2.2 prior to surgery INR 1.4 today Continue heparin bridge with coumadin Continue monitor PT/INR (4) Ulcerative colitis: S/p colectomy. Not currently on any medication. no GI symptoms Follows with GI in [place] (5) Primary malignant neoplasm of cecum: (6) Status post colectomy: Not on any chemo or radiation. Following for surveillance with [facility] oncology. Colostomy care per nursing (7) DVT (deep venous thrombosis): Doppler of LE showed nonocclusive deep venous thrombus within the bilateral popliteal veins. IV heparin drip bridge starting Continue coumadin 5 mg daily INR 1.4 today (8) Cryptogenic cirrhosis: Follows with [facility] GI group. Low-sodium diet, limit daily Tylenol to less than 2 g Code status: FULL Dispo: PT OT evaluation, Patient will need short term rehab Admission and Anticipated Discharge Date Admission Date: March 06, 2020 Subjective Pt was seen and examined Lying in bed with no distress Pt said that pain is tolerable Denies any chest pain, palpitation, dizziness and SOB Physical Exam Physical Exam: General- No acute distress Head- atraumatic Eyes- PERRL, EOMI, ENT- oropharynx clear Neck- supple, no JVD Lungs- clear to auscultation Heart- regular rhythm; no murmur Abdomen- normal bowel sounds, soft, nontender Extremities- Right LE wrapped with dressing Neuro- alert, oriented x 3; PERRL, EOMI; no facial palsy; no dysarthria Skin- warm & dry Results & Data Results & Data ([facility]) Vital Signs (Past 12 Hours) Vital Signs Temp Pulse Resp BP Pulse Ox 03/19/20 15:17 99 03/19/20 15:09 38.2 C H 72 18 165/57 H 96 03/19/20 11:14 37.1 C 66 18 159/64 H 95 (1) Ulcerative colitis Digestive disease complication type: with rectal bleeding Ulcerative colitis location: unspecified ulcerative colitis location Qualified Code(s): K51.911 - Ulcerative colitis, unspecified with rectal bleeding
[2020-03-19] MEDS: SENNA 8.6 MG TAB PO SCH (20:22)
[2020-03-19 21:08] LABS: Partial Thromboplastin Ratio 1.8
[2020-03-19 21:10] LABS: Partial Thromboplastin Time 50.6 Seconds (21.0-31.0)
[2020-03-20] MEDS: HEPARIN SODIUM/DEXTROSE 25,000 UNITS/500 ML BAG IV SCH ×2 (05:54→19:12)
[2020-03-20 06:31] LABS: Partial Thromboplastin Ratio 1.9
[2020-03-20 06:32] LABS: Calcium 8.6 mg/dl (8.5-10.1); Creatinine Clr Calc Pharmacy 70.1 ml/min; Est GFR (Non-African American) 59.5
[2020-03-20 06:37] LABS: Partial Thromboplastin Time 51.7 Seconds (21.0-31.0)
[2020-03-20] MEDS: FUROSEMIDE 40 MG TAB PO SCH (08:19)
[2020-03-20] MEDS: DOCUSATE SODIUM 100 MG CAP PO SCH ×2 (08:19→22:03)
[2020-03-20] MEDS: MULTIVITAMIN TAB PO SCH (08:19)
[2020-03-20] MEDS: FERROUS SULFATE 325 MG TAB PO SCH (08:19)
[2020-03-20] MEDS: ASPIRIN 81 MG ECTAB PO SCH (08:19)
[2020-03-20] MEDS: CHOLECALCIFEROL 1,000 UNITS 25 MCG TAB PO SCH (08:20)
[2020-03-20] MEDS: ASCORBIC ACID 500 MG TAB PO SCH (08:20)
[2020-03-20] MEDS: ACETAMINOPHEN 325 MG TAB PO PRN ×2 (10:30→23:53)
--- NOTE | 2020-03-20 14:41 | Orthopedic Progress Note ---
Date of Service March 20, 2020 Assessment & Plan (1) Puncture wound of foot with foreign body: POD #3 s/p Repeat Right foot incision and drainage, deep plantar abscess, Irrigation and debridement, right plantar foot including skin, subcutaneous fat and fascia, Maintain antibiotic Stimulan beads Venous Doppler- Nonocclusive deep venous thrombus within the bilateral popliteal veins; managed by medical team, currently on Coumadin Plan to remove remainder of packing tomorrow. maintain ice/elevation for swelling currently pain well controlled Admission and Anticipated Discharge Date Admission Date: March 06, 2020 Subjective Patient sleeping upon arrival but easily awoken. States that he has not had any worsening of pain in the right foot and today feels actually a little bit better. No other complaints at this time. Physical Exam Physical Exam: Dressings removed. Less darkened demarcation and more yellow slough type material with antibiotic beads underneath on the plantar wound. To ends of iodoform packing are noted. 12 inches of packing was removed from the first site and the second site was completely removed and had about 6 inches of packing remaining. No overt drainage when removing the packing. No foul odors. He had a bit less drainage on this dressing that when I had seen him before the previous week. Small amount of packing still remaining. Wound redressed with Xeroform, 4 x 4's, Kerlix, Иван wrap. Results & Data ([facility]) Vital Signs (Past 12 Hours) Vital Signs Temp Pulse Pulse Resp BP Pulse Ox 03/20/20 11:36 37.2 C 55 L 20 133/55 L 94 03/20/20 07:52 37.5 C 56 L 20 156/57 H 98 03/20/20 07:23 51 L 03/20/20 03:54 37.5 C 57 L 20 130/58 L 92
[2020-03-20] MEDS: WARFARIN SOD 5 MG TAB PO SCH (17:09)
--- NOTE | 2020-03-20 19:36 | Hospitalist Progress Note ---
Date of Service March 20, 2020 Assessment & Plan (1) Puncture wound of foot with foreign body: (2) Cellulitis of right lower leg: Sepsis Present on admission with worsening right LE tenderness infected right foot wound WBC on admission 16K, C-reactive 20.5 and ESR 53 Had bedside debridement but reaccumulation of fluid at the wound bed noted-on next day Ortho on board s/p first Incision and Drainage large deep plantar Foot Abscess; Extensive debridement right plantar foot including-Skin, fascia, subcutaneous fat Wound culture on staph aureus MSSA and group B strep ID on board recommended to continue with IV Rocephin for 6 weeks Plan for second washout tomorrow with Dr. Warren as per ortho Ortho would like INR to be under 1.5 to proceed for the procedure Received Vit K last night and this morning 03/20 S/P day #3 repeat Incision and Drainage Right Foot Deep Plantar Abscess, irrigation debridement right plantar foot including skin/subcutaneous tissue/fascia, maintained antibiotic laden Stimulan beads (Right) performed by Dr. Warren Continue IV Rocephin for 6 weeks Continue dressing changing Continue monitor Chronic diastolic CHF stable vol status Echo completed March 152018 showed an LVEF of 60 to 65%, grade 2 diastolic dysfunction, mild aortic valve sclerosis without significant stenosis. Continue Lasix PO Continue monitor BMP (3) Atrial fibrillation: New onset of afib on admission EKG showed Afib with rate control Cardiology on board Echo showed normal LV systolic function without regional wall motion abnormality. With ejection fraction 55 to 60%. Continue metoprolol 12.5 BID INR theraputic 6.8 today , Iv heparin D/c ed Continue to hold coumadin Received Vit K, INR 2.2 prior to surgery INR 1.5 Continue heparin bridge with coumadin Continue monitor PT/INR (4) Ulcerative colitis: S/p colectomy. Not currently on any medication. no GI symptoms Follows with GI in [place] (5) Primary malignant neoplasm of cecum: (6) Status post colectomy: Not on any chemo or radiation. Following for surveillance with [facility] oncology. Colostomy care per nursing (7) DVT (deep venous thrombosis): Doppler of LE showed nonocclusive deep venous thrombus within the bilateral popliteal veins. IV heparin drip bridge with coumadin Continue coumadin 5 mg daily INR 1.5 (8) Cryptogenic cirrhosis: Follows with [facility] GI group. Low-sodium diet, limit daily Tylenol to less than 2g Code status: FULL Dispo: PT OT evaluation Patient will need short term rehab Admission and Anticipated Discharge Date Admission Date: March 06, 2020 Subjective Pt was seen and examined Lying in bed with no distress Pt said that pain control with the pain med Denies any chest pain, palpitation, dizziness and SOB Physical Exam Physical Exam: General- No acute distress Head- atraumatic Eyes- PERRL, EOMI, ENT- oropharynx clear Neck- supple, no JVD Lungs- clear to auscultation Heart- regular rhythm; no murmur Abdomen- normal bowel sounds, soft, nontender Extremities- Right LE wrapped with dressing Neuro- alert, oriented x 3; PERRL, EOMI; no facial palsy; no dysarthria Skin- warm & dry Results & Data Results & Data ([facility]) Vital Signs (Past 12 Hours) Vital Signs Temp Pulse Pulse Resp BP Pulse Ox 03/20/20 15:36 37.1 C 53 L 18 127/40 L 98 03/20/20 11:36 37.2 C 55 L 20 133/55 L 94 03/20/20 07:52 37.5 C 56 L 20 156/57 H 98 (1) Ulcerative colitis Digestive disease complication type: with rectal bleeding Ulcerative colitis location: unspecified ulcerative colitis location Qualified Code(s): K51.911 - Ulcerative colitis, unspecified with rectal bleeding
[2020-03-20] MEDS: SENNA 8.6 MG TAB PO SCH (22:03)
[2020-03-20] MEDS: traMADol HCL 50 MG TABLET PO PRN (23:53)
[2020-03-20] MEDS: CEFTRIAXONE SODIUM IV SCH (23:53)
[2020-03-20] MEDS: DEXTROSE 5% IV SCH (23:53)
[2020-03-21 06:02] LABS: Basophils # (auto) 0.02 K/uL (0-0.2); Basophils % (auto) 0.2 %; Eosinophils # (auto) 0.23 K/uL (0-0.5); Eosinophils % (auto) 2.8 %; Hematocrit (blood only) 27.9 % (42-52); Hemoglobin 9.3 g/dL (14.0-18.0); Immature Granulocytes # (auto) 0.07 K/uL (0.00-0.02); Immature Granulocytes % (auto) 0.9 %; Lymphocytes # (auto) 1.29 K/uL (1.2-3.4); Lymphocytes % (auto) 15.9 %; Mean Corpuscular Hemoglobin 29.5 pg (25-34); Mean Corpuscular Hgb Conc 33.3 g/dL (32-36); Mean Corpuscular Volume 88.6 fL (80-100); Mean Platelet Volume 10.7 fL (7.4-10.4); Monocytes % (auto) 11.1 %; Neutrophils # (auto) 5.59 K/uL (1.4-6.5); Neutrophils % (auto) 69.1 %; Platelet Count 271 K/uL (130-400); RDW Coefficient of Variation 13.1 % (11.5-14.5); RDW Standard Deviation 42.1 fL (36.4-46.3); Red Blood Count 3.15 M/uL (4.7-6.1)
[2020-03-21 06:28] LABS: INR 2.4 (0.9-1.1); Partial Thromboplastin Ratio 2.6; Prothrombin Time 24.5 Seconds (9.0-12.0)
[2020-03-21 06:31] LABS: BUN Creatinine Ratio 23.4 (10-20); Calcium 8.2 mg/dl (8.5-10.1); Creatinine Clr Calc Pharmacy 66.1 ml/min; Est GFR (African American) 64.5; Est GFR (Non-African American) 55.7; Potassium 4.3 mmol/L (3.5-5.1)
[2020-03-21 06:32] LABS: Partial Thromboplastin Time 73.3 Seconds (21.0-31.0)
[2020-03-21] MEDS: ASCORBIC ACID 500 MG TAB PO SCH (08:23)
[2020-03-21] MEDS: ASPIRIN 81 MG ECTAB PO SCH (08:23)
[2020-03-21] MEDS: FERROUS SULFATE 325 MG TAB PO SCH (08:23)
[2020-03-21] MEDS: FUROSEMIDE 40 MG TAB PO SCH (08:23)
[2020-03-21] MEDS: MULTIVITAMIN TAB PO SCH (08:23)
[2020-03-21] MEDS: DOCUSATE SODIUM 100 MG CAP PO SCH ×2 (08:23→20:39)
[2020-03-21] MEDS: CHOLECALCIFEROL 1,000 UNITS 25 MCG TAB PO SCH (08:24)
--- NOTE | 2020-03-21 10:18 | Orthopedic Progress Note ---
Date of Service March 21, 2020 Assessment & Plan (1) Puncture wound of foot with foreign body: POD #4 s/p Repeat Right foot incision and drainage, deep plantar abscess, Irrigation and debridement, right plantar foot including skin, subcutaneous fat and fascia, Maintain antibiotic Stimulan beads Venous Doppler- Nonocclusive deep venous thrombus within the bilateral popliteal veins; managed by medical team, currently on Coumadin Remainder of packing was removed today, redressed. would recommend daily dressing changes, no further surgical intervention indicated at this time. He should follow up with Dr Warren team at [facility] in 12-14 days for re-evaluation and suture removal. Admission and Anticipated Discharge Date Admission Date: March 06, 2020 Subjective Pt was seen and examined Lying in bed with no distress Pt said that pain control with the pain med Denies any chest pain, palpitation, dizziness and SOB Physical Exam Physical Exam: Vital Signs Temp 36.9 C 03/21/20 07:21 Pulse 57 L 03/21/20 07:21 Resp 18 03/21/20 07:21 BP 145/55 H 03/21/20 07:21 Pulse Ox 97 03/21/20 07:21 Intake & Output 03/20/20 03/21/20 03/21/20 18:59 06:59 18:59 Intake Total 922.4 / 2651.067 1728.667 / 2651.06 7 40 / 40 Output Total 800 / 2126 1326 / 2126 Balance 122.4 / 525.067 402.667 / 525.067 40 / 40 Weight 108.4 kg Intake: IV 262.4 / 815.067 552.667 / 815.067 40 / 40 HEPARIN SODIUM /DEXTROSE 25,000 262.4 / 770.067 507.667 / 770.067 40 / 40 units In 500 m l @ 1,600 UNITS/ HR 32 mls/hr I V .[id number] SAHIL Rx #:[id number] Rocephin 2,000 mg In D5w 25 ml 45 / 45 @ 50 mls/hr IV Q24H SAHIL Rx#: [id number] Oral 660 / 1836 1176 / 1836 Output: Urine 600 / 1675 1075 / 1675 Stool 200 / 200 Gastric Drainage 250 / 250 Ileostomy/[place] stomy 250 / 250 # Bowel Movement s Other: Weight Measureme nt Method Built in [facility] Constitutional: WD/WN, vitals as above no acute distress Musculoskeletal: Dressings removed. Less darkened demarcation and more yellow slough type material with antibiotic beads underneath on the plantar wound. remaining packing was pulled this am. No overt drainage when removing the packing. No foul odors. Wound redressed with Xeroform, 4 x 4's, Kerlix, Иван wrap. Neurologic: normal touch/pain/proprioception Psychiatric: A+Ox3, euthymic affect Speech: normal rate/rhythm/volume of speech Results & Data ([facility]) Vital Signs (Past 12 Hours) Vital Signs Temp Pulse Pulse Resp BP Pulse Ox 03/21/20 07:21 36.9 C 57 L 18 145/55 H 97 03/21/20 03:06 37.2 C 46 L 19 121/63 96 03/21/20 00:42 42 L 03/20/20 23:32 37.5 C 50 L 21 129/54 L 98
[2020-03-21 13:00] LABS: Partial Thromboplastin Ratio 1.7
[2020-03-21 13:05] LABS: Partial Thromboplastin Time 48.5 Seconds (21.0-31.0)
[2020-03-21] MEDS: WARFARIN SOD 5 MG TAB PO SCH (16:26)
[2020-03-21] MEDS: traMADol HCL 50 MG TABLET PO PRN (17:40)
--- NOTE | 2020-03-21 17:53 | XRay Report ---
XR chest 1V portable CLINICAL HISTORY: PICC Placement COMPARISON STUDY: Chest radiograph March 14, 2019. FINDINGS: Tip of right PICC projects over the right atrium. The catheter could be withdrawn 3 cm to r each the distal SVC. There is no pneumothorax or pleural effusion. Mild cardiomegaly is unchanged. Th ere is no evidence for pulmonary edema. Possible mild left basilar opacity favors atelectasis IMPRESSION: Tip of right PICC projects over the right atrium. The catheter could be withdrawn 3 cm t o reach the distal SVC. ACT 112: Negative or not required by law. Electronically signed by: Juan Herzog M.D. 03/21/2020 5:52 PM
--- NOTE | 2020-03-21 18:26 | Hospitalist Progress Note ---
Date of Service March 21, 2020 Assessment & Plan (1) Puncture wound of foot with foreign body: (2) Cellulitis of right lower leg: Sepsis Present on admission with worsening right LE tenderness infected right foot wound WBC on admission 16K, C-reactive 20.5 and ESR 53 Had bedside debridement but reaccumulation of fluid at the wound bed noted-on next day Ortho on board s/p first Incision and Drainage large deep plantar Foot Abscess; Extensive debridement right plantar foot including-Skin, fascia, subcutaneous fat Wound culture on staph aureus MSSA and group B strep ID on board recommended to continue with IV Rocephin for 6 weeks Plan for second washout tomorrow with Dr. Warren as per ortho Ortho would like INR to be under 1.5 to proceed for the procedure Received Vit K last night and this morning 03/21 S/P day #4 repeat Incision and Drainage Right Foot Deep Plantar Abscess, irrigation debridement right plantar foot including skin/subcutaneous tissue/fascia, maintained antibiotic laden Stimulan beads (Right) performed by Dr. Warren Continue IV Rocephin for a total 6 weeks Consent signed for PICC line after discussed PICC line complications (he called his daughter before signing the consent and daughter said ok) Continue daily dressing change Case discussed with ortho no further surgical intervention indicated at this time. Follow up with Dr Warren team at [facility] in 12-14 days for re-evaluation and suture removal. Ok from orthopedic standpoint to discharge Waiting for placement to rehab Chronic diastolic CHF stable vol status Echo completed March 152018 showed an LVEF of 60 to 65%, grade 2 diastolic dysfunction, mild aortic valve sclerosis without significant stenosis. Continue Lasix PO Continue monitor BMP (3) Atrial fibrillation: New onset of afib on admission EKG showed Afib with rate control Cardiology on board Echo showed normal LV systolic function without regional wall motion abnormality. With ejection fraction 55 to 60%. Continue metoprolol 12.5 BID INR theraputic 6.8 today , Iv heparin D/c ed Coumadin was on hold due to supratherapeutic INR. Received Vit K prior to surgery INR 2.4 today IV heparin drip discontinued Continue coumadin Continue monitor PT/INR (4) Ulcerative colitis: S/p colectomy. Not currently on any medication. no GI symptoms Follows with GI in [place] (5) Primary malignant neoplasm of cecum: (6) Status post colectomy: Not on any chemo or radiation. Following for surveillance with [facility] oncology. Colostomy care per nursing (7) DVT (deep venous thrombosis): Doppler of LE showed nonocclusive deep venous thrombus within the bilateral popliteal veins. Was starting on heparin drip bridge, discontinued since INR therapeutic Continue coumadin, INR 2.4 Continue monitor PT/INR Outpatient Venous doppler on 02/02/[address] [facility] showed: Right LE right common femoral vein has phasic flow, is compressible and echolucent. Right femoral vein has phasic flow, is compressible and echolucent. Right popliteal vein has continuous flow, is partly compressible and echogenic. Right posterior tibial vein demonstrates evidence of thrombosis. Right peroneal vein demonstrates evidence of thrombosis. LEFT LOWER EXTREMITY Left common femoral vein has phasic flow, is compressible and echolucent. Left dist femoral vein has phasic flow, is partly compressible and echogenic. Left popliteal vein has phasic flow, is compressible and echolucent. Left posterior tibial vein demonstrates no evidence of thrombosis. Left peroneal vein demonstrates no evidence of thrombosis. (8) Cryptogenic cirrhosis: Follows with [facility] GI group. Low-sodium diet, limit daily Tylenol to less than 2g Code status: FULL Dispo: PT OT evaluation waiting for placement to rehab Admission and Anticipated Discharge Date Admission Date: March 06, 2020 Subjective Pt was seen and examined Lying in bed with no distress Pt said that he feels ok He said that pain is control with patient permission i spoke to his daughter's friend (Onelia) and provided update denies any chest pain, palpitation, dizziness and SOB Physical Exam Physical Exam: General- No acute distress Head- atraumatic Eyes- PERRL, EOMI, ENT- oropharynx clear Neck- supple, no JVD Lungs- clear to auscultation Heart- regular rhythm; no murmur Abdomen- normal bowel sounds, soft, nontender Extremities- Right LE wrapped with dressing, able to feel his toes Neuro- alert, oriented x 3; PERRL, EOMI; no facial palsy; no dysarthria Skin- warm & dry Results & Data Results & Data ([facility]) Vital Signs (Past 12 Hours) Vital Signs Temp Pulse Pulse Resp BP Pulse Ox 03/21/20 15:00 37.3 C 57 L 18 131/51 L 96 03/21/20 11:31 37.0 C 49 L 18 134/60 96 03/21/20 07:21 36.9 C 57 L 18 145/55 H 97 (1) Ulcerative colitis Digestive disease complication type: with rectal bleeding Ulcerative colitis location: unspecified ulcerative colitis location Qualified Code(s): K51.911 - Ulcerative colitis, unspecified with rectal bleeding
--- NOTE | 2020-03-21 18:28 | XRay Report ---
XR chest 1V portable CLINICAL HISTORY: right PICC tip confirmation after adjustment COMPARISON STUDY: Chest radiograph March 21, 2020 at 5:35 PM. FINDINGS: The right PICC is slightly obscured but likely projects over the cavoatrial junction. Mild cardiomegaly is noted. There is no evidence for pulmonary edema. There is no pneumothorax or pleural effusion. There is no consolidation. IMPRESSION: Tip of right PICC slightly obscured but likely projects over the cavoatrial junction. ACT 112: Negative or not required by law. Electronically signed by: Juan Herzog M.D. 03/21/2020 6:26 PM
[2020-03-21] MEDS: SENNA 8.6 MG TAB PO SCH (20:39)
[2020-03-21] MEDS: CEFTRIAXONE SODIUM IV SCH (22:25)
[2020-03-21] MEDS: DEXTROSE 5% IV SCH (22:25)
[2020-03-22] MEDS ORDERED: ACETAMINOPHEN 325 MG TAB PO PRN (07:35)
[2020-03-22] MEDS: DOCUSATE SODIUM 100 MG CAP PO SCH (07:56)
[2020-03-22] MEDS: ASPIRIN 81 MG ECTAB PO SCH (07:57)
[2020-03-22] MEDS: FERROUS SULFATE 325 MG TAB PO SCH (07:57)
[2020-03-22] MEDS: ASCORBIC ACID 500 MG TAB PO SCH (07:57)
[2020-03-22] MEDS: MULTIVITAMIN TAB PO SCH (07:57)
[2020-03-22] MEDS: CHOLECALCIFEROL 1,000 UNITS 25 MCG TAB PO SCH (07:57)
[2020-03-22] MEDS: FUROSEMIDE 40 MG TAB PO SCH (07:57)
[2020-03-22 08:26] LABS: Hematocrit (blood only) 28.9 % (42-52); Hemoglobin 9.4 g/dL (14.0-18.0); Mean Corpuscular Hemoglobin 29.2 pg (25-34); Mean Corpuscular Hgb Conc 32.5 g/dL (32-36); Mean Corpuscular Volume 89.8 fL (80-100); Mean Platelet Volume 10.8 fL (7.4-10.4); Platelet Count 286 K/uL (130-400); RDW Coefficient of Variation 13.2 % (11.5-14.5); Red Blood Count 3.22 M/uL (4.7-6.1); White Blood Count 6.83 K/uL (4.8-10.8)
[2020-03-22 08:43] LABS: INR 3.7 (0.9-1.1); Prothrombin Time 36.6 Seconds (9.0-12.0)
--- NOTE | 2020-03-22 10:37 | Hospitalist Progress Note ---
Date of Service March 22, 2020 Assessment & Plan (1) Puncture wound of foot with foreign body: (2) Cellulitis of right lower leg: Sepsis from Puncture wound of foot with foreign body with Cellulitis of right lower leg/foot s/p Right foot incision and drainage, deep plantar abscess, Irrigation and debridement, right plantar foot including skin, subcutaneous fat and fascia on 03/17/2020 Sepsis Present on admission with worsening right LE tenderness infected right foot wound WBC on admission 16K, C-reactive 20.5 and ESR 53 Had bedside debridement but reaccumulation of fluid at the wound bed noted on the next day -then had on 03/17/2020 s/p first Incision and Drainage large deep plantar Foot Abscess; Extensive debridement right plantar foot including-Skin, fascia, subcutaneous fat Wound culture on staph aureus MSSA and group B strep Infectious disease consult service recommended to continue with IV Ceftriaxone for 6 weeks -then on 03/21/2020 S/P repeat Incision and Drainage Right Foot Deep Plantar Abscess, irrigation debridement right plantar foot including skin/subcutaneous tissue/fascia, maintained antibiotic laden Stimulan beads (Right) performed by . -Orthopedic note on 03/21/2020 recommend daily dressing changes, no further surgical intervention indicated at this time. He should follow up with Dr Warren team at [facility] on [address] [facility], [place] [address] in 12 to 14 days for re-evaluation and suture removal. -Patient has PICC line to complete course of IV ceftriaxone 2000 mg daily for 6 weeks Chronic diastolic Congestive heart failure -Echo completed March 152018 showed an LVEF of 60 to 65%, grade 2 diastolic dysfunction, mild aortic valve sclerosis without significant stenosis. Continue Lasix PO (3) Atrial fibrillation: Atrial fibrillation on this admission (resolved) Asymptomatic Bradycardia -New onset of atrial fibrillation on admission, EKG showed Afib with rate control, Echo showed normal LV systolic function without regional wall motion abnormality. With ejection fraction 55 to 60%. -initially on metoprolol 12.5 BID but this was discontinued after initial admission days -The patient was bridged from heparin IV to warfarin 5 mg daily on this admission because of Nonocclusive deep venous thrombus within the bilateral popliteal veins. The INR goal is between 2 to 3. Patient's INR level at goal as 2.4 on 03/21/2020 but is elevated as 3.7 on 03/22/2020 as 3.7. Recommend that warfarin be held on 03/22/2020 and that INR be rechecked on 03/23/2020 and 03/24/2020. Start coumadin as 4 mg daily when INR is less than 3. -currently in sinus rhythm with asymptomatic bradycardia. no further beta blockers at this time. (4) DVT (deep venous thrombosis): Nonocclusive deep venous thrombus within the bilateral popliteal veins -Doppler of LE showed nonocclusive deep venous thrombus within the bilateral popliteal veins -management of warfarin as above (5) Cryptogenic cirrhosis: -Follows with [facility]. -Low-sodium diet, limit daily Tylenol to less than 2g Code status: FULL Dispo: Patient to be discharged on 03/22/2020 to [facility] in [place] with PICC line to continue IV ceftriaxone 2000 mg daily for 6 weeks Orthopedic note on 03/21/2020 recommend daily dressing changes, no further surgical intervention indicated at this time. He should follow up with Dr Warren team at [facility] on [address] [place] [address] in 12 to 14 days for re-evaluation and suture removal. The patient was bridged from heparin IV to warfarin 5 mg daily on this admission because of Nonocclusive deep venous thrombus within the bilateral popliteal veins. The INR goal is between 2 to 3. Patient's INR level at goal as 2.4 on 03/21/2020 but is elevated as 3.7 on 03/22/2020 as 3.7. Recommend that warfarin be held on 03/22/2020 and that INR be rechecked on 03/23/2020 and 03/24/2020. Start coumadin as 4 mg daily when INR is less than 3. Patient will need follow up to his usual primary care doctor when he is discharged from physical rehabilitation center for 6 weeks There is a scheduled appointment for his usual primary care doctor 05/09/2020 12:20 PM Provider Brennan Calles DO Department [facility] (6) Ulcerative colitis: Ulcerative colitis and Status post colectomy in the past -Not currently on any medication. -Follows with Gastroenterology with [facility] (7) Primary malignant neoplasm of cecum: (8) Status post colectomy: Primary malignant neoplasm of cecum Status post colectomy in the past -Not on any chemo or radiation. -Following for surveillance with [facility] oncology. -Colostomy care per nursing Admission and Anticipated Discharge Date Admission Date: March 06, 2020 Subjective -currently in sinus rhythm with asymptomatic bradycardia. no further beta blockers at this time. patient denies chest pain or shortness of breath or dizziness or headache. no abdomen pain. no nausea. the right foot in dressing Review of Systems Review of Systems: All systems reviewed & are unremarkable except as noted in Subjective Physical Exam Constitutional: cooperative and comfortable Eyes: PERRL, conjunctivae normal, anicteric sclerae EOM intact bilaterally ENMT: external ear and nose normal, oropharynx normal Neck: normal visual inspection Respiratory: normal respiratory effort, lungs clear to auscultation Cardiovascular: Rate/Rhythm: + bradycardic Gastrointestinal (Abdomen): Percussion/Palpation: abdomen soft (nontender) Musculoskeletal: Extremities: + lower leg abnormality (right foot in dressing) Neurologic: PERRL, EOMI, accommodation nl, no face palsy, no dysarthria Psychiatric: A+Ox3, euthymic affect Results & Data Results & Data ([facility]) Vital Signs (Past 12 Hours) Vital Signs Temp Pulse Pulse Resp BP BP Pulse Ox 03/22/20 07:24 36.7 C 47 L 52 L 20 135/57 L 99 03/22/20 03:00 36.9 C 46 L 18 123/53 L 96 03/22/20 00:00 74 (1) Ulcerative colitis Digestive disease complication type: with rectal bleeding Ulcerative colitis location: unspecified ulcerative colitis location Qualified Code(s): K51.911 - Ulcerative colitis, unspecified with rectal bleeding
--- NOTE | 2020-03-22 10:55 | Discharge Summary ---
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 Patient noticed redness and pain to bottom of right foot 4 days ago and was seen in primary care clinic. Provider they removed a partial toothpick from foot and prescribed 7-day course of doxycycline with follow-up. Pain has progressively worsened and patient noted that purple discoloration appeared as well as surrounding redness over the past day. Pain is currently 6 out of 10 and patient has begun to have difficulty ambulating coming with a cane. Patient denies any known diabetes. Not on blood thinners. No fever, chills or purulent drainage. No lightheadedness, visual changes, chest pain, shortness of breath, nausea, vomiting, abdominal pain, dysuria, diarrhea constipation. Principal Diagnosis Sepsis from Puncture wound of foot with foreign body with Cellulitis of right lower leg/foot s/p Right foot incision and drainage, deep plantar abscess, Irrigation and debridement, right plantar foot including skin, subcutaneous fat and fascia on 03/17/2020 Nonocclusive deep venous thrombus within the bilateral popliteal veins Atrial fibrillation on this admission (resolved) Asymptomatic Bradycardia Chronic diastolic Congestive heart failure History of Cryptogenic Cirrhosis Ulcerative colitis and Status post colectomy in the past Primary malignant neoplasm of cecum Status post colectomy in the past Discharge Exam Constitutional cooperative and comfortable Eyes PERRL, conjunctivae normal, anicteric sclerae EOM intact bilaterally ENMT external ear and nose normal, oropharynx normal Neck normal visual inspection Respiratory normal respiratory effort, lungs clear to auscultation Cardiovascular Rate/Rhythm: + bradycardic Gastrointestinal (Abdomen) Percussion/Palpation: abdomen soft (nontender) Musculoskeletal Extremities: + lower leg abnormality (right foot in dressing) Neurologic PERRL, EOMI, accommodation nl, no face palsy, no dysarthria Psychiatric A+Ox3, euthymic affect Discharge Data Allergies Allergy/AdvReac Type Severity Reaction Status Date / Time No Known Allergies Allergy Unverified 03/06/20 13:06 Consultations 03/06/20 14:20 ED Decision to Admit Stat 03/06/20 16:12 Consult Orthopedic Surgery Routine 03/06/20 23:38 Consult Cardiology Routine 03/08/20 14:40 Consult Wound Care Provider Routine 03/10/20 18:45 Consult Infectious Diseases Routine Procedures Performed Operation Date: 03/10/20 07:00 Actual Procedures p Right Incision and Drainage Plantar Foot Abcess; Extensive debridement-Skin fascia, Sucantaeous Fat fat; Application of Stimulan Beads(Right) - Miles Warren DO Operation Date: 03/17/20 10:30 Actual Procedures p Repeat Incision and Drainage Wash Out Right Foot Deep Plantar Abscess(Right) - Miles Warren DO Ordered Studies 03/08/20 09:10 CT foot RT wo con Routine 03/18/20 US arterial duplex LE BI Routine US venous doppler LE BI Stat Hospital Course (1) Puncture wound of foot with foreign body: (2) Cellulitis of right lower leg: Sepsis from Puncture wound of foot with foreign body with Cellulitis of right lower leg/foot s/p Right foot incision and drainage, deep plantar abscess, Irrigation and debridement, right plantar foot including skin, subcutaneous fat and fascia on 03/17/2020 Sepsis Present on admission with worsening right LE tenderness infected right foot wound WBC on admission 16K, C-reactive 20.5 and ESR 53 Had bedside debridement but reaccumulation of fluid at the wound bed noted on the next day -then had on 03/17/2020 s/p first Incision and Drainage large deep plantar Foot Abscess; Extensive debridement right plantar foot including-Skin, fascia, subcutaneous fat Wound culture on staph aureus MSSA and group B strep Infectious disease consult service recommended to continue with IV Ceftriaxone for 6 weeks -then on 03/21/2020 S/P repeat Incision and Drainage Right Foot Deep Plantar Abscess, irrigation debridement right plantar foot including skin/subcutaneous tissue/fascia, maintained antibiotic laden Stimulan beads (Right) performed by -Orthopedic note on 03/21/2020 recommend daily dressing changes, no further surgical intervention indicated at this time. He should follow up with Dr Warren team at [facility] on [address] [place] [address], [place] [address] in 12 to 14 days for re-evaluation and suture removal. -Patient has PICC line to complete course of IV ceftriaxone 2000 mg daily for 6 weeks Chronic diastolic Congestive heart failure -Echo completed March 152018 showed an LVEF of 60 to 65%, grade 2 diastolic dysfunction, mild aortic valve sclerosis without significant stenosis. Continue Lasix PO (3) Atrial fibrillation: Atrial fibrillation on this admission (resolved) Asymptomatic Bradycardia -New onset of atrial fibrillation on admission, EKG showed Afib with rate control, Echo showed normal LV systolic function without regional wall motion abnormality. With ejection fraction 55 to 60%. -initially on metoprolol 12.5 BID but this was discontinued after initial admission days -The patient was bridged from heparin IV to warfarin 5 mg daily on this admission because of Nonocclusive deep venous thrombus within the bilateral popliteal veins. The INR goal is between 2 to 3. Patient's INR level at goal as 2.4 on 03/21/2020 but is elevated as 3.7 on 03/22/2020 as 3.7. Recommend that warfarin be held on 03/22/2020 and that INR be rechecked on 03/23/2020 and 03/24/2020. Start coumadin as 4 mg daily when INR is less than 3. -currently in sinus rhythm with asymptomatic bradycardia. no further beta blockers at this time. (4) DVT (deep venous thrombosis): Nonocclusive deep venous thrombus within the bilateral popliteal veins -Doppler of LE showed nonocclusive deep venous thrombus within the bilateral popliteal veins -management of warfarin as above (5) Cryptogenic cirrhosis: -Follows with [facility] GI group. -Low-sodium diet, limit daily Tylenol to less than 2g Code status: FULL Dispo: Patient to be discharged on 03/22/2020 to [facility] in [place] with PICC line to continue IV ceftriaxone 2000 mg daily for 6 weeks Orthopedic note on 03/21/2020 recommend daily dressing changes, no further evans rgical intervention indicated at this time. He should follow up with Dr Warren team at [facility] on [address] [facility], [place] [address] in 12 to 14 days for re-evaluation and suture removal. The patient was bridged from heparin IV to warfarin 5 mg daily on this admission because of Nonocclusive deep venous thrombus within the bilateral popliteal veins. The INR goal is between 2 to 3. Patient's INR level at goal as 2.4 on 03/21/2020 but is elevated as 3.7 on 03/22/2020 as 3.7. Recommend that warfarin be held on 03/22/2020 and that INR be rechecked on 03/23/2020 and 03/24/2020. Start coumadin as 4 mg daily when INR is less than 3. Patient will need follow up to his usual primary care doctor when he is discharged from physical rehabilitation center for 6 weeks There is a scheduled appointment for his usual primary care doctor 05/09/2020 12:20 PM Provider Brennan Calles DO Department Family [facility] (6) Ulcerative colitis: Ulcerative colitis and Status post colectomy in the past -Not currently on any medication. -Follows with Gastroenterology with [place] (7) Primary malignant neoplasm of cecum: (8) Status post colectomy: Primary malignant neoplasm of cecum Status post colectomy in the past -Not on any chemo or radiation. -Following for surveillance with [facility] oncology. -Colostomy care per nursing Total Time Total Time Spent Total Time Spent (In Minutes): 40 minutes Total Time Includes: Examination of the Patient, Discharge Planning, Medication Reconciliation and Communication With Other Providers Discharge Plan Discharge Items Patient Disposition: Transfer Inpatient Rehab Fac Reason For Visit: RLE CELLULITIS, ? FB IN FOOT Discharge Diagnosis: Sepsis from Puncture wound of foot with foreign body with Cellulitis of right lower leg/foot s/p Right foot incision and drainage, deep plantar abscess, Irrigation and debridement, right plantar foot including skin, subcutaneous fat and fascia on 03/17/2020 Nonocclusive deep venous thrombus within the bilateral popliteal veins Atrial fibrillation on this admission (resolved) Asymptomatic Bradycardia Chronic diastolic Congestive heart failure History of Cryptogenic Cirrhosis Ulcerative colitis and Status post colectomy in the past Primary malignant neoplasm of cecum Status post colectomy in the past Condition on Discharge: Good Activity: As commented below Activity Comment: Offloading of right foot Non-emergency contact: Primary Care Provider Call non-emergency contact if: you have any medication questions Follow-up/Referrals: Brennan Calles DO [Primary Care Provider] - Diet: Low Sodium (2gm) Diet Comment: Low-sodium diet, limit daily Tylenol to less than 2g Addtl Attending Provider Instructions: Patient to be discharged on 03/22/2020 [facility] [place] with PICC line to continue IV ceftriaxone 2000 mg daily for 6 weeks Orthopedic note on 03/21/2020 recommend daily dressing changes, no further surgical intervention indicated at this time. He should follow up with Dr Warren team at [facility] on [address] [place] [address] in 12 to 14 days for re-evaluation and suture removal. The patient was bridged from heparin IV to warfarin 5 mg daily on this admission because of Nonocclusive deep venous thrombus within the bilateral popliteal veins. The INR goal is between 2 to 3. Patient's INR level at goal as 2.4 on 03/21/2020 but is elevated as 3.7 on 03/22/2020 as 3.7. Recommend that warfarin be held on 03/22/2020 and that INR be rechecked on 03/23/2020 and 03/24/2020. Start coumadin as 4 mg daily when INR is less than 3. Patient will need follow up to his usual primary care doctor when he is discharged from physical rehabilitation center There is a scheduled appointment for his usual primary care doctor 05/09/2020 12:20 PM Provider Brennan Calles Department [facility] Pending Studies at Discharge: No Stand-Alone Forms: My [facility] Skilled Items Patient informed of condition?: Yes DNR: No Discharge Level of Care: Acute rehab Communicable Disease: No Discharge Prognosis: Stable Lines: None and PICC Urinary Catheter: No Medications and DC Order Prescriptions: New aspirin 81 mg Tablet,Delayed Release (Dr/Ec) 81 mg PO DAILY 30 Days Qty: 30 RF: 0 tramadol 50 mg Tablet 25 mg PO Q6H PRN (Reason: pain) Qty: 10 RF: 0 sennosides [Senokot] 8.6 mg Tablet 17.2 mg PO HS 30 Days Qty: 60 RF: 0 docusate sodium 100 mg Capsule 100 mg PO BID 30 Days Qty: 60 RF: 0 warfarin 4 mg tablet 4 mg PO DAILY@1600 30 Days Qty: 30 RF: 0 polyethylene glycol 3350 [Miralax] 17 gram Powder In Packet 17 g PO DAILY PRN30 Days Qty: 0 RF: 0 tamsulosin 0.4 mg Capsule 0.4 mg PO QAM PRN30 Days Qty: 0 RF: 0 Continued furosemide 40 mg tablet 40 mg PO DAILY RF: 0 aspirin [Aspirin Low Dose] 81 mg Tablet,Delayed Release (Dr/Ec) 81 mg PO DAILY RF: 0 potassium chloride [Klor-Con M20] 20 mEq tablet,ER particles/crystals 20 meq PO DAILY RF: 0 ferrous sulfate 325 mg (65 mg iron) tablet 325 mg PO DAILY RF: 0 cholecalciferol (vitamin D3) [Vitamin D3] 25 mcg (1,000 unit) Tablet 25 mcg PO DAILY RF: 0 multivitamin Tablet 1 tab PO QAM RF: 0 ascorbic acid (vitamin C) [Vitamin C] 500 mg Tablet 1,000 mg PO DAILY RF: 0 Discontinued doxycycline hyclate 100 mg capsule 100 mg PO BID RF: 0 Discharge Orders: Discharge Order (Routine); Ordered 03/22/20 Ordered By: Khai Moran Admission Data Admit Date/Time: 03/06/20 14:43 Attending Provider: Khai Moran Admit Provider: Cesar Templeton Primary Care Provider: Brennan Calles Other Providers: Sophie Dowling ; Red Guerrero [facility] ; Roro Maxwell ; Cesar Templeton ; Miles Warren ; Soham Williamson ; Fabien Underwood ; Singh Hallman ; Ray Ace ; Arthur Pugh ; Jabari Hernandez ; Lorie Torres ; Inga Dalton ; Servando Cai ; Bret Winters ; John Jacobson ; Mary Alice Ortega ; Anurag Wright I. ; Miguel Angel Dye II ; Jessica Rae ; Jabari Batres
[2020-03-22] MEDS: traMADol HCL 50 MG TABLET PO PRN (11:00)
== END 2020-03-22 12:00 | DRG 854 ==
LOC: ED 11:40 → 3N 14:43 → SUATTDRO 14:43 → 3N 15:40 → 2N 20:54